=== PATIENT | female | born 1945 | race Caucasian/White ===

== ENCOUNTER 2020-02-14 08:03 | Outpatient (REF) | payer MEDICARE, SELFPAY ==
[2020-02-14 10:38] LABS: Anion Gap 14 (12-20); Blood Urea Nitrogen 20 mg/dL (9-16); Calcium 9.4 mg/dL (8.4-10.2); Carbon Dioxide 30 mmol/L (22-29); Chloride 101 mmol/L (96-108); Estimated Glomerular Filt Rate 36; Potassium 3.8 mmol/l (3.3-5.1); Sodium 141 mmol/L (135-145)
== END 2020-02-14 08:04 | disposition home or self-care (01) ==
LOC: HO.10HDL 08:03
PROVIDERS: Visit Provider Internal Medicine Hypertension Specialist
DX: I70.1 Atherosclerosis of renal artery (principal); I10 Essential (primary) hypertension
CPT/HCPCS: 80051; 82310; 82565; 84520

== ENCOUNTER 2020-06-03 10:34 | Outpatient (REF) | payer MEDICARE, SELFPAY ==
[2020-06-03 10:51] LABS: MANUAL DIFF FLAG NO
[2020-06-03 11:17] LABS: Basophils Absolute Auto 0.1 X10*3/uL (0.0-0.2); Basophils Percent Auto 0.8 % (0-2); Eosinophils Absolute Auto 0.5 X10*3/uL (0.0-0.4); Eosinophils Percent Auto 5.7 % (0-4); Hematocrit 42.2 % (37-47); Hemoglobin 13.5 g/dl (12.0-16.0); Imm Gran Abs Auto 0.02 X10*3/uL (0.00-0.03); Imm Gran Pct Auto 0.2 % (0.0-0.4); Lymphocytes Absolute Auto 2.7 X10*3/uL (1.2-4.9); Lymphocytes Percent Auto 33.1 % (20-40); Mean Corpuscular Hemoglobin 29.7 pg (27.0-33.0); Mean Platelet Volume 10.9 fL (9.4-12.3); Monocytes Absolute Auto 0.7 X10*3/uL (0.1-1.2); Neutrophils Absolute Auto 4.3 X10*3/uL (2.0-8.3); Neutrophils Percent Auto 52.2 % (45-73); Platelet Count 211 X10*3/uL (160-400); Red Blood Count 4.54 X10*6/uL (4.20-5.50); Red Cell Distribution Width 12.8 % (11.0-16.0); White Blood Count 8.3 X10*3/uL (4.8-10.8)
[2020-06-03 11:19] LABS: PLT ABN DIST A
[2020-06-03 12:39] LABS: Alanine Aminotransferase 12 U/L (0-31); Albumin Level 4.6 g/dL (3.5-5.0); Alkaline Phosphatase 86 U/L (39-117); Anion Gap 17 (12-20); Aspartate Amino Transferase 19 U/L (5-31); Bilirubin Total 0.7 mg/dL (0.0-1.0); Blood Urea Nitrogen 22 mg/dL (9-16); Calcium 9.5 mg/dL (8.4-10.2); Carbon Dioxide 26 mmol/L (22-29); Chloride 102 mmol/L (96-108); Cholesterol 196 mg/dL; Estimated Glomerular Filt Rate 35; Glucose Fasting 93 mg/dL (60-99); HDL Cholesterol 45 mg/dL; Iron 126 mcg/dL (30-160); LDL Cholesterol Calculated 112 mg/dl; Percent Iron Saturation 36 % (15-50); Sodium 141 mmol/L (135-145); Total Iron Binding Capacity 354 mcg/dL (228-428); Total Protein 7.6 g/dL (6.5-8.0); Triglycerides 198 mg/dL; Unsaturated Iron Binding 228 ug/dL
== END 2020-06-03 10:35 | disposition home or self-care (01) ==
LOC: HO.LNP 10:34
PROVIDERS: Visit Provider Internal Medicine
DX: Z00.00 Encounter for general adult medical examination without abnormal findings (principal); R79.89 Other specified abnormal findings of blood chemistry; I10 Essential (primary) hypertension; D50.9 Iron deficiency anemia, unspecified; E87.6 Hypokalemia
CPT/HCPCS: 80053; 80061; 83540; 85025

== ENCOUNTER 2020-06-10 15:00 | Outpatient (REF) | payer MEDICARE, SELFPAY ==
[2020-06-10 15:11] LABS: Glucose Urine UA NEG (NEG); Leukocyte Esterase Urine NEG (NEG); Nitrite Urine NEG (NEG); Specific Gravity - Urine 1.015 (1.005-1.025); Urine Blood NEG (NEG); Urine Ketones NEG (NEG); Urine Protein NEG (NEG-TRACE)
[2020-06-10 15:12] LABS: Appearance Urine CLEAR; Color Urine YELLOW
== END 2020-06-10 15:01 | disposition home or self-care (01) ==
LOC: HO.LNP 15:00
PROVIDERS: Visit Provider Internal Medicine
DX: Z00.00 Encounter for general adult medical examination without abnormal findings (principal); I10 Essential (primary) hypertension
CPT/HCPCS: 81003

== ENCOUNTER 2020-06-17 07:33 | Outpatient (REF) | payer MEDICARE, SELFPAY ==
[2020-06-17 10:41] LABS: Anion Gap 15 (12-20); Blood Urea Nitrogen 22 mg/dL (9-16); Calcium 9.7 mg/dL (8.4-10.2); Carbon Dioxide 31 mmol/L (22-29); Chloride 101 mmol/L (96-108); Estimated Glomerular Filt Rate 37; Potassium 3.9 mmol/L (3.3-5.1); Sodium 143 mmol/L (135-145)
== END 2020-06-17 07:34 | disposition home or self-care (01) ==
LOC: HO.10HDL 07:33
PROVIDERS: Absent Provider Internal Medicine; Visit Provider Internal Medicine Hypertension Specialist
DX: I10 Essential (primary) hypertension (principal); I70.1 Atherosclerosis of renal artery
CPT/HCPCS: 36415; 80051; 82310; 82565; 84520

== ENCOUNTER 2020-10-20 07:30 | Outpatient (REF) | payer MEDICARE, SELFPAY ==
[2020-10-20 10:49] LABS: Anion Gap 18 (12-20); Blood Urea Nitrogen 18 mg/dL (9-16); Carbon Dioxide 27 mmol/L (22-29); Chloride 102 mmol/L (96-108); Estimated Glomerular Filt Rate 36; Potassium 4.6 mmol/L (3.3-5.1); Sodium 142 mmol/L (135-145)
== END 2020-10-20 07:31 | disposition home or self-care (01) ==
LOC: HO.10HDL 07:30
PROVIDERS: PCP Internal Medicine; Visit Provider Internal Medicine Hypertension Specialist
DX: I15.0 Renovascular hypertension (principal); I70.1 Atherosclerosis of renal artery
CPT/HCPCS: 36415; 80051; 82310; 82565; 84520

== ENCOUNTER 2021-01-30 11:28 | Outpatient (REF) | payer MEDICARE, SELFPAY ==
[2021-01-30 12:15] LABS: Anion Gap 13 (12-20); Blood Urea Nitrogen 23 mg/dL (9-16); Calcium 9.6 mg/dL (8.4-10.2); Carbon Dioxide 30 mmol/L (22-29); Chloride 101 mmol/L (96-108); Estimated Glomerular Filt Rate 36; Potassium 4.2 mmol/L (3.3-5.1); Sodium 140 mmol/L (135-145)
== END 2021-01-30 11:29 | disposition home or self-care (01) ==
LOC: HO.LAB 11:28
PROVIDERS: PCP Internal Medicine; Referring Provider Internal Medicine; Visit Provider Internal Medicine Hypertension Specialist
DX: N18.32 Chronic kidney disease, stage 3b (principal); I70.1 Atherosclerosis of renal artery
CPT/HCPCS: 36415; 80051; 82310; 82565; 84520

== ENCOUNTER 2021-02-19 07:11 | Outpatient (REF) | payer MEDICARE, SELFPAY ==
--- NOTE | ~2021-02-19 | MM_ITS ---
EXAMINATION: BONE DENSITOMETRY CLINICAL INDICATION: Osteopenia. COMPARISON: Baseline BD dated 06/28/2018. TECHNIQUE: Using a 21GRAMS DXA System (software version: 13.1) manufactured by [employer] dual-energy x-ray absorptiometry was performed of the lumbar spine and left hip. The images are of good technical quality. Summary results are attached. FINDINGS: AP SPINE L1-L4: Current: BMD 1.155 g/cm2, Z-score 2.2, T-score -0.2, normal, 3.1% decrease from baseline (<5% change is not significant). Baseline: BMD 1.192 g/cm2. LEFT FEMUR, NECK: Current: BMD 0.694 g/cm2, Z-score -0.1, T-score -2.5, osteoporosis. Baseline: BMD 0.700 g/cm2. LEFT FEMUR, TOTAL: Current: BMD 0.842 g/cm2, Z-score 1.0, T-score -1.3, osteopenia, 4.9% decrease from baseline (<5% change is not significant). Baseline: BMD 0.885 g/cm2. IDENTIFIED RISK FACTORS: Renal, height loss, menopause, bilateral oophorectomy. HISTORY OF FRACTURE: None listed. MEDICATIONS: Vitamin D. MM/XR DEXA axial skeleton IMPRESSION: 1. DIAGNOSIS: Osteoporosis based on the lowest T-score value of -2.5 in the femoral neck applying World Health Organization criteria. 2. 10-YEAR FRACTURE RISK PREDICTION, FRAX: According to the guidelines, FRAX calculation should only be performed on patients in the osteopenia bone density category. 3. Treatment Recommendations: NOF guidelines recommend consideration for treatment in postmenopausal women and men age 50 and older presenting with the following: -A hip or vertebral (clinical or morphometric) fracture. -T-score less than or equal to -2.5 at the femoral neck or spine after appropriate evaluation to exclude secondary causes. -Low bone mass at the hip or spine and a 10-year fracture probability by FRAX of greater than or equal to 3% for hip fracture or greater than or equal to 20% for major osteoporotic fracture based on the [place] adapted WHO algorithm. 4. Other Recommendations: All treatment decisions require clinical judgment and consideration of individual patient factors, including patient preferences, comorbidities, previous drug use, risk factors not captured in the FRAX model (e.g. frailty, falls, vitamin D deficiency, increased bone turnover, interval significant decline in bone density) and possible under or overestimation of fracture risk by FRAX. Additional medical evaluation for secondary cause of low bone mineral density may be appropriate. FUTURE SCAN RECOMMENDATION: People with diagnosed cases of osteoporosis or at high risk for fracture should have regular bone mineral density tests. For patients eligible for Medicare, routine testing is allowed once every 2 years. The testing frequency can be increased to one year for patients who have rapidly progressing disease, those who are receiving or discontinuing medical therapy to restore bone mass, or have additional risk factors.
--- NOTE | ~2021-02-19 | MM_ITS ---
EXAMINATION: MM SCREENING DIGITAL BREAST TOMOSYNTHESIS, BILATERAL CLINICAL INFORMATION: Screening. Asymptomatic. The lifetime risk of breast cancer based on the Tyrer-Cuzick Model is 1.0%. COMPARISON: Mammography: Craniocaudal views only from study of 05/12/2010 TECHNIQUE: Digital breast tomosynthesis is performed in both the craniocaudal and mediolateral oblique views along with computer-aided detection (CAD). Synthesized 2D images are generated from the tomosynthesis. FINDINGS: There are scattered areas of fibroglandular density (ACR BI-RADS breast composition Category b). There is question of density about the inferior aspect of the right breast; however, on tomosynthesis views this is seen to represent normal parenchyma. On craniocaudal view only of the left breast deep medial aspect approximately 7 cm from the nipple, there is a region of asymmetric density with a few circumscribed densities associated with this for which spot compression view and possible ultrasound is recommended. No suspicious grouping of microcalcifications. MM/MM tomosynthesis screening BI IMPRESSION: Left breast asymmetric density deep medial aspect for further evaluation as described. ASSESSMENT: BI-RADS 0: Incomplete - Need Additional Imaging Evaluation RECOMMENDATION: 1. Additional views of the left breast with spot compression views in craniocaudal and craniocaudal rolled views. 2. Targeted ultrasound if warranted after review of the additional views. 3. Radiology department staff will contact the patient for additional imaging. This patient's information was entered into a reminder system with a target due date for their next mammogram.
== END 2021-02-19 07:12 | disposition home or self-care (01) ==
LOC: HO.MAMMO 07:11
PROVIDERS: Visit Provider Internal Medicine
DX: Z12.31 Encounter for screening mammogram for malignant neoplasm of breast (principal); Z13.820 Encounter for screening for osteoporosis; M81.0 Age-related osteoporosis without current pathological fracture; M85.80 Other specified disorders of bone density and structure, unspecified site; Z78.0 Asymptomatic menopausal state; Z90.722 Acquired absence of ovaries, bilateral; Z79.899 Other long term (current) drug therapy
CPT/HCPCS: 77063; 77067; 77080

== ENCOUNTER 2021-02-24 08:50 | Outpatient (REF) | payer MEDICARE, SELFPAY ==
--- NOTE | ~2021-02-24 | MM_ITS ---
EXAMINATION: MM DIAGNOSTIC DIGITAL BREAST TOMOSYNTHESIS, LEFT CLINICAL INFORMATION: Recall from screening for question of asymmetric density deep left breast limited to CC view. COMPARISON: Mammography: 02/19/2021, 05/12/2010 TECHNIQUE: Digital breast tomosynthesis is performed. 2D images are generated from the tomosynthesis. The following views are obtained: MLO, rolled CC x2, spot CC x2 FINDINGS: There are scattered areas of fibroglandular density (ACR BI-RADS breast composition Category b). Additional views show normal background stromal markings and fibroglandular densities. There is no mass or architectural abnormality or suspicious density from remote prior exam 2010. Results are discussed with the patient at time of visit. Recommend digital breast tomosynthesis in 12 months. MM/MM tomosynthesis added views L IMPRESSION: Additional views left breast show no suspicious finding. ASSESSMENT: BI-RADS 2: Benign RECOMMENDATION: Routine annual mammography screening. This patient's information was entered into a reminder system with a target due date for their next mammogram.
== END 2021-02-24 08:51 | disposition home or self-care (01) ==
LOC: HO.MAMMO 08:50
PROVIDERS: Visit Provider Internal Medicine
DX: N64.89 Other specified disorders of breast (principal)
CPT/HCPCS: 77061; 77065

== ENCOUNTER 2021-03-27 10:51 | Emergency (ER) | payer MEDICARE, SELFPAY ==
--- NOTE | ~2021-03-27 | CT_ITS ---
EXAMINATION: CT ABDOMEN AND PELVIS WITH CONTRAST CLINICAL INFORMATION: Lower abdominal pain COMPARISON: Previous CT of the abdomen and pelvis most recent August 2017 TECHNIQUE: Multidetector volumetric images were obtained from the superior aspect of the liver through the pubic symphysis following administration 85 mL of Omnipaque 350 intravenous contrast. Sagittal and coronal reformatted images were obtained on the technologist's workstation. Oral contrast: Yes This CT examination was performed using dose optimization techniques as appropriate, variously including the following: *Automated exposure control *Adjustment of mA and/or kV according to patient size (this includes techniques or standardized protocols for targeted exams where dose is matched to indication/reason for exam; i.e. extremities or head) *Use of iterative reconstruction technique DLP: 325 mGy-cm FINDINGS: LUNG BASES: The visualized lung bases are unremarkable. LIVER, GALLBLADDER, AND BILIARY TREE: The liver is normal in size, shape, and attenuation. No focal hepatic lesion or biliary ductal dilatation is present. The gallbladder has been removed. There is no intrahepatic biliary duct dilatation. Common bile duct is dilated measuring up to 1.5 cm. The 2015 exam and may be normal post stent. PANCREAS: Unremarkable. SPLEEN: Unremarkable. ADRENAL GLANDS: Unremarkable. KIDNEYS AND URETERS: The kidneys are normal in size, shape, and attenuation. No hydronephrosis, hydroureter, or calculi seen. No perinephric stranding. BLADDER: Not optimally distended. GASTROINTESTINAL TRACT: The colon is slightly dilated and filled with stool suggestive of constipation and fecal infection. There are surgical clips lower sigmoid colon or upper rectum and surgical clips in the cecum. The appendix is not seen and has presumably been removed. The small bowel is normal. The stomach is normal. ABDOMINAL WALL: No significant hernia is appreciated. LYMPH NODES: Normal. VASCULAR: There is evidence of atherosclerotic disease. No aneurysm is seen. PELVIC VISCERA: Unremarkable. OSSEOUS STRUCTURES: There are degenerative changes of the spine. CT/CT abdomen pelvis w con IMPRESSION: Dilated stool-filled colon suggestive of severe constipation and fecal impaction. Postcholecystectomy. Dilated common bile duct similar to 2015 exam. This may be normal cholecystectomy. Correlation with liver function tests recommended. Fleischner guidelines were followed.
[2021-03-27 10:58] VITALS: BP 189/68; PULSE 65; RESP 18; TEMP 36.9; O2SAT 100; BMI 20.8
[2021-03-27 11:29] LABS: MANUAL DIFF FLAG NO
[2021-03-27 11:32] LABS: Appearance Urine CLEAR; Color Urine STRAW; Glucose Urine UA NEG (NEG); Leukocyte Esterase Urine TRACE (NEG); Nitrite Urine NEG (NEG); PH 7.5 (5.0-8.0); UACC Culture Trigger YES; Urine Blood NEG (NEG); Urine Ketones NEG (NEG); Urine Protein NEG (NEG-TRACE)
[2021-03-27 11:43] LABS: Basophils Absolute Auto 0.1 X10*3/uL (0.0-0.2); Eosinophils Absolute Auto 0.4 X10*3/uL (0.0-0.4); Eosinophils Percent Auto 3.9 % (0-4); Hematocrit 39.5 % (37.0-47.0); Hemoglobin 13.1 g/dl (12.0-16.0); Imm Gran Abs Auto 0.02 X10*3/uL (0.00-0.03); Imm Gran Pct Auto 0.2 % (0.0-0.4); Lymphocytes Absolute Auto 2.6 X10*3/uL (1.2-4.9); Lymphocytes Percent Auto 28.4 % (20-40); Mean Corpuscular HGB Conc 33.2 g/dl (31.0-35.0); Mean Corpuscular Hemoglobin 30.3 pg (27.0-33.0); Mean Corpuscular Volume 91.2 fL (80.0-98.0); Monocytes Absolute Auto 0.6 X10*3/uL (0.1-1.2); Monocytes Percent Auto 6.9 % (2-11); Neutrophils Absolute Auto 5.4 x10*3/uL (2.0-8.3); Neutrophils Percent Auto 59.6 % (45-73); Platelet Count 202 X10*3/uL (160-400); Red Blood Count 4.33 X10*6/uL (4.20-5.50); Red Cell Distribution Width 12.4 % (11.0-16.0); White Blood Count 9.1 X10*3/uL (4.8-10.8)
[2021-03-27 11:45] LABS: RBC Urine 0-2 /HPF (0); WBC Urine 0-2 /HPF (0-4)
[2021-03-27 11:48] LABS: COVID-19 Test Negative (Negative)
[2021-03-27 11:49] LABS: Alanine Aminotransferase 9 U/L (0-31); Albumin Level 4.6 g/dL (3.5-5.0); Alkaline Phosphatase 81 U/L (39-117); Anion Gap 12 (12-20); Aspartate Amino Transferase 20 U/L (5-31); Bilirubin Direct 0.2 mg/dL (0.0-0.5); Bilirubin Total 0.4 mg/dL (0.0-1.0); Blood Urea Nitrogen 21 mg/dL (9-16); Calcium 9.9 mg/dL (8.4-10.2); Carbon Dioxide 32 mmol/L (22-29); Chloride 103 mmol/L (96-108); Creatinine Clr Calc Pharmacy 21.3; Estimated Glomerular Filt Rate 33; Glucose Random 109 mg/dL (60-115); Potassium 4.4 mmol/L (3.3-5.1); Sodium 143 mmol/L (135-145); Total Protein 7.8 g/dL (6.5-8.0)
[2021-03-27 13:47] LABS: Lipase 96 U/L (8-78)
[2021-03-27 15:02] VITALS: BP 177/66; PULSE 61; RESP 98; TEMP 36.7; O2SAT 98
[2021-03-27 16:00] VITALS: BP 169/62; PULSE 62; RESP 16; TEMP 36.9; O2SAT 95
[2021-03-27] MEDS: Barium Sulfate Oral (Mocha) 450 ML ORAL.SUSP 900 ML PO (16:22)
--- NOTE | 2021-03-27 18:05 | ED.ABDPAIN ---
HPI - Abdominal Pain General Chief Complaint: Abdominal Pain Stated Complaint: abd pain Time Seen by Provider: 03/27/21 12:12 Source: patient Mode of arrival: ambulatory Limitations: no limitations History of Present Illness HPI narrative: 75-year-old female who presents emergency department for evaluation of abdominal pain. Patient states she has been having abdominal pain since 02/16/2021. She states that the abdominal pain comes on daily at around 3:00 a.m. in the morning and last least until 630 in the morning. She points to her left lower quadrant and left upper quadrant area when asked to localize the pain. She describes the pain is a pressure-like pain with a cramping sensation. She states that the pain can be intense an 8/10 at its worst. She states the pain got worse over the last week. She states that this morning the pain started around noon and has been constant. She had no nausea, vomiting, fever, chills, frequency, urgency or dysuria. Patient states that she has a bowel movement every day and she uses prunes and cucumbers to help keep herself regular. Patient was concerned that her pain was constant therefore she came to the emergency department for evaluation. She did talk to her PCP prior to coming to the emergency department he recommended a CT scan with oral contrast only since he was concerned that IV contrast might hurt her kidneys. Related Data Allergies Allergy/AdvReac Type Severity Reaction Status Date / Time acetaminophen [Percocet] Allergy Unknown Unknown Verified 03/27/21 11:10 amoxicillin [AMOXICILLIN] Allergy Unknown NAUSEA Unverified 11/22/19 16:39 aspirin [ASA] Allergy Unknown FEELING OF Unverified 11/22/19 16:39 PEPPER ON TONGUE atorvastatin [ATORVASTATIN] Allergy Unknown FEELING OF Unverified 11/22/19 16:39 PEPPER ON TONGUE fluconazole [FLUCONAZOLE] Allergy Unknown FEELING OF Unverified 11/22/19 16:39 PEPPER ON TONGUE Iodinated Contrast Media Allergy Unknown Unknown Verified 03/27/21 11:10 [Contrast Dye] irbesartan [IRBESARTAN] Allergy Unknown SORE Unverified 11/22/19 16:39 TONGUE,GERD lisinopril [LISINOPRIL] Allergy Unknown COUGH Unverified 11/22/19 16:39 metronidazole [Flagyl] Allergy Unknown Unknown Verified 03/27/21 11:10 morphine [MORPHINE] Allergy Unknown HIVES Unverified 11/22/19 16:39 oxycodone [OXYCODONE] Allergy Unknown RASH Unverified 11/22/19 16:39 pepper (genus Capsicum) Allergy Unknown SENSITIVE Unverified 11/22/19 16:39 [PEPPER] TO [id number] Reductase Allergy Unknown TONGUE Unverified 11/22/19 16:39 Inhibitor SWELLING [[id number] REDUCTASE INHIBITOR] tetracycline Allergy Unknown Unknown Verified 03/27/21 11:10 lorazepam [From ATIVAN] AdvReac Unknown HALLUCINATI Unverified 11/22/19 16:39 ONS Tetracyclines [TETRACYCLINES] AdvReac Unknown SHAKES Unverified 11/22/19 16:39 ativan Allergy Unknown hallucinati Uncoded 05/09/17 00:00 ons flagyl Allergy Unknown rash Uncoded 05/09/17 00:00 From FLAGYL Allergy Unknown RASH Uncoded 11/22/19 16:39 oxycodone Allergy Unknown hives Uncoded 05/09/17 00:00 tetracycline Allergy Unknown shaky Uncoded 05/09/17 00:00 Review of Systems Review of Systems Yes all other systems are reviewed and are negative Physical Exam Vital Signs: Vital Signs: Last Vital Signs Temp 98.4 F 03/27/21 16:00 Pulse 62 03/27/21 16:00 Resp 16 03/27/21 16:00 BP 169/62 H 03/27/21 16:00 Pulse Ox 95 03/27/21 16:00 BMI result Body Mass Index 20.8 Const: General: cooperative and no acute distress Orientation/consciousness: oriented to person and oriented to place Limitations: no limitations HENMT: Head: Yes normal to inspection, Yes normocephalic and Yes atraumatic Ears: external ears normal General nose exam: Normal external nose present Face and sinus: Yes normal facial exam Mouth: Normal oral and palatal mucosa present Throat: Yes posterior oropharynx normal Eyes: General: appearance normal, both eyes and all related structures Pupils: Equal, round and reactive pupils present Neck: Neck: Yes normal visual inspection, Yes no lymphadenopathy, Yes trachea midline and Yes supple Chest: Chest palpation & inspection: normal inspection of the chest and normal palpation of entire chest wall Resp: Effort & Inspection: normal respiratory effort and able to speak in complete sentences Auscultation: clear to auscultation bilaterally Cardio: Rate: regular rate Rhythm: regular rhythm Heart sounds: S1 normal heart sound present, S2 normal heart sound present and no murmurs GI: Inspection: Yes normal to inspection Palpation (GI): Soft to palpation, Tenderness to palpation present (GI) in the LLQ (Mild) and in the RUQ (Mild) and no guarding Auscultation: normal bowel sounds : General: Yes no CVA tenderness Back/Spine/Pelvis: Back: no CVA tenderness Skin: General skin exam: no rashes or lesions noted Neuro: General: oriented to person and oriented to place Cranial nerves: Yes CN's II-XII intact bilaterally and Yes Equal, round and reactive pupils present Cognition (Neuro): normal cognition Motor exam (neuro): 5/5 motor strength present throughout Extrem: General: Yes normal to inspection Psych: Appearance: grossly normal Speech and movement: Normal speech and movement present Affect: normal affect Attitude: cooperative Thought process: Normal thought process present Thought content: Normal thought content present Course Course Course Narrative: 75-year-old female who presents emergency department for evaluation intermittent abdominal pain since 02/16/2021, the pain seems to start in the early childhood associate and last 3-4 hours and then resolves. The patient states the pain is been constant over the past week and has been more severe pain. She states that she is moving her bowels daily secondary to a regimen eating prunes and cucumbers. Initial vital signs revealed an elevated blood pressure of 180/68 otherwise were unremarkable. The patient's physical examination did reveal left upper and left lower quadrant tenderness. Laboratory evaluation was unremarkable. Urinalysis was negative. COVID-[address] scan of the abdomen pelvis with oral contrast only was interpreted by the radiologist as follows: Dilated stool-filled colon suggestive of severe constipation and fecalimpaction. Postcholecystectomy. Dilated common bile duct similar to 2015 exam. This may be normal cholecystectomy. Correlation with liver function tests recommended. Given this finding, I suspect patient's pain may be secondary to severe constipation I did discuss this with her. She was advised to take Metamucil twice a day and to increase her fluid intake. She is to follow-up with her PCP for further management. MDM - Abdominal Pain Lab Data Result diagrams: 03/27/21 11:21 03/27/21 11:21 Labs: Lab Results 01/21/22 01/21/22 01/21/22 Range/Units 11:20 11:20 11:21 WBC 9.1 (4.8-10.8) X10*3/uL RBC 4.33 (4.20-5.50) X10*6/uL Hgb 13.1 (12.0-16.0) g/dl Hct 39.5 (37.0-47.0) % MCV 91.2 (80.0-98.0) fL MCH 30.3 (27.0-33.0) pg MCHC 33.2 (31.0-35.0) g/dl RDW 12.4 (11.0-16.0) % Plt Count 202 (160-400) X10*3/uL MPV 10.0 (9.4-12.3) fL Immature Gran % (Auto) 0.2 (0.0-0.4) % Neut % (Auto) 59.6 (45-73) % Lymph % (Auto) 28.4 (20-40) % [place] % (Auto) 6.9 (2-11) % Eos % (Auto) 3.9 (0-4) % Baso % (Auto) 1.0 (0-2) % Lymph # (Auto) 2.6 (1.2-4.9) X10*3/uL [place] # (Auto) 0.6 (0.1-1.2) X10*3/uL Eos # (Auto) 0.4 (0.0-0.4) X10*3/uL Baso # (Auto) 0.1 (0.0-0.2) X10*3/uL Abs Immat Gran (auto) 0.02 (0.00-0.03) X10*3/uL Absolute Neuts (auto) 5.4 (2.0-8.3) x10*3/uL Absolute Nucleated RBC 0.000 (0.0-0.012) X10*3/uL Nucleated RBC % (auto) 0.0 (0.0-0.2) /100WBC Sodium (135-145) mmol/L Potassium (3.3-5.1) mmol/L Chloride (96-108) mmol/L Carbon Dioxide (22-29) mmol/L Anion Gap (12-20) BUN (9-16) mg/dL Creatinine (0.5-1.4) mg/dL Estim Creat Clear Calc Estimated GFR Random Glucose (60-115) mg/dL Calcium (8.4-10.2) mg/dL Total Bilirubin (0.0-1.0) mg/dL Direct Bilirubin (0.0-0.5) mg/dL AST (5-31) U/L ALT (0-31) U/L Alkaline Phosphatase (39-117) U/L Total Protein (6.5-8.0) g/dL Albumin (3.5-5.0) g/dL Lipase (8-78) U/L Urine Color STRAW Urine Appearance CLEAR Urine pH 7.5 (5.0-8.0) Ur Specific [place] 1.010 (1.005-1.025) Urine Protein NEG (NEG-TRACE) MG/DL Urine Glucose (UA) NEG (NEG) MG/DL Urine Ketones NEG (NEG) MG/DL Urine Blood NEG (NEG) Urine Nitrite NEG (NEG) Ur Leukocyte Esterase TRACE H (NEG) Urine RBC 0-2 (0) /HPF Urine WBC 0-2 (0-4) /HPF Ur Squamous Epith Cells NONE /LPF Urine Bacteria NONE /LPF COVID-19 ([facility]) Negative (Negative) COVID-19 Clin Com See Note 03/27/21 Range/Units 11:21 WBC (4.8-10.8) X10*3/uL RBC (4.20-5.50) X10*6/uL Hgb (12.0-16.0) g/dl Hct (37.0-47.0) % MCV (80.0-98.0) fL MCH (27.0-33.0) pg MCHC (31.0-35.0) g/dl RDW (11.0-16.0) % Plt Count (160-400) X10*3/uL MPV (9.4-12.3) fL Immature Gran % (Auto) (0.0-0.4) % Neut % (Auto) (45-73) % Lymph % (Auto) (20-40) % [place] % (Auto) (2-11) % Eos % (Auto) (0-4) % Baso % (Auto) (0-2) % Lymph # (Auto) (1.2-4.9) X10*3/uL [place] # (Auto) (0.1-1.2) X10*3/uL Eos # (Auto) (0.0-0.4) X10*3/uL Baso # (Auto) (0.0-0.2) X10*3/uL Abs Immat Gran (auto) (0.00-0.03) X10*3/uL Absolute Neuts (auto) (2.0-8.3) x10*3/uL Absolute Nucleated RBC (0.0-0.012) X10*3/uL Nucleated RBC % (auto) (0.0-0.2) /100WBC Sodium 143 (135-145) mmol/L Potassium 4.4 (3.3-5.1) mmol/L Chloride 103 (96-108) mmol/L Carbon Dioxide 32 H (22-29) mmol/L Anion Gap 12 (12-20) BUN 21 H (9-16) mg/dL Creatinine 1.51 H (0.5-1.4) mg/dL Estim Creat Clear Calc 21.3 Estimated GFR 33 Random Glucose 109 (60-115) mg/dL Calcium 9.9 (8.4-10.2) mg/dL Total Bilirubin 0.4 (0.0-1.0) mg/dL Direct Bilirubin 0.2 (0.0-0.5) mg/dL AST 20 (5-31) U/L ALT 9 (0-31) U/L Alkaline Phosphatase 81 (39-117) U/L Total Protein 7.8 (6.5-8.0) g/dL Albumin 4.6 (3.5-5.0) g/dL Lipase 96 H (8-78) U/L Urine Color Urine Appearance Urine pH (5.0-8.0) Ur Specific [place] (1.005-1.025) Urine Protein (NEG-TRACE) MG/DL Urine Glucose (UA) (NEG) MG/DL Urine Ketones (NEG) MG/DL Urine Blood (NEG) Urine Nitrite (NEG) Ur Leukocyte Esterase (NEG) Urine RBC (0) /HPF Urine WBC (0-4) /HPF Ur Squamous Epith Cells /LPF Urine Bacteria /LPF COVID-19 ([facility]) (Negative) COVID-19 Clin Com Discharge Plan Discharge Clinical Impression: Constipation Qualifiers: Constipation type: other constipation type Qualified Code(s): K59.09 - Other constipation Abdominal pain Qualifiers: Abdominal location: left lower quadrant Qualified Code(s): R10.32 - Left lower quadrant pain Patient Disposition: Home, Self-Care Instructions: Constipation (ED) Additional Instructions: Your blood work was unremarkable. Your COVID-[address] test was [address] The CT scan of your abdomen pelvis with oral contrast only did not reveal a clear cause for your abdominal pain except that you are very constipated. Take Metamucil 1 tsp in 8 oz of water twice a day. Increase your fiber intake. Follow-up with your doctor in 2 days. Please return to the emergency department if your symptoms get worse or if you develop any symptoms that are concerning to you. [facility] Past Medical History [facility] Narrative: Past will history: Colon cancer, cerebral aneurysm, renal stenosis, hypertension. Past surgical history: Cholecystectomy, renal stent, bilateral oophorectomy, colon cancer resection. Social history: The patient is a former smoker and she quit 30 years prior, she states she smoked for 30 years. She drinks alcohol occasionally. She denies drug use. Medical History Afib HTN (hypertension) Joint pain Social History Social History Patient Tobacco Use Status: Never used Tobacco Advance Directives: No Advance Directives Information Provided: No
== END 2021-03-27 19:17 | disposition home or self-care (01) ==
PROVIDERS: Emergency Provider Emergency Medicine Emergency Medical Services; PCP Internal Medicine
DX: K59.09 Other constipation (principal); R10.32 Left lower quadrant pain; Z20.822 Contact with and (suspected) exposure to COVID-19; I48.91 Unspecified atrial fibrillation; I10 Essential (primary) hypertension
CPT/HCPCS: 74177; 80053; 81001; 82248; 83690; 85025; 87086; 87635; 99284

== ENCOUNTER 2021-05-06 09:38 | Day surgery (SDC) | payer MEDICARE, SELFPAY ==
--- NOTE | 2021-05-05 13:00 | HO.ANESPROP2 ---
Documented by User: Dorothy Alonzo NP 05/05/21 13:05 HPI - Anesthesia Eval Consult details Narrative: 75yo F for Colonoscopy Plavix for afib? *Multiple Med Allergies* PMFSH Past Medical History Medical History Afib HTN (hypertension) Joint pain Social History Social History Patient Tobacco Use Status: Former Tobacco user Tobacco use type: Cigarette Smoked in Last 30 Days: No Use of substances other than those prescribed or required for medical reasons: No Are you DNR?: No Advance Directives: No Advance Directives Information Provided: Yes Recently lost weight without trying: No Nutrition Risks: No Nutritional Risk Meds Allergies Allergy/AdvReac Type Severity Reaction Status Date / Time acetaminophen [Percocet] Allergy Unknown Unknown Verified 03/27/21 11:10 amoxicillin [AMOXICILLIN] Allergy Unknown NAUSEA Verified 05/06/21 10:35 aspirin [ASA] Allergy Unknown FEELING OF Verified 05/06/21 10:35 PEPPER ON TONGUE atorvastatin [ATORVASTATIN] Allergy Unknown FEELING OF Verified 05/06/21 10:35 PEPPER ON TONGUE fluconazole [FLUCONAZOLE] Allergy Unknown FEELING OF Verified 05/06/21 10:35 PEPPER ON TONGUE Iodinated Contrast Media Allergy Unknown Unknown Verified 03/27/21 11:10 [Contrast Dye] irbesartan [IRBESARTAN] Allergy Unknown SORE Verified 05/06/21 10:35 TONGUE,GERD lisinopril [LISINOPRIL] Allergy Unknown COUGH Verified 05/06/21 10:35 metronidazole [Flagyl] Allergy Unknown Rash Verified 05/05/21 12:35 morphine [MORPHINE] Allergy Unknown HIVES Verified 05/06/21 10:35 oxycodone [OXYCODONE] Allergy Unknown RASH Verified 05/06/21 10:35 pepper (genus Capsicum) Allergy Unknown SENSITIVE Verified 05/06/21 10:35 [PEPPER] TO [id number] Reductase Allergy Unknown TONGUE Verified 05/06/21 10:35 Inhibitor SWELLING [[id number] REDUCTASE INHIBITOR] lorazepam [From ATIVAN] AdvReac Unknown HALLUCINATI Verified 05/06/21 10:35 ONS Tetracyclines [TETRACYCLINES] AdvReac Unknown SHAKES Verified 05/06/21 10:35 Home Medications Medication Instructions Recorded Confirmed Last Taken Type atenolol 25 mg tablet 1 tab PO DAILY 05/05/21 05/05/21 05/06/21 History clopidogrel 75 mg tablet 1 tab PO DAILY 05/05/21 05/05/21 Unknown History dicyclomine 10 mg capsule 1 - 2 cap PO Q6H PRN 05/05/21 05/05/21 Unknown History diltiazem HCl 240 mg 1 cap PO QAM 05/05/21 05/05/21 05/06/21 History capsule,extended release 24 hr, controlled (DILT-XR) metoprolol succinate 25 mg 1 tab PO DAILY 05/05/21 05/05/21 Unknown History tablet,extended release 24 hr Exam Exam Date and Time: May 05, 2021 1300 Pertinent Lab Results Pertinent Lab Results: Laboratory Tests 03/27/21 03/27/21 11:21 11:21 WBC 9.1 Hgb 13.1 Hct 39.5 Plt Count 202 Sodium 143 Potassium 4.4 Chloride 103 Carbon Dioxide 32 H BUN 21 H Creatinine 1.51 H Assessment and Plan Assessment Anesthesia Assessment: Chart Reviewed Documented by User: Rand Hamilton MD 05/06/21 10:40 PMFSH Past Medical History Medical History Afib HTN (hypertension) Joint pain Family History Family history of problems with anesthesia: No Surgical History History of Problems with Anesthesia: No Social History Social History Patient Tobacco Use Status: Former Tobacco user Tobacco use type: Cigarette Smoked in Last 30 Days: No Use of substances other than those prescribed or required for medical reasons: No Are you DNR?: No Advance Directives: No Advance Directives Information Provided: Yes Recently lost weight without trying: No Nutrition Risks: No Nutritional Risk Meds Allergies Allergy/AdvReac Type Severity Reaction Status Date / Time acetaminophen [Percocet] Allergy Unknown Unknown Verified 03/27/21 11:10 amoxicillin [AMOXICILLIN] Allergy Unknown NAUSEA Verified 05/06/21 10:35 aspirin [ASA] Allergy Unknown FEELING OF Verified 05/06/21 10:35 PEPPER ON TONGUE atorvastatin [ATORVASTATIN] Allergy Unknown FEELING OF Verified 05/06/21 10:35 PEPPER ON TONGUE fluconazole [FLUCONAZOLE] Allergy Unknown FEELING OF Verified 05/06/21 10:35 PEPPER ON TONGUE Iodinated Contrast Media Allergy Unknown Unknown Verified 03/27/21 11:10 [Contrast Dye] irbesartan [IRBESARTAN] Allergy Unknown SORE Verified 05/06/21 10:35 TONGUE,GERD lisinopril [LISINOPRIL] Allergy Unknown COUGH Verified 05/06/21 10:35 metronidazole [Flagyl] Allergy Unknown Rash Verified 05/05/21 12:35 morphine [MORPHINE] Allergy Unknown HIVES Verified 05/06/21 10:35 oxycodone [OXYCODONE] Allergy Unknown RASH Verified 05/06/21 10:35 pepper (genus Capsicum) Allergy Unknown SENSITIVE Verified 05/06/21 10:35 [PEPPER] TO [id number]-SUT-MjW Reductase Allergy Unknown TONGUE Verified 05/06/21 10:35 Inhibitor SWELLING [[id number] REDUCTASE INHIBITOR] lorazepam [From ATIVAN] AdvReac Unknown HALLUCINATI Verified 05/06/21 10:35 ONS Tetracyclines [TETRACYCLINES] AdvReac Unknown SHAKES Verified 05/06/21 10:35 Home Medications Medication Instructions Recorded Confirmed Last Taken Type atenolol 25 mg tablet 1 tab PO DAILY 05/05/21 05/05/21 05/06/21 History clopidogrel 75 mg tablet 1 tab PO DAILY 05/05/21 05/05/21 Unknown History dicyclomine 10 mg capsule 1 - 2 cap PO Q6H PRN 05/05/21 05/05/21 Unknown History diltiazem HCl 240 mg 1 cap PO QAM 05/05/21 05/05/21 05/06/21 History capsule,extended release 24 hr, controlled (DILT-XR) metoprolol succinate 25 mg 1 tab PO DAILY 05/05/21 05/05/21 Unknown History tablet,extended release 24 hr Exam Airway Mallampati Class: II TM Dist: >3cm Neck ROM: Full Denture: Upper and Lower Assessment and Plan Assessment Anesthesia Assessment: Anesthesia Plan Discussed Final Anesthetic Review Family History of Problems with Anesthesia: No History of Problems with Anesthesia: No NPO: Yes ASA Class: III Final Preanesthetic Review: No Changes in Pt Med Stat, Meds/Allgs Chart Reviewed, Consent Obtained/Reviewed and Anes Risks/Benef Reviewed Patient Risk: Intermediate Procedure Risk: Low Anesthetic Plan Anesthetic Plan: MAC: Disposition: Standard PACU
[2021-05-06 10:11] VITALS: BMI 20.2
[2021-05-06 12:03] VITALS: BP 104/44; PULSE 62; RESP 18; TEMP 37.1; O2SAT 99
--- NOTE | 2021-05-06 12:08 | P.BOP_ITS ---
Brief Operative Note Date of Service: 05/06/21 Pre-op diagnosis: Screening Post-op diagnosis: other (Same, Internal hemorrhoids, Normal Ileocolic anastomosis) Procedure: Colonoscopy to the anastomosis and small bowel Surgeon: Saul Fuller Anesthesia: MAC Was an Information Management Specialist used for this Procedure?: No Estimated blood loss (mL): 0 Pathology: none sent Condition: stable Disposition: PACU
[2021-05-06 12:18] VITALS: BP 139/59; PULSE 67; RESP 18; O2SAT 99
[2021-05-06 12:33] VITALS: BP 150/78; PULSE 64; RESP 18; TEMP 37.1; O2SAT 98
--- NOTE | 2021-05-06 12:55 | P.CONAN_ITS ---
[facility] Past Medical History Medical History Afib HTN (hypertension) Joint pain Family History Family history of problems with anesthesia: No Surgical History History of Problems with Anesthesia: No Social History Social History Patient Tobacco Use Status: Former Tobacco user Tobacco use type: Cigarette Smoked in Last 30 Days: No Use of substances other than those prescribed or required for medical reasons: No Are you DNR?: No Advance Directives: No Advance Directives Information Provided: Yes Recently lost weight without trying: No Nutrition Risks: No Nutritional Risk Meds Allergies Allergy/AdvReac Type Severity Reaction Status Date / Time acetaminophen [Percocet] Allergy Unknown Unknown Verified 03/27/21 11:10 amoxicillin [AMOXICILLIN] Allergy Unknown NAUSEA Verified 05/06/21 10:35 aspirin [ASA] Allergy Unknown FEELING OF Verified 05/06/21 10:35 PEPPER ON TONGUE atorvastatin [ATORVASTATIN] Allergy Unknown FEELING OF Verified 05/06/21 10:35 PEPPER ON TONGUE fluconazole [FLUCONAZOLE] Allergy Unknown FEELING OF Verified 05/06/21 10:35 PEPPER ON TONGUE Iodinated Contrast Media Allergy Unknown Unknown Verified 03/27/21 11:10 [Contrast Dye] irbesartan [IRBESARTAN] Allergy Unknown SORE Verified 05/06/21 10:35 TONGUE,GERD lisinopril [LISINOPRIL] Allergy Unknown COUGH Verified 05/06/21 10:35 metronidazole [Flagyl] Allergy Unknown Rash Verified 05/05/21 12:35 morphine [MORPHINE] Allergy Unknown HIVES Verified 05/06/21 10:35 oxycodone [OXYCODONE] Allergy Unknown RASH Verified 05/06/21 10:35 pepper (genus Capsicum) Allergy Unknown SENSITIVE Verified 05/06/21 10:35 [PEPPER] TO Nclawwo-EDV-XuX Reductase Allergy Unknown TONGUE Verified 05/06/21 10:35 Inhibitor SWELLING [[id number] REDUCTASE INHIBITOR] lorazepam [From ATIVAN] AdvReac Unknown HALLUCINATI Verified 05/06/21 10:35 ONS Tetracyclines [TETRACYCLINES] AdvReac Unknown SHAKES Verified 05/06/21 10:35 Active Medications: Current Medications Lactated Ringer's (Lr) 1,000 mls @ 100 mls/hr IVCONT .Q10H RIKA Sodium Biphosphate/Sodium Phosphate (Sodium Phosphate,[place]-Dibasic 133 Ml Enema) 133 ml PA ONCE PRN PRN Reason: Poor Colonoscopy Prep Results Home Medications Medication Instructions Recorded Confirmed Last Taken Type atenolol 25 mg tablet 1 tab PO DAILY 05/05/21 05/05/21 05/06/21 History clopidogrel 75 mg tablet 1 tab PO DAILY 05/05/21 05/05/21 Unknown History dicyclomine 10 mg capsule 1 - 2 cap PO Q6H PRN 05/05/21 05/05/21 Unknown History diltiazem HCl 240 mg 1 cap PO QAM 05/05/21 05/05/21 05/06/21 History capsule,extended release 24 hr, controlled (DILT-XR) metoprolol succinate 25 mg 1 tab PO DAILY 05/05/21 05/05/21 Unknown History tablet,extended release 24 hr Exam Exam Date and Time: May 06, 2021 1255 Height,Weight and Vital Signs: Height 4 ft 11 in Weight 45.359 kg Last Vital Signs Temp 98.8 F 05/06/21 12:33 Pulse 64 05/06/21 12:33 Resp 18 05/06/21 12:33 BP 150/78 H 05/06/21 12:33 Pulse Ox 98 05/06/21 12:33 Airway Mallampati Class: II TM Dist: >3cm Neck ROM: Full Assessment and Plan Assessment Anesthesia Assessment: Anesthesia Plan Discussed Final Anesthetic Review Family History of Problems with Anesthesia: No History of Problems with Anesthesia: No NPO: Yes ASA Class: II Final Preanesthetic Review: No Changes in Pt Med Stat, Meds/Allgs Chart Reviewed, Consent Obtained/Reviewed and Anes Risks/Benef Reviewed Patient Risk: Intermediate Procedure Risk: Low Anesthetic Plan Anesthetic Plan: MAC: Disposition: Standard PACU
--- NOTE | 2021-05-06 13:28 | OP_ITS ---
SURGEON: Saul Fuller MD INDICATIONS: The patient presents for followup of personal history of colon cancer and tubular adenoma of the colon and need for colorectal cancer screening. Full consent was obtained from her for this, including risks of bleeding and perforation. PREOPERATIVE DIAGNOSIS: POSTOPERATIVE DIAGNOSIS: PROCEDURE PERFORMED: Colonoscopy to the anastomosis and small bowel. ESTIMATED BLOOD LOSS: COMPLICATIONS: ANESTHESIA: Monitored anesthesia care. ASSISTANTS: SPECIMENS: PREOPERATIVE DIAGNOSES: Personal history of colon cancer, personal history of tubular adenoma of the colon, and colorectal cancer screening. POSTOPERATIVE DIAGNOSES: Personal history of colon cancer, personal history of tubular adenoma of the colon, and colorectal cancer screening, normal anastomosis, internal hemorrhoids. DESCRIPTION OF PROCEDURE: The patient was placed in the left lateral decubitus position. The digital rectal exam revealed no abnormalities. The Olympus video pediatric colonoscope was entered into the rectum and advanced easily to the level of the anastomosis and then the small bowel was cannulated. The small bowel mucosa appeared normal. The entire anastomosis was well visualized and appeared normal without any sign of inflammation, stenosis, nor mass. The small bowel and colon mucosa in this area all appeared normal. The scope was slowly withdrawn assessing all mucosal surfaces carefully. Preparation was excellent. I did not visualize any sign of polyps, colitis, nor angiodysplasia. In the rectum, the scope could not retroflex, which I suspect was in relation to her previous rectocele surgeries and some scarring. However, I was able to visualize the entire rectum very well and this appeared normal. The very distal most portion of the rectum did have some scarring. The scope was withdrawn from the patient. She tolerated the procedure well and was returned to recovery area in stable condition. IMPRESSION: 1. Normal anastomosis. 2. Some scarring in distal most portion of rectum in relation to previous surgeries. PLAN: I would recommend a repeat colonoscopy in 3 years for further screening. I have advised to continue to use MiraLAX at least once or twice a day to keep her bowel movements somewhat more regular and avoid constipation, which is a chronic problem for her. I do suspect the intermittent pain she gets is from the constipation and I think if we can keep her bowel movements more regular this would hopefully help decrease the episodes of discomfort. The CAT scan that she had in March did describe a dilated colon with some constipation, but without bowel obstruction. If things are stable, she will see me on a p.r.n. basis. Of note, she was given a prescription for dicyclomine, but reports that actually caused some heartburn and therefore she stopped using it. She was advised to resume her clopidogrel today. This has been discussed with her . MD RAGHU Lundberg/LAVONNE / [id number] MTDD
== END 2021-05-06 13:18 | disposition home or self-care (01) ==
PROVIDERS: PCP Internal Medicine; Visit Provider Internal Medicine
PROC: 0DJD8ZZ Inspection of Lower Intestinal Tract, Via Natural or Artificial Opening Endoscopic (ICD-10-PCS; CPT 45378; principal; 2021-05-06 10:50)
DX: Z12.11 Encounter for screening for malignant neoplasm of colon (principal); Z85.038 Personal history of other malignant neoplasm of large intestine; Z86.010 Personal history of colon polyps; Z98.0 Intestinal bypass and anastomosis status; R10.84 Generalized abdominal pain; K59.00 Constipation, unspecified; K64.8 Other hemorrhoids; Z98.890 Other specified postprocedural states; I48.91 Unspecified atrial fibrillation; I10 Essential (primary) hypertension; Z79.899 Other long term (current) drug therapy; Z90.49 Acquired absence of other specified parts of digestive tract
CPT/HCPCS: G0105

== ENCOUNTER 2021-06-01 07:44 | Outpatient (REF) | payer MEDICARE, SELFPAY ==
[2021-06-01 11:06] LABS: Anion Gap 11 (12-20); Blood Urea Nitrogen 22 mg/dL (9-16); Calcium 9.9 mg/dL (8.4-10.2); Carbon Dioxide 30 mmol/L (22-29); Chloride 104 mmol/L (96-108); Estimated Glomerular Filt Rate 38; Potassium 4.1 mmol/L (3.3-5.1); Sodium 141 mmol/L (135-145)
== END 2021-06-01 07:45 | disposition home or self-care (01) ==
LOC: HO.10HDL 07:44
PROVIDERS: PCP Internal Medicine; Visit Provider Internal Medicine Hypertension Specialist
DX: I70.1 Atherosclerosis of renal artery (principal)
CPT/HCPCS: 36415; 80051; 82310; 82565; 84520

== ENCOUNTER 2021-06-05 11:51 | Outpatient (REF) | payer MEDICARE, SELFPAY ==
--- NOTE | ~2021-06-05 | CT_ITS ---
CT LUMBAR SPINE WITHOUT CONTRAST CLINICAL INFORMATION: Left lower quadrant pain. Spinal stenosis. COMPARISON: None available. TECHNIQUE: Multidetector CT acquisition of the lumbar spine obtained without contrast. This CT examination was performed using dose optimization techniques as appropriate, variously including the following: *Automated exposure control *Adjustment of mA and/or kV according to patient size (this includes techniques or standardized protocols for targeted exams where dose is matched to indication/reason for exam; i.e. extremities or head) *Use of iterative reconstruction technique FINDINGS: There is transitional anatomy. For the purposes of this report there is a hypoplastic rib on the left side and no rib on the right side at the lowermost thoracic type level. 5 nonrib-bearing lumbar-type vertebral bodies. Using this counting system there is grade 1 degenerative anterolisthesis of L4 on L5. There is severe disc volume loss at L5-S1. Vacuum phenomenon at all lumbar levels the exception of L4-L5. There are no acute fractures and there are no acute subluxations. Multilevel endplate osteophytes. Vacuum phenomenon within the SI joints bilaterally. Imaged lung bases are clear. Gallbladder surgically absent. Extrarenal pelvises bilaterally. L1-L2: Diffuse annular disc bulge that is in part disc osteophyte. No appreciable central canal stenosis. There is mild foraminal encroachment bilaterally. L2-L3: There is a diffuse disc osteophyte complex and there is bilateral facet arthropathy and ligamentum flavum thickening. No significant central canal stenosis. Left lateral disc osteophyte protrusion results in moderate left foraminal stenosis and possible mass effect on the exiting left L2 nerve root. L3-L4: There is a diffuse annular disc bulges in part disc osteophyte and there is bilateral facet arthropathy and ligamentum flavum thickening. No appreciable central canal stenosis. Right lateral disc osteophyte results in moderate right-sided foraminal stenosis and possible mass effect on the exiting right L3 nerve root. L4-L5: There is grade 1 degenerative anterolisthesis. Severe bilateral facet arthropathy and ligamentum flavum thickening. Findings in concert result in suspected mild to moderate central canal stenosis, bilateral subarticular zone stenosis with possible mass effect on the traversing L5 nerve roots bilaterally, and mild bilateral foraminal encroachment. L5-S1: Diffuse disc osteophyte complex and bilateral hypertrophic facet arthropathy. No appreciable central canal stenosis. Disc osteophyte results in moderate left and mild right foraminal stenosis with mass effect on the foraminal segment of the exiting left L5 nerve root. Disc osteophyte also likely results in mass effect on the extraforaminal L5 nerve roots bilaterally. CT/CT lumbar spine wo con IMPRESSION: - At L4-L5, grade 1 degenerative anterolisthesis and advanced multifactorial degenerative changes result in suspected mild to moderate central canal stenosis, bilateral subarticular zone stenosis with possible mass effect on the traversing L5 nerve roots bilaterally, and mild bilateral foraminal encroachment. - At L5-S1, disc osteophyte results in moderate left and mild right foraminal stenosis with mass effect on the foraminal segment of the exiting left L5 nerve root. Disc osteophyte also likely results in mass effect on the extraforaminal L5 nerve roots bilaterally. - At L3-L4, right lateral disc osteophyte results in moderate right-sided foraminal stenosis and possible mass effect on the exiting right L3 nerve root. - At L2-L3, left lateral disc osteophyte protrusion results in moderate left foraminal stenosis and possible mass effect on the exiting left L2 nerve root.
--- NOTE | ~2021-06-05 | CT_ITS ---
EXAMINATION: CT ABDOMEN AND PELVIS WITHOUT CONTRAST CLINICAL INFORMATION: Left lower quadrant pain. Spinal stenosis. COMPARISON: 03/27/2021 TECHNIQUE: Multidetector volumetric imaging was performed from the superior aspect of the liver through the pubic symphysis. Sagittal and coronal reformatted images were obtained on the technologist's workstation. This CT examination was performed using dose optimization techniques as appropriate, variously including the following: *Automated exposure control *Adjustment of mA and/or kV according to patient size (this includes techniques or standardized protocols for targeted exams where dose is matched to indication/reason for exam; i.e. extremities or head) *Use of iterative reconstruction technique DLP: 519 mGy-cm, in conjunction with lumbar spine CT . FINDINGS: LUNG BASES: The visualized lung bases are unremarkable. LIVER, GALLBLADDER, AND BILIARY TREE: The liver is normal in size, shape, and attenuation. No focal hepatic lesion or intrahepatic biliary ductal dilatation is present. Cholecystectomy. Dilated common bile duct is unchanged. No ductal filling defect. PANCREAS: Unremarkable. SPLEEN: Unremarkable. ADRENAL GLANDS: Unremarkable. KIDNEYS AND URETERS: The kidneys are normal in size, shape, and attenuation. No hydronephrosis, hydroureter, or calculi seen. No perinephric stranding. BLADDER: Unremarkable. GASTROINTESTINAL TRACT: Oral contrast utilized. The stomach is unremarkable. Normal caliber small bowel. No obstruction. Contrast extends into the colon. No colonic wall thickening or acute inflammation. Distal colonic anastomosis noted. Moderate colonic stool burden. ABDOMINAL WALL: No significant hernia is appreciated. LYMPH NODES: Normal. VASCULAR: Mild atherosclerotic calcifications. Normal caliber of the abdominal aorta. PELVIC VISCERA: No pelvic mass. OSSEOUS STRUCTURES: No acute or suspicious osseous abnormality. Advanced degenerative changes throughout the spine. Moderate degenerative changes of the hips. CT/CT abdomen pelvis wo con IMPRESSION: Moderate colonic stool burden. No acute inflammatory changes. Advanced degenerative changes of the spine which will be addressed on the dedicated lumbar spine CT . Fleischner guidelines were followed.
[2021-06-05] MEDS: Barium Sulfate Oral (Mocha) 450 ML ORAL.SUSP 900 ML PO (14:25)
== END 2021-06-05 11:52 | disposition home or self-care (01) ==
LOC: HO.CT 11:51
PROVIDERS: PCP Internal Medicine; Visit Provider Internal Medicine
DX: R10.32 Left lower quadrant pain (principal)
CPT/HCPCS: 72131; 74176

== ENCOUNTER 2021-06-09 11:17 | Outpatient (REF) | payer MEDICARE, SELFPAY ==
[2021-06-09 11:21] LABS: MANUAL DIFF FLAG NO
[2021-06-09 12:31] LABS: Basophils Absolute Auto 0.1 X10*3/uL (0.0-0.2); Basophils Percent Auto 0.6 % (0-2); Eosinophils Absolute Auto 0.5 X10*3/uL (0.0-0.4); Eosinophils Percent Auto 4.8 % (0-4); Hematocrit 42.5 % (37.0-47.0); Hemoglobin 13.6 g/dl (12.0-16.0); Imm Gran Abs Auto 0.03 X10*3/uL (0.00-0.03); Imm Gran Pct Auto 0.3 % (0.0-0.4); Lymphocytes Percent Auto 19.3 % (20-40); Mean Corpuscular Hemoglobin 30.1 pg (27.0-33.0); Mean Platelet Volume 10.4 fL (9.4-12.3); Monocytes Absolute Auto 0.9 X10*3/uL (0.1-1.2); Neutrophils Absolute Auto 6.8 x10*3/uL (2.0-8.3); Platelet Count 205 X10*3/uL (160-400); Red Blood Count 4.52 X10*6/uL (4.20-5.50); Red Cell Distribution Width 13.1 % (11.0-16.0); White Blood Count 10.2 X10*3/uL (4.8-10.8)
[2021-06-09 12:34] LABS: Appearance Urine CLEAR; Color Urine YELLOW; Glucose Urine UA NEG (NEG); Leukocyte Esterase Urine 1+ (NEG); Nitrite Urine NEG (NEG); Urine Blood NEG (NEG); Urine Ketones NEG (NEG); Urine Protein NEG (NEG-TRACE)
[2021-06-09 12:52] LABS: Bacteria Urine TRACE /LPF; RBC Urine 0 /HPF (0); Squamous Epithelial Cell Urine 1+ /LPF
[2021-06-09 12:53] LABS: Renal Epithelial Cells Urine 1+ /LPF
[2021-06-09 13:12] LABS: Alanine Aminotransferase 10 U/L (0-31); Albumin Level 4.5 g/dL (3.5-5.0); Alkaline Phosphatase 68 U/L (39-117); Anion Gap 13 (12-20); Aspartate Amino Transferase 19 U/L (5-31); Bilirubin Total 0.7 mg/dL (0.0-1.0); Blood Urea Nitrogen 22 mg/dL (9-16); Carbon Dioxide 29 mmol/L (22-29); Chloride 104 mmol/L (96-108); Cholesterol 213 mg/dL; Estimated Glomerular Filt Rate 38; Glucose Fasting 90 mg/dL (60-99); HDL Cholesterol 44 mg/dL; Iron 120 mcg/dL (30-160); LDL Cholesterol Calculated 135 mg/dl; Percent Iron Saturation 35 % (15-50); Potassium 4.4 mmol/L (3.3-5.1); Sodium 142 mmol/L (135-145); Total Iron Binding Capacity 342 mcg/dL (228-428); Total Protein 7.6 g/dL (6.5-8.0); Triglycerides 170 mg/dL; Unsaturated Iron Binding 222 ug/dL
== END 2021-06-09 11:18 | disposition home or self-care (01) ==
LOC: HO.LNP 11:17
PROVIDERS: PCP Internal Medicine; Visit Provider Internal Medicine
DX: Z00.00 Encounter for general adult medical examination without abnormal findings (principal); I10 Essential (primary) hypertension; D50.9 Iron deficiency anemia, unspecified
CPT/HCPCS: 80053; 80061; 81001; 81003; 83540; 85025

== ENCOUNTER → 2021-06-17 10:53 | Outpatient (BNVA) | payer MEDICARE, SELFPAY | PROVIDERS: PCP Internal Medicine; Referring Provider Internal Medicine; Visit Provider Internal Medicine Cardiovascular Disease | DX: I20.8 Other forms of angina pectoris (principal) | CPT/HCPCS: 93005; 99202 ==

== ENCOUNTER → 2021-06-30 09:35 | Outpatient (REF) | payer MEDICARE, SELFPAY ==
--- NOTE | ~2021-06-30 | NM_ITS ---
Myocardial perfusion study Indication: Chest pain to evaluate for myocardial ischemia Technique: The patient was brought in for a Lexiscan perfusion study on 06/30/2021. Patient performed low-level exercise and was injected 0.4 mg of Lexiscan intravenously. Within a minute of injection, 25 mCi of sestamibi was given intravenously. Images were obtained using the SPECT gamma camera interlaced with the gating device. Images were obtained in supine position. Resting perfusion study was performed on 07/01/2021. Patient was administered 25 mCi of sestamibi intravenously at rest. Images were then obtained in supine position. Images obtained with and without CT attenuation. Total DLP 73 mGy-cm. Images were processed with the software and compared side to side in short axis, horizontal long axis and vertical long axis views. Findings: The stress perfusion study showed non attenuated images minimally thinning of the distal anterior wall of the LV myocardium. Remainder of the LV myocardium shows normal uptake. Attenuation corrected images show minimally reduced uptake in the apex of the LV myocardium.. The gated study shows normal LV systolic function with calculated LVEF of 62%. LV cavity is normal in size. The gated study shows normal systolic wall thickening and contraction of segments. Resting study shows no significant change in perfusion pattern. Gating at rest reveals normal systolic wall motion with visually estimated ejection fraction at greater than 60%. The findings are consistent with normal myocardial perfusion. NM/NM cardiolite stress test Impression: 1. Myocardial perfusion imaging study shows normal myocardial perfusion 2. Gated LVEF is 62% 3. Transient ischemic dilatation not present EKG nondiagnostic for ischemia
--- NOTE | 2021-06-30 09:39 | CA_ITS ---
Acquisition Time: 2021-06-30 09:37:57 Total Exercise Time: 00:01:22 Test Indications: CP, AFIB Medications: SEE CHART Protocol: ANASTASIYA Max HR: 085 BPM 59% of Pred: 143 BPM Max BP: 172/072 mmHG Max Work Load: 3.4 METS Exercise stress test with exercise 1 min 22 sec of Anastasiya protocol, with report of leg fatigue and request to stop. Assisted to sitting position and testing changed to a pharmacological stress test with Lexiscan injection while kicking her legs, without anginal symptoms, without arrythmia, with normotensive response to injection, with nondiagnostic EKG for ischemia. however the baseline ST abnormality is more prominent post Lexiscan injection. In recovery she reported feeling headache and heaviness in body that was treated with Aminophylline 75mg IVP to reverse Lexiscan with resolution of symptoms. Nuclear images pending. Test reviewed with Dr Vega. Referred By: Pablo Hickman Overread By: WILLIAM ARMENTA
== END ==
LOC: HO.CARD 09:35
PROVIDERS: PCP Internal Medicine; Visit Provider Internal Medicine Cardiovascular Disease
DX: I20.8 Other forms of angina pectoris (principal); R07.9 Chest pain, unspecified; I48.91 Unspecified atrial fibrillation
CPT/HCPCS: 78452; 93017; A9500; J0280; J2785

== ENCOUNTER → 2021-07-30 08:31 | Outpatient (REF) | payer MEDICARE, SELFPAY ==
--- NOTE | 2021-07-30 08:33 | CA_ITS ---
Transthoracic Echocardiogram Patient (Last, First, Middle): Gaviota Roth T Gender: Female Date of : 1945 Age: 75 Procedure Date: 07/30/2021 Procedure Type: Transthoracic Echocardiogram Location: OP Height: 149.86 cm Weight: 47.17 kg BSA: 1.40 m2 Heart Rate: bpm BP: 142 / 65 mmHg Maintainer Central Office: [facility] Referring MD: Pablo Hickman MD Telesales Consultant: Pablo Hickman MD Symptoms: I20.8 - Other forms of angina pectoris Study Quality: Adequate ECG Rhythm: Sinus Conclusions: - 1. Normal LV systolic function with pseudonormal filling pattern 2. Moderate mitral and calcification with normal cardiac valvular Doppler 3. Normal RV systolic pressure 4. No pericardial effusion Findings Left Ventricle Normal left ventricular size, thickness, and systolic function. The visually estimated ejection fraction is between 65-70%. Spectral Doppler is indicative of a pseudonormal filling pattern. Elevated left ventricular end diastolic pressure. E/E prime ratio is between 8 and 15 consistent with indeterminate filling pressures. Peak GLS -17.7%, within normal limits. Right Ventricle Normal right ventricular cavity size and systolic function. Atria The left atrium is likely dilated. There is no evidence of interatrial shunt. The right atrium is normal in size. Aortic Valve There is mild calcification of the aortic valve. There is no aortic valve stenosis. There is no aortic valve regurgitation. Mitral Valve There is mild anterior and moderate posterior mitral leaflet thickening. There is moderate mitral annular calcification. There is trace mitral valve regurgitation. There is no mitral valve stenosis. Pulmonic Valve The pulmonic valve was not well visualized. Tricuspid Valve Likely normal tricuspid valve structure and function. There is trace tricuspid valve regurgitation. The right ventricular systolic pressure is normal. The right ventricular systolic pressure is 20 mmHg. There is no evidence of pulmonary hypertension. Great Vessels All visible segments of the aorta are normal in size. The pulmonary artery was not well visualized. Moderate plaque is seen in the descending thoracic aorta. Venous The inferior vena cava is normal in size and collapses greater than 50% with inspiration. Pericardium/Pleural There is no evidence of pericardial effusion. Prior Study Comparison No prior study available for comparison. Measurements 2D Linear Measurements IVSd: 0.91 0.6-0.9/0.6-1.0 cm LVIDd: 4.24 3.9-5.3/4.2-5.9 cm LVIDd Index: 3.03 2.4-3.2/2.2-3.1 cm/m2 LVIDs: 2.33 2.0-3.6 cm LVPWd: 0.70 0.7-1.1 cm LA Diam: 2.90 2.7-3.8/3.0-4.0 cm LAIDs Index: 2.07 1.5-2.3 cm/m2 LV Mass: 128.19 67-162/88-224 g LV Mass Index: 91.56 43-95/49-115 g/m2 LVOT Diam: 1.80 3.0+(-)1.3 cm 2D Systolic Function EF 4C: 73.60 >55% EF 2C: 68.10 >55% EF BiP: 71.70 >55% Mitral Valve MV Pk E: 0.99 MV PK A: 0.77 MV Decel Time: 262.00 E/A: 1.30 E'Lateral: 6.20 E'Medial: 5.77 E/E' Med: 17.20 E/E' Lat: 16.00 PHT: 77.00 MVA PHT: 2.86 Decel Daviess: 3.78 Aortic Valve AoV Pk Kush: 1.27 AoV Mn Kush: 0.98 AoV VTI: 0.38 AoV Pk Grad: 6.00 Aov Mn Grad: 4.00 ERICK Cont.VTI: 1.81 LVOT LVOT Pk Kush: 1.00 LVOT Mn Kush: 0.71 LVOT VTI: 0.27 LVOT Pk Grad: 4.00 LVOT Mn Grad: 2.00 LVOT Diam: 1.80 LVOT Area: 2.54 Diastolic Function MV Pk E: 0.99 MV Pk A: 0.77 E/A: 1.30 E'Medial: 5.77 E/E' Med: 17.20 E' Laterial: 6.20 E/E' Lat: 16.00 Right Ventricle TAPSE (mm): 22.30 TVS' Kush: 11.40 Tricuspid Valve TR Pk Kush: 2.05 TR Pk Grad: 17.00 RA Press: 3.00 RVSP: 20.00 Great Vessels Aorta Sinus of Valsalva: 2.85 2.0-3.[address] [place]: 2.54 1.7-3.4 cm Ao Asc: 3.00 2.1-3.4 cm Updated in Other Vendor System with Status of Final Pablo Hickman MD electronically signed on 07/31/2021 12:52:42 PM with status of Final
== END ==
LOC: HO.CARD 08:31
PROVIDERS: PCP Internal Medicine; Visit Provider Internal Medicine Cardiovascular Disease
DX: I20.8 Other forms of angina pectoris (principal)
CPT/HCPCS: 93306; 93356

== ENCOUNTER 2021-08-10 10:42 | Outpatient (REF) | payer MEDICARE, SELFPAY ==
[2021-08-10 12:43] LABS: Blood Urea Nitrogen 21 mg/dL (9-16); Estimated Glomerular Filt Rate 39
== END 2021-08-10 10:43 | disposition home or self-care (01) ==
LOC: HO.LAB 10:42
PROVIDERS: Absent Provider Radiology Vascular & Interventional Radiology; PCP Internal Medicine; Referring Provider Internal Medicine; Visit Provider Internal Medicine Cardiovascular Disease
DX: R79.89 Other specified abnormal findings of blood chemistry (principal); R94.4 Abnormal results of kidney function studies; I48.91 Unspecified atrial fibrillation; I20.8 Other forms of angina pectoris; I10 Essential (primary) hypertension
CPT/HCPCS: 36415; 82565; 84520; 99212

== ENCOUNTER → 2021-08-28 14:37 | Outpatient (BNVA) | payer MEDICARE, SELFPAY | PROVIDERS: PCP Internal Medicine; Visit Provider Internal Medicine Endocrinology, Diabetes & Metabolism | DX: M81.0 Age-related osteoporosis without current pathological fracture (principal); N18.30 Chronic kidney disease, stage 3 unspecified; Z79.899 Other long term (current) drug therapy | CPT/HCPCS: 99202 ==

== ENCOUNTER 2021-09-01 10:32 | Outpatient (REF) | payer MEDICARE, SELFPAY ==
[2021-09-01 12:06] LABS: Anion Gap 13 (12-20); Blood Urea Nitrogen 30 mg/dL (9-16); Calcium 9.5 mg/dL (8.4-10.2); Carbon Dioxide 29 mmol/L (22-29); Chloride 103 mmol/L (96-108); Estimated Glomerular Filt Rate 22; Potassium 4.3 mmol/L (3.3-5.1); Sodium 141 mmol/L (135-145)
== END 2021-09-01 10:33 | disposition home or self-care (01) ==
LOC: HO.LAB 10:32
PROVIDERS: PCP Internal Medicine; Visit Provider Internal Medicine Hypertension Specialist
DX: N18.32 Chronic kidney disease, stage 3b (principal); I70.1 Atherosclerosis of renal artery
CPT/HCPCS: 36415; 80051; 82310; 82565; 84520

== ENCOUNTER 2021-09-08 08:36 | Outpatient (REF) | payer MEDICARE, SELFPAY ==
[2021-09-08 09:40] LABS: Anion Gap 13 (12-20); Blood Urea Nitrogen 34 mg/dL (9-16); Calcium 9.4 mg/dL (8.4-10.2); Carbon Dioxide 31 mmol/L (22-29); Chloride 101 mmol/L (96-108); Estimated Glomerular Filt Rate 22; Potassium 4.2 mmol/L (3.3-5.1); Sodium 141 mmol/L (135-145)
== END 2021-09-08 08:37 | disposition home or self-care (01) ==
LOC: HO.LAB 08:36
PROVIDERS: PCP Internal Medicine; Visit Provider Internal Medicine Hypertension Specialist
DX: N18.32 Chronic kidney disease, stage 3b (principal)
CPT/HCPCS: 36415; 80051; 82310; 82565; 84520

== ENCOUNTER 2021-10-13 07:44 | Outpatient (REF) | payer MEDICARE, SELFPAY ==
[2021-10-13 09:23] LABS: Anion Gap 19 (12-20); Blood Urea Nitrogen 30 mg/dL (9-16); Carbon Dioxide 26 mmol/L (22-29); Chloride 103 mmol/L (96-108); Estimated Glomerular Filt Rate 23; Potassium 3.9 mmol/L (3.3-5.1); Sodium 144 mmol/L (135-145)
[2021-10-13 09:26] LABS: Calcium 9.4 mg/dL (8.4-10.2)
== END 2021-10-13 07:45 | disposition home or self-care (01) ==
LOC: HO.LAB 07:44
PROVIDERS: PCP Internal Medicine; Visit Provider Internal Medicine Hypertension Specialist
DX: N18.32 Chronic kidney disease, stage 3b (principal)
CPT/HCPCS: 36415; 80051; 82310; 82565; 84520

== ENCOUNTER 2022-01-05 13:02 | Outpatient (REF) | payer MEDICARE, SELFPAY ==
[2022-01-05 14:56] LABS: Anion Gap 16 (12-20); Blood Urea Nitrogen 30 mg/dL (9-16); Calcium 9.7 mg/dL (8.4-10.2); Carbon Dioxide 29 mmol/L (22-29); Chloride 102 mmol/L (96-108); Estimated Glomerular Filt Rate 30; Glucose Random 89 mg/dL (60-115); Potassium 4.1 mmol/L (3.3-5.1); Sodium 143 mmol/L (135-145)
== END 2022-01-05 13:03 | disposition home or self-care (01) ==
LOC: HO.LAB 13:02
PROVIDERS: PCP Internal Medicine; Visit Provider Internal Medicine Hypertension Specialist
DX: I70.1 Atherosclerosis of renal artery (principal); N18.4 Chronic kidney disease, stage 4 (severe)
CPT/HCPCS: 36415; 80048

== ENCOUNTER 2022-02-16 15:47 | Emergency (ER) | payer MEDICARE, SELFPAY ==
--- NOTE | ~2022-02-16 | US_ITS ---
EXAMINATION: US EXTRACRANIAL CAROTID DUPLEX, BILATERAL CLINICAL INFORMATION: Pain with question of carotid dissection COMPARISON: None TECHNIQUE: Real-time ultrasound and Doppler techniques (integrating B-mode 2-D vascular images, Doppler spectral analysis and color-flow Doppler imaging) were utilized to interrogate the extracranial carotid arteries, the vertebral arteries and proximal subclavian arteries bilaterally. The degree of stenosis is determined by criteria similar to NASCET. FINDINGS: Right Side: 1. There is mild atherosclerotic plaque seen in the bifurcation/proximal ICA region. 2. The common carotid artery PSV proximally is 94 cm/s and distally 99 cm/s. 3. The proximal internal carotid artery velocities are 176 cm/s systolic and 45 cm/s diastolic. 4. The proximal external carotid artery PSV is 195 cm/s. 5. The vertebral artery shows antegrade flow. 6. The subclavian artery waveforms are normal. Left Side: 1. There is moderate atherosclerotic plaque seen in the bifurcation/proximal ICA region. 2. The common carotid artery PSV proximally is 102 cm/s and distally 72 cm/s. 3. The proximal internal carotid artery velocities are 220 cm/s systolic and 40 cm/s diastolic. 4. The proximal external carotid artery PSV is 281 cm/s. 5. The vertebral artery shows antegrade flow. 6. The subclavian artery waveforms are normal. US/US carotid duplex BI IMPRESSION: 1. RIGHT: Moderate, hemodynamically significant stenosis of the proximal right internal carotid artery corresponding to a 50-79% stenosis by velocity criteria. 2. LEFT: Moderate, hemodynamically significant stenosis of the proximal left internal carotid artery corresponding to a 50-79% stenosis by velocity criteria. 3. Stenosis involving the left ECA.
[2022-02-16 16:13] VITALS: BP 182/53; PULSE 61; RESP 18; TEMP 36.4; O2SAT 97; BMI 20.7
--- NOTE | 2022-02-16 16:13 | ED_ITS ---
HPI - Neck Pain/Injury General Chief Complaint: Neck Pain/Injury Stated Complaint: Sent by Dr to get neck U/S Source: patient Mode of arrival: ambulatory Limitations: no limitations History of Present Illness HPI Narrative: 76yoF c PMHx of atrial fibrillation, hypertension and multiple joint pain who is presenting to the ER with complaints of left-sided neck pain worse when she swallows for the past 4 days. Reports that she was seen by her primary care provider prior to arrival and was sent here for ?rule out carotid dissection?. She reports she was not tested for strep. She denies any other symptoms related to this. MD complaint: neck pain Onset (ago): day(s) (4) Radiation: left lateral Severity: mild Quality: aching Duration: constant Relieving factors: none Exacerbating factors: swallowing Associated symptoms: none Treatments prior to arrival: none Related Data Home Medications Medication Instructions Recorded Confirmed Lactobacills gasseri-Bifidobac cap PO 06/17/21 08/28/21 bifidum,longum 1.5 billion cell capsule ([place]) ascorbic acid (vitamin C) 500 mg mg PO 06/17/21 08/10/21 capsule atenolol 25 mg tablet 25 mg PO DAILY 06/17/21 08/28/21 cholecalciferol (vitamin D3) 25 25 mcg PO DAILY 06/17/21 08/28/21 mcg (1,000 unit) capsule garlic 300 mg PO DAILY 06/17/21 08/28/21 glucosamine sulfate 500 mg tablet 500 mg PO DAILY 06/17/21 08/28/21 (Glucosamine) vitamin B complex (B 1 tab PO DAILY 06/17/21 08/28/21 Complex-Vitamin B12 tablet) clopidogrel 75 mg tablet 75 mg PO DAILY 08/10/21 08/28/21 diltiazem HCl 240 mg 240 mg PO QAM 08/10/21 08/28/21 capsule,extended release 24 hr, controlled (DILT-XR) Allergies Allergy/AdvReac Type Severity Reaction Status Date / Time acetaminophen [Percocet] Allergy Unknown Unknown Verified 08/28/21 14:44 amoxicillin [AMOXICILLIN] Allergy Unknown NAUSEA Verified 08/28/21 14:44 aspirin [ASA] Allergy Unknown FEELING OF Verified 08/28/21 14:44 PEPPER ON TONGUE atorvastatin [ATORVASTATIN] Allergy Unknown FEELING OF Verified 08/28/21 14:44 PEPPER ON TONGUE fluconazole [FLUCONAZOLE] Allergy Unknown FEELING OF Verified 08/28/21 14:44 PEPPER ON TONGUE Iodinated Contrast Media Allergy Unknown Unknown Verified 08/28/21 14:44 [Contrast Dye] irbesartan [IRBESARTAN] Allergy Unknown SORE Verified 08/28/21 14:44 TONGUE,GERD lisinopril [LISINOPRIL] Allergy Unknown COUGH Verified 08/28/21 14:44 metronidazole [Flagyl] Allergy Unknown Rash Verified 08/28/21 14:44 morphine [MORPHINE] Allergy Unknown HIVES Verified 08/28/21 14:44 oxycodone [OXYCODONE] Allergy Unknown RASH Verified 08/28/21 14:44 pepper (genus Capsicum) Allergy Unknown SENSITIVE Verified 08/28/21 14:44 [PEPPER] TO Ojixdqj-UPH-BiO Reductase Allergy Unknown TONGUE Verified 08/28/21 14:44 Inhibitor SWELLING [[id number] REDUCTASE INHIBITOR] lorazepam [From ATIVAN] AdvReac Unknown HALLUCINATI Verified 08/28/21 14:44 ONS Tetracyclines [TETRACYCLINES] AdvReac Unknown SHAKES Verified 08/28/21 14:44 Review of Systems Review of Systems: Constitutional : No trauma, No Weight loss, No Fever, No C hills, ENT/Mouth : No Hearing loss, No Ear Pain, No Nasal Congestion, No Sinus Pain, No Hoarseness, No sore throat, No Rhinorrhea, No Swallowing Difficulty Cardiovascular : No Chest Pain, No SOB Respiratory : No Cough, No Dyspnea Gastrointestinal : No Nausea, No Vomiting, No Diarrhea, No abdominal Pain, No Hematochezia, No Melena Genitourinary : No Dysuria, No Urinary Frequency, No Hematuria, No Urinary or Bowel Incontinence/retention Musculoskeletal : + Neck pain, No Back pain, No joint stiffness, No joint swelling Skin : No Skin Lesions, No rash or signs of infection Neuro : nO Tingling to b/l arms/legs, No Weakness, No radiation, No Numbness, No headache, no loss of bowel or bladder incontinence, no saddle anesthesia Denies history of IV drug usage. Yes all other systems are reviewed and are negative [facility] Past Medical History Attestation statement: The following information was validated with the patient. Source: old records reviewed, obtained from family and nursing notes reviewed Medical History Afib History of colon cancer HTN (hypertension) Hx of colon cancer, stage III Joint pain Surgical History History of colonoscopy History of renal angiogram History of surgery History of surgery Hx of cataract Hx of cerebral aneurysm repair Hx of removal of cyst Family History Family History Father No problems noted. Mother No problems noted. Brother CAD (coronary artery disease) Social History Social History Patient Tobacco Use Status: Former Tobacco user Tobacco use type: Cigarette Advance Directives: No Advance Directives Information Provided: Yes Physical Exam Vital Signs: Vital Signs: Last Vital Signs Temp 97.6 F 02/16/22 16:13 Pulse 61 02/16/22 16:13 Resp 18 02/16/22 16:13 BP 182/53 H 02/16/22 16:13 Pulse Ox 97 02/16/22 16:13 O2 Del Method 02/16/22 16:13 BMI result Body Mass Index 20.7 vital signs have been reviewed as normal and appeared to be correct. Blood pressure normal. Heart rate normal. Respiration rate normal. Temperature normal. Oxygen saturation normal. Appearance: Alert. Oriented X3. No acute distress. Head: Normal external exam. Normocephalic. Atraumatic. Eyes: PERRLA. EOMI. Conjunctiva and sclera normal. Eyelids normal. ENT: Pharynx normal. Uvula midline. Moist mucous membranes. No trismus noted. No drooling noted. No muffled voice noted. Neck: Normal inspection. Neck supple. FROM. No adenopathy. Thyroid Normal. Trachea midline. No meningeal signs. No neck mass noted. Patient mild tenderness palpation to the left anterior aspect of the para cervical musculature. No mid cervical tenderness noted. No step-offs or deformities noted. Patient neuro intact bilaterally and distally on all 4 extremities. Reflexes intact bilaterally and distally in all 4 extremities. No rashes/lesion/induration/fluctuance or signs of infection noted. No edema noted. CVS: Normal heart rate and rhythm. Heart sound normal. No murmurs noted. Pulses normal throughout. Respiratory: No respiratory distress. Painless inspiration. Breath sounds normal. No wheezes/rales/rhonchi noted. Chest nontender. No accessory muscle usage noted or decreased air movement noted. Back: Full range of motion noted. No obvious deformities, or edema. Full ROM in back and lower extremities. Skin: Skin warm and dry. Normal skin color. Normal skin turgor. No rashes/lesions/lacerations noted. Extremities: Extremities exhibit normal range of motion. Extremities nontender. Neuro: Oriented X 3. No motor deficit. No sensory deficit. Reflexes normal. Normal steady gait. Course Course Course Narrative: 15:15pm - 76yoF c PMHx of atrial fibrillation, hypertension and multiple joint pain who is presenting to the ER with complaints of left-sided neck pain worse when she swallows for the past 4 days. Reports that she was seen by her primary care provider prior to arrival and was sent here for ?rule out carotid dissection?. She reports she was not tested for strep. She denies any other symptoms related to this. On exam patient is mildly hypertensive 182/53. Otherwise all other vitals are within normal limits. Posterior pharynx mildly erythematous no exudate is noted. Patient mild tenderness palpation to left para cervical musculature anterior/lateral aspect. No signs of infection. No mid cervical tenderness step-offs or deformities noted. Patient has full range of motion of the neck. No rashes are noted. Patient neuro intact bilaterally and distally in all 4 extremities. Plan: Labs, strep swab, carotid neck ultrasound re-evaluate. Patient is stable she will be sent back to the waiting room for further evaluation treatment to the main ER. Reevaluation(s) Reevaluation #1: Patient had labs and patient's BUN and creatinine and is at baseline. Random glucose 119. Otherwise all her other labs were normal. Carotid ultrasounds revealed IMPRESSION: 1. RIGHT: Moderate, hemodynamically significant stenosis of the proximal right internal carotid artery corresponding to a 50-79% stenosis by velocity criteria. ? 2. LEFT: Moderate, hemodynamically significant stenosis of the proximal left internal carotid artery corresponding to a 50-79% stenosis by velocity criteria. ? 3. Stenosis involving the left ECA. Although patient eloped. Medical Decision Making Lab Data MDM Lab Attestation statement: I reviewed the patient's lab results. Result Diagrams: 02/16/22 16:28 02/16/22 16:28 Labs: Lab Results 02/16/22 02/16/2202/16/22 Range/Units 16:20 16:28 16:28 WBC 9.9 (4.8-10.8) X10*3/uL RBC 4.04 L (4.20-5.50) X10*6/uL Hgb 12.0 (12.0-16.0) g/dl Hct 36.7 L (37.0-47.0) % MCV 90.8 (80.0-98.0) fL MCH 29.7 (27.0-33.0) pg MCHC 32.7 (31.0-35.0) g/dl RDW 13.1 (11.0-16.0) % Plt Count 189 (160-400) X10*3/uL MPV 9.4 (9.4-12.3) fL Immature Gran % (Auto) 0.4 (0.0-0.4) % Neut % (Auto) 65.1 (45-73) % Lymph % (Auto) 19.9 L (20-40) % [place] % (Auto) 8.8 (2-11) % Eos % (Auto) 5.1 H (0-4) % Baso % (Auto) 0.7 (0-2) % Lymph # (Auto) 2.0 (1.2-4.9) X10*3/uL [place] # (Auto) 0.9 (0.1-1.2) X10*3/uL Eos # (Auto) 0.5 H (0.0-0.4) X10*3/uL Baso # (Auto) 0.1 (0.0-0.2) X10*3/uL Abs Immat Gran (auto) 0.04 H (0.00-0.03) X10*3/uL Absolute Neuts (auto) 6.5 (2.0-8.3) x10*3/uL Absolute Nucleated RBC 0.000 (0.0-0.012) X10*3/uL Nucleated RBC % (auto) 0.0 (0.0-0.2) /100WBC PT 10.4 (10.0-13.1) SEC INR 0.9 (0.9-1.1) APTT 30.6 (26.0-36.4) SEC Sodium (135-145) mmol/L Potassium (3.3-5.1) mmol/L Chloride (96-108) mmol/L Carbon Dioxide (22-29) mmol/L Anion Gap (12-20) BUN (9-16) mg/dL Creatinine (0.5-1.4) mg/dL Estim Creat Clear Calc Estimated GFR Random Glucose (60-115) mg/dL Calcium (8.4-10.2) mg/dL Magnesium (1.6-2.6) mg/dL Total Bilirubin (0.0-1.0) mg/dL AST (5-31) U/L ALT (0-31) U/L Alkaline Phosphatase (39-117) U/L Total Protein (6.5-8.0) g/dL Albumin (3.5-5.0) g/dL S. pyogenes GrpA VENESSA Negative (Negative) 02/16/22 Range/Units 16:28 WBC (4.8-10.8) X10*3/uL RBC (4.20-5.50) X10*6/uL Hgb (12.0-16.0) g/dl Hct (37.0-47.0) % MCV (80.0-98.0) fL MCH (27.0-33.0) pg MCHC (31.0-35.0) g/dl RDW (11.0-16.0) % Plt Count (160-400) X10*3/uL MPV (9.4-12.3) fL Immature Gran % (Auto) (0.0-0.4) % Neut % (Auto) (45-73) % Lymph % (Auto) (20-40) % [place] % (Auto) (2-11) % Eos % (Auto) (0-4) % Baso % (Auto) (0-2) % Lymph # (Auto) (1.2-4.9) X10*3/uL [place] # (Auto) (0.1-1.2) X10*3/uL Eos # (Auto) (0.0-0.4) X10*3/uL Baso # (Auto) (0.0-0.2) X10*3/uL Abs Immat Gran (auto) (0.00-0.03) X10*3/uL Absolute Neuts (auto) (2.0-8.3) x10*3/uL Absolute Nucleated RBC (0.0-0.012) X10*3/uL Nucleated RBC % (auto) (0.0-0.2) /100WBC PT (10.0-13.1) SEC INR (0.9-1.1) APTT (26.0-36.4) SEC Sodium 143 (135-145) mmol/L Potassium 3.9 (3.3-5.1) mmol/L Chloride 104 (96-108) mmol/L Carbon Dioxide 28 (22-29) mmol/L Anion Gap 15 (12-20) BUN 27 H (9-16) mg/dL Creatinine 1.67 H (0.5-1.4) mg/dL Estim Creat Clear Calc 18.9 Estimated GFR 30 Random Glucose 119 H (60-115) mg/dL Calcium 9.7 (8.4-10.2) mg/dL Magnesium 2.4 (1.6-2.6) mg/dL Total Bilirubin 0.3 (0.0-1.0) mg/dL AST 19 (5-31) U/L ALT 9 (0-31) U/L Alkaline Phosphatase 70 (39-117) U/L Total Protein 7.4 (6.5-8.0) g/dL Albumin 4.5 (3.5-5.0) g/dL S. pyogenes GrpA VENESSA (Negative) Discharge Plan Discharge Clinical Impression: Neck pain Patient Disposition: Elopement Prescriptions: No Action atenolol 25 mg tablet 25 mg PO DAILY clopidogrel 75 mg tablet 75 mg PO DAILY diltiazem HCl [DILT-XR] 240 mg capsule,ext.rel 24h degradable 240 mg PO [facility] Calester 1.5 billion cell capsule PO glucosamine sulfate [Glucosamine] 500 mg tablet 500 mg PO DAILY Rx Instructions: administer with a meal cholecalciferol (vitamin D3) 25 mcg (1,000 unit) capsule 25 mcg PO DAILY ascorbic acid (vitamin C) 500 mg capsule PO vitamin B complex [B Complex-Vitamin B12] Tablet 1 tab PO DAILY garlic Tablet 300 mg PO DAILY Discharge Date/Time: 02/16/22 21:26
[2022-02-16 16:32] LABS: MANUAL DIFF FLAG NO
[2022-02-16 16:34] LABS: Basophils Absolute Auto 0.1 X10*3/uL (0.0-0.2); Basophils Percent Auto 0.7 % (0-2); Eosinophils Absolute Auto 0.5 X10*3/uL (0.0-0.4); Eosinophils Percent Auto 5.1 % (0-4); Hematocrit 36.7 % (37.0-47.0); Imm Gran Abs Auto 0.04 X10*3/uL (0.00-0.03); Imm Gran Pct Auto 0.4 % (0.0-0.4); Lymphocytes Percent Auto 19.9 % (20-40); Mean Corpuscular HGB Conc 32.7 g/dl (31.0-35.0); Mean Corpuscular Hemoglobin 29.7 pg (27.0-33.0); Mean Corpuscular Volume 90.8 fL (80.0-98.0); Mean Platelet Volume 9.4 fL (9.4-12.3); Monocytes Absolute Auto 0.9 X10*3/uL (0.1-1.2); Monocytes Percent Auto 8.8 % (2-11); Neutrophils Absolute Auto 6.5 x10*3/uL (2.0-8.3); Neutrophils Percent Auto 65.1 % (45-73); Platelet Count 189 X10*3/uL (160-400); Red Blood Count 4.04 X10*6/uL (4.20-5.50); Red Cell Distribution Width 13.1 % (11.0-16.0); White Blood Count 9.9 X10*3/uL (4.8-10.8)
[2022-02-16 16:41] LABS: INTERNATIONAL NORM RATIO 0.9 (0.9-1.1); Prothrombin Time 10.4 SEC (10.0-13.1)
[2022-02-16 16:44] LABS: Partial Thromboplastin Time 30.6 SEC (26.0-36.4)
[2022-02-16 16:53] LABS: Strep A Nucleic Acid Negative (Negative)
[2022-02-16 16:53] LABS: Alanine Aminotransferase 9 U/L (0-31); Albumin Level 4.5 g/dL (3.5-5.0); Alkaline Phosphatase 70 U/L (39-117); Anion Gap 15 (12-20); Aspartate Amino Transferase 19 U/L (5-31); Bilirubin Total 0.3 mg/dL (0.0-1.0); Blood Urea Nitrogen 27 mg/dL (9-16); Calcium 9.7 mg/dL (8.4-10.2); Carbon Dioxide 28 mmol/L (22-29); Chloride 104 mmol/L (96-108); Creatinine Clr Calc Pharmacy 18.9; Estimated Glomerular Filt Rate 30; Glucose Random 119 mg/dL (60-115); Magnesium 2.4 mg/dL (1.6-2.6); Potassium 3.9 mmol/L (3.3-5.1); Sodium 143 mmol/L (135-145); Total Protein 7.4 g/dL (6.5-8.0)
== END 2022-02-16 21:26 | disposition left against medical advice (07) ==
PROVIDERS: Physician Assistant Medical; Emergency Provider Emergency Medicine; PCP Internal Medicine
DX: M54.2 Cervicalgia (principal); R51.9 Headache, unspecified; R60.0 Localized edema; I65.23 Occlusion and stenosis of bilateral carotid arteries; Z20.822 Contact with and (suspected) exposure to COVID-19; Z87.891 Personal history of nicotine dependence; Z79.899 Other long term (current) drug therapy
CPT/HCPCS: 36415; 80053; 83735; 85025; 85610; 85730; 87651; 93880; 99281; 99284

== ENCOUNTER 2022-05-27 07:08 | Outpatient (REF) | payer MEDICARE, SELFPAY ==
[2022-05-27 07:49] LABS: Hematocrit 38.5 % (37.0-47.0); Hemoglobin 12.7 g/dl (12.0-16.0); Mean Corpuscular Hemoglobin 30.2 pg (27.0-33.0); Mean Corpuscular Volume 91.7 fL (80.0-98.0); Platelet Count 214 X10*3/uL (160-400); Red Cell Distribution Width 12.9 % (11.0-16.0); White Blood Count 10.3 X10*3/uL (4.8-10.8)
[2022-05-27 08:17] LABS: Anion Gap 14 (12-20); Blood Urea Nitrogen 28 mg/dL (9-16); Calcium 9.8 mg/dL (8.4-10.2); Carbon Dioxide 30 mmol/L (22-29); Chloride 103 mmol/L (96-108); Estimated Glomerular Filt Rate 30; Glucose Random 96 mg/dL (60-115); Potassium 4.1 mmol/L (3.3-5.1); Sodium 143 mmol/L (135-145)
== END 2022-05-27 07:09 | disposition home or self-care (01) ==
LOC: HO.LAB 07:08
PROVIDERS: PCP Internal Medicine; Visit Provider Internal Medicine Hypertension Specialist
DX: I12.9 Hypertensive chronic kidney disease with stage 1 through stage 4 chronic kidney disease, or unspecified chronic kidney disease (principal); N18.32 Chronic kidney disease, stage 3b
CPT/HCPCS: 36415; 80048; 85027

== ENCOUNTER 2022-06-17 12:22 | Outpatient (REF) | payer MEDICARE, SELFPAY ==
[2022-06-17 12:28] LABS: MANUAL DIFF FLAG NO
[2022-06-17 13:15] LABS: Basophils Absolute Auto 0.1 X10*3/uL (0.0-0.2); Basophils Percent Auto 0.9 % (0-2); Eosinophils Absolute Auto 0.5 X10*3/uL (0.0-0.4); Eosinophils Percent Auto 5.2 % (0-4); Hematocrit 37.5 % (37.0-47.0); Hemoglobin 12.3 g/dl (12.0-16.0); Imm Gran Abs Auto 0.03 X10*3/uL (0.00-0.03); Imm Gran Pct Auto 0.3 % (0.0-0.4); Lymphocytes Absolute Auto 2.3 X10*3/uL (1.2-4.9); Lymphocytes Percent Auto 23.4 % (20-40); Mean Corpuscular HGB Conc 32.8 g/dl (31.0-35.0); Mean Corpuscular Hemoglobin 30.9 pg (27.0-33.0); Mean Corpuscular Volume 94.2 fL (80.0-98.0); Mean Platelet Volume 10.3 fL (9.4-12.3); Monocytes Absolute Auto 0.9 X10*3/uL (0.1-1.2); Monocytes Percent Auto 9.2 % (2-11); Platelet Count 216 X10*3/uL (160-400); Red Blood Count 3.98 X10*6/uL (4.20-5.50); White Blood Count 9.8 X10*3/uL (4.8-10.8)
[2022-06-17 13:17] LABS: Appearance Urine Clear; Color Urine Yellow; Glucose Urine UA Negative (Negative); Leukocyte Esterase Urine Small (1+) (Negative); Nitrite Urine Negative (Negative); UMIC TRIGGER UACC YES; Urine Blood Negative (Negative); Urine Ketones Negative (Negative); Urine Protein Trace mg/dL (Neg-Trace)
[2022-06-17 13:37] LABS: Bacteria Urine None Seen (None Seen); Hyaline Casts Urine 0-2 /LPF (0-2); RBC Urine 0-2 /HPF (0-2); Squamous Epithelial Cell Urine 0-2 /HPF (0-2); UACC Culture Trigger YES; WBC Urine 0-5 /HPF (0-5)
[2022-06-17 13:45] LABS: Alanine Aminotransferase 11 U/L (0-31); Albumin Level 4.5 g/dL (3.5-5.0); Alkaline Phosphatase 61 U/L (39-117); Anion Gap 12 (12-20); Aspartate Amino Transferase 20 U/L (5-31); Bilirubin Total 0.6 mg/dL (0.0-1.0); Blood Urea Nitrogen 24 mg/dL (9-16); Calcium 9.5 mg/dL (8.4-10.2); Carbon Dioxide 30 mmol/L (22-29); Chloride 103 mmol/L (96-108); Cholesterol 190 mg/dL; Estimated Glomerular Filt Rate 29; Glucose Fasting 91 mg/dL (60-99); HDL Cholesterol 46 mg/dL; Iron 94 mcg/dL (30-160); LDL Cholesterol Calculated 113 mg/dl; Percent Iron Saturation 30 % (15-50); Potassium 4.1 mmol/L (3.3-5.1); Sodium 141 mmol/L (135-145); Total Iron Binding Capacity 309 mcg/dL (228-428); Triglycerides 159 mg/dL; Unsaturated Iron Binding 215 ug/dL
== END 2022-06-17 12:23 | disposition home or self-care (01) ==
LOC: HO.LNP 12:22
PROVIDERS: Visit Provider Internal Medicine
DX: Z00.00 Encounter for general adult medical examination without abnormal findings (principal); I10 Essential (primary) hypertension; D50.9 Iron deficiency anemia, unspecified; E87.6 Hypokalemia; R82.998 Other abnormal findings in urine
CPT/HCPCS: 80053; 80061; 81001; 83540; 85025; 87086

== ENCOUNTER 2022-07-20 07:09 | Outpatient (REF) | payer MEDICARE, SELFPAY ==
[2022-07-20 08:21] LABS: Blood Urea Nitrogen 24 mg/dL (9-16); Estimated Glomerular Filt Rate 28
== END 2022-07-20 07:10 | disposition home or self-care (01) ==
LOC: HO.LAB 07:09
PROVIDERS: PCP Internal Medicine; Visit Provider Radiology Vascular & Interventional Radiology
DX: R79.89 Other specified abnormal findings of blood chemistry (principal); R94.4 Abnormal results of kidney function studies
CPT/HCPCS: 36415; 82565; 84520

== ENCOUNTER → 2022-08-23 10:34 | Outpatient (BNVA) | payer MEDICARE, SELFPAY | PROVIDERS: PCP Internal Medicine; Referring Provider Internal Medicine; Visit Provider Internal Medicine Cardiovascular Disease | DX: I20.8 Other forms of angina pectoris (principal) | CPT/HCPCS: 93005; 99212 ==

== ENCOUNTER 2022-09-28 07:19 | Outpatient (REF) | payer MEDICARE, SELFPAY ==
[2022-09-28 08:38] LABS: Anion Gap 12 (12-20); Blood Urea Nitrogen 22 mg/dL (9-16); Calcium 9.9 mg/dL (8.4-10.2); Carbon Dioxide 30 mmol/L (22-29); Chloride 104 mmol/L (96-108); Estimated Glomerular Filt Rate 31; Glucose Random 99 mg/dL (60-115); Potassium 3.7 mmol/L (3.3-5.1); Sodium 142 mmol/L (135-145)
== END 2022-09-28 07:20 | disposition home or self-care (01) ==
LOC: HO.LAB 07:19
PROVIDERS: PCP Internal Medicine; Visit Provider Internal Medicine Hypertension Specialist
DX: I70.1 Atherosclerosis of renal artery (principal); I10 Essential (primary) hypertension
CPT/HCPCS: 36415; 80048

== ENCOUNTER 2022-10-22 13:40 | Outpatient (AMB) | payer MEDICARE, SELFPAY ==
--- NOTE | 2022-10-22 14:18 | A.SPINEOV_ITS ---
Intake Intake Visit Reasons: Spinal stenosis Intake Note: Ms. Roth is here today c/o low back pain. MRI done [facility]/brought disc. Engineering Designer Required: No Allergies acetaminophen [Percocet] Allergy (Unknown, Verified 08/23/22 10:49) Unknown amoxicillin [AMOXICILLIN] Allergy (Unknown, Verified 08/23/22 10:49) NAUSEA aspirin [ASA] Allergy (Unknown, Verified 08/23/22 10:49) FEELING OF PEPPER ON TONGUE atorvastatin [ATORVASTATIN] Allergy (Unknown, Verified 08/23/22 10:49) FEELING OF PEPPER ON TONGUE fluconazole [FLUCONAZOLE] Allergy (Unknown, Verified 08/23/22 10:49) FEELING OF PEPPER ON TONGUE Iodinated Contrast Media [Contrast Dye] Allergy (Unknown, Verified 08/23/22 10:49) Unknown irbesartan [IRBESARTAN] Allergy (Unknown, Verified 08/23/22 10:49) SORE TONGUE,GERD lisinopril [LISINOPRIL] Allergy (Unknown, Verified 08/23/22 10:49) COUGH metronidazole [Flagyl] Allergy (Unknown, Verified 08/23/22 10:49) Rash morphine [MORPHINE] Allergy (Unknown, Verified 08/23/22 10:49) HIVES oxycodone [OXYCODONE] Allergy (Unknown, Verified 08/23/22 10:49) RASH pepper (genus Capsicum) [PEPPER] Allergy (Unknown, Verified 08/23/22 10:49) SENSITIVE TO Oiczuln-PXR-AcD Reductase Inhibitor [PYIXVFM-GYM-GSX REDUCTASE INHIBITOR] Allergy (Unknown, Verified 08/23/22 10:49) TONGUE SWELLING lorazepam [From ATIVAN] Adverse Reaction (Unknown, Verified 08/23/22 10:49) HALLUCINATIONS Tetracyclines [TETRACYCLINES] Adverse Reaction (Unknown, Verified 08/23/22 10:49) SHAKES Assessment & Plan Assessment & Plan (1) Lumbar stenosis: Code(s): M48.061 - Spinal stenosis, lumbar region without neurogenic claudication Plan Dear Dr Emery, I saw your patient Mrs. Roth in the office today. She came down to our clinic for a visit at the prompting of someone she saw in the cardiology department when she was describing difficulty walking. I do not have any medical records on her, but from what she describes it sounds like she has had chronic vascular issues in her kidneys and possibly some kind of stent done to her renal arteries and also to her aorta. She is on Plavix. She noticed some time ago that she had trouble walking and trouble with her legs at night. Specifically, when she is standing and doing her daily exercise walking around her house or going to the grocery store, she will have to stop and lean on a wall or sit because she will experience a feeling of heaviness and fatigue in her legs. At nighttime she will get a severe cramping in her left calf which often wake her up and she has to stand up to make it go away. She does not report any specific back pain other than some minor discomfort for which she takes Tylenol. She tells me that her vascular team told her that her lower extremities do not have any blockages. She ultimately underwent an MRI before visit and this showed multilevel degenerative changes with foraminal stenosis which prompted her to co me see us in the office.. PMH: The patient gave me an extensive list of procedures that she has had done, again I do not have any medical records in front of me but it looks like she has had vascular issues in her renal arteries and has had a stent, the last 1 in July of 2022 and has been on Plavix for that. The procedure list she gave me also suggest that she probably had some kind of aortic vascular procedures well in August of 2021. She had an aneurysm coiling in 2018. A, cholecystectomy, hypertension Social hx: She does not smoke Medications: Diltiazem, atenolol, Plavix, vitamin-D, vitamin-C, garlic, Tylenol, hydralazine Allergies: Please see the [employer] list Physical exam: She is awake alert oriented x3 no acute distress, she has some mild decrease in strength in her hands with positive Tinel sign on the right and positive Phalen sign on the right. Lower extremity strength is normal, reflexes normal, no Ibanez's, no clonus. She has good perfusion of her lower extremities with 2+ pulses bilaterally Imaging review: Lumbar MRI done at [place] shows a grade 1 spondylolisthesis at L4-5 with moderate to severe L4 foraminal stenosis. There is also foraminal stenosis on the left at L2-3 and on the right at L3-4. Impression: [age]-year-old female comes to the office today for evaluation of a feeling of fatigue in her legs when she walks which gets better when she sits down. It seems to fit fairly classically with stenosis. She has L4-5 spondylolisthesis with nerve compression in the foramen at L4. I suspect this is where her symptoms are coming from. She does not have any back pain. There is foraminal stenosis on the left at L2-3 and the right at L3-4 but her symptoms typically go past her knees into her anterior tibial region which seems to put the dermatome distribution better with the L4 stenosis. At this time she is on Plavix indefinitely because of her stent procedures she tells me. Obviously the situation currently with her lumbar spine is a chronic 1 and she still functional and walking and she is not in any significant pain this time so we do not need to uriarte to surgical options. I do not think physical therapy is going to add much help to her situation. I also do not think cortisone shots will have any long-term use full benefit. She would also need to come off Plavix for those as well so I do not think those are really an option. Since she just had her stent a few months ago, I told her we should meet back up in 6 months and re-evaluate and at that time hopefully there may be an option for her to come off Plavix at some point down the road. I have encouraged her to continue to be as active as she can be and that she has no specific limitations from our standpoint at this time. Thank you for allowing us to care for your patient. The total time spent with this visit with this patient was 45 minutes reviewing history, physical exam, lumbar imaging review, and implementation of treatment plan or further diagnostic testing Rudy Prado MD,PhD [facility] Coding Level of Care Code New Pt Level 4 (14489) Diagnoses Lumbar stenosis M48.061
== END 2022-10-22 14:37 | disposition home or self-care (01) ==
PROVIDERS: PCP Internal Medicine; Visit Provider Physician Assistant
DX: M48.061 Spinal stenosis, lumbar region without neurogenic claudication (principal)
CPT/HCPCS: 99204

== ENCOUNTER → 2022-10-22 13:40 | Outpatient (BNVA) | payer MEDICARE, SELFPAY | PROVIDERS: PCP Internal Medicine; Visit Provider Physician Assistant | DX: M48.061 Spinal stenosis, lumbar region without neurogenic claudication (principal) | CPT/HCPCS: 99202 ==

== ENCOUNTER 2023-01-18 08:24 | Outpatient (REF) | payer MEDICARE, SELFPAY ==
[2023-01-18 09:08] LABS: Basophils Absolute Auto 0.1 X10*3/uL (0.0-0.2); Eosinophils Absolute Auto 0.3 X10*3/uL (0.0-0.4); Hematocrit 38.1 % (37.0-47.0); Hemoglobin 12.4 g/dl (12.0-16.0); Imm Gran Abs Auto 0.01 X10*3/uL (0.00-0.03); Imm Gran Pct Auto 0.1 % (0.0-0.4); Lymphocytes Absolute Auto 1.6 X10*3/uL (1.2-4.9); Lymphocytes Percent Auto 23.7 % (20-40); MANUAL DIFF FLAG NO; Mean Corpuscular HGB Conc 32.5 g/dl (31.0-35.0); Mean Corpuscular Hemoglobin 30.2 pg (27.0-33.0); Mean Corpuscular Volume 92.9 fL (80.0-98.0); Mean Platelet Volume 9.5 fL (9.4-12.3); Monocytes Absolute Auto 0.6 X10*3/uL (0.1-1.2); Monocytes Percent Auto 9.1 % (2-11); Neutrophils Absolute Auto 4.1 x10*3/uL (2.0-8.3); Neutrophils Percent Auto 62.1 % (45-73); Platelet Count 214 X10*3/uL (160-400); White Blood Count 6.7 X10*3/uL (4.8-10.8)
[2023-01-18 09:41] LABS: Anion Gap 14 (12-20); Blood Urea Nitrogen 25 mg/dL (9-16); Calcium 9.7 mg/dL (8.4-10.2); Carbon Dioxide 30 mmol/L (22-29); Chloride 104 mmol/L (96-108); Estimated Glomerular Filt Rate 30; Potassium 4.2 mmol/L (3.3-5.1); Sodium 144 mmol/L (135-145)
== END 2023-01-18 08:25 | disposition home or self-care (01) ==
LOC: HO.LAB 08:24
PROVIDERS: PCP Internal Medicine; Visit Provider Internal Medicine Hypertension Specialist
DX: N18.30 Chronic kidney disease, stage 3 unspecified (principal)
CPT/HCPCS: 36415; 80051; 82310; 82565; 84520; 85025

== ENCOUNTER 2023-01-25 10:43 | Outpatient (AMB) | payer MEDICARE, SELFPAY ==
[2023-01-25 10:45] VITALS: BP 130/80; PULSE 57; O2SAT 97
--- NOTE | 2023-01-25 10:45 | HO.NEPHOV ---
HPI HPI Comments History of Present Illness Details Gaviota is a elderly woman with a history of for chronic kidney disease in the setting of renal artery stenosis and severe hypertension. She has undergone renal angiogram with angioplasty and stent placement by Dr. Steele. Currently she is on Plavix. She has a history of back pain and lower leg pains. MRI reveals significant disc disease and arthritis. She is being followed by [facility] pediatric sports medicine specialist From a renal standpoint she is doing very well. No new complaints today. Blood pressure has been well controlled [facility] Medical History (Updated 01/25/23 @ 11:55 by Luis Conley MD) Hx of colon cancer, stage III History of colon cancer Joint pain Afib HTN (hypertension) Surgical History Hx of removal of cyst History of colonoscopy History of surgery History of surgery Hx of cerebral aneurysm repair History of renal angiogram Hx of cataract Family History Father No problems noted. Mother No problems noted. Brother CAD (coronary artery disease) Patient Tobacco Use Status: Former Tobacco user Quit Date: 33 years ago Tobacco use type: Cigarette Vital Signs 01/25/23 10:45 Height 4 ft 11 in BP 130/80 Blood Pressure Location Lt brachial Position Sitting Pulse 57 Pulse Source Pulse Oximeter Pulse Oximetry (%) 97 Oxygen Delivery Method Room Air Physical Exam Vital Signs: Last Vital Signs Pulse 57 01/25/23 10:45 BP 130/80 01/25/23 10:45 Pulse Ox 97 01/25/23 10:45 Oxygen Delivery Method Room Air 01/25/23 10:45 Const General: comfortable Nutritional Appearance: well nourished Orientation/consciousness: patient oriented x3 HEENT Head: No normal to inspection Mouth: moist mucous membranes Neck Neck: Yes supple and Yes no JVD Resp Auscultation: clear to auscultation bilaterally, no rales and rub present Cardio Jugular venous distension: no JVD Palpation: no palpable S3 and no palpable S4 Heart sounds: no rubs GI Palpation (GI): Soft to palpation and nontender Percussion: No Fluid wave present General: Yes no CVA tenderness Back/Spine/Pelvis Back: no CVA tenderness Skin General skin exam: no rashes or lesions noted Neuro General: patient oriented x3 Extrem General: Yes no pedal edema and No clubbing Results Reviewed Results Reviewed: Serum creatinine stable around 1.6 mg/dL Assessment & Plan Assessment & Plan (1) Renal artery stenosis: Code(s): I70.1 - Atherosclerosis of renal artery (2) CKD (chronic kidney disease) stage 3, GFR 30-59 ml/min: Code(s): N18.30 - Chronic kidney disease, stage 3 unspecified (3) HTN (hypertension): Code(s): I10 - Essential (primary) hypertension Plan Elderly woman with hypertension history of large stenosis with CKD. Renal function stable with creatinine 1.6. Goal is to slow the progression of disease. Continue to avoid nephrotoxic agents. Hypertension Most likely due to underlying renal artery stenosis. Status post stent placement. Blood pressure is well controlled. She should continue low-sodium diet. No changes made to the antihypertensive regimen. History of renal artery stenosis. Status post stent placement. She is being followed by Dr. Steele. Spinal stenosis defer management to [facility] pediatric sports medicine specialist Coding Level of Care Code Est Pt Level 4 (93008) Diagnoses Renal artery stenosis I70.1 CKD (chronic kidney disease) stage 3, GFR 30-59 ml/min N18.30 HTN (hypertension) I10
== END 2023-01-25 11:15 | disposition home or self-care (01) ==
PROVIDERS: PCP Internal Medicine; Visit Provider Internal Medicine Hypertension Specialist
DX: I70.1 Atherosclerosis of renal artery (principal); N18.30 Chronic kidney disease, stage 3 unspecified; I12.9 Hypertensive chronic kidney disease with stage 1 through stage 4 chronic kidney disease, or unspecified chronic kidney disease
CPT/HCPCS: 99214

== ENCOUNTER → 2023-01-25 10:43 | Outpatient (BNVA) | payer MEDICARE, SELFPAY | PROVIDERS: PCP Internal Medicine; Visit Provider Internal Medicine Hypertension Specialist | DX: I12.9 Hypertensive chronic kidney disease with stage 1 through stage 4 chronic kidney disease, or unspecified chronic kidney disease (principal); N18.30 Chronic kidney disease, stage 3 unspecified; I70.1 Atherosclerosis of renal artery | CPT/HCPCS: 99212 ==

== ENCOUNTER 2023-04-29 13:17 | Outpatient (REF) | payer MEDICARE, SELFPAY ==
--- NOTE | ~2023-04-29 | XR_ITS ---
EXAMINATION: XR LUMBOSACRAL SPINE WITH OBLIQUES CLINICAL INFORMATION: Spinal stenosis COMPARISON: CT lumbar spine 06/05/2021 TECHNIQUE: AP, lateral and flexion and extension views. FINDINGS: Trace scoliosis. Transitional anatomy is again noted. Vertebral bodies are maintained in height. Multilevel spurring and disc space narrowings, most severe L5-S1. On neutral view, grade 1 anterolisthesis L4 on L5 and trace retrolisthesis L1 on L2. No significant change on flexion and extension views. Cholecystectomy clips and multiple vascular stents. A On lateral view, calcified infrarenal aorta is identified measuring at least 2.8 cm. This measured approximately 2.4 cm on 06/05/2021. Fecal retention. Dilated rectosigmoid to 6.8 cm with associated anastomotic suture line. XR/XR lumbar spine 4V min IMPRESSION: Multilevel degenerative changes, multilevel disc disease, most pronounced L5-S1, grade 1 anterolisthesis L4 on L5, trace retrolisthesis L1 on L2 with flexion-extension views as described. Enlarging ectatic calcified infrarenal abdominal aorta. Consider follow-up ultrasound or CT. Fecal retention/fecal impaction.
--- NOTE | ~2023-04-29 | XR_ITS ---
EXAMINATION: XR CERVICAL SPINE CLINICAL INFORMATION: Cervicalgia COMPARISON: None available. TECHNIQUE: 4 views of the cervical spine were obtained. FINDINGS: No acute visible fracture or dislocation. Grade 1 retrolisthesis of C3 on C4 and C4 on C5 and C5 on C6 on extension views. Multilevel degenerative changes with disc space narrowing, endplate sclerosis, osteophyte formation, and facet arthropathy. Vertebral body heights and disc spaces are maintained. Prevertebral soft tissues are unremarkable. Posterior elements intact. Paraspinal soft tissues are unremarkable. Visualized portions of the upper chest are unremarkable. XR/XR cervical spine 4V IMPRESSION: 1. No acute visible fracture or dislocation. 2. Grade 1 retrolisthesis of C3 on C4 and C4 on C5 and C5 on C6 on extension views. 3. Multilevel degenerative changes.
== END 2023-04-29 13:18 | disposition home or self-care (01) ==
LOC: HO.HOSX 13:17
PROVIDERS: PCP Internal Medicine; Visit Provider Physician Assistant
DX: M54.2 Cervicalgia (principal); M48.061 Spinal stenosis, lumbar region without neurogenic claudication
CPT/HCPCS: 72050; 72110; 99212

== ENCOUNTER 2023-04-29 13:17 | Outpatient (AMB) | payer MEDICARE, SELFPAY ==
--- NOTE | 2023-04-29 13:27 | HO.SPINEOV ---
Intake Intake Visit Reasons: 6 month follow up Intake Note: Ms. Roth is here today for 6 month Follow up. 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: No Allergies acetaminophen [Percocet] Allergy (Unknown, Verified 01/25/23 10:45) Unknown amoxicillin [AMOXICILLIN] Allergy (Unknown, Verified 01/25/23 10:45) NAUSEA aspirin [ASA] Allergy (Unknown, Verified 01/25/23 10:45) FEELING OF PEPPER ON TONGUE atorvastatin [ATORVASTATIN] Allergy (Unknown, Verified 01/25/23 10:45) FEELING OF PEPPER ON TONGUE fluconazole [FLUCONAZOLE] Allergy (Unknown, Verified 01/25/23 10:45) FEELING OF PEPPER ON TONGUE Iodinated Contrast Media [Contrast Dye] Allergy (Unknown, Verified 01/25/23 10:45) Unknown irbesartan [IRBESARTAN] Allergy (Unknown, Verified 01/25/23 10:45) SORE TONGUE,GERD lisinopril [LISINOPRIL] Allergy (Unknown, Verified 01/25/23 10:45) COUGH metronidazole [Flagyl] Allergy (Unknown, Verified 01/25/23 10:45) Rash morphine [MORPHINE] Allergy (Unknown, Verified 01/25/23 10:45) HIVES oxycodone [OXYCODONE] Allergy (Unknown, Verified 01/25/23 10:45) RASH pepper (genus Capsicum) [PEPPER] Allergy (Unknown, Verified 01/25/23 10:45) SENSITIVE TO Bkznvvy-YJC-IoB Reductase Inhibitor [WGWFTPV-LSJ-API REDUCTASE INHIBITOR] Allergy (Unknown, Verified 01/25/23 10:45) TONGUE SWELLING lorazepam [From ATIVAN] Adverse Reaction (Unknown, Verified 01/25/23 10:45) HALLUCINATIONS Tetracyclines [TETRACYCLINES] Adverse Reaction (Unknown, Verified 01/25/23 10:45) SHAKES Assessment & Plan Assessment & Plan (1) Lumbar stenosis: Code(s): M48.061 - Spinal stenosis, lumbar region without neurogenic claudication (2) Neck pain: Code(s): M54.2 - Cervicalgia Plan MMrs Ira is here in follow-up today. I saw her last year for evaluation of bilateral leg fatigue and feeling of tiredness when she is walking. She was found have a grade 1 spondylolisthesis with lateral recess stenosis and some [id number] foraminal stenosis. We treated that with just observation at the time because she was dealing with a kidney issue for which she underwent a renal artery stent and had to be on Plavix, so our options were limited. She was coming back in today to discuss this, but moreover she has been plagued by neck pain chronically and that has flared up over the last few months. She has been doing therapy religiously daily with home exercises and hand weights without any improvement. Typically this would make the symptoms go away. She is tried Tylenol as well. She can not take anti-inflammatories for obvious reasons. She has also been reporting numbness of her hands. On my exam today, she does have some mild weakness of her hands, positive Tinel's on the right. No hyperreflexia or Juan's. I would like to get a cervical MRI and a cervical x-ray to evaluate this a little more thoroughly. For now we will hold off on discussions about her lumbar spine until we can be clear what is going on with her neck as that seems to be her primary pain generator at this time. Total amount of time spent in this visit was 20 minutes in discussion of symptoms, lumbar MRI imaging results and subsequent plan of care Rudy Prado MD,PhD [facility] Orders: Orders XR cervical spine 4V Today M54.2 - Cervicalgia XR lumbar spine 4V min Today M48.061 - Spinal stenosis, lumbar region without neurogenic claudication MR cervical spine wo con Today M54.2 - Cervicalgia Coding Level of Care Code Est Pt Level 3 (37514) Diagnoses Lumbar stenosis M48.061 Neck pain M54.2
== END 2023-04-29 14:19 | disposition home or self-care (01) ==
PROVIDERS: PCP Internal Medicine; Visit Provider Physician Assistant
DX: M48.061 Spinal stenosis, lumbar region without neurogenic claudication (principal); M54.2 Cervicalgia
CPT/HCPCS: 99213

== ENCOUNTER 2023-05-12 14:20 | Outpatient (AMB) | payer MEDICARE, SELFPAY ==
--- NOTE | 2023-05-12 14:26 | A.SPINEOV_ITS ---
Intake Intake Visit Reasons: discuss sx Intake Note: Ms. Roth is here today to discuss sx Dental Tech Required: No Allergies acetaminophen [Percocet] Allergy (Unknown, Verified 01/25/23 10:45) Unknown amoxicillin [AMOXICILLIN] Allergy (Unknown, Verified 01/25/23 10:45) NAUSEA aspirin [ASA] Allergy (Unknown, Verified 01/25/23 10:45) FEELING OF PEPPER ON TONGUE atorvastatin [ATORVASTATIN] Allergy (Unknown, Verified 01/25/23 10:45) FEELING OF PEPPER ON TONGUE fluconazole [FLUCONAZOLE] Allergy (Unknown, Verified 01/25/23 10:45) FEELING OF PEPPER ON TONGUE Iodinated Contrast Media [Contrast Dye] Allergy (Unknown, Verified 01/25/23 10:45) Unknown irbesartan [IRBESARTAN] Allergy (Unknown, Verified 01/25/23 10:45) SORE TONGUE,GERD lisinopril [LISINOPRIL] Allergy (Unknown, Verified 01/25/23 10:45) COUGH metronidazole [Flagyl] Allergy (Unknown, Verified 01/25/23 10:45) Rash morphine [MORPHINE] Allergy (Unknown, Verified 01/25/23 10:45) HIVES oxycodone [OXYCODONE] Allergy (Unknown, Verified 01/25/23 10:45) RASH pepper (genus Capsicum) [PEPPER] Allergy (Unknown, Verified 01/25/23 10:45) SENSITIVE TO Tyxiqbm-IBI-OrW Reductase Inhibitor [[id number]-CPO-DFO REDUCTASE INHIBITOR] Allergy (Unknown, Verified 01/25/23 10:45) TONGUE SWELLING lorazepam [From ATIVAN] Adverse Reaction (Unknown, Verified 01/25/23 10:45) HALLUCINATIONS Tetracyclines [TETRACYCLINES] Adverse Reaction (Unknown, Verified 01/25/23 10:45) [facility] Assessment & Plan Assessment & Plan (1) Carpal tunnel syndrome: Code(s): G56.00 - Carpal tunnel syndrome, unspecified upper limb Plan Mrs Roth is back here in the office to review her cervical MRI. She is reporting that she has basically only numbness of her hands when she is doing activities like blow drying her hair, or at night. She has not reporting any specific pain radiating down her arms or fine motor loss. Her cervical MRI done at [facility] does demonstrate moderate to severe stenosis at C4-5 but I do not think she is symptomatic at this time. I would like to rule out carpal tunnel she does have a positive Tinel sign. Maybe that is what is causing the numbness of her hands and having her drop things. I will call her with the results. Total amount of time spent in this visit was 20 minutes in discussion of symptoms, cervical MRI imaging results and subsequent plan of care Rudy Prado MD,PhD [facility] Orders: Orders NE electromyogram (EMG) Today G56.00 - Carpal tunnel syndrome, unspecified upper limb Coding Level of Care Code Est Pt Level 3 (69585) Diagnoses Carpal tunnel syndrome G56.00
== END 2023-05-12 15:01 | disposition home or self-care (01) ==
PROVIDERS: PCP Internal Medicine; Visit Provider Physician Assistant
DX: G56.00 Carpal tunnel syndrome, unspecified upper limb (principal)
CPT/HCPCS: 99213

== ENCOUNTER → 2023-05-12 14:20 | Outpatient (BNVA) | payer MEDICARE, SELFPAY | PROVIDERS: PCP Internal Medicine; Visit Provider Physician Assistant | DX: G56.00 Carpal tunnel syndrome, unspecified upper limb (principal) | CPT/HCPCS: 99212 ==

== ENCOUNTER 2023-05-24 10:39 | Outpatient (REF) | payer MEDICARE, SELFPAY ==
[2023-05-24 13:36] LABS: Anion Gap 14 (12-20); Blood Urea Nitrogen 23 mg/dL (9-16); Carbon Dioxide 29 mmol/L (22-29); Chloride 103 mmol/L (96-108); Estimated Glomerular Filt Rate 38; Potassium 3.8 mmol/L (3.3-5.1); Sodium 142 mmol/L (135-145)
== END 2023-05-24 10:40 | disposition home or self-care (01) ==
LOC: HO.LAB 10:39
PROVIDERS: PCP Internal Medicine; Visit Provider Internal Medicine Nephrology
DX: I70.1 Atherosclerosis of renal artery (principal); I12.9 Hypertensive chronic kidney disease with stage 1 through stage 4 chronic kidney disease, or unspecified chronic kidney disease; N18.30 Chronic kidney disease, stage 3 unspecified
CPT/HCPCS: 36415; 80051; 82565; 84520

== ENCOUNTER 2023-05-26 09:59 | Outpatient (REF) | payer MEDICARE, SELFPAY ==
--- NOTE | 2023-05-26 10:12 | EMG_ITS ---
Bilateral median and ulnar motor and sensory studies were performed. Bilateral median and lateral antecubital brachial and radial sensory studies were performed and paraspinal muscles were tested with a needle. IMPRESSION: 1. Lxmj-vi-bswswqlh bilateral median neuropathy across carpal tunnel. 2. Mild right ulnar neuropathy across cubital tunnel. MD ZEYNEP Espinosa/LAVONNE / [phone]
== END 2023-05-26 10:00 | disposition home or self-care (01) ==
LOC: HO.NEURO 09:59
PROVIDERS: PCP Internal Medicine; Visit Provider Physician Assistant
DX: G56.13 Other lesions of median nerve, bilateral upper limbs (principal)
CPT/HCPCS: 95886; 95913

== ENCOUNTER 2023-05-31 10:36 | Outpatient (AMB) | payer MEDICARE, SELFPAY ==
[2023-05-31 10:39] VITALS: BP 118/54; PULSE 60; O2SAT 96; BMI 21.4
--- NOTE | 2023-05-31 10:39 | HO.NEPHOV_ITS ---
HPI HPI Comments History of Present Illness Details Gaviota is a elderly woman with a history of for chronic kidney disease in the setting of renal artery stenosis and severe hypertension. She has undergone renal angiogram with angioplasty and stent placement by Dr. Steele. Currently she is on Plavix. She has a history of back pain and lower leg pains. MRI reveals significant disc disease and arthritis. She is being followed by [facility] permit specialist From a renal standpoint she is doing very well. No new complaints today. Blood pressure has been well controlled [facility] Medical History (Updated 05/12/23 @ 14:35 by ANA MARIA Tan) Hx of colon cancer, stage III History of colon cancer Joint pain Afib HTN (hypertension) Surgical History Hx of removal of cyst History of colonoscopy History of surgery History of surgery Hx of cerebral aneurysm repair History of renal angiogram Hx of cataract Family History Father No problems noted. Mother No problems noted. Brother CAD (coronary artery disease) Social History Patient Tobacco Use Status: Former Tobacco user Quit Date: 33 years ago Tobacco use type: Cigarette Vital Signs 05/31/23 10:39 Height 4 ft 11 in Weight 106 lb BMI 21.4 BP 118/54 L Blood Pressure Location Lt brachial Position Sitting Pulse 60 Pulse Source Pulse Oximeter Pulse Oximetry (%) 96 Oxygen Delivery Method Room Air Physical Exam Vital Signs: Last Vital Signs Pulse 60 05/31/23 10:39 BP 118/54 L 05/31/23 10:39 Pulse Ox 96 05/31/23 10:39 Oxygen Delivery Method Room Air 05/31/23 10:39 BMI result Body Mass Index 21.4 Const General: comfortable Nutritional Appearance: well nourished Orientation/consciousness: patient oriented x3 HEENT Head: No normal to inspection Mouth: moist mucous membranes Neck Neck: Yes supple and Yes no JVD Resp Auscultation: clear to auscultation bilaterally, no rales and rub present Cardio Jugular venous distension: no JVD Palpation: no palpable S3 and no palpable S4 Heart sounds: no rubs GI Palpation (GI): Soft to palpation and nontender Percussion: No Fluid wave present General: Yes no CVA tenderness Back/Spine/Pelvis Back: no CVA tenderness Skin General skin exam: no rashes or lesions noted Neuro General: patient oriented x3 Extrem General: Yes no pedal edema and No clubbing Assessment & Plan Assessment & Plan (1) Renal artery stenosis: Code(s): I70.1 - Atherosclerosis of renal artery (2) CKD (chronic kidney disease) stage 3, GFR 30-59 ml/min: Code(s): N18.30 - Chronic kidney disease, stage 3 unspecified (3) HTN (hypertension): Code(s): I10 - Essential (primary) hypertension Plan Elderly woman with hypertension history of large stenosis with CKD. Renal function stable with creatinine 1.4 to 1.6. Goal is to slow the progression of disease. Continue to avoid nephrotoxic agents. Hypertension Most likely due to underlying renal artery stenosis. Status post stent placement. Blood pressure is well controlled. She should continue low-sodium diet. No changes made to the antihypertensive regimen. History of renal artery stenosis. Status post stent placement. She is being followed by Dr. Steele. Spinal stenosis / Carpel tunnel syndrome -defer management to [facility] permit specialist Would avoid NSAIDS Coding Level of Care Code Est Pt Level 4 (94009) Diagnoses Renal artery stenosis I70.1 CKD (chronic kidney disease) stage 3, GFR 30-59 ml/min N18.30 HTN (hypertension) I10 Results Reviewed Nephrology Results: Hgb 12.4 g/dl (12.0-16.0) 01/18/23 WBC 6.7 X10*3/uL (4.8-10.8) 01/18/23 Plt Count 214 X10*3/uL (160-400) 01/18/23 Sodium 142 mmol/L (135-145) 05/24/23 Potassium 3.8 mmol/L (3.3-5.1) 05/24/23 Chloride 103 mmol/L (96-108) 05/24/23 Carbon Dioxide 29 mmol/L (22-29) 05/24/23 BUN 23 mg/dL (9-16) H 05/24/23 Creatinine 1.36 mg/dL (0.5-1.4) 05/24/23 Calcium 9.7 mg/dL (8.4-10.2) 01/18/23
== END 2023-05-31 10:58 | disposition home or self-care (01) ==
PROVIDERS: PCP Internal Medicine; Visit Provider Internal Medicine Hypertension Specialist
DX: I70.1 Atherosclerosis of renal artery (principal); N18.30 Chronic kidney disease, stage 3 unspecified; I10 Essential (primary) hypertension
CPT/HCPCS: 99214

== ENCOUNTER → 2023-05-31 10:36 | Outpatient (BNVA) | payer MEDICARE, SELFPAY | PROVIDERS: PCP Internal Medicine; Visit Provider Internal Medicine Hypertension Specialist | DX: I12.9 Hypertensive chronic kidney disease with stage 1 through stage 4 chronic kidney disease, or unspecified chronic kidney disease (principal); N18.30 Chronic kidney disease, stage 3 unspecified; I70.1 Atherosclerosis of renal artery | CPT/HCPCS: 99212 ==

== ENCOUNTER 2023-06-23 11:35 | Outpatient (REF) | payer MEDICARE, SELFPAY ==
[2023-06-23 11:39] LABS: MANUAL DIFF FLAG NO
[2023-06-23 12:42] LABS: Basophils Absolute Auto 0.1 X10*3/uL (0.0-0.2); Basophils Percent Auto 0.8 % (0-2); Eosinophils Absolute Auto 0.3 X10*3/uL (0.0-0.4); Eosinophils Percent Auto 3.1 % (0-4); Hemoglobin 12.9 g/dl (12.0-16.0); Imm Gran Abs Auto 0.02 X10*3/uL (0.00-0.03); Imm Gran Pct Auto 0.2 % (0.0-0.4); Lymphocytes Absolute Auto 2.1 X10*3/uL (1.2-4.9); Lymphocytes Percent Auto 22.5 % (20-40); Mean Corpuscular HGB Conc 33.1 g/dl (31.0-35.0); Mean Corpuscular Hemoglobin 31.5 pg (27.0-33.0); Mean Corpuscular Volume 95.4 fL (80.0-98.0); Mean Platelet Volume 10.1 fL (9.4-12.3); Monocytes Absolute Auto 0.9 X10*3/uL (0.1-1.2); Monocytes Percent Auto 10.1 % (2-11); Neutrophils Absolute Auto 5.8 x10*3/uL (2.0-8.3); Neutrophils Percent Auto 63.3 % (45-73); Platelet Count 209 X10*3/uL (160-400); Red Blood Count 4.09 X10*6/uL (4.20-5.50); White Blood Count 9.1 X10*3/uL (4.8-10.8)
[2023-06-23 13:08] LABS: Alanine Aminotransferase 12 U/L (0-31); Albumin Level 4.7 g/dL (3.5-5.0); Alkaline Phosphatase 58 U/L (39-117); Anion Gap 11 (12-20); Aspartate Amino Transferase 25 U/L (5-31); Bilirubin Total 0.6 mg/dL (0.0-1.0); Blood Urea Nitrogen 31 mg/dL (9-16); Calcium 9.9 mg/dL (8.4-10.2); Carbon Dioxide 29 mmol/L (22-29); Chloride 105 mmol/L (96-108); Cholesterol 190 mg/dL (<200); Estimated Glomerular Filt Rate 30; Glucose Fasting 96 mg/dL (60-99); HDL Cholesterol 46 mg/dL (>40); Iron 134 mcg/dL (30-160); LDL Cholesterol Calculated 112 mg/dL (<100); Percent Iron Saturation 43 % (15-50); Potassium 4.1 mmol/L (3.3-5.1); Sodium 141 mmol/L (135-145); Total Iron Binding Capacity 314 mcg/dL (228-428); Total Protein 7.7 g/dL (6.5-8.0); Triglycerides 164 mg/dL (<150); Unsaturated Iron Binding 180 ug/dL
== END 2023-06-23 11:36 | disposition home or self-care (01) ==
LOC: HO.LNP 11:35
PROVIDERS: Visit Provider Internal Medicine
DX: Z00.00 Encounter for general adult medical examination without abnormal findings (principal); I10 Essential (primary) hypertension; D50.9 Iron deficiency anemia, unspecified; E87.6 Hypokalemia
CPT/HCPCS: 80053; 80061; 83540; 85025

== ENCOUNTER 2023-06-30 13:22 | Outpatient (REF) | payer MEDICARE, SELFPAY ==
[2023-06-30 13:35] LABS: Appearance Urine Clear; Color Urine Yellow; Glucose Urine UA Negative (Negative); Leukocyte Esterase Urine Large (3+) (Negative); Nitrite Urine Negative (Negative); Specific Gravity - Urine 1.015 (1.005-1.025); UMIC TRIGGER UACC YES; Urine Blood Negative (Negative); Urine Ketones Negative (Negative); Urine Protein Trace mg/dL (Neg-Trace)
[2023-06-30 13:37] LABS: Bacteria Urine None Seen (None Seen); Hyaline Casts Urine 0-2 /LPF (0-2); RBC Urine 0-2 /HPF (0-2); Squamous Epithelial Cell Urine 0-2 /HPF (0-2); UACC Culture Trigger YES
== END 2023-06-30 13:23 | disposition home or self-care (01) ==
LOC: HO.LNP 13:22
PROVIDERS: Visit Provider Internal Medicine
DX: I70.1 Atherosclerosis of renal artery (principal); I10 Essential (primary) hypertension; R82.90 Unspecified abnormal findings in urine
CPT/HCPCS: 81001; 87086

== ENCOUNTER 2023-07-25 11:05 | Outpatient (REF) | payer MEDICARE, SELFPAY ==
[2023-07-25 12:08] LABS: Blood Urea Nitrogen 32 mg/dL (9-16); Estimated Glomerular Filt Rate 28
== END 2023-07-25 11:06 | disposition home or self-care (01) ==
LOC: HO.LNP 11:05
PROVIDERS: Visit Provider Internal Medicine
DX: I10 Essential (primary) hypertension (principal)
CPT/HCPCS: 82565; 84520

== ENCOUNTER 2023-08-11 08:47 | Day surgery (SDC) | payer MEDICARE, SELFPAY ==
[2023-08-09 12:59] VITALS: BMI 21.4
[2023-08-11 09:18] VITALS: BMI 20.6
[2023-08-11 09:37] VITALS: BP 107/41; PULSE 56; RESP 16; TEMP 36.6; O2SAT 97
[2023-08-11] MEDS: methocarbamoL 750 MG TABLET PO (09:43)
[2023-08-11] MEDS: Gabapentin 300 MG CAPSULE PO (09:43)
[2023-08-11] MEDS: Lactated Ringers 1,000 ML 100 ML IVCONT (10:03)
[2023-08-11] MEDS: vancomycin HCL 1,000 MG in 0.9 % Sodium Chloride 250 ML 270 MG IV (10:04)
--- NOTE | 2023-08-11 10:26 | MHC.SHP ---
Pre-Procedural Eval Section A - 24 Hr Update-Section A only Date of Service: 08/11/23 Section B - Complete if H&P > 30 days Chief Complaint: Carpal tunnel syndrome, unspecified upper limb Details of Present Illness: Left carpal tunnel syndrome Allergies: Allergies Allergy/AdvReac Type Severity Reaction Status Date / Time Nfamjzu-EFQ-WxE Reductase Allergy Severe TONGUE Verified 08/11/23 09:21 Inhibitor SWELLING [[id number]-ZKS-SHT REDUCTASE INHIBITOR] amoxicillin [AMOXICILLIN] Allergy Intermediate NAUSEA Verified 08/11/23 09:21 aspirin [ASA] Allergy Intermediate FEELING OF Verified 08/11/23 09:21 PEPPER ON TONGUE atorvastatin [ATORVASTATIN] Allergy Intermediate FEELING OF Verified 08/11/23 09:21 PEPPER ON TONGUE fluconazole [FLUCONAZOLE] Allergy Intermediate FEELING OF Verified 08/11/23 09:21 PEPPER ON TONGUE irbesartan [IRBESARTAN] Allergy Intermediate SORE Verified 08/11/23 09:21 TONGUE,GERD metronidazole [Flagyl] Allergy Intermediate Rash Verified 08/11/23 09:21 morphine [MORPHINE] Allergy Intermediate HIVES Verified 08/11/23 09:21 oxycodone [OXYCODONE] Allergy Intermediate RASH Verified 08/11/23 09:21 pepper (genus Capsicum) Allergy Intermediate SENSITIVE Verified 08/11/23 09:21 [PEPPER] TO lisinopril [LISINOPRIL] Allergy Mild COUGH Verified 08/11/23 09:21 Iodinated Contrast Media Allergy Unknown Unknown Verified 08/11/23 09:21 [Contrast Dye] Tetracyclines [TETRACYCLINES] AdvReac Intermediate SHAKES Verified 08/11/23 09:21 lorazepam [From ATIVAN] AdvReac Mild HALLUCINATI Verified 08/11/23 09:21 ONS Review of Systems Sugical H&P ROS: Negative: Constitution, Cardiovascular, Respiratory, Neurological, Psychiatric, Hem-Onc, Allergic/Immunologic, Gastrointestinal, Genitourinary, Musculoskeletal, Integumentary, Endocrine and Eyes/Ears/Nose/Throat Exam Surgical H&P Exam: Normal: Skin and Normal: Neurological and Not Evaluated: HEENT, Not Evaluated: Heart, Not Evaluated: Lungs, Not Evaluated: Extremities and Not Evaluated: Abdomen Plan Diagnosis/Plan: Unchanged I have reviewed the history and physical and performed a pertinent physical examination on my patient. No changes have occurred unless specified. Left carpal tunnel syndrome release Time Spent With Patient Time: Total time managing care of this patient today _6___ minutes.
--- NOTE | 2023-08-11 10:33 | PM.DS ---
DS: Providers Provider Date of Service: 08/11/23 Date of discharge: 08/11/23 Primary care physician: Wood Conti MD Admitting clinician: Satya Prado DS: Diagnosis Discharge Diagnosis (1) Carpal tunnel syndrome: Status: Acute DS: Summary Time Attestation Discharge Coordination Time (in mins): 5 Quality: Safe Use of Opioids Does Pt have an Active Cancer Diagnosis on the Problem List?: No Quality: Stroke Does the patient have a stroke diagnosis?: No Physical Exam Vital Signs: Vital Signs: Last Vital Signs Temp 97.8 F 08/11/23 09:37 Pulse 56 08/11/23 09:37 Resp 16 08/11/23 09:37 BP 107/41 L 08/11/23 09:37 Pulse Ox 97 08/11/23 09:37 O2 Del Method Room Air 08/11/23 09:37 BMI result Body Mass Index 20.6 Discharge Plan Discharge Patient Disposition: Home, Self-Care Referrals: Wood Conti MD [Primary Care Provider] - 1 Week Discharge Medications: New tramadol 50 mg tablet 50 mg PO Q8H PRN (Reason: pain) Qty: 20 0RF Continued hydralazine 25 mg tablet 25 mg PO TID Qty: 270 2RF hydralazine 50 mg tablet 50 mg PO TID Qty: 180 4RF atenolol 25 mg tablet 25 mg PO DAILY diltiazem HCl [DILT-XR] 240 mg capsule,ext.rel 24h degradable 240 mg PO QAM vitamin B complex Tablet 1 tab PO DAILY cholecalciferol (vitamin D3) 25 mcg (1,000 unit) capsule 25 mcg PO DAILY garlic Tablet 300 mg PO DAILY ascorbic acid (vitamin C) 500 mg capsule 500 mg PO DAILY glucosamine sulfate [Glucosamine] 500 mg tablet 500 mg PO BID Rx Instructions: administer with a meal Held clopidogrel 75 mg tablet 75 mg PO DAILY Hold Instructions: Resume on 08/18/23. You may restart this medication 1 week after surgery Discharge Orders: Discharge Order (Routine); Ordered 08/11/23 Ordered By: Rudy Garcia Diet: Advance to usual diet Activity on Discharge: As tolerated Activity Restrictions/Additional Instructions: You may remove your lindsey wrap on post op day 3, as well as the dressing underneath it There are sutures in your wound, and you will need these removed 10-14 days after surgery. Please call the office to arrange this visit, You can use your hand as much as you like, however, please avoid straining or heavy lifting It will help swelling in your hand to keep it elevated when you are not using it. You can shower on post op day 1, but please keep wound dry You can drive when you feel comfortable and are off narcotics If you experience any signs of infection such as fever, chills or redness/discharge from your wound,please call office right away Print Language: Indonesian
--- NOTE | 2023-08-11 10:40 | HO.ANESPROP2 ---
Documented by User: Dorothy Alonzo NP 08/09/23 15:07 HPI - Anesthesia Eval Consult details Narrative: 77yo F for Left Carpal Tunnel Release *Multiple Med Allergies* Plavix for afib Follows [facility] cardiology. Stable at 1 year routine office visit 2022 [place]ERON s/p stenting with improved HTN PMFSH Active Problems Active Problems: All Active Problems Carpal tunnel syndrome (Acute) Neck pain (Acute) Renal artery stenosis (Acute) CKD (chronic kidney disease) stage 3, GFR 30-59 ml/min (Acute) Lumbar stenosis (Acute) Atypical angina (Acute) HTN (hypertension) (Acute) Past Medical History Medical History (Updated 08/09/23 @ 12:57 by Jeni Dickey RN) CKD (chronic kidney disease) Renal artery stenosis Hx of colon cancer, stage III History of colon cancer Joint pain Afib HTN (hypertension) Family History Family History Father No problems noted. Mother No problems noted. Brother CAD (coronary artery disease) Family history of problems with anesthesia: No Surgical History Surgical History (Updated 08/09/23 @ 12:51 by Jeni Dickey RN) Hx of removal of cyst History of colonoscopy History of surgery History of surgery Hx of cerebral aneurysm repair History of renal angiogram Hx of cataract History of Problems with Anesthesia: No Social History Social History Are you a primary primary care provider to a significant other at home: No Do you presently have visiting nurse or other home services: No Patient Tobacco Use Status: Former Tobacco user Tobacco use type: Cigarette Advance Directives: No Advance Directives Information Provided: Yes Advance Directives on File: No Meds Allergies Allergy/AdvReac Type Severity Reaction Status Date / Time Bhyzvhg-END-VwA Reductase Allergy Severe TONGUE Verified 08/11/23 09:21 Inhibitor SWELLING [KCDOPYE-DGZ-RNP REDUCTASE INHIBITOR] amoxicillin [AMOXICILLIN] Allergy Intermediate NAUSEA Verified 08/11/23 09:21 aspirin [ASA] Allergy Intermediate FEELING OF Verified 08/11/23 09:21 PEPPER ON TONGUE atorvastatin [ATORVASTATIN] Allergy Intermediate FEELING OF Verified 08/11/23 09:21 PEPPER ON TONGUE fluconazole [FLUCONAZOLE] Allergy Intermediate FEELING OF Verified 08/11/23 09:21 PEPPER ON TONGUE irbesartan [IRBESARTAN] Allergy Intermediate SORE Verified 08/11/23 09:21 TONGUE,GERD metronidazole [Flagyl] Allergy Intermediate Rash Verified 08/11/23 09:21 morphine [MORPHINE] Allergy Intermediate HIVES Verified 08/11/23 09:21 oxycodone [OXYCODONE] Allergy Intermediate RASH Verified 08/11/23 09:21 pepper (genus Capsicum) Allergy Intermediate SENSITIVE Verified 08/11/23 09:21 [PEPPER] TO lisinopril [LISINOPRIL] Allergy Mild COUGH Verified 08/11/23 09:21 Iodinated Contrast Media Allergy Unknown Unknown Verified 08/11/23 09:21 [Contrast Dye] Tetracyclines [TETRACYCLINES] AdvReac Intermediate SHAKES Verified 08/11/23 09:21 lorazepam [From ATIVAN] AdvReac Mild HALLUCINATI Verified 08/11/23 09:21 ONS Home Medications ?Medication ?Instructions ?Recorded ?Confirmed ?Last Taken ?Type atenolol 25 mg tablet 25 mg PO DAILY 06/17/21 08/11/23 08/11/23 History cholecalciferol (vitamin D3) 25 25 mcg PO DAILY 06/17/21 08/11/23 Unknown History mcg (1,000 unit) capsule garlic 300 mg PO DAILY 06/17/21 08/11/23 Unknown History clopidogrel 75 mg tablet 75 mg PO DAILY 08/10/21 08/11/23 08/01/23 History diltiazem HCl 240 mg 240 mg PO QAM 08/10/21 08/11/23 08/11/23 History capsule,extended release 24 hr, controlled (DILT-XR) ascorbic acid (vitamin C) 500 mg 500 mg PO DAILY 05/31/23 08/11/23 Unknown History capsule glucosamine sulfate 500 mg tablet 500 mg PO BID 05/31/23 08/11/23 Unknown History (Glucosamine) vitamin B complex 1 tab PO DAILY 08/09/23 08/11/23 Unknown History Exam Height,Weight and Vital Signs: Height 4 ft 11 in Weight 48.081 kg Pertinent Lab Results Pertinent Lab Results: Laboratory Tests 06/23/23 07/25/23 Unknown Unknown WBC 9.1 Hgb 12.9 Hct 39.0 Plt Count 209 Sodium 141 Potassium 4.1 Chloride 105 Carbon Dioxide 29 BUN 32 H Creatinine 1.75 H Narrative Narrative: ECHO 2021 Conclusions: - 1. Normal LV systolic function with pseudonormal filling pattern 2. Moderate mitral and calcification with normal cardiac valvular Doppler 3. Normal RV systolic pressure 4. No pericardial effusion NM cardiolite stress test 2021 Impression: 1. Myocardial perfusion imaging study shows normal myocardial perfusion 2. Gated LVEF is 62% 3. Transient ischemic dilatation not present EKG nondiagnostic for ischemia US carotid duplex BI 2021 IMPRESSION: 1. RIGHT: Moderate, hemodynamically significant stenosis of the proximal right internal carotid artery corresponding to a 50-79% stenosis by velocity criteria. 2. LEFT: Moderate, hemodynamically significant stenosis of the proximal left internal carotid artery corresponding to a 50-79% stenosis by velocity criteria. 3. Stenosis involving the left ECA. Assessment and Plan Assessment Anesthesia Assessment: Chart Reviewed Final Anesthetic Review Family History of Problems with Anesthesia: No History of Problems with Anesthesia: No Documented by User: Ade Evans DO 08/11/23 10:45 HPI - Anesthesia Eval Consult details Narrative: 77yo F for Left Carpal Tunnel Release Patient received 400 mg of vancomycin in pre-op then started to complain that her head was itching. Infusion stopped. Dr. Prado notified and stated that no further antibiotics are necessary. *Multiple Med Allergies* Plavix for afib Follows [facility] [place] cardiology. Stable at 1 year routine office visit 2022 [place] s/p stenting with improved HTN PMFSH Past Medical History Medical History (Updated 08/09/23 @ 12:57 by Jeni Dickey RN) CKD (chronic kidney disease) Renal artery stenosis Hx of colon cancer, stage III History of colon cancer Joint pain Afib HTN (hypertension) Family History Family History Father No problems noted. Mother No problems noted. Brother CAD (coronary artery disease) Family history of problems with anesthesia: No Surgical History Surgical History (Updated 08/09/23 @ 12:51 by Jeni Dickey RN) Hx of removal of cyst History of colonoscopy History of surgery History of surgery Hx of cerebral aneurysm repair History of renal angiogram Hx of cataract History of Problems with Anesthesia: No Social History Social History Are you a primary primary care provider to a significant other at home: No Do you presently have visiting nurse or other home services: No Patient Tobacco Use Status: Former Tobacco user Tobacco use type: Cigarette Advance Directives: No Advance Directives Information Provided: Yes Advance Directives on File: No Meds Allergies Allergy/AdvReac Type Severity Reaction Status Date / Time Nlbczim-DIW-WnC Reductase Allergy Severe TONGUE Verified 08/11/23 09:21 Inhibitor SWELLING [OTPYATE-DHY-ABW REDUCTASE INHIBITOR] amoxicillin [AMOXICILLIN] Allergy Intermediate NAUSEA Verified 08/11/23 09:21 aspirin [ASA] Allergy Intermediate FEELING OF Verified 08/11/23 09:21 PEPPER ON TONGUE atorvastatin [ATORVASTATIN] Allergy Intermediate FEELING OF Verified 08/11/23 09:21 PEPPER ON TONGUE fluconazole [FLUCONAZOLE] Allergy Intermediate FEELING OF Verified 08/11/23 09:21 PEPPER ON TONGUE irbesartan [IRBESARTAN] Allergy Intermediate SORE Verified 08/11/23 09:21 TONGUE,GERD metronidazole [Flagyl] Allergy Intermediate Rash Verified 08/11/23 09:21 morphine [MORPHINE] Allergy Intermediate HIVES Verified 08/11/23 09:21 oxycodone [OXYCODONE] Allergy Intermediate RASH Verified 08/11/23 09:21 pepper (genus Capsicum) Allergy Intermediate SENSITIVE Verified 08/11/23 09:21 [PEPPER] TO lisinopril [LISINOPRIL] Allergy Mild COUGH Verified 08/11/23 09:21 Iodinated Contrast Media Allergy Unknown Unknown Verified 08/11/23 09:21 [Contrast Dye] Tetracyclines [TETRACYCLINES] AdvReac Intermediate SHAKES Verified 08/11/23 09:21 lorazepam [From ATIVAN] AdvReac Mild HALLUCINATI Verified 08/11/23 09:21 ONS Home Medications ?Medication ?Instructions ?Recorded ?Confirmed ?Last Taken ?Type atenolol 25 mg tablet 25 mg PO DAILY 06/17/21 08/11/23 08/11/23 History cholecalciferol (vitamin D3) 25 25 mcg PO DAILY 06/17/21 08/11/23 Unknown History mcg (1,000 unit) capsule garlic 300 mg PO DAILY 06/17/21 08/11/23 Unknown History clopidogrel 75 mg tablet 75 mg PO DAILY 08/10/21 08/11/23 08/01/23 History diltiazem HCl 240 mg 240 mg PO QAM 08/10/21 08/11/23 08/11/23 History capsule,extended release 24 hr, controlled (DILT-XR) ascorbic acid (vitamin C) 500 mg 500 mg PO DAILY 05/31/23 08/11/23 Unknown History capsule glucosamine sulfate 500 mg tablet 500 mg PO BID 05/31/23 08/11/23 Unknown History (Glucosamine) vitamin B complex 1 tab PO DAILY 08/09/23 08/11/23 Unknown History Exam Exam Date and Time: August 11, 2023 1039 Height,Weight and Vital Signs: Height 4 ft 11 in Weight 48.081 kg Vital Signs Temperature 97.8 F 08/11/23 09:37 Pulse Rate 56 08/11/23 09:37 Respiratory Rate 16 08/11/23 09:37 Blood Pressure 107/41 L 08/11/23 09:37 Pulse Oximetry 97 08/11/23 09:37 Oxygen Delivery Method Room Air 08/11/23 09:37 Temperature 97.8 F 08/11/23 09:37 Pulse Rate 56 08/11/23 09:37 Respiratory Rate 16 08/11/23 09:37 Blood Pressure 107/41 L 08/11/23 09:37 Pulse Oximetry 97 08/11/23 09:37 Oxygen Delivery Method Room Air 08/11/23 09:37 Airway Mallampati Class: I TM Dist: >3cm Neck ROM: Full Denture: Upper and Lower Heart: S1S2 Lungs: CTAB Assessment and Plan Assessment Anesthesia Assessment: Anesthesia Plan Discussed and Chart Reviewed Final Anesthetic Review Family History of Problems with Anesthesia: No History of Problems with Anesthesia: No NPO: Yes ASA Class: III Final Preanesthetic Review: No Changes in Pt Med Stat, Meds/Allgs Chart Reviewed, Consent Obtained/Reviewed and Anes Risks/Benef Reviewed Patient Risk: Intermediate Procedure Risk: Low Anesthetic Plan Anesthetic Plan: MAC: Disposition: Standard PACU
--- NOTE | 2023-08-11 11:54 | W.PM.OPN ---
Operative Note Operative Note Date of Service: 08/11/23 Narrative: Diagnosis: Left carpal tunnel syndrome Procedure: Left median nerve release Surgeon: Satya Prado MD PhD Description procedure: This patient is suffering from a left carpal tunnel syndrome. The patient was offered a decompression of the median nerve. The procedure complications were explained. The patient was consented. He was brought to the operating room, where moderate sedation was applied. Prepping and draping was done followed by time-out. Marcaine was injected into the mid volar region. A midvolar incision was made. The ligamentum carpi transversum was opened sharply until the median nerve became visible. A Metzenbaum scissor was used to decompress the median nerve proximally and distally over its trajectory. Significant compression was present. Hemostasis was done. The incision was closed with 3 interrupted sutures. A compressive RADHA wrap was used for hemostasis. All sponge and needle counts were correct. Patient was transported to the recovery room. Anesthesia: Moderate sedation and local anesthetic Blood loss: Minimal Complications: None Disposition: Discharge home
[2023-08-11 12:00] VITALS: BP 108/39; PULSE 59; RESP 12; TEMP 36.1; O2SAT 97
[2023-08-11 12:15] VITALS: BP 133/64; PULSE 68; RESP 16; TEMP 36.1; O2SAT 96
== END 2023-08-11 13:09 | disposition home or self-care (01) ==
PROVIDERS: PCP Internal Medicine; Visit Provider Neurological Surgery
PROC: (CPT 64721; principal; 2023-08-11 11:30)
DX: G56.02 Carpal tunnel syndrome, left upper limb (principal); Z88.0 Allergy status to penicillin; Z88.5 Allergy status to narcotic agent; Z88.6 Allergy status to analgesic agent; Z88.8 Allergy status to other drugs, medicaments and biological substances
CPT/HCPCS: 64721; J2704; J3010; J3370

== ENCOUNTER → 2023-08-11 08:47 | Outpatient (BNV) | payer MEDICARE, SELFPAY | PROVIDERS: PCP Internal Medicine; Visit Provider Physician Assistant | DX: G56.00 Carpal tunnel syndrome, unspecified upper limb (principal) | CPT/HCPCS: 64721; 99499 ==

== ENCOUNTER 2023-08-15 11:57 | Outpatient (REF) | payer MEDICARE, SELFPAY ==
[2023-08-15 12:29] LABS: Blood Urea Nitrogen 25 mg/dL (9-16); Estimated Glomerular Filt Rate 32
== END 2023-08-15 11:58 | disposition home or self-care (01) ==
LOC: HO.LNP 11:57
PROVIDERS: Visit Provider Internal Medicine
DX: R79.9 Abnormal finding of blood chemistry, unspecified (principal)
CPT/HCPCS: 82565; 84520

== ENCOUNTER 2023-08-24 13:11 | Outpatient (AMB) | payer MEDICARE, SELFPAY ==
--- NOTE | 2023-08-24 13:13 | MHC.OFFVIS ---
Vital Signs 08/24/23 13:13 08/24/23 13:23 Height 4 ft 11 in 4 ft 11 in Weight 102 lb BMI 20.6 BP 120/68 Blood Pressure Location Lt brachial Lt brachial Position Sitting Sitting Pulse 63 Pulse Source Monitor Intake Visit Reasons: 1 year fu Pt bday today Intake Note: pt is here for ov with ekg pt feels good Allergies Fvbdxgy-UYW-HtC Reductase Inhibitor [DQMCWSY-LPG-HRW REDUCTASE INHIBITOR] Allergy (Severe, Verified 08/11/23 09:21) TONGUE SWELLING amoxicillin [AMOXICILLIN] Allergy (Intermediate, Verified 08/11/23 09:21) NAUSEA aspirin [ASA] Allergy (Intermediate, Verified 08/11/23 09:21) FEELING OF PEPPER ON TONGUE atorvastatin [ATORVASTATIN] Allergy (Intermediate, Verified 08/11/23 09:21) FEELING OF PEPPER ON TONGUE fluconazole [FLUCONAZOLE] Allergy (Intermediate, Verified 08/11/23 09:21) FEELING OF PEPPER ON TONGUE irbesartan [IRBESARTAN] Allergy (Intermediate, Verified 08/11/23 09:21) SORE TONGUE,GERD metronidazole [Flagyl] Allergy (Intermediate, Verified 08/11/23 09:21) Rash morphine [MORPHINE] Allergy (Intermediate, Verified 08/11/23 09:21) HIVES oxycodone [OXYCODONE] Allergy (Intermediate, Verified 08/11/23 09:21) RASH pepper (genus Capsicum) [PEPPER] Allergy (Intermediate, Verified 08/11/23 09:21) SENSITIVE TO lisinopril [LISINOPRIL] Allergy (Mild, Verified 08/11/23 09:21) COUGH Iodinated Contrast Media [Contrast Dye] Allergy (Unknown, Verified 08/11/23 09:21) Unknown Tetracyclines [TETRACYCLINES] Adverse Reaction (Intermediate, Verified 08/11/23 09:21) SHAKES lorazepam [From ATIVAN] Adverse Reaction (Mild, Verified 08/11/23 09:21) HALLUCINATIONS Medication List - Last Reconciled 08/24/23 by Pablo Hickman MD ascorbic acid (vitamin C) 500 mg PO DAILY atenolol 25 mg PO DAILY cholecalciferol (vitamin D3) 25 mcg PO DAILY clopidogrel 75 mg PO DAILY diltiazem HCl ER (DILT-XR) 240 mg PO QAM garlic 300 mg PO DAILY glucosamine sulfate (Glucosamine) 500 mg PO BID hydralazine 50 mg PO TID hydralazine 25 mg PO TID HPI Comments Details: Gaviota comes for follow-up. She is currently doing well. She complains of with walking symptoms of fatigue and tiredness says that she lacks oxygen when she walks for long distances in her leg muscles. Symptoms usually resolve after resting. She does not have actual cramping in her muscles. Denies any exertional chest pain. A blood pressure is currently well optimized. LDL is at 112 mg/dL. She denies any heart failure symptoms. Denies any lightheadedness, syncope. No prolonged palpitations irregular heartbeat. Takes all her medications. Her renal function has remained stable. Scheduled to see Nephrology in 2 months [facility] Medical History CKD (chronic kidney disease) Renal artery stenosis Hx of colon cancer, stage III History of colon cancer Joint pain Afib HTN (hypertension) Surgical History Hx of removal of cyst History of colonoscopy History of surgery History of surgery Hx of cerebral aneurysm repair History of renal angiogram Hx of cataract Family History Father No problems noted. Mother No problems noted. Brother CAD (coronary artery disease) Social History Are you a primary hospice care transitions coordinator to a significant other at home: No Do you presently have visiting nurse or other home services: No Patient Tobacco Use Status: Former Tobacco user Tobacco use type: Cigarette Review of Systems Const Denies chills, Denies fatigue, Denies fever(s), Denies frequent falls, Denies weakness, Denies weight gain and Denies weight loss ENT Denies dizziness Card Denies chest pain, Denies leg edema, Denies lightheadedness, Denies palpitations, Denies dyspnea, Denies dyspnea on exertion, Denies orthopnea and Denies other (loss of consciousness) Resp Denies cough, Denies dyspnea and Denies dyspnea on exertion GI Denies hematochezia and Denies change in stool character Musc Denies abnormal gait, Denies muscle weakness, Denies numbness, Denies radiating pain into limb and Denies tingling Neuro Denies abnormal gait, Denies dizziness, Denies frequent falls, Denies numbness, Denies tingling and Denies weakness Endo Denies fatigue and Denies palpitations Physical Exam Vital Signs: Last Vital Signs Pulse 63 08/24/23 13:23 BP 120/68 08/24/23 13:23 BMI result Body Mass Index 20.6 Const General: cooperative, comfortable, no acute distress, alert and awake Nutritional Appearance: thin Orientation/consciousness: patient oriented x3 Limitations: no limitations HEENT Head: Yes atraumatic Neck Neck: Yes trachea midline, Yes supple and Yes no JVD Chest Chest palpation & inspection: normal inspection of the chest Resp Effort & Inspection: normal respiratory effort Auscultation: no crackles, no rales, no rhonchi, no wheezes and diminished lung sounds Cardio Jugular venous distension: no JVD Palpation: normal PMI Rate: regular rate Rhythm: regular rhythm Heart sounds: S1 normal heart sound present, S2 normal heart sound present, no click, no gallops, no murmurs and no rubs Skin General skin exam: no rashes or lesions noted Neuro General: patient oriented x3 Extrem General: Yes no clubbing, cyanosis or edema Office Procedures EKG Details: EKG shows normal sinus rhythm with normal EKG 52253-[id number], Complete Assessment & Plan Assessment & Plan (1) Atypical angina: Code(s): I20.8 - Other forms of angina pectoris Category: Medical Plan: Atypical angina suggestive of underlying coronary artery disease and suggestive of balanced ischemia with normal myocardial perfusion imaging in the past. She has currently no symptoms or limitations with dual antianginal therapy with diltiazem and atenolol. Continue the same. Her blood pressure is well optimized on current therapy. Continue to monitor the blood pressure at home. She does have high likelihood of underlying vascular disease and her symptoms are suggestive of claudication lower extremity. Consider further investigation if she remains markedly limited. Continue antiplatelet therapy with Plavix, has allergy to aspirin in the past. Also has allergic to statins. Recommend alternative lipid lowering therapy but she currently declines. Follow up in the clinic in 1 year's time, sooner p.r.n.. Thank you for allowing me to partake in [facility] Coding Level of Care Code Est Pt Level 4 (14999) Diagnoses Atypical angina I20.8 CPT Codes EKG - CPT: 08990-[id number], Complete ([id number])
[2023-08-24 13:23] VITALS: BP 120/68; PULSE 63; BMI 20.6
== END 2023-08-24 13:40 | disposition home or self-care (01) ==
PROVIDERS: PCP Internal Medicine; Visit Provider Internal Medicine Cardiovascular Disease
DX: I20.89 Other forms of angina pectoris (principal)
CPT/HCPCS: 93010; 99214

== ENCOUNTER → 2023-08-24 13:11 | Outpatient (BNVA) | payer MEDICARE, SELFPAY | PROVIDERS: PCP Internal Medicine; Visit Provider Internal Medicine Cardiovascular Disease | DX: I20.89 Other forms of angina pectoris (principal) | CPT/HCPCS: 93005; 99212 ==

== ENCOUNTER 2023-08-25 10:11 | Outpatient (AMB) | payer MEDICARE, SELFPAY ==
--- NOTE | 2023-08-25 09:36 | A.SPINEOV_ITS ---
Intake Visit Reasons: Suture Removal Intake Note: Ms. Roth is here today to have her sutures removed. Student Assistant Required: No Allergies Kfajotb-BBP-GzR Reductase Inhibitor [ZUCSDFT-FTR-OZY REDUCTASE INHIBITOR] Allergy (Severe, Verified 08/11/23 09:21) TONGUE SWELLING amoxicillin [AMOXICILLIN] Allergy (Intermediate, Verified 08/11/23 09:21) NAUSEA aspirin [ASA] Allergy (Intermediate, Verified 08/11/23 09:21) FEELING OF PEPPER ON TONGUE atorvastatin [ATORVASTATIN] Allergy (Intermediate, Verified 08/11/23 09:21) FEELING OF PEPPER ON TONGUE fluconazole [FLUCONAZOLE] Allergy (Intermediate, Verified 08/11/23 09:21) FEELING OF PEPPER ON TONGUE irbesartan [IRBESARTAN] Allergy (Intermediate, Verified 08/11/23 09:21) SORE TONGUE,GERD metronidazole [Flagyl] Allergy (Intermediate, Verified 08/11/23 09:21) Rash morphine [MORPHINE] Allergy (Intermediate, Verified 08/11/23 09:21) HIVES oxycodone [OXYCODONE] Allergy (Intermediate, Verified 08/11/23 09:21) RASH pepper (genus Capsicum) [PEPPER] Allergy (Intermediate, Verified 08/11/23 09:21) SENSITIVE TO lisinopril [LISINOPRIL] Allergy (Mild, Verified 08/11/23 09:21) COUGH Iodinated Contrast Media [Contrast Dye] Allergy (Unknown, Verified 08/11/23 09:21) Unknown Tetracyclines [TETRACYCLINES] Adverse Reaction (Intermediate, Verified 08/11/23 09:21) SHAKES lorazepam [From ATIVAN] Adverse Reaction (Mild, Verified 08/11/23 09:21) HALLUCINATIONS Assessment & Plan Assessment & Plan (1) S/P carpal tunnel release: Code(s): Z98.890 - Other specified postprocedural states Category: Medical Plan Procedure: Left sided median nerve release Gaviota comes in today for a follow-up after her left-sided carpal tunnel release surgery to have her sutures removed. She has been doing well since her surgery and reports good articulation with her left hand. She states she still has some inflammation underneath the incision site, but is overall doing very well. She reports a significant reduction in numbness/tingling in the affected hand. Three simple interrupted sutures were removed without issue, no bleeding. I will follow up with Gaviota again 6 weeks to evaluate for healing progress. Roel Prado MD,PhD [facility] Coding Level of Care Code Global (66172) Diagnoses S/P carpal tunnel release Z98.890
== END 2023-08-25 10:49 | disposition home or self-care (01) ==
PROVIDERS: PCP Internal Medicine; Visit Provider Physician Assistant
DX: Z98.890 Other specified postprocedural states (principal)
CPT/HCPCS: 99024

== ENCOUNTER → 2023-08-25 10:11 | Outpatient (BNVA) | payer MEDICARE, SELFPAY | PROVIDERS: PCP Internal Medicine; Visit Provider Physician Assistant | DX: Z48.1 Encounter for planned postprocedural wound closure (principal); Z98.890 Other specified postprocedural states | CPT/HCPCS: 99212 ==

== ENCOUNTER 2023-10-07 13:18 | Outpatient (AMB) | payer MEDICARE, SELFPAY ==
--- NOTE | 2023-10-07 13:21 | A.SPINEOV_ITS ---
Intake Visit Reasons: 2nd post op Intake Note: Ms. Roth is here for her 2nd post op visit Histotechnician Required: No Allergies Qpzaasw-HIU-UwQ Reductase Inhibitor [YRDMSWT-LHS-IVG REDUCTASE INHIBITOR] Allergy (Severe, Verified 10/07/23 13:37) TONGUE SWELLING amoxicillin [AMOXICILLIN] Allergy (Intermediate, Verified 10/07/23 13:37) NAUSEA aspirin [ASA] Allergy (Intermediate, Verified 10/07/23 13:37) FEELING OF PEPPER ON TONGUE atorvastatin [ATORVASTATIN] Allergy (Intermediate, Verified 10/07/23 13:37) FEELING OF PEPPER ON TONGUE fluconazole [FLUCONAZOLE] Allergy (Intermediate, Verified 10/07/23 13:37) FEELING OF PEPPER ON TONGUE irbesartan [IRBESARTAN] Allergy (Intermediate, Verified 10/07/23 13:37) SORE TONGUE,GERD metronidazole [Flagyl] Allergy (Intermediate, Verified 10/07/23 13:37) Rash morphine [MORPHINE] Allergy (Intermediate, Verified 10/07/23 13:37) HIVES oxycodone [OXYCODONE] Allergy (Intermediate, Verified 10/07/23 13:37) RASH pepper (genus Capsicum) [PEPPER] Allergy (Intermediate, Verified 10/07/23 13:37) SENSITIVE TO lisinopril [LISINOPRIL] Allergy (Mild, Verified 10/07/23 13:37) COUGH Iodinated Contrast Media [Contrast Dye] Allergy (Unknown, Verified 10/07/23 13:37) Unknown Tetracyclines [TETRACYCLINES] Adverse Reaction (Intermediate, Verified 10/07/23 13:37) SHAKES lorazepam [From ATIVAN] Adverse Reaction (Mild, Verified 10/07/23 13:37) HALLUCINATIONS Assessment & Plan Assessment & Plan (1) Carpal tunnel syndrome: Code(s): G56.00 - Carpal tunnel syndrome, unspecified upper limb Category: Medical Plan Mrs. Roth is here in follow-up. She underwent a left carpal tunnel release a few months back. She is very pleased with that recovery. She also has carpal tunnel in the right hand with positive Tinel sign and positive Phalen's sign. She has symptomatic issues with numbness and tingling from her risk going into her index finger and thumb when she is doing things like blow drying her hair or when she has to put her hand in a flexed position for any length of time. Her EMG confirmed mild to moderate carpal tunnel on the right hand as well. I will book her for a right carpal tunnel release. She will stop her Plavix 10 days prior to surgery and her fish oil 7 days prior to surgery. All pertinent risks and benefits were discussed again We set a tentative date for November 16. Total amount of time spent in this visit was 20 minutes in discussion of symptoms, EMG discussionresults and subsequent plan of care Rudy Prado MD,PhD [facility] Coding Level of Care Code Est Pt Level 3 (75184) Diagnoses Carpal tunnel syndrome G56.00
== END 2023-10-07 14:08 | disposition home or self-care (01) ==
PROVIDERS: PCP Internal Medicine; Visit Provider Physician Assistant
DX: G56.00 Carpal tunnel syndrome, unspecified upper limb (principal)
CPT/HCPCS: 99024

== ENCOUNTER → 2023-10-07 13:18 | Outpatient (BNVA) | payer MEDICARE, SELFPAY | PROVIDERS: PCP Internal Medicine; Visit Provider Physician Assistant | DX: G56.00 Carpal tunnel syndrome, unspecified upper limb (principal) | CPT/HCPCS: 99212 ==

== ENCOUNTER 2023-10-14 10:36 | Outpatient (REF) | payer MEDICARE, SELFPAY ==
[2023-10-14 11:15] LABS: Blood Urea Nitrogen 30 mg/dL (9-16); Estimated Glomerular Filt Rate 30
== END 2023-10-14 10:37 | disposition home or self-care (01) ==
LOC: HO.LNP 10:36
PROVIDERS: Visit Provider Internal Medicine
DX: I10 Essential (primary) hypertension (principal)
CPT/HCPCS: 82565; 84520

== ENCOUNTER 2023-10-18 06:53 | Outpatient (REF) | payer MEDICARE, SELFPAY ==
[2023-10-18 07:06] LABS: MANUAL DIFF FLAG NO
[2023-10-18 07:26] LABS: Basophils Absolute Auto 0.1 X10*3/uL (0.0-0.2); Basophils Percent Auto 0.9 % (0-2); Eosinophils Absolute Auto 0.3 X10*3/uL (0.0-0.4); Eosinophils Percent Auto 4.1 % (0-4); Hematocrit 37.6 % (37.0-47.0); Hemoglobin 12.6 g/dl (12.0-16.0); Imm Gran Abs Auto 0.03 X10*3/uL (0.00-0.03); Imm Gran Pct Auto 0.4 % (0.0-0.4); Lymphocytes Absolute Auto 1.7 X10*3/uL (1.2-4.9); Lymphocytes Percent Auto 23.2 % (20-40); Mean Corpuscular HGB Conc 33.5 g/dl (31.0-35.0); Mean Corpuscular Hemoglobin 31.5 pg (27.0-33.0); Mean Platelet Volume 9.4 fL (9.4-12.3); Monocytes Absolute Auto 0.4 X10*3/uL (0.1-1.2); Monocytes Percent Auto 5.6 % (2-11); Neutrophils Absolute Auto 4.9 x10*3/uL (2.0-8.3); Neutrophils Percent Auto 65.8 % (45-73); Platelet Count 207 X10*3/uL (160-400); Red Cell Distribution Width 12.9 % (11.0-16.0); White Blood Count 7.5 X10*3/uL (4.8-10.8)
[2023-10-18 07:47] LABS: Anion Gap 12 (12-20); Blood Urea Nitrogen 29 mg/dL (9-16); Calcium 9.9 mg/dL (8.4-10.2); Carbon Dioxide 30 mmol/L (22-29); Chloride 103 mmol/L (96-108); Estimated Glomerular Filt Rate 30; Phosphorus 3.9 mg/dL (2.7-4.5); Potassium 3.7 mmol/L (3.3-5.1); Sodium 141 mmol/L (135-145)
[2023-10-18 07:57] LABS: Parathyroid Hormone Intact 47.5 pg/mL (8.7-77.1)
== END 2023-10-18 06:54 | disposition home or self-care (01) ==
LOC: HO.LAB 06:53
PROVIDERS: PCP Internal Medicine; Visit Provider Internal Medicine Nephrology
DX: N18.30 Chronic kidney disease, stage 3 unspecified (principal)
CPT/HCPCS: 36415; 80051; 82310; 82565; 83970; 84100; 84520; 85025

== ENCOUNTER 2023-10-25 09:42 | Outpatient (AMB) | payer MEDICARE, SELFPAY ==
--- NOTE | 2023-10-25 09:42 | HO.NEPHOV_ITS ---
Vital Signs 10/25/23 09:43 Height 4 ft 11 in Weight 104 lb BMI 21.0 BP 106/64 Blood Pressure Location Lt brachial Position Sitting Pulse 55 Pulse Source Pulse Oximeter Pulse Oximetry (%) 97 Oxygen Delivery Method Room Air Intake Visit Reasons: CKD/ 5 MO FU/ Conf Retail Leasing Agent Required: No Accompanied by: Self / Same As Patient Allergies Otmcdmv-JXY-KgQ Reductase Inhibitor [VVMKTKF-UKU-FIS REDUCTASE INHIBITOR] Allergy (Severe, Verified 10/25/23 09:45) TONGUE SWELLING amoxicillin [AMOXICILLIN] Allergy (Intermediate, Verified 10/25/23 09:45) NAUSEA aspirin [ASA] Allergy (Intermediate, Verified 10/25/23 09:45) FEELING OF PEPPER ON TONGUE atorvastatin [ATORVASTATIN] Allergy (Intermediate, Verified 10/25/23 09:45) FEELING OF PEPPER ON TONGUE fluconazole [FLUCONAZOLE] Allergy (Intermediate, Verified 10/25/23 09:45) FEELING OF PEPPER ON TONGUE irbesartan [IRBESARTAN] Allergy (Intermediate, Verified 10/25/23 09:45) SORE TONGUE,GERD metronidazole [Flagyl] Allergy (Intermediate, Verified 10/25/23 09:45) Rash morphine [MORPHINE] Allergy (Intermediate, Verified 10/25/23 09:45) HIVES oxycodone [OXYCODONE] Allergy (Intermediate, Verified 10/25/23 09:45) RASH pepper (genus Capsicum) [PEPPER] Allergy (Intermediate, Verified 10/25/23 09:45) SENSITIVE TO lisinopril [LISINOPRIL] Allergy (Mild, Verified 10/25/23 09:45) COUGH Iodinated Contrast Media [Contrast Dye] Allergy (Unknown, Verified 10/25/23 09:45) Unknown Tetracyclines [TETRACYCLINES] Adverse Reaction (Intermediate, Verified 10/25/23 09:45) SHAKES lorazepam [From ATIVAN] Adverse Reaction (Mild, Verified 10/25/23 09:45) HALLUCINATIONS HPI Comments Details: Gaviota is a elderly woman with a history of for chronic kidney disease in the setting of renal artery stenosis and severe hypertension. She has undergone renal angiogram with angioplasty and stent placement by Dr. Steele. Currently she is on Plavix. She has a history of back pain and lower leg pains. MRI reveals significant disc disease and arthritis. [place] [facility] [place] From a renal standpoint she is doing very well. No new complaints today. Blood pressure has been well controlled 10/25/23 Underwent carpel tunnel surgery. Doing OK [facility] Medical History CKD (chronic kidney disease) Renal artery stenosis Hx of colon cancer, stage III History of colon cancer Joint pain Afib HTN (hypertension) Surgical History (Updated 10/25/23 @ 09:45 by COLE Bass) History of carpal tunnel surgery of left wrist (~08/2023) Hx of removal of cyst History of colonoscopy History of surgery History of surgery Hx of cerebral aneurysm repair History of renal angiogram Hx of cataract Family History Father No problems noted. Mother No problems noted. Brother CAD (coronary artery disease) Social History Are you a primary healthcare technician to a significant other at home: No Do you presently have visiting nurse or other home services: No Patient Tobacco Use Status: Former Tobacco user Tobacco use type: Cigarette Physical Exam Vital Signs: Last Vital Signs Pulse 55 10/25/23 09:43 BP 106/64 10/25/23 09:43 Pulse Ox 97 10/25/23 09:43 Oxygen Delivery Method Room Air 10/25/23 09:43 BMI result Body Mass Index 21.0 Const General: comfortable; No acute distress Orientation/consciousness: patient oriented x3 Eyes General: appearance normal, both eyes and all related structures Visual Payne: normal visual payne by confrontation Neck Neck: Yes supple and Yes no JVD Resp Effort & Inspection: normal respiratory effort and respiratory effort not decreased Auscultation: rhonchi Cardio Palpation: no palpable S3 and no palpable S4 Heart sounds: no rubs GI Inspection: Yes normal to inspection Palpation (GI): Soft to palpation Percussion: Yes normal to percussion Auscultation: normal bowel sounds General: Yes no CVA tenderness Back/Spine/Pelvis Back: no CVA tenderness Skin General skin exam: no petechiae and no purpura Neuro General: patient oriented x3 and no focal motor deficits Extrem General: No clubbing and No edema Results Reviewed Nephrology Results: Hgb 12.6 g/dl (12.0-16.0) 10/18/23 WBC 7.5 X10*3/uL (4.8-10.8) 10/18/23 Plt Count 207 X10*3/uL (160-400) 10/18/23 Sodium 141 mmol/L (135-145) 10/18/23 Potassium 3.7 mmol/L (3.3-5.1) 10/18/23 Chloride 103 mmol/L (96-108) 10/18/23 Carbon Dioxide 30 mmol/L (22-29) H 10/18/23 BUN 29 mg/dL (9-16) H 10/18/23 Creatinine 1.67 mg/dL (0.5-1.4) H 10/18/23 Calcium 9.9 mg/dL (8.4-10.2) 10/18/23 Phosphorus 3.9 mg/dL (2.7-4.5) 10/18/23 PTH Intact 47.5 pg/mL (8.7-77.1) 10/18/23 Assessment & Plan Assessment & Plan (1) Renal artery stenosis: Code(s): I70.1 - Atherosclerosis of renal artery Category: Medical (2) CKD (chronic kidney disease) stage 3, GFR 30-59 ml/min: Code(s): N18.30 - Chronic kidney disease, stage 3 unspecified Category: Medical (3) HTN (hypertension): Code(s): I10 - Essential (primary) hypertension Category: Medical Plan Elderly woman with hypertension history of large stenosis with CKD. Renal function stable with creatinine 1.4 to 1.6. Goal is to slow the progression of disease. Continue to avoid nephrotoxic agents. Hypertension Most likely due to underlying renal artery stenosis. Status post stent placement. Blood pressure is well controlled. She should continue low-sodium diet. No changes made to the antihypertensive regimen. History of renal artery stenosis. Status post stent placement. She is being followed by Dr. Steele. Spinal stenosis s/p Carpel tunnel syndrome -defer [place] [facility] [place] Would avoid NSAIDS Orders: Orders Comprehensive Met. Panel 4 Months I10 - Essential (primary) hypertension, I70.1 - Atherosclerosis of renal artery, N18.30 - Chronic kidney disease, stage 3 unspecified Complete Blood Count Auto Diff 4 Months I10 - Essential (primary) hypertension, I70.1 - Atherosclerosis of renal artery, N18.30 - Chronic kidney disease, stage 3 unspecified Coding Level of Care Code Est Pt Level 4 (40163) Diagnoses Renal artery stenosis I70.1 CKD (chronic kidney disease) stage 3, GFR 30-59 ml/min N18.30 HTN (hypertension) I10
[2023-10-25 09:43] VITALS: BP 106/64; PULSE 55; O2SAT 97; BMI 21.0
== END 2023-10-25 09:59 | disposition home or self-care (01) ==
PROVIDERS: PCP Internal Medicine; Visit Provider Internal Medicine Hypertension Specialist
DX: I70.1 Atherosclerosis of renal artery (principal); N18.30 Chronic kidney disease, stage 3 unspecified; I10 Essential (primary) hypertension
CPT/HCPCS: 99214

== ENCOUNTER → 2023-10-25 09:42 | Outpatient (BNVA) | payer MEDICARE, SELFPAY | PROVIDERS: PCP Internal Medicine; Visit Provider Internal Medicine Hypertension Specialist | DX: I12.9 Hypertensive chronic kidney disease with stage 1 through stage 4 chronic kidney disease, or unspecified chronic kidney disease (principal); N18.30 Chronic kidney disease, stage 3 unspecified; I70.1 Atherosclerosis of renal artery | CPT/HCPCS: 99212 ==

== ENCOUNTER 2023-11-17 08:58 | Day surgery (SDC) | payer MEDICARE, SELFPAY ==
[2023-11-15 11:07] VITALS: BMI 21.4
[2023-11-17] VITALS (7 sets, daily range): BP systolic 82–179; BP diastolic 39–64; PULSE 60–69; RESP 12–18; TEMP 36.1–36.4; O2SAT 95–100
--- NOTE | 2023-11-17 09:06 | P.HPSUR_ITS ---
Pre-Procedural Eval Section A - 24 Hr Update-Section A only Date of Service: 11/17/23 The patient is an INPATIENT: No Section B - Complete if H&P > 30 days Chief Complaint: Carpal tunnel syndrome, Allergies: Allergies Allergy/AdvReac Type Severity Reaction Status Date / Time Gilsljm-VDD-SrX Reductase Allergy Severe TONGUE Verified 10/25/23 09:45 Inhibitor SWELLING [XUUWYHA-DVA-UJM REDUCTASE INHIBITOR] amoxicillin [AMOXICILLIN] Allergy Intermediate NAUSEA Verified 10/25/23 09:45 aspirin [ASA] Allergy Intermediate FEELING OF Verified 10/25/23 09:45 PEPPER ON TONGUE atorvastatin [ATORVASTATIN] Allergy Intermediate FEELING OF Verified 10/25/23 09:45 PEPPER ON TONGUE fluconazole [FLUCONAZOLE] Allergy Intermediate FEELING OF Verified 10/25/23 09:45 PEPPER ON TONGUE irbesartan [IRBESARTAN] Allergy Intermediate SORE Verified 10/25/23 09:45 TONGUE,GERD metronidazole [Flagyl] Allergy Intermediate Rash Verified 10/25/23 09:45 morphine [MORPHINE] Allergy Intermediate HIVES Verified 10/25/23 09:45 oxycodone [OXYCODONE] Allergy Intermediate RASH Verified 10/25/23 09:45 pepper (genus Capsicum) Allergy Intermediate SENSITIVE Verified 10/25/23 09:45 [PEPPER] TO lisinopril [LISINOPRIL] Allergy Mild COUGH Verified 10/25/23 09:45 Iodinated Contrast Media Allergy Unknown Unknown Verified 10/25/23 09:45 [Contrast Dye] Tetracyclines [TETRACYCLINES] AdvReac Intermediate SHAKES Verified 10/25/23 09:45 lorazepam [From ATIVAN] AdvReac Mild HALLUCINATI Verified 10/25/23 09:45 ONS Review of Systems Sugical H&P ROS: Negative: Constitution, Cardiovascular, Respiratory, Neurological, Psychiatric, Hem-Onc, Allergic/Immunologic, Gastrointestinal, Genitourinary, Musculoskeletal, Integumentary, Endocrine and Eyes/Ears/Nose/Throat Exam Surgical H&P Exam: Normal: HEENT, Normal: Heart, Normal: Lungs, Normal: Extre mities, Normal: Abdomen, Normal: Skin and Normal: Neurological (awake, alert) Plan Diagnosis/Plan: Unchanged I have reviewed the history and physical and performed a pertinent physical examination on my patient. No changes have occurred unless specified. right carpal tunnel release Time Spent With Patient Time: Total time managing care of this patient today __5__ minutes.
--- NOTE | 2023-11-17 09:20 | HO.ANESPROP2 ---
Documented by User: Dorothy Alonzo NP 11/15/23 14:20 HPI - Anesthesia Eval Consult details Narrative: 78yo F for Right Carpal Tunnel Release s/p left side 08/2023 with MAC Patient received 400 mg of vancomycin in pre-op then started to complain that her head was itching. Infusion stopped. Dr. Prado notified and stated that no further antibiotics are necessary. *Multiple Med Allergies* Plavix for afib [place] [facility] [place]. Stable at 1 year routine office visit 2022 [facility] s/p stenting with improved HTN PMFSH Active Problems Active Problems: All Active Problems S/P carpal tunnel release (Acute) Carpal tunnel syndrome (Acute) Neck pain (Acute) Renal artery stenosis (Acute) CKD (chronic kidney disease) stage 3, GFR 30-59 ml/min (Acute) Lumbar stenosis (Acute) Atypical angina (Acute) HTN (hypertension) (Acute) Past Medical History Medical History CKD (chronic kidney disease) Renal artery stenosis Hx of colon cancer, stage III History of colon cancer Joint pain Afib HTN (hypertension) Family History Family History Father No problems noted. Mother No problems noted. Brother CAD (coronary artery disease) Family history of problems with anesthesia: No Surgical History Surgical History (Updated 11/15/23 @ 10:53 by Jeni Dickey RN) History of carpal tunnel surgery of left wrist (~08/2023) Hx of removal of cyst History of colonoscopy History of surgery History of surgery Hx of cerebral aneurysm repair History of renal angiogram Hx of cataract History of Problems with Anesthesia: No Social History Social History Are you a primary home health care social worker to a significant other at home: No Do you presently have visiting nurse or other home services: No Patient Tobacco Use Status: Former Tobacco user Tobacco use type: Cigarette Advance Directives Information Provided: Yes Advance Directives on File: No Meds Allergies Allergy/AdvReac Type Severity Reaction Status Date / Time Hudmzvb-SPE-YsM Reductase Allergy Severe TONGUE Verified 10/25/23 09:45 Inhibitor SWELLING [SRSXRES-LLU-WMK REDUCTASE INHIBITOR] vancomycin Allergy Severe Rash Verified 11/17/23 09:13 amoxicillin [AMOXICILLIN] Allergy Intermediate NAUSEA Verified 10/25/23 09:45 aspirin [ASA] Allergy Intermediate FEELING OF Verified 10/25/23 09:45 PEPPER ON TONGUE atorvastatin [ATORVASTATIN] Allergy Intermediate FEELING OF Verified 10/25/23 09:45 PEPPER ON TONGUE fluconazole [FLUCONAZOLE] Allergy Intermediate FEELING OF Verified 10/25/23 09:45 PEPPER ON TONGUE irbesartan [IRBESARTAN] Allergy Intermediate SORE Verified 10/25/23 09:45 TONGUE,GERD metronidazole [Flagyl] Allergy Intermediate Rash Verified 10/25/23 09:45 morphine [MORPHINE] Allergy Intermediate HIVES Verified 10/25/23 09:45 oxycodone [OXYCODONE] Allergy Intermediate RASH Verified 10/25/23 09:45 pepper (genus Capsicum) Allergy Intermediate SENSITIVE Verified 10/25/23 09:45 [PEPPER] TO lisinopril [LISINOPRIL] Allergy Mild COUGH Verified 10/25/23 09:45 Iodinated Contrast Media Allergy Unknown Unknown Verified 10/25/23 09:45 [Contrast Dye] Tetracyclines [TETRACYCLINES] AdvReac Intermediate SHAKES Verified 10/25/23 09:45 lorazepam [From ATIVAN] AdvReac Mild HALLUCINATI Verified 10/25/23 09:45 ONS Home Medications ?Medication ?Instructions ?Recorded ?Confirmed ?Last Taken ?Type atenolol 25 mg tablet 25 mg PO DAILY 06/17/21 11/15/23 08/11/23 History cholecalciferol (vitamin D3) 25 25 mcg PO DAILY 06/17/21 11/15/23 Unknown History mcg (1,000 unit) capsule garlic 300 mg PO DAILY 06/17/21 11/15/23 Unknown History clopidogrel 75 mg tablet 75 mg PO DAILY 08/10/21 11/15/23 08/01/23 History diltiazem HCl 240 mg 240 mg PO QAM 08/10/21 11/15/23 08/11/23 History capsule,extended release 24 hr, controlled (DILT-XR) ascorbic acid (vitamin C) 500 mg 500 mg PO DAILY 05/31/23 11/15/23 Unknown History capsule glucosamine sulfate 500 mg tablet 500 mg PO BID 05/31/23 11/15/23 Unknown History (Glucosamine) folic acid 400 mcg tablet 0.4 mg PO DAILY 10/25/23 11/15/23 Unknown History Exam Height,Weight and Vital Signs: Height 4 ft 11 in Weight 48.081 kg Pertinent Lab Results Pertinent Lab Results: Laboratory Tests 10/18/23 07:05 WBC 7.5 Hgb 12.6 Hct 37.6 Plt Count 207 Sodium 141 Potassium 3.7 Chloride 103 Carbon Dioxide 30 H BUN 29 H Creatinine 1.67 H Narrative Narrative: EKG 08/2023 normal sinus rhythm with normal EKG ECHO 2021 Conclusions: - 1. Normal LV systolic function with pseudonormal filling pattern 2. Moderate mitral and calcification with normal cardiac valvular Doppler 3. Normal RV systolic pressure 4. No pericardial effusion NM cardiolite stress test 2021 Impression: 1. Myocardial perfusion imaging study shows normal myocardial perfusion 2. Gated LVEF is 62% 3. Transient ischemic dilatation not present EKG nondiagnostic for ischemia US carotid duplex BI 2021 IMPRESSION: 1. RIGHT: Moderate, hemodynamically significant stenosis of the proximal right internal carotid artery corresponding to a 50-79% stenosis by velocity criteria. 2. LEFT: Moderate, hemodynamically significant stenosis of the proximal left internal carotid artery corresponding to a 50-79% stenosis by velocity criteria. 3. Stenosis involving the left ECA. Assessment and Plan Assessment Anesthesia Assessment: Chart Reviewed Final Anesthetic Review Family History of Problems with Anesthesia: No History of Problems with Anesthesia: No Documented by User: Ade Evans DO 11/17/23 09:27 HPI - Anesthesia Eval Consult details Narrative: 78yo F for Right Carpal Tunnel Release s/p left side 08/2023 with MAC *Multiple Med Allergies* Plavix for afib [place] [facility] [place]. Stable at 1 year routine office visit 2022 [facility] s/p stenting with improved HTN PMFSH Past Medical History Medical History CKD (chronic kidney disease) Renal artery stenosis Hx of colon cancer, stage III History of colon cancer Joint pain Afib HTN (hypertension) Family History Family History Father No problems noted. Mother No problems noted. Brother CAD (coronary artery disease) Family history of problems with anesthesia: No Surgical History Surgical History (Updated 11/15/23 @ 10:53 by Jeni Dickey RN) History of carpal tunnel surgery of left wrist (~08/2023) Hx of removal of cyst History of colonoscopy History of surgery History of surgery Hx of cerebral aneurysm repair History of renal angiogram Hx of cataract History of Problems with Anesthesia: No Social History Social History Are you a primary home health care social worker to a significant other at home: No Do you presently have visiting nurse or other home services: No Patient Tobacco Use Status: Former Tobacco user Tobacco use type: Cigarette Advance Directives Information Provided: Yes Advance Directives on File: No Meds Allergies Allergy/AdvReac Type Severity Reaction Status Date / Time Tlzhkbl-CJH-FiF Reductase Allergy Severe TONGUE Verified 10/25/23 09:45 Inhibitor SWELLING [TNMPEDJ-ILL-GJR REDUCTASE INHIBITOR] vancomycin Allergy Severe Rash Verified 11/17/23 09:13 amoxicillin [AMOXICILLIN] Allergy Intermediate NAUSEA Verified 10/25/23 09:45 aspirin [ASA] Allergy Intermediate FEELING OF Verified 10/25/23 09:45 PEPPER ON TONGUE atorvastatin [ATORVASTATIN] Allergy Intermediate FEELING OF Verified 10/25/23 09:45 PEPPER ON TONGUE fluconazole [FLUCONAZOLE] Allergy Intermediate FEELING OF Verified 10/25/23 09:45 PEPPER ON TONGUE irbesartan [IRBESARTAN] Allergy Intermediate SORE Verified 10/25/23 09:45 TONGUE,GERD metronidazole [Flagyl] Allergy Intermediate Rash Verified 10/25/23 09:45 morphine [MORPHINE] Allergy Intermediate HIVES Verified 10/25/23 09:45 oxycodone [OXYCODONE] Allergy Intermediate RASH Verified 10/25/23 09:45 pepper (genus Capsicum) Allergy Intermediate SENSITIVE Verified 10/25/23 09:45 [PEPPER] TO lisinopril [LISINOPRIL] Allergy Mild COUGH Verified 10/25/23 09:45 Iodinated Contrast Media Allergy Unknown Unknown Verified 10/25/23 09:45 [Contrast Dye] Tetracyclines [TETRACYCLINES] AdvReac Intermediate SHAKES Verified 10/25/23 09:45 lorazepam [From ATIVAN] AdvReac Mild HALLUCINATI Verified 10/25/23 09:45 ONS Home Medications ?Medication ?Instructions ?Recorded ?Confirmed ?Last Taken ?Type atenolol 25 mg tablet 25 mg PO DAILY 06/17/21 11/15/23 08/11/23 History cholecalciferol (vitamin D3) 25 25 mcg PO DAILY 06/17/21 11/15/23 Unknown History mcg (1,000 unit) capsule garlic 300 mg PO DAILY 06/17/21 11/15/23 Unknown History clopidogrel 75 mg tablet 75 mg PO DAILY 08/10/21 11/15/23 08/01/23 History diltiazem HCl 240 mg 240 mg PO QAM 08/10/21 11/15/23 08/11/23 History capsule,extended release 24 hr, controlled (DILT-XR) ascorbic acid (vitamin C) 500 mg 500 mg PO DAILY 05/31/23 11/15/23 Unknown History capsule glucosamine sulfate 500 mg tablet 500 mg PO BID 05/31/23 11/15/23 Unknown History (Glucosamine) folic acid 400 mcg tablet 0.4 mg PO DAILY 10/25/23 11/15/23 Unknown History Exam Exam Date and Time: 11/17/23 0920 Airway Mallampati Class: I TM Dist: >3cm Neck ROM: Full Denture: Upper and Lower Heart: S1S2 Lungs: CTAB Assessment and Plan Assessment Anesthesia Assessment: Anesthesia Plan Discussed and Chart Reviewed Final Anesthetic Review Family History of Problems with Anesthesia: No History of Problems with Anesthesia: No NPO: Yes ASA Class: III Final Preanesthetic Review: No Changes in Pt Med Stat, Meds/Allgs Chart Reviewed, Consent Obtained/Reviewed and Anes Risks/Benef Reviewed Patient Risk: Intermediate Procedure Risk: Low Anesthetic Plan Anesthetic Plan: MAC: and Agree w/ Assess. and Plan Disposition: Standard PACU
[2023-11-17] MEDS: methocarbamoL 750 MG TABLET PO (09:30)
[2023-11-17] MEDS: Lactated Ringers 1,000 ML 100 ML IVCONT (09:30)
[2023-11-17] MEDS: Gabapentin 300 MG CAPSULE PO (09:30)
--- NOTE | 2023-11-17 09:54 | P.DS_ITS ---
DS: Providers Provider Date of Service: 11/17/23 Date of discharge: 11/17/23 Primary care physician: Wood Conti MD Admitting clinician: Satya Prado DS: Diagnosis Discharge Diagnosis (1) Carpal tunnel syndrome: Status: Acute DS: Summary Time Attestation Discharge Coordination Time (in mins): 5 Quality: Safe Use of Opioids Does Pt have an Active Cancer Diagnosis on the Problem List?: No Quality: Stroke Does the patient have a stroke diagnosis?: No Physical Exam Vital Signs: Vital Signs: Last Vital Signs Temp 97.5 F 11/17/23 09:29 Pulse 69 11/17/23 09:29 Resp 16 11/17/23 09:29 BP 179/64 H 11/17/23 09:29 Pulse Ox 100 11/17/23 09:29 O2 Del Method Room Air 11/17/23 09:29 BMI result Body Mass Index 21.4 Discharge Plan Discharge Patient Disposition: Home, Self-Care Referrals: Wood Conti MD [Primary Care Provider] - 1 Week Discharge Medications: New tramadol 50 mg tablet 50 mg PO Q8H PRN (Reason: pain) Qty: 10 0RF Continued hydralazine 25 mg tablet 25 mg PO TID Qty: 270 2RF hydralazine 50 mg tablet 50 mg PO TID Qty: 180 4RF atenolol 25 mg tablet 25 mg PO DAILY diltiazem HCl [DILT-XR] 240 mg capsule,ext.rel 24h degradable 240 mg PO QAM acetaminophen 1,000 mg PO DAILY PRN (Reason: Pain) cholecalciferol (vitamin D3) 25 mcg (1,000 unit) capsule 25 mcg PO DAILY garlic Tablet 300 mg PO DAILY ascorbic acid (vitamin C) 500 mg capsule 500 mg PO DAILY glucosamine sulfate [Glucosamine] 500 mg tablet 500 mg PO BID Rx Instructions: administer with a meal folic acid 400 mcg tablet 0.4 mg PO DAILY Held clopidogrel 75 mg tablet 75 mg PO DAILY Hold Instructions: Resume on 11/24/23. You may resume Plavix 1 week after surgery Discharge Orders: Discharge Order (Routine); Ordered 11/17/23 Ordered By: Rudy Garcia Diet: Advance to usual diet Activity on Discharge: As tolerated Activity Restrictions/Additional Instructions: You may remove your lindsey wrap on post op day 3, as well as the dressing underneath it There are sutures in your wound, and you will need these removed 10-14 days after surgery. You may resume Plavix 1 week after surgery Please call the office to arrange this visit, You can use your hand as much as you like, however, please avoid straining or heavy lifting It will help swelling in your hand to keep it elevated when you are not using it. You can shower on post op day 1, but please keep wound dry You can drive when you feel comfortable and are off narcotics If you experience any signs of infection such as fever, chills or redness/discharge from your wound,please call office right away Print Language: Romansh
--- NOTE | 2023-11-17 10:14 | W.PM.OPN ---
Operative Note Operative Note Date of Service: 11/17/23 Narrative: Diagnosis: Right carpal tunnel syndrome Procedure: Right median nerve release Surgeon: Satya Prado MD PhD Description procedure: This right Is suffering from a right carpal tunnel syndrome. The patient was offered a decompression of the median nerve. The procedure complications were explained. The patient was consented. He was brought to the operating room, where moderate sedation was applied. Prepping and draping was done followed by time-out. Marcaine was injected into the mid volar region. A midvolar incision was made. The ligamentum carpi transversum was opened sharply until the median nerve became visible. A Metzenbaum scissor was used to decompress the median nerve proximally and distally over its trajectory. Significant compression was present. Hemostasis was done. The incision was closed with 3 interrupted sutures. A compressive RADHA wrap was used for hemostasis. All sponge and needle counts were correct. Patient was transported to the recovery room. Anesthesia: Moderate sedation and local anesthetic Blood loss: Minimal Complications: None Disposition: Discharge home
== END 2023-11-17 11:35 | disposition home or self-care (01) ==
PROVIDERS: PCP Internal Medicine; Visit Provider Neurological Surgery
PROC: (CPT 64721; principal; 2023-11-17 15:00)
DX: G56.01 Carpal tunnel syndrome, right upper limb (principal); R20.0 Anesthesia of skin; R20.2 Paresthesia of skin; I48.91 Unspecified atrial fibrillation; I12.9 Hypertensive chronic kidney disease with stage 1 through stage 4 chronic kidney disease, or unspecified chronic kidney disease; N18.30 Chronic kidney disease, stage 3 unspecified; Z85.038 Personal history of other malignant neoplasm of large intestine; Z79.01 Long term (current) use of anticoagulants; Z79.899 Other long term (current) drug therapy; Z88.5 Allergy status to narcotic agent; Z88.1 Allergy status to other antibiotic agents; Z88.6 Allergy status to analgesic agent; Z91.041 Radiographic dye allergy status; Z87.891 Personal history of nicotine dependence
CPT/HCPCS: 64721; J0131; J0736; J3010; J3370

== ENCOUNTER → 2023-11-17 08:58 | Outpatient (BNV) | payer MEDICARE, SELFPAY | PROVIDERS: PCP Internal Medicine; Visit Provider Physician Assistant | DX: G56.01 Carpal tunnel syndrome, right upper limb (principal) | CPT/HCPCS: 64721; 99499 ==

== ENCOUNTER 2023-12-08 09:53 | Outpatient (AMB) | payer MEDICARE, SELFPAY ==
--- NOTE | 2023-12-08 09:55 | A.SPINEOV_ITS ---
Intake Visit Reasons: 1st post op Intake Note: Mrs. Roth is here today for her 1st post-op appointment. 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: No Allergies Illylou-NWX-TuU Reductase Inhibitor [OVMPIGW-TJO-GXQ REDUCTASE INHIBITOR] Allergy (Severe, Verified 12/08/23 09:57) TONGUE SWELLING vancomycin Allergy (Severe, Verified 12/08/23 09:57) Rash amoxicillin [AMOXICILLIN] Allergy (Intermediate, Verified 12/08/23 09:57) NAUSEA aspirin [ASA] Allergy (Intermediate, Verified 12/08/23 09:57) FEELING OF PEPPER ON TONGUE atorvastatin [ATORVASTATIN] Allergy (Intermediate, Verified 12/08/23 09:57) FEELING OF PEPPER ON TONGUE fluconazole [FLUCONAZOLE] Allergy (Intermediate, Verified 12/08/23 09:57) FEELING OF PEPPER ON TONGUE irbesartan [IRBESARTAN] Allergy (Intermediate, Verified 12/08/23 09:57) SORE TONGUE,GERD metronidazole [Flagyl] Allergy (Intermediate, Verified 12/08/23 09:57) Rash morphine [MORPHINE] Allergy (Intermediate, Verified 12/08/23 09:57) HIVES oxycodone [OXYCODONE] Allergy (Intermediate, Verified 12/08/23 09:57) RASH pepper (genus Capsicum) [PEPPER] Allergy (Intermediate, Verified 12/08/23 09:57) SENSITIVE TO lisinopril [LISINOPRIL] Allergy (Mild, Verified 12/08/23 09:57) COUGH Iodinated Contrast Media [Contrast Dye] Allergy (Unknown, Verified 12/08/23 09:57) Unknown Tetracyclines [TETRACYCLINES] Adverse Reaction (Intermediate, Verified 12/08/23 09:57) SHAKES lorazepam [From ATIVAN] Adverse Reaction (Mild, Verified 12/08/23 09:57) HALLUCINATIONS Assessment & Plan Assessment & Plan (1) S/P carpal tunnel release: Code(s): Z98.890 - Other specified postprocedural states Category: Medical Plan Procedure: R. carpal tunnel release Gaviota comes in today for her 1st postoperative visit to have her sutures removed. She has been successfully using her right hand with minimal pain. She reports that she has been covering it with a glove to do dishes, wash herself, etc. No new neurological deficits. Patient is able to curl her fingertips to the distal palmar crease without issue. Three simple interrupteed sutures were removed. We will follow-up with the patient in 6 weeks for their 2nd postoperative visit. Roel Prado MD,PhD [facility] Coding Level of Care Code Global (09614) Diagnoses S/P carpal tunnel release Z98.890
== END 2023-12-08 10:16 | disposition home or self-care (01) ==
PROVIDERS: PCP Internal Medicine; Visit Provider Physician Assistant
DX: Z98.890 Other specified postprocedural states (principal)
CPT/HCPCS: 99024

== ENCOUNTER → 2023-12-08 09:53 | Outpatient (BNVA) | payer MEDICARE, SELFPAY | PROVIDERS: PCP Internal Medicine; Visit Provider Physician Assistant | DX: Z48.811 Encounter for surgical aftercare following surgery on the nervous system (principal); Z98.890 Other specified postprocedural states | CPT/HCPCS: 99212 ==

== ENCOUNTER 2024-01-19 11:01 | Outpatient (AMB) | payer MEDICARE, SELFPAY ==
--- NOTE | 2024-01-19 11:19 | A.SPINEOV_ITS ---
Intake Visit Reasons: 2nd post op Intake Note: Mrs. Roth is here today for her 2nd post-operative visit. Industrial Cafeteria Manager Required: No Allergies Toqthyd-CRO-NgA Reductase Inhibitor [RZQBCFA-WVF-NQI REDUCTASE INHIBITOR] Allergy (Severe, Verified 12/08/23 09:57) TONGUE SWELLING vancomycin Allergy (Severe, Verified 12/08/23 09:57) Rash amoxicillin [AMOXICILLIN] Allergy (Intermediate, Verified 12/08/23 09:57) NAUSEA aspirin [ASA] Allergy (Intermediate, Verified 12/08/23 09:57) FEELING OF PEPPER ON TONGUE atorvastatin [ATORVASTATIN] Allergy (Intermediate, Verified 12/08/23 09:57) FEELING OF PEPPER ON TONGUE fluconazole [FLUCONAZOLE] Allergy (Intermediate, Verified 12/08/23 09:57) FEELING OF PEPPER ON TONGUE irbesartan [IRBESARTAN] Allergy (Intermediate, Verified 12/08/23 09:57) SORE TONGUE,GERD metronidazole [Flagyl] Allergy (Intermediate, Verified 12/08/23 09:57) Rash morphine [MORPHINE] Allergy (Intermediate, Verified 12/08/23 09:57) HIVES oxycodone [OXYCODONE] Allergy (Intermediate, Verified 12/08/23 09:57) RASH pepper (genus Capsicum) [PEPPER] Allergy (Intermediate, Verified 12/08/23 09:57) SENSITIVE TO lisinopril [LISINOPRIL] Allergy (Mild, Verified 12/08/23 09:57) COUGH Iodinated Contrast Media [Contrast Dye] Allergy (Unknown, Verified 12/08/23 09:57) Unknown Tetracyclines [TETRACYCLINES] Adverse Reaction (Intermediate, Verified 12/08/23 09:57) SHAKES lorazepam [From ATIVAN] Adverse Reaction (Mild, Verified 12/08/23 09:57) HALLUCINATIONS Assessment & Plan Assessment & Plan (1) S/P carpal tunnel release: Code(s): Z98.890 - Other specified postprocedural states Category: Surgical Plan Procedure: R carapl tunnel release Gaviota is a pleasant 78-year-old female who comes in today for her 2nd postoperative visit regarding her right-sided carpal tunnel release surgery. She feels she is doing much better since her surgery. Her hand is functioning much better. She is able to pick things up and grasp them without much issue. She reports she has been exercising with her 2 lb weights at home. She asked some questions regarding the postoperative healing course in the expected recovery time for complete healing. I answered all of her questions to the best of my ability. No new neurological deficits. The patient's incision site over the right ventral wrist is closed and well healed. There is no need for continued routine follow-up regarding Gaviota's carpal tunnel release. She would however like to follow up with ANA MARIA Garcia regarding her low back pain and lower extremity symptoms which she states they previously have discussed. I encouraged her to make an appointment with him on her way out today. Roel Prado MD,PhD [facility] Coding Level of Care Code Global (52466) Diagnoses S/P carpal tunnel release Z98.890
== END 2024-01-19 11:35 | disposition home or self-care (01) ==
PROVIDERS: PCP Internal Medicine; Visit Provider Physician Assistant
DX: Z98.890 Other specified postprocedural states (principal)
CPT/HCPCS: 99024

== ENCOUNTER → 2024-01-19 11:01 | Outpatient (BNVA) | payer MEDICARE, SELFPAY | PROVIDERS: PCP Internal Medicine; Visit Provider Physician Assistant | DX: Z48.811 Encounter for surgical aftercare following surgery on the nervous system (principal); Z98.890 Other specified postprocedural states | CPT/HCPCS: 99212 ==

== ENCOUNTER 2024-01-23 11:07 | Outpatient (AMB) | payer MEDICARE, SELFPAY ==
--- NOTE | 2024-01-23 11:24 | A.SPINEOV_ITS ---
Intake Visit Reasons: lower back pain affecting legs Intake Note: Mrs. Roth is here today c/o low back pain with difficulty walking. Campground Caretaker Required: No Allergies Wlxqczs-CGN-OoX Reductase Inhibitor [GWVNQYP-GPD-MXI REDUCTASE INHIBITOR] Allergy (Severe, Verified 12/08/23 09:57) TONGUE SWELLING vancomycin Allergy (Severe, Verified 12/08/23 09:57) Rash amoxicillin [AMOXICILLIN] Allergy (Intermediate, Verified 12/08/23 09:57) NAUSEA aspirin [ASA] Allergy (Intermediate, Verified 12/08/23 09:57) FEELING OF PEPPER ON TONGUE atorvastatin [ATORVASTATIN] Allergy (Intermediate, Verified 12/08/23 09:57) FEELING OF PEPPER ON TONGUE fluconazole [FLUCONAZOLE] Allergy (Intermediate, Verified 12/08/23 09:57) FEELING OF PEPPER ON TONGUE irbesartan [IRBESARTAN] Allergy (Intermediate, Verified 12/08/23 09:57) SORE TONGUE,GERD metronidazole [Flagyl] Allergy (Intermediate, Verified 12/08/23 09:57) Rash morphine [MORPHINE] Allergy (Intermediate, Verified 12/08/23 09:57) HIVES oxycodone [OXYCODONE] Allergy (Intermediate, Verified 12/08/23 09:57) RASH pepper (genus Capsicum) [PEPPER] Allergy (Intermediate, Verified 12/08/23 09:57) SENSITIVE TO lisinopril [LISINOPRIL] Allergy (Mild, Verified 12/08/23 09:57) COUGH Iodinated Contrast Media [Contrast Dye] Allergy (Unknown, Verified 12/08/23 09:57) Unknown Tetracyclines [TETRACYCLINES] Adverse Reaction (Intermediate, Verified 12/08/23 09:57) SHAKES lorazepam [From ATIVAN] Adverse Reaction (Mild, Verified 12/08/23 09:57) HALLUCINATIONS Assessment & Plan Assessment & Plan (1) Lumbar stenosis: Code(s): M48.061 - Spinal stenosis, lumbar region without neurogenic claudication Category: Medical Plan Mrs Roth came back in the office today for follow-up. She is a patient known to us from a carpal tunnel release and we have followed her for disc degeneration in her back at L4-5. She also has moderate cervical stenosis as well but has been asymptomatic. She comes in today because she has had a feeling of fatigue in her legs that has been coming and going but steadily getting worse now for years. She has no pain in her legs. She does have occasional back pain that may be flaring up little more frequently but nothing that is debilitating her. She will take a few Tylenol if she needs to at night. The symptoms are aggravated with walking on an incline. She will notice that she is falling behind her 's pace and having a hard time keeping up. Again there is no pain when this is happening. There is no numbness of the lower extremities when this is happening. She does not feel the need to sit because it is not uncomfortable. Rather, she just takes her time and just gets to where she is going a little more slowly. On my exam, she has full strength of bilateral upper lower extremities. Her right carpal tunnel wound is well healed. Normal reflexes, no Ibanez's sign, no clonus. Distal lower extremity color and capillary refill is good. Pulses are 2+ at the dorsalis pedis. The posterior tibial was a little hard to feel maybe 1+. Impression: 78-year-old with progressive feeling of fatigue in her legs when she is standing walking. She has no pain in down the legs. She has some modest back pain from time to time but nothing to really to report. We had been following her for an L4-5 spondylolisthesis. She had some lateral recess narrowing but no significant central canal stenosis at that time. That MRI was a year and a half old so I would like to repeat it. She is currently transitioning her insurance possibly, she so she would like that settled before the MRIs ordered. I told her to call us when she is finalize with the insurance and we would happily order it. Her symptoms are somewhat unusual for lumbar stenosis in that she has no pain in her legs. She does have a history of vascular issues requiring stents to the renal artery and part of the aorta, but was recently told that all of her vascular studies were good in the lower extremities. If the lumbar MRI is negative, I will send her back to her PCP to see if there is some other metabolic reason she could be having lower extremity fatigue. Total amount of time spent in this visit was 20 minutes in discussion of symptoms, lumbar imaging results and subsequent plan of care Rudy Prado MD,PhD [facility] Coding Level of Care Code Est Pt Level 3 (54774) Diagnoses Lumbar stenosis M48.061
== END 2024-01-23 11:50 | disposition home or self-care (01) ==
PROVIDERS: PCP Internal Medicine; Visit Provider Physician Assistant
DX: M48.061 Spinal stenosis, lumbar region without neurogenic claudication (principal)
CPT/HCPCS: 99213

== ENCOUNTER → 2024-01-23 11:07 | Outpatient (BNVA) | payer MEDICARE, SELFPAY | PROVIDERS: PCP Internal Medicine; Visit Provider Physician Assistant | DX: M48.061 Spinal stenosis, lumbar region without neurogenic claudication (principal) | CPT/HCPCS: 99212 ==

== ENCOUNTER 2024-02-14 07:15 | Outpatient (REF) | payer MEDICARE, SELFPAY ==
[2024-02-14 07:27] LABS: MANUAL DIFF FLAG NO
[2024-02-14 07:50] LABS: Basophils Absolute Auto 0.1 X10*3/uL (0.0-0.2); Basophils Percent Auto 0.7 % (0-2); Eosinophils Absolute Auto 0.4 X10*3/uL (0.0-0.4); Hematocrit 40.7 % (37.0-47.0); Hemoglobin 13.5 g/dl (12.0-16.0); Imm Gran Abs Auto 0.03 X10*3/uL (0.00-0.03); Imm Gran Pct Auto 0.3 % (0.0-0.4); Mean Corpuscular HGB Conc 33.2 g/dl (31.0-35.0); Mean Corpuscular Hemoglobin 31.3 pg (27.0-33.0); Mean Corpuscular Volume 94.4 fL (80.0-98.0); Mean Platelet Volume 9.8 fL (9.4-12.3); Monocytes Absolute Auto 0.6 X10*3/uL (0.1-1.2); Monocytes Percent Auto 6.3 % (2-11); Neutrophils Absolute Auto 5.8 x10*3/uL (2.0-8.3); Neutrophils Percent Auto 65.7 % (45-73); Platelet Count 179 X10*3/uL (160-400); Red Blood Count 4.31 X10*6/uL (4.20-5.50); White Blood Count 8.9 X10*3/uL (4.8-10.8)
[2024-02-14 08:26] LABS: Alanine Aminotransferase 16 U/L (0-31); Albumin Level 4.5 g/dL (3.5-5.0); Alkaline Phosphatase 50 U/L (39-117); Anion Gap 12 (12-20); Aspartate Amino Transferase 29 U/L (5-31); Bilirubin Total 0.7 mg/dL (0.0-1.0); Blood Urea Nitrogen 24 mg/dL (9-16); Calcium 9.9 mg/dL (8.4-10.2); Carbon Dioxide 29 mmol/L (22-29); Chloride 105 mmol/L (96-108); Estimated Glomerular Filt Rate 32; Glucose Random 93 mg/dL (60-115); Potassium 4.1 mmol/L (3.3-5.1); Sodium 142 mmol/L (135-145); Total Protein 7.5 g/dL (6.5-8.0)
--- OUTSIDE RECORDS SUMMARY | 2024-02-15 18:33 | XMS_ITS ---
Author Organization Wood Conti MD Address [address] [facility] [address] [place] [phone] Care Team Providers Care Skidder Driver Name Role Phone Wood Conti Primary Care Provider [phone] REASON FOR VISIT discharge Encounters Encounter Location Date Provider Diagnosis Wood Conti MD [address] [place] [address] [address] [place] [phone] 11/17/2023 Wood Conti PLAN OF TREATMENT Next Appt Details Provider Name:Wood solis, 06/28/2024 07:30:00 AM, [address] [place] [address], [address], [phone], Provider Name:Wood solis, 07/05/2024 11:00:00 AM, [address] [place] [address], [place], [place], [phone],
--- OUTSIDE RECORDS SUMMARY | 2024-02-15 18:33 | XMS_ITS ---
Author Organization Wood Conti MD Address [address] [place], [place] [id number] Care Team Providers Care Quality Analyst/Technical Writer Name Role Phone Wood Conti Primary Care Provider ALLERGIES Allergen (clinical drug ingredient) Drug/Non Drug Allergy [...] Active REASON FOR VISIT 6 mo f/u MEDICATIONS Medication SIG (Take, Route, Frequency, Duration) Notes [...] 240 MG TAKE 1 CAPSULE BY [facility] EVERY DAY ON EMPTY STOMACH IN THE MORNING Active Diflucan 150 MG 1 tablet Orally deysi y for 5 days 09/30/2022 Not-Taking Tylenol Extra Strength 500 MG 2 tablets as needed Orally every 6 hrs Not-Taking IMMUNIZATIONS Vaccine Route Administration Date Status Comme nts Influenza High Dose IM Intramuscular 01/02/2024 Administer ed VITAL SIGNS BMI 20.70 kg/m2 01/02/2024 Blood pressure systolic 102 mm Hg 01/02/20 Blood pressure diastolic 68 mm Hg 024 Height 60 in 01/02/2024 Weight 106 lbs 01/02/2024 Encounters Encounter Location Date Provider Diagnosis Wood Conti MD [address] [place], [place] [phone] 01/02/2024 Wood Conti Encounter for immunization Z23 and Essential hypertension I10 ASSESSMENTS Encounter Date Diagnosis Assessment Notes Treatment Notes Treatment Clinical Notes 01/02/2024 Encounter for immunization (ICD-10 - Z23) administered flu vaccine today have discussed the covid shot with her. 01/02/2024 Essential hypertension (ICD-10 - I10) running on the low side. she is making adjustments on her meds to keep bp controlled. is going to see collection agent next month PLAN OF TREATMENT Treatment Notes Assessment Notes Encounter for immunization administered flu vaccine today Essential hypertension running on the lo w side. she is making adjustments on her meds to keep bp controlled. is going to see collection agent next month Next Appt Details Provider Name:Wood solis, 06/28/2024 07:30:00 AM, [address] [place] [address], [address], [place], [place], [phone], Provider Name:Wood solis, 07/05/2024 11:00:00 AM, [address] [place] [address], [address], [place], [place], [phone], Progress Notes * Examination Category Sub-Category Detail Notes General Examination GENERAL APPEARANCE: well dev eloped, well nourished , female HEAD: normocephalic HEART: regular rate and rhy thm , no murmurs, rubs, gallops LUNGS: no wheezes, rales, r honchi , good air movement , clear to auscultation bilaterally SKIN: good turgor
--- OUTSIDE RECORDS SUMMARY | 2024-02-15 18:33 | XMS_ITS ---
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 Prado MEDICATIONS Medication SIG (Take, Route, Frequency, Duration) Notes Start Date End Date Status Probiotic 250 MG 1 capsule Orally onc e a day Active Glucosamine Chondr Complex 500-400 MG 1 capsule with a meal Orally Once a day Active Folic Acid 400 MCG 1 tablet Orally Once a day for 30 day(s) Active Dilt-XR 240 MG TAKE 1 CAPSULE BY [facility] EVERY DAY ON EMPTY STOMACH IN THE MORNING Active hydrALAZINE HCl 50 MG 1 tablet with food Orally Three times a day Active Tylenol Extra Strength 500 MG 2 tablets as needed Orally every 6 hrs Not-Taking Ventolin HFA * 108 (90 Base) MCG/ACT 2 puffs as needed Inhalation every 4 hrs for 30 day(s) 09/03/2011 Not-Taking Atenolol 25 MG TAKE 1 TABLET BY [facility] EVERY DAY for 90 Active Diflucan 150 MG 1 tablet Orally deysi y for 5 days 09/30/2022 Not-Taking Metoprolol Succinate ER 25 MG 1 tablet Orally Once a day Active Vitamin C 500 MG 1 tablet Orally ever y other day Active hydrALAZINE HCl 25 MG 1 tablet with food Orally Three times a day Active Clopidogrel Bisulfate 75 MG TAKE 1 TABLET BY MOUTH 1 TIME EACH DAY for 90 Active Vitamin D3 25 MCG (1000 UT) 1 capsule Orally Once a day for 30 day(s) Active VITAL SIGNS BMI 20.50 kg/m2 11/24/2023 Blood pressure systolic 122 mm Hg 11/24/19 24 Blood pressure diastolic 80 mm Hg 024 Height 60 in 11/24/2023 Weight 105 lbs 11/24/2023 Encounters Encounter Location Date Provider Diagnosis Wood Conti MD [address] [place] [address] [place] [phone] 11/24/2023 Wood Conti Essential hypertension I10 and Bilateral carpal tunnel syndrome G56.03 ASSESSMENTS Encounter Date Diagnosis Assessment Notes Treatment Notes Treatment Clinical Notes 11/24/2023 Essential hypertension (ICD-10 - I10) is alternating between hydralzine and diltizaim and bps are doing well, will continue current regiment, is presently at goal 11/24/2023 Bilateral carpal tunnel syndrome (ICD-10 - G56.03) recovering nicely PLAN OF TREATMENT Medication Medication Name Sig Start Date Stop Date Notes Dilt-XR 240 MG TAKE 1 CAPSULE BY [facility] EVERY DAY ON EMPTY STOMACH IN THE MORNING hydrALAZINE HCl 50 MG 1 tablet with food Orally Three times a day Treatment Notes Assessment Notes Essential hypertension is alternating be tween hydralzine and diltizaim and bps are doing well, will continue current regiment, is presently at goal Bilateral carpal tunnel syndrome recover ing nicely Next Appt Details Provider Name:Wood solis, 06/28/2024 07:30:00 AM, [address] [place] [address], [address], [place], [place], [phone], Provider Name:Wood solis, 07/05/2024 11:00:00 AM, [address] [place] [address], [address], [place], [place], [phone], Progress Notes * Examination Category Sub-Category Detail Notes General Examination GENERAL APPEARANCE: alert, w ell hydrated, in no distress HEART: no murmurs, rubs, ga llops, regular rate and rhythm LUNGS: no wheezes, rales, r honchi, good air movement, clear to auscultation bilaterally SKIN: abnormal doing well with the wound healing well
--- OUTSIDE RECORDS SUMMARY | 2024-02-15 18:34 | XMS_ITS | Patient Health Record ---
Author Organization [facility] Address [address] [place] [address] Care Team Providers Care Marine Architect Name Role Phone Gallito SHINE, Wood Primary Care Provider Saul Tepmleton [phone] ALLERGIES Allergen (clinical drug ingredient) Drug/Non Drug Allergy documented on EMR Reaction Allergy Type Onset Date Status calcium carbonate Calcium Unknown Drug Allergy Active atorvastatin Atorvastatin Calcium Unknown Drug Allergy Active lorazepam Ativan Unknown Drug Allergy Active aspirin Aspirin Unknown Drug Allergy Active amoxicillin Amoxicillin Unknown Drug Allergy Act ning valsartan Valsartan Unknown Drug Allergy Active tetracycline Tetracycline HCl Unknown Drug Allergy Active Polyethylene Glycol Unknown Drug Allergy Active oxycodone Oxycodone HCl Unknown Drug Allergy Act ning nystatin Nystatin Unknown Drug Allergy Active polyethylene glycol 3350 MiraLax Unknown Drug Allergy Active lisinopril Lisinopril Unknown Drug Allergy Activ e irbesartan Irbesartan Unknown Drug Allergy Activ e Hydralazine-HCTZ Unknown Drug Allergy Active fluconazole Fluconazole Unknown Drug Allergy Act ning metronidazole Flagyl Unknown Drug Allergy Act ning REASON FOR REFERRAL No Information MEDICATIONS Medication SIG (Take, Route, Frequency, Duration) Notes Start Date End Date Status Dicyclomine HCl 10 MG 1-2 Orally Q 6 hours prn abdominal pain/discomfort/b loating/cramps for 30 day(s) 04/17/2021 Active Multi Vitamin/Minerals 1 1 Orally QOD Active Glucosamine Maximum Strength 1500 MG 1 tablet Orally Once a day Active Clopidogrel Bisulfate 75 MG 1 tablet Orally Once a day She reports that this is for the previous placement of the renal artery stent Active Spironolactone-HCTZ 25-25 MG 1 tablet Orally Once a day for 30 day(s) Not-Taking Atenolol 25 MG 1 tablet Orally Once a day Active dilTIAZem HCl ER 240 MG 1 capsule Orally Once a day Active Vitamin S55-Gkbqk Acid 500-400 MCG 1 Orally QOD Active Vitamin D3 400 UNIT 1 tablet Orally Once a day Active Probiotic Colon Support 1 1 Orally once a day Active Acetaminophen 500 MG 1 capsule as needed Orally prn Active Garlic 1500 Active Metoprolol Succinate ER 50 MG 1 tablet Orally Once a day Not-Taking Vitamin C 500 MG 1 tablet Orally QOD Active IMMUNIZATIONS Vaccine Route Administration Date Status Comme nts Influenza Unknown 04/10/2021 Administered Influenza Unknown 11/21/2018 Refused SOCIAL HISTORY Sex Assigned At : Social History Observation Description Sex Assigned At Unknown PROBLEMS Problem Type ICD Code Onset Dates Problem Status W/U Status Risk SNOMED Code Notes Problem Encounter for screening for malignant neoplasm of colon (Z12.11) Active confirmed 638388748 Problem History of adenomatous polyp of colon (Z86.010) Active confirmed 714199255 Problem Encounter for screening for malignant neoplasm of rectum (Z12.12) Active confirmed Screening fo r malignant neoplasm of rectum (012742188) Problem Preprocedural examination (Z01.818) Active confirmed 23360305 Problem History of colon polyps (Z86.010) Active confirmed History of polyp of colon (390016995) Problem History of colon cancer (Z85.038) Active confirmed 343225404 Problem Constipation, unspecified constipation type (K59.00) Active confirmed 29290868 Problem Hypertension, unspecified type (I10) Active confirmed 43988059 Problem Abdominal pain, diffuse (R10.84) Active confirmed 473650639 Problem Hx of Billroth II operation (Z98.0) Active confirmed History of gastrointestinal tract bypass (327088024) PLAN OF TREATMENT Pending Test Test Name Order Date BUN 10/02/2013 CREATININE 10/02/2013 Future Test Test Name Order Date COLONOSCOPY 09/16/2015 COLONOSCOPY 11/21/2018 COLONOSCOPY 04/10/2021 Insurance Providers Payer Name Payer Address Payer Phone Subscriber Number Group Number Insured Name Patient Relationship to Insured Coverage Start Date Coverage End Date [facility] [address] [facility] [phone] [id number] MORAIMA MACIAS Self - patient is the insured MEDICAL (GENERAL) HISTORY Medical History History ICD Code EGD [id number] History of tubular adenomas removed from the area of the hepatic flexure in 2005 and in 2006, but then she never came back for followup colonoscopies as she did not want to do the prep HTN She was seen in November 24 as an inpatient for anemia and underwent a colonoscopy with the finding of adenocarcinoma-she underwent a laparoscopic right colectomy with Dr. White--she did have positive lymph nodes and had been advised to have adjuvant chemotherapy with Dr. Carrizales, but she refused that EGD in November of 2012 was negative fo r any significant findings Denies FL,DM,CVA,Lung disease,renal dise ase Negative colonoscopy in 12/2013 and 12/06 016 Chronic constipation--she ochoa d some type of surgery with Dr. Daniel in 2010, including a rectocele repair Cerebral aneurysm as below Renal artery stenosis--s/p stent placeme nt Colonoscopy 01/2019 with a hyperplastic polyp removed Surgical History Surgery Date(Month/Year) Rectocele repair-Dr. Daniel- -2010--at [facility]--had complications of Afib and Blood clots Cholecystectomy-2011 Right colectomy for colon cancer-11/2012- Dr. Kiera White-as above Cataract-lens implants 03/2018 Cyst removal on right foot 04/27/2017 Cerebral aneurysm repair with coil [address] Beltre 01/31/20 Bilateral oopherectomy
--- OUTSIDE RECORDS SUMMARY | 2024-02-15 18:34 | XMS_ITS | Patient Health Record ---
Author Organization Wood Conti MD Address [address] [place], [place] [id number] Care Team Providers Care Cleaning Associate Name Role Phone Wood Conti [facility] [...] fluconazole Diflucan burning tongue Drug Allergy Active RESULTS Component Value Reference Range Notes XR cervical spine 4V Reviewed date:05/02/2023 04:47:25 PM Interpretation: Performing Lab: Notes/Report: [facility] [address] [place] [address] XRay Report Signed Patient: Gaviota Roth MR#: [id number] : 1945 Acct:[id number] Age/Sex: 77 / F ADM Date: 04/29/23 Loc: HO.HOSX Attending Dr: Rudy RODGERS Ordering Physician: Rudy Garcia Date of Service: 04/29/23 Procedure(s): XR cervical spine 4V Accession Number(s): [id number] cc: Rudy Garcia; Wood Conti MD EXAMINATION: XR CERVICAL SPINE CLINICAL INFORMATION: Cervicalgia COMPARISON: None available. TECHNIQUE: 4 views of the cervical spine were obtained. FINDINGS: No acute visible fracture or dislocation. Grade 1 retrolisthesis of C3 on C4 and C4 on C5 and C5 on C6 on extension views. Multilevel degenerative changes with disc space narrowing, endplate sclerosis, osteophyte formation, and facet arthropathy. Vertebral body heights and disc spaces are maintained. Prevertebral soft tissues are unremarkable. Posterior elements intact. Paraspinal soft tissues are unremarkable. Visualized portions of the upper chest are unremarkable. XR/XR cervical spine 4V IMPRESSION: 1. No acute visible fracture or dislocation. 2. Grade 1 retrolisthesis of C3 on C4 and C4 on C5 and C5 on C6 on extension views. 3. Multilevel degenerative changes. Dictated By: Luis Grissom MD Signed By: <Electronically signed by Luis Grissom MD in OV> 05/02/23 1517 DD/ 1406 TD/TT: Dynamic Balancer Set Up Worker: XR lumbar spine 4V min Reviewed date:05/13/2023 10:32:43 AM Interpretation:see back 05-13-23 Performing Lab: Notes/Report: [facility] [address] [place] [address] Drive [address] [place] [address] XRay Report Signed Patient: Gaviota Roth MR#: [id number] : 1945 Acct:[id number] Age/Sex: 77 / F ADM Date: 04/29/23 Loc: HO.HOSX Attending Dr: Rudy RODGERS Ordering Physician: Rudy Garcia Date of Service: 04/29/23 Procedure(s): XR lumbar spine 4V min Accession Number(s): [id number] cc: Rudy Garcia; Wood Conti MD EXAMINATION: XR LUMBOSACRAL SPINE WITH OBLIQUES CLINICAL INFORMATION: Spinal stenosis COMPARISON: CT lumbar spine 06/05/2021 TECHNIQUE: AP, lateral and flexion and extension views. FINDINGS: Trace scoliosis. Transitional anatomy is again noted. Vertebral bodies are maintained in height. Multilevel spurring and disc space narrowings, most severe L5-S1. On neutral view, grade 1 anterolisthesis L4 on L5 and trace retrolisthesis L1 on L2. No significant change on flexion and extension views. Cholecystectomy clips and multiple vascular stents. A On lateral view, calcified infrarenal aorta is identified measuring at least 2.8 cm. This measured approximately 2.4 cm on 06/05/2021. Fecal retention. Dilated rectosigmoid to 6.8 cm with associated anastomotic suture line. XR/XR lumbar spine 4V min IMPRESSION: Multilevel degenerative changes, multilevel disc disease, most pronounced L5-S1, grade 1 anterolisthesis L4 on L5, trace retrolisthesis L1 on L2 with flexion-extension views as described. Enlarging ectatic calcified infrarenal abdominal aorta. Consider follow-up ultrasound or CT. Fecal retention/fecal impaction. Dictated By: Alley Arita MD Signed By: <Electronically signed by Alley Arita MD in OV> 05/04/23 1557 DD/ 1406 TD/TT: Dynamic Balancer Set Up Worker: Electrolytes Reviewed date:05/24/2023 03:57:08 PM Interpretation: Performing Lab:[facility], [address] [place] [phone] Notes/Report: Sodium 142 135-145 mmol/L Potassium 3.8 3.3-5.1 mmol/L Chloride 103 96-108 mmol/L Carbon Dioxide 29 22-29 mmol/L Anion Gap 14 12-20 Blood Urea Nitrogen Reviewed date:05/24/2023 03:56:23 PM Interpretation: Performing Lab:[facility], [address] [place] [phone] Notes/Report: Blood Urea Nitrogen 23 9-16 mg/dL Creatinine Reviewed date:05/24/2023 03:56:33 PM Interpretation: Performing Lab:[facility], [address] [place] [phone] Notes/Report: Creatinine 1.36 0.5-1.4 mg/dL Estimated Glomerular Filt Rate 38 NOTE: For -Mauritanian individuals, multiply the result by 1.210. Chronic Kidney Disease: Estimated GFR < 60 mL/min/1.73m2 Severe Kidney Disease: Estimated GFR < 15 mL/min/1.73m2 Hold Gold Reviewed date:06/23/2023 12:46:26 PM Interpretation: Performing Lab:[facility], [address] [place] [address] Notes/Report: Hold Gold See Note Specimen held untested for 24 hours; Call to request Chemistry testing. Complete Blood Count Auto Di ff Reviewed date:06/23/2023 05:28:35 PM Interpretation: Performing Lab:[facility], [address] [place] [address] Notes/Report: White Blood Count 9.1 4.8-10.8 X10*3/uL Red Blood Count 4.09 4.20-5.50 X10*6/uL Hemoglobin 12.9 12.0-16.0 g/dl Hematocrit 39.0 37.0-47.0 % Mean Corpuscular Volume 95.4 80.0-98.0 fL Mean Corpuscular Hemoglobin 31.5 27.0-33.0 pg Mean Corpuscular HGB Conc 33.1 31.0-35.0 g/dl Red Cell Distribution Width 13.0 11.0-16.0 % Platelet Count 209 160-400 X10*3/uL Mean Platelet Volume 10.1 9.4-12.3 fL Neutrophils Percent Auto 63.3 45-73 % Imm Gran Pct Auto 0.2 0.0-0.4 % Lymphocytes Percent Auto 22.5 20-40 % Monocytes Percent Auto 10.1 2-11 % Eosinophils Percent Auto 3.1 0-4 % Basophils Percent Auto 0.8 0-2 % NRBC Pct Auto 0.0 0.0-0.2 /100WBC Neutrophils Absolute Auto 5.8 2.0-8.3 x10*3/u L Imm Gran Abs Auto 0.02 0.00-0.03 X10*3/uL Lymphocytes Absolute Auto 2.1 1.2-4.9 X10*3/u L Monocytes Absolute Auto 0.9 0.1-1.2 X10*3/uL Eosinophils Absolute Auto 0.3 0.0-0.4 X10*3/u L Basophils Absolute Auto 0.1 0.0-0.2 X10*3/uL NRBC Abs Auto 0.000 0.0-0.012 X10*3/uL Comprehensive [place]. Panel Fa st Reviewed date:07/28/2023 10:13:07 AM Interpretation:see back 07-25-2023 Performing Lab:[facility], [address] [place] [phone] Notes/Report: Sodium 141 135-145 mmol/L Potassium 4.1 3.3-5.1 mmol/L Chloride 105 96-108 mmol/L Carbon Dioxide 29 22-29 mmol/L Anion Gap 11 12-20 Blood Urea Nitrogen 31 9-16 mg/dL Creatinine 1.63 0.5-1.4 mg/dL Estimated Glomerular Filt Rate 30 NOTE: For -Mauritanian individuals, multiply the result by 1.210. Chronic Kidney Disease: Estimated GFR < 60 mL/min/1.73m2 Severe Kidney Disease: Estimated GFR < 15 mL/min/1.73m2 Glucose Fasting 96 60-99 mg/dL Calcium 9.9 8.4-10.2 mg/dL Bilirubin Total 0.6 0.0-1.0 mg/dL Aspartate Amino Transferase 25 5-31 U/L Alanine Aminotransferase 12 0-31 U/L Total Protein 7.7 6.5-8.0 g/dL Albumin Level 4.7 3.5-5.0 g/dL Alkaline Phosphatase 58 39-117 U/L IRON PROFILE Reviewed date:06/23/2023 05:27:25 PM Interpretation: Performing Lab:[facility], [address] [place] [phone] Notes/Report: Iron 134 30-160 mcg/dL Total Iron Binding Capacity 314 228-428 mcg/d L Percent Iron Saturation 43 15-50 % Unsaturated Iron Binding 180 Lipid Panel Reviewed date:06/23/2023 05:27:17 PM Interpretation: Performing Lab:[facility], [address] [place] [phone] Notes/Report: Triglycerides 164 <150 mg/dL Desirable Triglyceride: less than 150 mg/dL Borderline High Triglyceride 150-199 mg/dL High Triglyceride: 200-499 mg/dL Very High Triglyceride: greater than or equal to 5OO mg/dL Cholesterol 190 <200 mg/dL Desirable Cholesterol: less than 200 mg/dL Borderline High Cholesterol: 200-239 mg/dL High Cholesterol: greater than 239 mg/dL LDL Cholesterol Calculated 112 <100 mg/dL Desirable LDL: less than 100 mg/dL Near Optimal/Above Optimal LDL: 110-129 mg/dL Borderline High LDL: 130-159 mg/dL High LDL: 160-189 mg/dL Very High LDL: greater than or equal to 190 mg/dL HDL Cholesterol 46 >40 mg/dL Desirable HDL: greater than 40 mg/dL Note: This HDL assay may give artificially low results in patients with liver disease. Urine Culture Reviewed date:07/01/2023 03:01:47 PM Interpretation: Performing Lab:[facility], [address] [place] [phone] Notes/Report: Urine Culture Report Result Urine Culture < 10,000 cfu/ml UA ClnCatch+Micro w/rflx Cul t Reviewed date:06/30/2023 05:42:26 PM Interpretation: Performing Lab:[address] [phone] Notes/Report: Urine, Clean Catch Color Urine Yellow Appearance Urine Clear PH 7.0 5.0-9.0 Glucose Urine UA Negative Negative mg/dL Urine Blood Negative Negative Specific [place] - Urine 1.015 1.005-1.025 Urine Protein Trace Neg-Trace mg/dL Urine Ketones Negative Negative mg/dL Nitrite Urine Negative Negative Leukocyte Esterase Urine Large (3+) Negative RBC Urine 0-2 0-2 /HPF WBC Urine 11-20 0-5 /HPF Squamous Epithelial Cell Urine 0-2 0-2 /HPF Bacteria Urine None Seen None Seen Hyaline Casts Urine 0-2 0-2 /LPF Hold James Reviewed date:07/25/2023 12:51:31 PM Interpretation: Performing Lab:[address] [phone] Notes/Report: Naa Ramirez See Note Specimen held untested for 24 hours; Call to request Chemistry testing. Blood Urea Nitrogen Reviewed date:07/25/2023 12:49:27 PM Interpretation: Performing Lab:[address] [phone] Notes/Report: Blood Urea Nitrogen 32 9-16 mg/dL Creatinine Reviewed date:07/25/2023 12:49:04 PM Interpretation: Performing Lab:[address] [phone] Notes/Report: Creatinine 1.75 0.5-1.4 mg/dL Estimated Glomerular Filt Rate 28 NOTE: For -Mauritanian individuals, multiply the result by 1.210. Chronic Kidney Disease: Estimated GFR < 60 mL/min/1.73m2 Severe Kidney Disease: Estimated GFR < 15 mL/min/1.73m2 Blood Urea Nitrogen Reviewed date:08/15/2023 12:39:20 PM Interpretation: Performing Lab:[facility], [address] [place] [phone] Notes/Report: Blood Urea Nitrogen 25 9-16 mg/dL Creatinine Reviewed date:10/17/2023 09:06:24 AM Interpretation:24 repeat 2 month Performing Lab:[facility], [address] [place] [phone] Notes/Report: Creatinine 1.57 0.5-1.4 mg/dL Estimated Glomerular Filt Rate 32 NOTE: For -Mauritanian individuals, multiply the result by 1.210. Chronic Kidney Disease: Estimated GFR < 60 mL/min/1.73m2 Severe Kidney Disease: Estimated GFR < 15 mL/min/1.73m2 Blood Urea Nitrogen Reviewed date:10/14/2023 03:32:08 PM Interpretation: Performing Lab:[facility], [address] [place] [phone] Notes/Report: Blood Urea Nitrogen 30 9-16 mg/dL Creatinine Reviewed date:10/14/2023 03:31:24 PM Interpretation: Performing Lab:[facility], [address] [place] [phone] Notes/Report: Creatinine 1.67 0.5-1.4 mg/dL Estimated Glomerular Filt Rate 30 NOTE: For -Mauritanian individuals, multiply the result by 1.210. Chronic Kidney Disease: Estimated GFR < 60 mL/min/1.73m2 Severe Kidney Disease: Estimated GFR < 15 mL/min/1.73m2 Complete Blood Count Auto Di ff Reviewed date:10/18/2023 12:53:13 PM Interpretation: Performing Lab:[facility], [address] [place] [phone] Notes/Report: White Blood Count 7.5 4.8-10.8 X10*3/uL Red Blood Count 4.00 4.20-5.50 X10*6/uL Hemoglobin 12.6 12.0-16.0 g/dl Hematocrit 37.6 37.0-47.0 % Mean Corpuscular Volume 94.0 80.0-98.0 fL Mean Corpuscular Hemoglobin 31.5 27.0-33.0 pg Mean Corpuscular HGB Conc 33.5 31.0-35.0 g/dl Red Cell Distribution Width 12.9 11.0-16.0 % Platelet Count 207 160-400 X10*3/uL Mean Platelet Volume 9.4 9.4-12.3 fL Neutrophils Percent Auto 65.8 45-73 % Imm Gran Pct Auto 0.4 0.0-0.4 % Lymphocytes Percent Auto 23.2 20-40 % Monocytes Percent Auto 5.6 2-11 % Eosinophils Percent Auto 4.1 0-4 % Basophils Percent Auto 0.9 0-2 % NRBC Pct Auto 0.0 0.0-0.2 /100WBC Neutrophils Absolute Auto 4.9 2.0-8.3 x10*3/u L Imm Gran Abs Auto 0.03 0.00-0.03 X10*3/uL Lymphocytes Absolute Auto 1.7 1.2-4.9 X10*3/u L Monocytes Absolute Auto 0.4 0.1-1.2 X10*3/uL Eosinophils Absolute Auto 0.3 0.0-0.4 X10*3/u L Basophils Absolute Auto 0.1 0.0-0.2 X10*3/uL NRBC Abs Auto 0.000 0.0-0.012 X10*3/uL Electrolytes Reviewed date:10/18/2023 12:36:27 PM Interpretation: Performing Lab:[facility], [address] [place] [phone] Notes/Report: Sodium 141 135-145 mmol/L Potassium 3.7 3.3-5.1 mmol/L Chloride 103 96-108 mmol/L Carbon Dioxide 30 22-29 mmol/L Anion Gap 12 12-20 Blood Urea Nitrogen Reviewed date:10/18/2023 09:13:59 AM Interpretation: Performing Lab:[facility], [address] [place] [phone] Notes/Report: Blood Urea Nitrogen 29 9-16 mg/dL Creatinine Reviewed date:10/18/2023 09:14:11 AM Interpretation: Performing Lab:[facility], [address] [place] [phone] Notes/Report: Creatinine 1.67 0.5-1.4 mg/dL Estimated Glomerular Filt Rate 30 NOTE: For -Mauritanian individuals, multiply the result by 1.210. Chronic Kidney Disease: Estimated GFR < 60 mL/min/1.73m2 Severe Kidney Disease: Estimated GFR < 15 mL/min/1.73m2 Calcium Reviewed date:10/18/2023 12:36:15 PM Interpretation: Performing Lab:[facility], [address] [place] [phone] Notes/Report: Calcium 9.9 8.4-10.2 mg/dL Phosphorus Reviewed date:10/18/2023 12:49:41 PM Interpretation: Performing Lab:[facility], [address] [place] [phone] Notes/Report: Phosphorus 3.9 2.7-4.5 mg/dL Parathyroid Hormone Intact Reviewed date:10/18/2023 12:51:12 PM Interpretation: Performing Lab:[facility], [address] [place] [phone] Notes/Report: Parathyroid Hormone Intact 47.5 8.7-77.1 pg/mL Complete Blood Count Auto Di ff Reviewed date:02/14/2024 12:41:07 PM Interpretation: Performing Lab:[facility], [address] [place] [phone] Notes/Report: White Blood Count 8.9 4.8-10.8 X10*3/uL Red Blood Count 4.31 4.20-5.50 X10*6/uL Hemoglobin 13.5 12.0-16.0 g/dl Hematocrit 40.7 37.0-47.0 % Mean Corpuscular Volume 94.4 80.0-98.0 fL Mean Corpuscular Hemoglobin 31.3 27.0-33.0 pg Mean Corpuscular HGB Conc 33.2 31.0-35.0 g/dl Red Cell Distribution Width 12.0 11.0-16.0 % Platelet Count 179 160-400 X10*3/uL Mean Platelet Volume 9.8 9.4-12.3 fL Neutrophils Percent Auto 65.7 45-73 % Imm Gran Pct Auto 0.3 0.0-0.4 % Lymphocytes Percent Auto 23.0 20-40 % Monocytes Percent Auto 6.3 2-11 % Eosinophils Percent Auto 4.0 0-4 % Basophils Percent Auto 0.7 0-2 % NRBC Pct Auto 0.0 0.0-0.2 /100WBC Neutrophils Absolute Auto 5.8 2.0-8.3 x10*3/u L Imm Gran Abs Auto 0.03 0.00-0.03 X10*3/uL Lymphocytes Absolute Auto 2.0 1.2-4.9 X10*3/u L Monocytes Absolute Auto 0.6 0.1-1.2 X10*3/uL Eosinophils Absolute Auto 0.4 0.0-0.4 X10*3/u L Basophils Absolute Auto 0.1 0.0-0.2 X10*3/uL NRBC Abs Auto 0.000 0.0-0.012 X10*3/uL Comprehensive Met. Panel Reviewed date:02/14/2024 12:37:12 PM Interpretation: Performing Lab:[facility], [address] [place] [phone] Notes/Report: Sodium 142 135-145 mmol/L Potassium 4.1 3.3-5.1 mmol/L Chloride 105 96-108 mmol/L Carbon Dioxide 29 22-29 mmol/L Anion Gap 12 12-20 Blood Urea Nitrogen 24 9-16 mg/dL Creatinine 1.54 0.5-1.4 mg/dL Estimated Glomerular Filt Rate 32 Chronic Kidney Disease: Estimated GFR < 60 mL/min/1.73m2 Severe Kidney Disease: Estimated GFR < 15 mL/min/1.73m2 Glucose Random 93 60-115 mg/dL Calcium 9.9 8.4-10.2 mg/dL Bilirubin Total 0.7 0.0-1.0 mg/dL Aspartate Amino Transferase 29 5-31 U/L Alanine Aminotransferase 16 0-31 U/L Total Protein 7.5 6.5-8.0 g/dL Albumin Level 4.5 3.5-5.0 g/dL Alkaline Phosphatase 50 39-117 U/L REASON FOR REFERRAL No Information MEDICATIONS Medication SIG (Take, Route, Frequency, Duration) Notes Start Date End Date Status hydrALAZINE HCl 25 MG 1 tablet with food Orally Three times a day Active Clopidogrel Bisulfate 75 MG TAKE 1 TABLET BY MOUTH 1 TIME EACH DAY for 90 Active Vitamin D3 25 MCG (1000 UT) 1 capsule Orally Once a day for 30 day(s) Active hydrALAZINE HCl 50 MG 1 tablet with food Orally Three times a day Active Dilt-XR 240 MG TAKE 1 CAPSULE BY MO UTH EVERY DAY ON EMPTY STOMACH IN THE MORNING Active Atenolol 25 MG TAKE 1 TABLET BY NEELIMA TH EVERY DAY for 90 Active Probiotic 250 MG 1 capsule Orally onc e a day Active Ventolin HFA * 108 (90 Base) MCG/ACT 2 puffs as needed Inhalation every 4 hrs for 30 day(s) 09/03/2011 Not-Taking Vitamin C 500 MG 1 tablet Orally ever y other day Active Folic Acid 400 MCG 1 tablet Orally Once a day for 30 day(s) Active Diflucan 150 MG 1 tablet Orally deysi y for 5 days 09/30/2022 Not-Taking Glucosamine Chondr Complex 500-400 MG 1 capsule with a meal Orally Once a day Active Tylenol Extra Strength 500 MG 2 tablets as needed Orally every 6 hrs Not-Taking IMMUNIZATIONS Vaccine Route Administration Date Status Comme nts Flu Vaccine IM Intramuscular 10/26/2010 Administered Flu Vaccine IM Intramuscular 12/21/2010 Administered Shingles IM Intramuscular 04/06/2011 Administered TDaP IM Intramuscular 05/03/2011 Administered Flu Vaccine ID Intradermal 12/20/2011 Administered Prevnar 13 Unknown 05/19/2012 Administered Flu Vaccine IM Intramuscular 12/12/2012 Administered Fluarix Quadrivalent IM Intramuscular 12/10/2013 Administe red PPSV23 (Pnemovax) IM Intramuscular 05/31/2014 Administered Fluarix Quadrivalent IM Intramuscular 12/12/2014 Administe red Covid Vaccine Unknown 04/14/2020 Administered Pfizer SARS-COV-2 Pfizer Unknown 05/05/2020 Administered Influenza High Dose IM Intramuscular 12/12/2020 Administer ed SARS-COV-2 Pfizer Unknown 12/26/2020 Administered TDaP Unknown 04/13/2021 Administered [facility] SARS-COV-2 Pfizer Unknown 12/26/2020 Administered SARS-COV-2 Pfizer Unknown 07/13/2021 Administered [facility] SARS-COV-2 Pfizer Unknown 12/03/2021 Administered [facility] Influenza High Dose IM Intramuscular 12/15/2021 Administer ed SARS-COV-2 Pfizer Unknown 12/12/2022 Administered [facility] Influenza High Dose IM Intramuscular 01/03/2023 Administer ed Influenza High Dose IM Intramuscular 01/02/2024 Administer ed Fluarix Quadrivalent Unknown 11/29/2016 Refused Fluarix Quadrivalent Unknown 01/18/2017 Refused Fluarix Quadrivalent Unknown 12/27/2017 Refused PPSV23 (Pnemovax) Unknown 05/29/2018 Refused Fluarix Quadrivalent Unknown 11/21/2018 Refused Prevnar 13 Unknown 04/16/2019 Refused Fluarix Quadrivalent Unknown 06/04/2019 Refused PPSV23 (Pnemovax) Unknown 06/04/2019 Refused Fluarix Quadrivalent Unknown 12/10/2019 Refused zzz Unknown 05/19/2012 Pending Flu Vaccine Unknown 12/10/2013 Pending SOCIAL HISTORY Tobacco Use: Social History Observation Description Date Details (start date - stop date) Former Smoker NA - NA Sex Assigned At : Social History Observation Description Sex Assigned At Unknown Tobacco Use/Smoking Question Answer Notes Patient is a former smoker How long has it been since y ou last smoked? > 10 years Additional Findings: Tobacco Non-User Fo rmer smoker, currently using no form of tobacco Alcohol Screen Question Answer Notes Did you have a drink containing alcohol in the p ast year? 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 52780403 Problem History of pulmonary embolus (PE) (Z86.711) Active confirmed 229528769 Problem Dysthymia (F34.1) Active confirmed 7716 7006 Problem Iron deficiency anemia, unspecified iron deficiency anemia type (D50.9) Active confirmed 40968611 Problem Claudication (I73.9) Active confirmed 97120767 Problem 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) Active confirmed 803420766 Problem Bilateral carotid artery stenosis (I65.23) Active confirmed 81474589 Problem Aortic dilatation (I77.819) Active confirmed 16879028 Problem Bilateral carpal tunnel syndrome (G56.03) Active confirmed 48369071466701539 Problem Asymptomatic stenosis of right carotid artery (I65.21) Active confirmed 68299199 Problem Bilateral tinnitus (H93.13) Active confirmed 1864830678647 Problem Malignant neoplasm of colon, unspecified part of colon (C18.9) Active confirmed 763333123 Problem Uterine prolapse (N81.4) Active confirmed 30498748 Problem Osteopenia determined by x-ray (M85.80) Active confirmed 713198827 Problem Intermittent spinal claudication (G95.19) Active confirmed Intermittent sp inal claudication (332157026) Problem Left-sided tinnitus (H93.12) Active confirmed 0196092360429 Problem Intracranial aneurysm (I67.1) Active confirmed 735861107 Problem 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 Stricture o f artery (55377617) Problem 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) Active confirmed 042246715 Problem Carotid artery tenderness (G90.01) Active confirmed 751158232 VITAL SIGNS Blood pressure diastolic 68 mm Hg 01/02/2024 Height 60 in 01/02/2024 Blood pressure systolic 102 mm Hg 01/02/2024 Weight 106 lbs 01/02/2024 BMI 20.70 kg/m2 01/02/2024 Encounters Encounter Location Date Provider Diagnosis Wood Conti MD [address] [place] [id number] 06/30/2023 Wood Conti Essential hypertensi on I10 ; Annual physical exam Z00.00 ; Atherosclerosis of renal artery I70.1 ; Bilateral carpal tunnel syndrome G56.03 ; Iron deficiency anemia, unspecified iron deficiency anemia type D50.9 ; Cervical spinal stenosis M48.02 and Elevated BUN R79.9 Wood Conit MD [address] [place] [address] [id number] 05/13/2023 Wood Conti Aortic dilatation I77.819 and Bilateral carpal tunnel syndrome G56.03 Wood Conti MD [address] [place] [id number] 06/23/2023 Wood Conti Blood tests for rout ine general physical examination Z00.00 ; Essential hypertension I10 ; Iron deficiency anemia, unspecified iron deficiency anemia type D50.9 and Hypokalemia E87.6 Wood Conti MD [address] [place] [id number] 07/25/2023 Wood Conti Essential hypertensi on I10 Wood Conti MD [address] [place] [id number] 08/15/2023 Wood Conti Elevated BUN R79.9 Wood Conti MD [address] [place] [id number] 10/14/2023 Wood Conti Essential hypertensi on I10 Wood Conti MD [address] [place] [id number] 01/02/2024 Wood Conti Encounter for immunization Z23 and Essential hypertension I10 Wood Conti MD [address] [place] [id number] 08/19/2023 Wood Conti Essential hypertensi on I10 ; Bilateral carpal tunnel syndrome G56.03 and Elevated BUN R79.9 Wood Conti MD [address] [place] [id number] 11/24/2023 Wood Conti Essential hypertensi on I10 and Bilateral carpal tunnel syndrome G56.03 Wood Conti MD [address] [place] [id number] 11/17/2023 Wood Conti ASSESSMENTS Encounter Date Diagnosis Assessment Notes Treatment Notes Treatment Clinical Notes 06/30/2023 Annual physical exam (ICD-10 - Z00.00) Labs reviewed and discussed with patient 06/30/2023 Essential hypertension (ICD-10 - I10) 05/13/2023 Aortic dilatation (ICD-10 - I77.819) is not significant and is followed by dr valentin 05/13/2023 Bilateral carpal tunnel syndrome (ICD-10 - G56.03) is going to have emg and nerve conduction 06/23/2023 Essential hypertension (ICD-10 - I10) 06/23/2023 Blood tests for routine general physical examination (ICD-10 - Z00.00) 07/25/2023 Essential hypertension (ICD-10 - I10) 08/15/2023 Elevated BUN (ICD-10 - R79.9) 10/14/2023 Essential hypertension (ICD-10 - I10) 01/02/2024 Encounter for immunization (ICD-10 - Z23) administered flu vaccine today have discussed the covid shot with her. 01/02/2024 Essential hypertension (ICD-10 - I10) running on the low side. she is making adjustments on her meds to keep bp controlled. is going to see software sales next month 08/19/2023 Essential hypertension (ICD-10 - I10) well controlled, will contnue current regiment 08/19/2023 Bilateral carpal tunnel syndrome (ICD-10 - G56.03) had one done and is healing well. waiting to get the next one done 11/24/2023 Essential hypertension (ICD-10 - I10) is alternating between hydralzine and diltizaim and bps are doing well, will continue current regiment, is presently at goal 11/24/2023 Bilateral carpal tunnel syndrome (ICD-10 - G56.03) recovering nicely 06/30/2023 Atherosclerosis of renal artery (ICD-10 - I70.1) 06/23/2023 Iron deficiency anemia, unspecified iron deficiency anemia type (ICD-10 - D50.9) 08/19/2023 Elevated BUN (ICD-10 - R79.9) stable followed by nephrology 06/30/2023 Bilateral carpal tunnel syndrome (ICD-10 - G56.03) having surgery in 06/23/2023 Hypokalemia (ICD-10 - E87.6) 06/30/2023 Iron deficiency anemia, unspecified iron deficiency anemia type (ICD-10 - D50.9) has resolved 06/30/2023 Cervical spinal stenosis (ICD-10 - M48.02) going to wait to have surgery until carpal tunnel relieved 06/30/2023 Elevated BUN (ICD-10 - R79.9) is followed by dr conte PLAN OF TREATMENT Pending Test Test Name Order Date Electrocardiogram (EKG) 01/08/2016 Electrocardiogram (EKG) 01/20/2017 CT ABD & PELVIS WITH CONTRAST 03/19/2021 CT ABD & PELVIS NO CONTRAST 03/12/2021 MRI LUMBAR SPINE NO CONTRAST 09/17/2022 BONE DENSITY DEXA 12/09/2020 CT lumbar spine wo con 05/15/2021 MM tomosynthesis screening BI 12/09/2020 XR DEXA axial skeleton 06/10/2020 Next Appt Details Provider Name:Wood Nash ier, 06/28/2024 07:30:00 AM, [address], [address], [place], [place], [phone], Provider Name:Wood Nash ier, 07/05/2024 11:00:00 AM, [address], [address], [place], [place], [id number], Insurance Providers Payer Name Payer Address Payer Phone Subscriber Number Group Number Insured Name Patient Relationship to Insured Coverage Start Date Coverage End Date [employer] PLAN [address] [place] [phone] [id number] Ira Gaviota Self - patient is the insured [employer] [address] [place] [address] [id number] Ira Gaviota Self - patient is the insured MEDICAL (GENERAL) HISTORY Medical History History ICD Code pulmonary embolism 08/15 Atrial fibrillation Other pulmonary embolism and infarction NEEDS TO HAVE BUN AND CR EVERY 6 MONTHS Rheumatic fever as a child 11/20/2012 - Colonoscopy; col onoscopy 12/19/13; Colonoscopy 12/24/15 w/Dr. Fuller - repeat in 3 years; Colonoscopy 01/29/19 (repeat 3 years)05/06/21 colonoscopy repeat 3 yrs flu vac 12/18 carotid ultrasound yearly at [facility] - next is due Dec 2014 Abscess of anal and rectal regions RADHA-inhibitor cough Surgical History Surgery Date(Month/Year) Gallbladder removed 12/28/2011 colon resection (hemicolectomy) 11/23/19 13 Excision Ganglion Cyst, Rt Foot 04/27/19 18
== END 2024-02-14 07:16 | disposition home or self-care (01) ==
LOC: HO.LAB 07:15
PROVIDERS: PCP Internal Medicine; Visit Provider Internal Medicine Hypertension Specialist
DX: I70.1 Atherosclerosis of renal artery (principal); I12.9 Hypertensive chronic kidney disease with stage 1 through stage 4 chronic kidney disease, or unspecified chronic kidney disease; N18.30 Chronic kidney disease, stage 3 unspecified
CPT/HCPCS: 36415; 80053; 85025

== ENCOUNTER 2024-02-21 10:18 | Outpatient (AMB) | payer MEDICARE, SELFPAY ==
[2024-02-21 10:21] VITALS: BP 110/72; PULSE 63; O2SAT 97; BMI 21.0
--- NOTE | 2024-02-21 10:21 | HO.NEPHOV_ITS ---
Vital Signs 02/21/24 10:21 Height 4 ft 11 in Weight 104 lb BMI 21.0 BP 110/72 Blood Pressure Location Lt brachial Position Sitting Pulse 63 Pulse Source Pulse Oximeter Pulse Oximetry (%) 97 Oxygen Delivery Method Room Air Intake Visit Reasons: CKD/ Conf Coffee Sommelier Required: No Accompanied by: Self / Same As Patient Allergies Zmdvhve-[id number]-HjD Reductase Inhibitor [[id number] REDUCTASE INHIBITOR] Allergy (Severe, Verified 02/21/24 10:23) TONGUE SWELLING vancomycin Allergy (Severe, Verified 02/21/24 10:23) Rash amoxicillin [AMOXICILLIN] Allergy (Intermediate, Verified 02/21/24 10:23) NAUSEA aspirin [ASA] Allergy (Intermediate, Verified 02/21/24 10:23) FEELING OF PEPPER ON TONGUE atorvastatin [ATORVASTATIN] Allergy (Intermediate, Verified 02/21/24 10:23) FEELING OF PEPPER ON TONGUE fluconazole [FLUCONAZOLE] Allergy (Intermediate, Verified 02/21/24 10:23) FEELING OF PEPPER ON TONGUE irbesartan [IRBESARTAN] Allergy (Intermediate, Verified 02/21/24 10:23) SORE TONGUE,GERD metronidazole [Flagyl] Allergy (Intermediate, Verified 02/21/24 10:23) Rash morphine [MORPHINE] Allergy (Intermediate, Verified 02/21/24 10:23) HIVES oxycodone [OXYCODONE] Allergy (Intermediate, Verified 02/21/24 10:23) RASH pepper (genus Capsicum) [PEPPER] Allergy (Intermediate, Verified 02/21/24 10:23) SENSITIVE TO lisinopril [LISINOPRIL] Allergy (Mild, Verified 02/21/24 10:23) COUGH Iodinated Contrast Media [Contrast Dye] Allergy (Unknown, Verified 02/21/24 10:23) Unknown Tetracyclines [TETRACYCLINES] Adverse Reaction (Intermediate, Verified 02/21/24 10:23) SHAKES lorazepam [From ATIVAN] Adverse Reaction (Mild, Verified 02/21/24 10:23) HALLUCINATIONS Medication List - Last Reconciled 02/21/24 by Luis Conley MD [acetaminophen 1,000 mg PO DAILY PRN] ascorbic acid (vitamin C) 500 mg PO DAILY atenolol 25 mg PO DAILY cholecalciferol (vitamin D3) 25 mcg PO DAILY clopidogrel 75 mg PO DAILY folic acid 0.4 mg PO DAILY garlic 300 mg PO DAILY glucosamine sulfate (Glucosamine) 500 mg PO BID tramadol 50 mg PO Q8H PRN HPI Comments Details: Gaviota is a elderly woman with a history of for chronic kidney disease in the setting of renal artery stenosis and severe hypertension. She has undergone renal angiogram with angioplasty and stent placement by Dr. Steele. Currently she is on Plavix. She has a history of back pain and lower leg pains. MRI reveals significant disc disease and arthritis. She is being followed by [facility] staffing specialist From a renal standpoint she is doing very well. No new complaints today. Blood pressure has been well controlled 10/25/23 Underwent carpel tunnel surgery. Doing OK 02/21/24 Doing well OFF ALL anti hypertensives since November 2023 [facility] Medical History CKD (chronic kidney disease) Renal artery stenosis Hx of colon cancer, stage III History of colon cancer Joint pain Afib HTN (hypertension) Surgical History History of carpal tunnel surgery of left wrist (~08/2023) Hx of removal of cyst History of colonoscopy History of surgery History of surgery Hx of cerebral aneurysm repair History of renal angiogram Hx of cataract Family History Father No problems noted. Mother No problems noted. Brother CAD (coronary artery disease) Social History Are you a primary point of care technician to a significant other at home: No Do you presently have visiting nurse or other home services: No Patient Tobacco Use Status: Former Tobacco user Tobacco use type: Cigarette Physical Exam Vital Signs: Last Vital Signs Pulse 63 02/21/24 10:21 BP 110/72 02/21/24 10:21 Pulse Ox 97 02/21/24 10:21 Oxygen Delivery Method Room Air 02/21/24 10:21 BMI result Body Mass Index 21.0 Comfortable Neck supple no JVD. Lungs entry equal no rales. Heart S1-S2 heard no gallop or rub. Abdomen soft nontender. Neuro alert awake oriented. No asterixis. Extremities no edema. Results Reviewed Nephrology Results: Hgb 13.5 g/dl (12.0-16.0) 02/14/24 WBC 8.9 X10*3/uL (4.8-10.8) 02/14/24 Plt Count 179 X10*3/uL (160-400) 02/14/24 Sodium 142 mmol/L (135-145) 02/14/24 Potassium 4.1 mmol/L (3.3-5.1) 02/14/24 Chloride 105 mmol/L (96-108) 02/14/24 Carbon Dioxide 29 mmol/L (22-29) 02/14/24 BUN 24 mg/dL (9-16) H 02/14/24 Creatinine 1.54 mg/dL (0.5-1.4) H 02/14/24 Calcium 9.9 mg/dL (8.4-10.2) 02/14/24 Phosphorus 3.9 mg/dL (2.7-4.5) 10/18/23 PTH Intact 47.5 pg/mL (8.7-77.1) 10/18/23 Assessment & Plan Assessment & Plan (1) Renal artery stenosis: Code(s): I70.1 - Atherosclerosis of renal artery Category: Medical (2) CKD (chronic kidney disease) stage 3, GFR 30-59 ml/min: Code(s): N18.30 - Chronic kidney disease, stage 3 unspecified Category: Medical (3) HTN (hypertension): Code(s): I10 - Essential (primary) hypertension Category: Medical Plan Elderly woman with hypertension history of large stenosis with CKD. Renal function stable with creatinine 1.4 to 1.6. Goal is to slow the progression of disease. Continue to avoid nephrotoxic agents. Hypertension Most likely due to underlying renal artery stenosis. Status post stent placement. Blood pressure is well controlled with just on ATENOLOL 25 mg QD She should continue low-sodium diet. No changes made to the antihypertensive regimen. History of renal artery stenosis. Status post stent placement. She is being followed by Dr. Steele. Spinal stenosis s/p Carpel tunnel syndrome -defer management to [facility] staffing specialist Would avoid NSAIDS Orders: Orders Basic Metabolic Panel 4 Months N18.30 - Chronic kidney disease, stage 3 unspecified Coding Level of Care Code Est Pt Level 4 (49956) Diagnoses Renal artery stenosis I70.1 CKD (chronic kidney disease) stage 3, GFR 30-59 ml/min N18.30 HTN (hypertension) I10
--- OUTSIDE RECORDS SUMMARY | 2024-02-21 10:21 | XMS_ITS ---
Author Organization Wood Conti MD Address [address] [place] [phone] Care Team Providers Care Manager Intensive Care Unit Name Role Phone Wood Conti Primary Care Provider [phone] ALLERGIES Allergen (clinical drug ingredient) Drug/Non Drug Allergy documented on EMR Reaction Allergy Type Onset Date Status lisinopril Lisinopril cough Drug Allergy Activ e irbesartan Irbesartan burning tongue Drug Allergy Active metronidazole Flagyl rash Drug Allergy Act ning fluconazole Diflucan burning tongue Drug Allergy Active atorvastatin Atorvastatin Calcium tongue swelling Drug Allergy Active lorazepam Ativan hallucinations Drug Allergy Ac tive aspirin Aspirin tongue swelling Drug Allergy A ctive contrast dye (uncoded) kidney damage Allergy Active tetracycline Tetracycline HCl Unknown Drug Allergy Active oxycodone Oxycodone HCl Unknown Drug Allergy Act ning nystatin Nystatin burning tongue Drug Allergy Ac tive REASON FOR VISIT 6 mo f/u MEDICATIONS [...] 240 MG TAKE 1 CAPSULE BY [facility] EVERY DAY ON EMPTY STOMACH [...] Date Provider Diagnosis Wood Conti MD [address] [place], [place] [phone] 01/02/2024 Wood Conti Encounter for immunization Z23 [...] keep bp controlled. is going to see varnisher next month PLAN OF TREATMENT Treatment Notes Assessment Notes Encounter for immunization administered flu vaccine today Essential hypertension running on the lo w side. she is making adjustments on her meds to keep bp controlled. is going to see varnisher next month Next Appt Details Provider Name:Wood solis, 06/28/2024 07:30:00 AM, [address] [place] [address], [address], [place], [place], [phone], Provider Name:Wood solis, 07/05/2024 11:00:00 AM, [address] [place] [address], [address], [place], [place], [phone], Progress Notes * Examination Category Sub-Category Detail Notes General Examination GENERAL APPEARANCE: well dev eloped, well nourished , female HEAD: normocephalic HEART: regular rate and rhy thm , no murmurs, rubs, gallops LUNGS: no wheezes, rales, r honchi , good air movement , clear to auscultation bilaterally SKIN: good turgor
--- OUTSIDE RECORDS SUMMARY | 2024-02-21 10:21 | XMS_ITS ---
Author Organization Wood Conti MD Address [address] [place] [phone] Care Team Providers Care Retail Representative Name Role Phone Wood Conti Primary Care Provider [phone] ALLERGIES Allergen (clinical drug ingredient) Drug/Non Drug [...] Drug Allergy Ac tive REASON FOR VISIT follow up appt from [...] Dilt-XR 240 MG TAKE 1 CAPSULE BY [facility] EVERY DAY ON EMPTY STOMACH IN [...] Location Date Provider Diagnosis Wood Conti MD [address] [place] [address] [place] [phone] 11/24/2023 Wood Conti Essential hypertension I10 and [...] Details Provider Name:Wood solis, 06/28/2024 07:30:00 AM, [address] [place] [address], [address], [place], [place], [phone], Provider Name:Wood solis, 07/05/2024 11:00:00 AM, [address] [place] [address], [address], [place], [place], [phone], Progress Notes * Examination Category Sub-Category Detail Notes General Examination GENERAL APPEARANCE: alert, w ell hydrated, in no distress HEART: no murmurs, rubs, ga llops, regular rate and rhythm LUNGS: no wheezes, rales, r honchi, good air movement, clear to auscultation bilaterally SKIN: abnormal doing well with the wound healing well
--- OUTSIDE RECORDS SUMMARY | 2024-02-21 10:22 | XMS_ITS | Patient Health Record ---
Author Organization Wood Conti MD Address [address] [place], [place] [id number] Care Team Providers Care Pathology Teacher Name Role Phone Wood Conti Primary Care Provider [phone] ALLERGIES Allergen (clinical drug ingredient) Drug/Non Drug [...] Nystatin burning tongue Drug Allergy Ac tive RESULTS Component Value Reference Range Notes XR cervical spine 4V Reviewed date:05/02/2023 04:47:25 PM Interpretation: Performing Lab: Notes/Report: [facility] [address] [place] [address] XRay Report Signed Patient: Gaviota Roth MR#: [id number] : 1945 Acct:[id number] Age/Sex: 77 / F ADM Date: 04/29/23 Loc: HO.HOSX Attending Dr: Rudy RODGERS Ordering Physician: Rudy Garcia Date of Service: 04/29/23 Procedure(s): XR cervical spine 4V Accession Number(s): [id number] cc: Rudy Garcia; Wood Conti MD EXAMINATION: [...] in OV> 05/02/23 1517 DD/ 1406 TD/TT: Steel Pan Form Placing Supervisor: XR lumbar spine 4V min Reviewed date:05/13/2023 10:32:43 AM Interpretation:see back 05-13-23 Performing Lab: Notes/Report: [facility] [address] [place] [address] Drive [address] [place] [address] XRay Report Signed Patient: Gaviota Roth MR#: [id number] : 1945 Acct:[id number] Age/Sex: 77 / F ADM Date: 04/29/23 Loc: HO.HOSX Attending Dr: Rudy RODGERS Ordering Physician: Rudy Garcia Date of Service: 04/29/23 Procedure(s): XR lumbar spine 4V min Accession Number(s): [id number] cc: Rudy Garcia; Wood Conti MD EXAMINATION: [...] in OV> 05/04/23 1557 DD/ 1406 TD/TT: Steel Pan Form Placing Supervisor: Electrolytes Reviewed date:05/24/2023 03:57:08 PM Interpretation: Performing Lab:[facility], [address] [place] [phone] Notes/Report: Sodium 142 135-145 mmol/L Potassium 3.8 3.3-5.1 mmol/L Chloride 103 96-108 mmol/L Carbon Dioxide 29 22-29 mmol/L Anion Gap 14 12-20 Blood Urea Nitrogen Reviewed date:05/24/2023 03:56:23 PM Interpretation: Performing Lab:[facility], [address] [place] [phone] Notes/Report: Blood Urea Nitrogen 23 9-16 mg/dL Creatinine Reviewed date:05/24/2023 03:56:33 PM Interpretation: Performing Lab:[facility], [address] [place] [phone] Notes/Report: Creatinine 1.36 0.5-1.4 mg/dL Estimated Glomerular Filt Rate 38 NOTE: For -Swiss individuals, multiply the result by 1.210. Chronic Kidney Disease: Estimated GFR < 60 mL/min/1.73m2 Severe Kidney Disease: Estimated GFR < 15 mL/min/1.73m2 Hold Gold Reviewed date:06/23/2023 12:46:26 PM Interpretation: Performing Lab:[facility], [address] [place] [address] Notes/Report: Hold Gold See Note Specimen held untested for 24 hours; Call to request Chemistry testing. Complete Blood Count Auto Di ff Reviewed date:06/23/2023 05:28:35 PM Interpretation: Performing Lab:[facility], [address] [place] [address] Notes/Report: White Blood Count 9.1 4.8-10.8 X10*3/uL [...] NRBC Abs Auto 0.000 0.0-0.012 X10*3/uL Comprehensive Elm Mott. Panel Fa st Reviewed date:07/28/2023 10:13:07 AM Interpretation:see back 07-25-2023 Performing Lab:[facility], [address] [place] [phone] Notes/Report: Sodium 141 135-145 mmol/L Potassium 4.1 3.3-5.1 mmol/L Chloride 105 96-108 mmol/L Carbon Dioxide 29 22-29 mmol/L Anion Gap 11 12-20 Blood Urea Nitrogen 31 9-16 mg/dL Creatinine 1.63 0.5-1.4 mg/dL Estimated Glomerular Filt Rate 30 NOTE: For -Swiss individuals, multiply the result by 1.210. Chronic [...] PROFILE Reviewed date:06/23/2023 05:27:25 PM Interpretation: Performing Lab:[facility], [address] [place] [phone] Notes/Report: Iron 134 30-160 mcg/dL Total Iron Binding Capacity 314 228-428 mcg/d L Percent Iron Saturation 43 15-50 % Unsaturated Iron Binding 180 Lipid Panel Reviewed date:06/23/2023 05:27:17 PM Interpretation: Performing Lab:[facility], [address] [place] [phone] Notes/Report: Triglycerides 164 <150 mg/dL Desirable Triglyceride: [...] Culture Reviewed date:07/01/2023 03:01:47 PM Interpretation: Performing Lab:[facility], [address] [place] [phone] Notes/Report: Urine Culture Report Result Urine Culture < 10,000 cfu/ml UA ClnCatch+Micro w/rflx Cul t Reviewed date:06/30/2023 05:42:26 PM Interpretation: Performing Lab:[address] [phone] Notes/Report: Urine, Clean Catch Color Urine Yellow Appearance Urine Clear PH 7.0 5.0-9.0 Glucose Urine UA Negative Negative mg/dL Urine Blood Negative Negative Specific [place] - Urine 1.015 1.005-1.025 Urine Protein Trace Neg-Trace mg/dL Urine Ketones Negative Negative mg/dL Nitrite Urine Negative Negative Leukocyte Esterase Urine Large (3+) Negative RBC Urine 0-2 0-2 /HPF WBC Urine 11-20 0-5 /HPF Squamous Epithelial Cell Urine 0-2 0-2 /HPF Bacteria Urine None Seen None Seen Hyaline Casts Urine 0-2 0-2 /LPF Hold James Reviewed date:07/25/2023 12:51:31 PM Interpretation: Performing Lab:[address] [phone] Notes/Report: Naa Ramirez See Note Specimen held untested for 24 hours; Call to request Chemistry testing. Blood Urea Nitrogen Reviewed date:07/25/2023 12:49:27 PM Interpretation: Performing Lab:[address] [phone] Notes/Report: Blood Urea Nitrogen 32 9-16 mg/dL Creatinine Reviewed date:07/25/2023 12:49:04 PM Interpretation: Performing Lab:[address] [phone] Notes/Report: Creatinine 1.75 0.5-1.4 mg/dL Estimated Glomerular Filt Rate 28 NOTE: For -Swiss individuals, multiply the result by 1.210. Chronic Kidney Disease: Estimated GFR < 60 mL/min/1.73m2 Severe Kidney Disease: Estimated GFR < 15 mL/min/1.73m2 Blood Urea Nitrogen Reviewed date:08/15/2023 12:39:20 PM Interpretation: Performing Lab:[facility], [address] [place] [phone] Notes/Report: Blood Urea Nitrogen 25 9-16 mg/dL Creatinine Reviewed date:10/17/2023 09:06:24 AM Interpretation:24 repeat 2 month Performing Lab:[facility], [address] [place] [phone] Notes/Report: Creatinine 1.57 0.5-1.4 mg/dL Estimated Glomerular Filt Rate 32 NOTE: For -Swiss individuals, multiply the result by 1.210. Chronic Kidney Disease: Estimated GFR < 60 mL/min/1.73m2 Severe Kidney Disease: Estimated GFR < 15 mL/min/1.73m2 Blood Urea Nitrogen Reviewed date:10/14/2023 03:32:08 PM Interpretation: Performing Lab:[facility], [address] [place] [phone] Notes/Report: Blood Urea Nitrogen 30 9-16 mg/dL Creatinine Reviewed date:10/14/2023 03:31:24 PM Interpretation: Performing Lab:[facility], [address] [place] [phone] Notes/Report: Creatinine 1.67 0.5-1.4 mg/dL Estimated Glomerular Filt Rate 30 NOTE: For -Swiss individuals, multiply the result by 1.210. Chronic Kidney Disease: Estimated GFR < 60 mL/min/1.73m2 Severe Kidney Disease: Estimated GFR < 15 mL/min/1.73m2 Complete Blood Count Auto Di ff Reviewed date:10/18/2023 12:53:13 PM Interpretation: Performing Lab:[facility], [address] [place] [phone] Notes/Report: White Blood Count 7.5 4.8-10.8 X10*3/uL [...] Electrolytes Reviewed date:10/18/2023 12:36:27 PM Interpretation: Performing Lab:[facility], [address] [place] [phone] Notes/Report: Sodium 141 135-145 mmol/L Potassium 3.7 3.3-5.1 mmol/L Chloride 103 96-108 mmol/L Carbon Dioxide 30 22-29 mmol/L Anion Gap 12 12-20 Blood Urea Nitrogen Reviewed date:10/18/2023 09:13:59 AM Interpretation: Performing Lab:[facility], [address] [place] [phone] Notes/Report: Blood Urea Nitrogen 29 9-16 mg/dL Creatinine Reviewed date:10/18/2023 09:14:11 AM Interpretation: Performing Lab:[facility], [address] [place] [phone] Notes/Report: Creatinine 1.67 0.5-1.4 mg/dL Estimated Glomerular Filt Rate 30 NOTE: For -Swiss individuals, multiply the result by 1.210. Chronic Kidney Disease: Estimated GFR < 60 mL/min/1.73m2 Severe Kidney Disease: Estimated GFR < 15 mL/min/1.73m2 Calcium Reviewed date:10/18/2023 12:36:15 PM Interpretation: Performing Lab:[facility], [address] [place] [phone] Notes/Report: Calcium 9.9 8.4-10.2 mg/dL Phosphorus Reviewed date:10/18/2023 12:49:41 PM Interpretation: Performing Lab:[facility], [address] [place] [phone] Notes/Report: Phosphorus 3.9 2.7-4.5 mg/dL Parathyroid Hormone Intact Reviewed date:10/18/2023 12:51:12 PM Interpretation: Performing Lab:[facility], [address] [place] [phone] Notes/Report: Parathyroid Hormone Intact 47.5 8.7-77.1 pg/mL Complete Blood Count Auto Di ff Reviewed date:02/14/2024 12:41:07 PM Interpretation: Performing Lab:[facility], [address] [place] [phone] Notes/Report: White Blood Count 8.9 4.8-10.8 X10*3/uL [...] Panel Reviewed date:02/14/2024 12:37:12 PM Interpretation: Performing Lab:[facility], [address] [place] [phone] Notes/Report: Sodium 142 135-145 mmol/L Potassium 4.1 [...] Code Notes Problem Hypokalemia (E87.6) Active confirmed 56072196 Problem Atherosclerosis of renal artery (I70.1) Active confirmed 416424963202951 Problem Sciatica, right side (M54.31) Active confirmed 58433817844110599 Problem Essential hypertension (I10) Active confirmed 45509936 Problem Osteoporosis (M81.0) Active confirmed Osteoporosis (22237142) Problem Renal artery stenosis (I70.1) Active confirmed 641611761 Problem 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 85409467 Problem History of pulmonary embolus (PE) (Z86.711) Active confirmed 371979535 Problem Dysthymia (F34.1) Active confirmed 4816 7006 Problem Iron deficiency anemia, unspecified iron deficiency anemia type (D50.9) Active confirmed 45164037 Problem Claudication (I73.9) Active confirmed 83557305 Problem 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) Active confirmed 143337509 Problem Bilateral carotid artery stenosis (I65.23) Active confirmed 59667284 Problem Aortic dilatation (I77.819) Active confirmed 46316638 Problem Bilateral carpal tunnel syndrome (G56.03) Active confirmed 70480811787811241 Problem Asymptomatic stenosis of right carotid artery (I65.21) Active confirmed 40700284 Problem Bilateral tinnitus (H93.13) Active confirmed 7939691451599 Problem Malignant neoplasm of colon, unspecified part of colon (C18.9) Active confirmed 094576771 Problem Uterine prolapse (N81.4) Active confirmed 65189632 Problem Osteopenia determined by x-ray (M85.80) Active confirmed 282793921 Problem Intermittent spinal claudication (G95.19) Active confirmed Intermittent sp inal claudication (652695598) Problem Left-sided tinnitus (H93.12) Active confirmed 6507671807072 Problem Intracranial aneurysm (I67.1) Active confirmed 269849905 Problem 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 Stricture o f artery (00299520) Problem 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) Active confirmed 904846169 Problem Carotid artery tenderness (G90.01) Active confirmed 755408967 VITAL SIGNS Blood pressure diastolic 68 mm Hg 01/02/2024 Height 60 in 01/02/2024 Blood pressure systolic 102 mm Hg 01/02/2024 Weight 106 lbs 01/02/2024 BMI 20.70 kg/m2 01/02/2024 Encounters Encounter Location Date Provider Diagnosis Wood Conti MD [address] [place] [id number] 06/30/2023 Wood Conti Essential hypertensi on I10 ; Annual physical exam Z00.00 ; Atherosclerosis of renal artery I70.1 ; Bilateral carpal tunnel syndrome G56.03 ; Iron deficiency anemia, unspecified iron deficiency anemia type D50.9 ; Cervical spinal stenosis M48.02 and Elevated BUN R79.9 [address] Conti MD [address] [place] [address] [id number] 05/13/2023 Wood Conti Aortic dilatation I77.819 and Bilateral carpal tunnel syndrome G56.03 Wood Conti MD [address] [place] [address] [id number] 06/23/2023 Wood Conti Blood tests for rout ine general physical examination Z00.00 ; Essential hypertension I10 ; Iron deficiency anemia, unspecified iron deficiency anemia type D50.9 and Hypokalemia E87.6 Wood Conti MD [address] [place] [address] [id number] 07/25/2023 Wood Conti Essential hypertensi on I10 Wood Conti MD [address] [place] [address] [id number] 08/15/2023 Wood Conti Elevated BUN R79.9 Wood Conti MD [address] [place] [address] [id number] 10/14/2023 Wood Conti Essential hypertensi on I10 Wood Conti MD [address] [place] [address] [id number] 01/02/2024 Wood Conti Encounter for immunization Z23 and Essential hypertension I10 Wood Conti MD [address] [place] [address] [id number] 08/19/2023 Wood Conti Essential hypertensi on I10 ; Bilateral carpal tunnel syndrome G56.03 and Elevated BUN R79.9 Wood Conti MD [address] [place] [address] [id number] 11/24/2023 Wood Conti Essential hypertensi on I10 and Bilateral carpal tunnel syndrome G56.03 Wood Conti MD [address] [place] [id number] 11/17/2023 Wood Conti ASSESSMENTS Encounter Date Diagnosis [...] keep bp controlled. is going to see manager risk management next month 08/19/2023 Essential hypertension (ICD-10 - [...] 07:30:00 AM, [address], [address], [place], [place], [phone], Provider Name:Wood Nash ier, 07/05/2024 11:00:00 AM, [address], [address], [place], [place], [phone], Insurance Providers Payer Name Payer Address Payer Phone Subscriber Number Group Number Insured Name Patient Relationship to Insured Coverage Start Date Coverage End Date [employer] PLAN [address] [place] [phone] [id number] Ira Gaviota Self - patient is the insured [employer] [address] [place] [address] [id number] Ira Gaviota Self - patient is the [...] flu vac 12/18 carotid ultrasound yearly at [facility] - next is due Dec 2014 Abscess of anal and rectal regions RADHA-inhibitor cough Surgical History Surgery Date(Month/Year) Gallbladder removed 12/28/2011 colon resection (hemicolectomy) 11/23/19 13 Excision Ganglion Cyst, Rt Foot 04/27/19 18
--- OUTSIDE RECORDS SUMMARY | 2024-02-21 10:22 | XMS_ITS | Patient Health Record ---
Author Organization [facility] Address [address] [place] [address] Care Team Providers Care Food Mixer Name Role Phone Gallito SHINE, Wood Primary Care Provider Saul Templeton [phone] ALLERGIES Allergen (clinical drug ingredient) Drug/Non Drug [...] capsule Orally Once a day Active Vitamin S36-Zxwvw Acid 500-400 MCG 1 Orally QOD Active [...] malignant neoplasm of colon (Z12.11) Active confirmed 922819187 Problem History of adenomatous polyp of colon (Z86.010) Active confirmed 429362454 Problem Encounter for screening for malignant neoplasm of rectum (Z12.12) Active confirmed Screening fo r malignant neoplasm of rectum (374245386) Problem Preprocedural examination (Z01.818) Active confirmed 41944916 Problem History of colon polyps (Z86.010) Active confirmed History of polyp of colon (409408904) Problem History of colon cancer (Z85.038) Active confirmed 930846875 Problem Constipation, unspecified constipation type (K59.00) Active confirmed 52406486 Problem Hypertension, unspecified type (I10) Active confirmed 97149181 Problem Abdominal pain, diffuse (R10.84) Active confirmed 810791206 Problem Hx of Billroth II operation (Z98.0) Active confirmed History of gastrointestinal tract bypass (660555150) PLAN OF TREATMENT Pending Test Test Name Order Date BUN 10/02/2013 CREATININE 10/02/2013 Future Test Test Name Order Date COLONOSCOPY 09/16/2015 COLONOSCOPY 11/21/2018 COLONOSCOPY 04/10/2021 Insurance Providers Payer Name Payer Address Payer Phone Subscriber Number Group Number Insured Name Patient Relationship to Insured Coverage Start Date Coverage End Date [facility] [address] [facility] [phone] [id number] MORAIMA MACIAS Self - patient is the insured MEDICAL (GENERAL) HISTORY Medical History History ICD Code EGD [id number] History of tubular adenomas removed from the [...] negative fo r any significant findings Denies NE,DM,CVA,Lung disease,renal dise ase Negative colonoscopy in 12/2013 and 12/06 016 Chronic constipation--she ochoa d some type of surgery with Dr. Daniel in 2010, including a rectocele repair Cerebral aneurysm as below Renal artery stenosis--s/p stent placeme nt Colonoscopy 01/2019 with a hyperplastic polyp removed Surgical History Surgery Date(Month/Year) Rectocele repair-Dr. Daniel- -2010--at [facility]--had complications of Afib and Blood clots Cholecystectomy-2011 Right colectomy for colon cancer-11/2012- Dr. Kiera White-as above Cataract-lens implants 03/2018 Cyst removal on right foot 04/27/2017 Cerebral aneurysm repair with coil [address] Beltre 01/31/20 Bilateral oopherectomy
--- OUTSIDE RECORDS SUMMARY | 2024-02-21 10:22 | XMS_ITS ---
Author Organization Wood Conti MD Address [address] [place] [address] [place] [phone] Care Team Providers Care Statistical Financial Analyst Name Role Phone Wood Conti Primary Care Provider [phone] REASON FOR VISIT discharge Encounters Encounter Location Date Provider Diagnosis Wood Conti MD [address] [place] [address] [place] [phone] 11/17/2023 Wood Conti PLAN OF TREATMENT Next Appt Details Provider Name:Wood solis, 06/28/2024 07:30:00 AM, [address] [place] [address], [address], [phone], Provider Name:Wood solis, 07/05/2024 11:00:00 AM, [address] [place] [address], [place], [place], [phone],
== END 2024-02-21 10:37 | disposition home or self-care (01) ==
PROVIDERS: PCP Internal Medicine; Visit Provider Internal Medicine Hypertension Specialist
DX: I70.1 Atherosclerosis of renal artery (principal); I12.9 Hypertensive chronic kidney disease with stage 1 through stage 4 chronic kidney disease, or unspecified chronic kidney disease; N18.30 Chronic kidney disease, stage 3 unspecified
CPT/HCPCS: 99214

== ENCOUNTER → 2024-02-21 10:18 | Outpatient (BNVA) | payer MEDICARE, SELFPAY | PROVIDERS: PCP Internal Medicine; Visit Provider Internal Medicine Hypertension Specialist | DX: I12.9 Hypertensive chronic kidney disease with stage 1 through stage 4 chronic kidney disease, or unspecified chronic kidney disease (principal); N18.30 Chronic kidney disease, stage 3 unspecified; I70.1 Atherosclerosis of renal artery | CPT/HCPCS: 99212 ==

== ENCOUNTER 2024-06-12 07:05 | Outpatient (REF) | payer MEDICARE, SELFPAY ==
--- OUTSIDE RECORDS SUMMARY | 2024-06-12 07:07 | XMS_ITS | Clinical Summary ---
Author Organization [facility] [address] [place] [address] Care Team Providers Care Information Technology Analyst Name Role Phone Unavailable Primary Care Provider Unavailabl e Social History Tobacco Use Types Packs/Day Years Used Date Smoking Tobacco: Never Assessed Comments Unknown Sex and Gender Information Value Date Recorded Sex Assigned at Not on file Legal Sex Female 9:32 AM EDT Gender Identity Not on file Sexual Orientation Not on file Plan of Treatment Health Maintenance Due Date Last Done Comments HIV screening 08/23/1956 Tetanus adult (Td q 10,TDAP once) 1963 Lipid disorder screening 1983 Diabetes screening 08/23/1988 Shingles vaccine (Shingrix) (1 of 2 - Shingrix (RZV) 2 Dose Standard Series) 08/23/1993 Osteoporosis screening (bone density) 08/23/2008 Pneumococcal Vaccine (50+ ye ars) (1 of 1 - PCV) 08/23/2008 RSV Immunization (1 - 1-dose 75+ series) 08/23/2018 Influenza vaccine 10/06/2023 Covid-19 vaccine series ( - 2023- season) 2023 Breast cancer screening Discontinued Cervical cancer screening Discontinued Meningococcal Vaccine Aged Out No luz maria luis felipe eligible based on patient's age to complete this topic Insurance COMMERCIAL GENERIC COMMERCIAL GENERIC Member Subscriber Plan / Payer (Ef fective 2008-Present) Name:Gaviota Roth Relation to Subscriber:Self Name:Gaviota Roth Payer ID:[id number] Group ID:Not on file Type:Not on file Address: [address] [phone] COMMERCIAL GENERIC on file COMMERCIAL GENERIC on file COMMERCIAL GENERIC
--- OUTSIDE RECORDS SUMMARY | 2024-06-12 07:07 | XMS_ITS | Clinical Summary ---
Author Organization [facility] Address [address] [place] [phone] Phone Care Team Providers Care Land Manager Name Role Phone Wood Conti MD Primary Care Provider Allergies Active Allergy Reactions Criticality Noted Date Comments Aspirin Other (see comments) 06/19/2020 Atorvastatin Other (see comments) 06/19/2020 Lockett Swelling 06/08/2021 Cinnamon Swelling 06/08/2021 Fluconazole Hives 06/08/2021 Hydralazine Other (see comments) 06/19/2020 Irbesartan Other (see comments) 06/19/2020 Lisinopril Other (see comments) 06/19/2020 Lorazepam Other (see comments) 06/19/2020 Metronidazole Other (see comments) 06/19/2020 Nystatin Other (see comments) 06/19/2020 Oxycodone Other (see comments) 06/19/2020 Raspberry 06/08/2021 Other reaction(s): bryan swelling Sulfadiazine Rash Low 06/08/2021 Tetracycline Other (see comments) 06/19/2020 Medications Probiotic Product (PROBIOTIC PO) Take 1 tablet by mouth 1 (one) time each day Active acetaminophen (TYLENOL) 325 MG tablet Active ascorbic acid (VITAMIN C) 500 MG tablet Take 1 tablet by mouth 1 (one) time each day Active B Complex-Folic Acid (SM NATURAL B-100 PO) Take 1 tablet by mouth every other day Active cyanocobalamin (VITAMIN B-12) 1000 MCG tablet Take 1,000 mcg by mouth 1 (one) time each day Active glucosamine-cho ndroitin 500-400 MG tablet Take 1 tablet by mouth 3 (three) times a day Active atenolol (TENORMIN) 25 MG tablet Take 25 mg by mouth 1 (one) time each day 08/19/2020 Active Dilt-XR 240 MG 24 hr capsule TAKE 1 CAPSULE BY MOUTH EVERY DAY ON EMPTY STOMACH IN THE MORNING 09/10/2020 Active clopidogrel (PLAVIX) 75 MG tablet TAKE 1 TABLET BY MOUTH 1 TIME EACH DAY. 90 tablet 3 06/07/2021 Active tobramycin-dexa methasone (TOBRADEX) ophthalmic solution INSTILL 1 DROP IN BOTH EYES FOUR TIMES A DAY 01/02/2022 Active hydrALAZINE 25 MG tablet Take 1 tablet (25 mg total) by mouth in the morning and 1 tablet (25 mg total) in the evening and 1 tablet (25 mg total) before bedtime. 90 tablet 11 06/03/2022 Active hydrALAZINE 50 MG tablet Take 1 tablet (50 mg total) by mouth in the morning and 1 tablet (50 mg total) in the evening and 1 tablet (50 mg total) before bedtime. 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 10/01/2022 Osteopenia 10/01/2022 10/01/2022 Osteoporosis 10/01/2022 10/01/2022 Tinnitus of left ear 10/01/2022 10/01/2022 Uterine prolapse 10/01/2022 10/01/2022 Iron deficiency anemia 10/15/2021 Malignant neoplasm of colon 10/15/2021 Tonsillectomy 10/15/2021 H/O: pulmonary embolus 10/15/2021 Carotid artery stenosis 10/15/2021 Hypertensive disorder 06/19/2020 Hypokalemia 06/19/2020 Renal artery stenosis 06/19/2020 Immunizations Name Administration Dates Next Due Influenza (IM) Preservative Free 12/12/2014,1008/2013 Influenza Split 12/12/2012,12/20/2011,12/21/2010 Influenza Split High Dose Pr eservative Free IM 12/15/2021,12/12/2020 Influenza Vaccine, Quadrival ent, Adjuvanted 10/26/2010 Pfizer SARS-COV-2 12/03/2021,,12/26/2020,05/05,04/14/2020 Pneumococcal Conjugate 13-Valent 05/19/2012 Pneumococcal Polysaccharide 05/31/2014 Tdap 04/13/2021,05/03/2011 Zoster 04/06/2011 Family History Medical History Relation Comments Heart disease Father Diabetes Mother Hypertension Mother Relation Status Comments Father Mother Social History Tobacco Use Types Packs/Day Years Used Date Smoking Tobacco: Former Smokeless Tobacco: Never Tobacco Cessation:Counseling Given: Not Answered Comments:Smoking History Info:Every day Comments Unknown Sex and Gender Information Value Date Recorded Sex Assigned at Not on file Legal Sex Female 4:55 PM EST Gender Identity Not on file Sexual Orientation Not on file Last Filed Vital Signs Vital Sign Reading Time Taken Comments Blood Pressure 110/60 10/04/2022 12:57 PM EDT Pulse 65 10/04/2022 12:57 PM EDT Temperature - - Respiratory Rate - - Oxygen Saturation 94% 10/04/2022 12:57 PM EDT Inhaled Oxygen Concentration - - Weight 48.2 kg (106 lb 3.2 oz) 10/04/2022 12:57 PM EDT Height 149.9 cm (4' 11 ) 06/03/2022 1:00 PM EDT Body Mass Index 21.45 06/03/2022 1:00 PM EDT Plan of Treatment Health Maintenance Due Date Last Done Comments Influenza Vaccine (Season Ended) 2024 12/15/2021, 12/15/2021, 12/12/2020, Additional history exists Pneumococcal Vaccine: 65+ Years Completed 05/31/2014, 05/31/2014, 05/19/2012, Additional history exists Hepatitis B Vaccine Aged Out No longe r eligible based on patient's age to complete this topic [place] [facility] [place] [facility] Care Teams Land Manager Relationship Specialty Start Date End Date Wood Conti MD [address] [place] [address] [address] [place] [address] PCP - General 03/17/20
--- OUTSIDE RECORDS SUMMARY | 2024-06-12 07:07 | XMS_ITS | Encounter Summary ---
Author Organization [facility] Address [address] [place] [phone] Care Team Providers Care Dials Inspector Name Role Phone Unavailable Primary Care Provider Unavailabl e Encounter Details Date Type Department Care Team ([facility] st Contact Info) Description 07/25/2018 Scanned Document [facility] [address] [facility] [address] [place] [address] Provider, historical . Social History Tobacco Use Types Packs/Day Years Used Date Smoking Tobacco: Never Assessed Comments Unknown Sex and Gender Information Value Date Recorded Sex Assigned at Not on file Legal Sex Female 9:32 AM EDT Gender Identity Not on file Sexual Orientation Not on file documented as of this encounter Plan of Treatment Not on file documented as of this encounter Procedures Procedure Name Priority Date/Time Associated Diagnosis Comments MRI RESULT SCAN Routine 06/30/2018 MRI RESULT SCAN Routine 06/09/2018 documented in this encounter Results * MRI Result Scan (06/30/2018) us Historical Provider IMG SCAN REPORTS Final Resul t * MRI Result Scan (06/09/2018) us Historical Provider IMG SCAN REPORTS Final Resul t documented in this encounter Visit Diagnoses Not on filedocumented in this encounter
--- OUTSIDE RECORDS SUMMARY | 2024-06-12 07:07 | XMS_ITS ---
Author Organization Wood Conti MD Address [address] [place] [phone] Care Team Providers Care Four Corner Stayer Machine Operator Name Role Phone Wood Conti Primary Care Provider Allergies Allergen (clinical drug ingredient) Drug/Non Drug Allergy documented on EMR Reaction Allergy Type Onset Date Status fluconazole Diflucan burning tongue Drug Allergy Active [...] metronidazole Flagyl rash Drug Allergy Act ning REASON FOR VISIT follow up appt from having surgery by Dr. Prado Medications Medication SIG (Take, Route, Frequency, Duration) Notes Start Date End Date Status Probiotic 250 MG 1 capsule Orally onc e a day Active Glucosamine Chondr Complex 500-400 MG 1 capsule with a meal Orally Once a day Active Folic Acid 400 MCG 1 tablet Orally Once a day for 30 day(s) Active Dilt-XR 240 MG TAKE 1 CAPSULE BY [facility] EVERY DAY ON EMPTY STOMACH IN [...] Once a day for 30 day(s) Active Vital Signs Blood pressure systolic 122 mm Hg 11/24/19 24 Blood pressure diastolic 80 mm Hg 024 Height 60 in 11/24/2023 Weight 105 lbs 11/24/2023 BMI 20.50 kg/m2 11/24/2023 Encounters Encounter Location Date Provider Diagnosis Wood Conti MD [address] [place] [address] [place] [phone] 11/24/2023 Wood Conti Essential hypertension I10 and Bilateral carpal tunnel syndrome G56.03 Assessments Encounter Date Diagnosis (ICD Code) Assessment Notes Treatment Notes Treatment Clinical Notes Section Notes 11/24/2023 Essential hypertension (ICD-10 - I10) is alternating between hydralzine and diltizaim and bps are doing well, will continue current regiment, is presently at goal 11/24/2023 Bilateral carpal tunnel syndrome (ICD-10 - G56.03) recovering nicely Plan Of Treatment Medication Medication Name Sig Start Date Stop [...] Details Provider Name:Wood solis, 06/28/2024 07:30:00 AM, [address] [place] [address], [address], [place], [place], [phone], Provider Name:Wood solis, 07/05/2024 11:00:00 AM, [address], [address], [place], [place], [phone], Progress Notes * Gaviota MACIASDOB:1945 (6 0 yo F)Acc No.[id number]:11/24/2023 Progress Notes Patient:Gaviota Orta Provider:?Wood Conti MD :1945???Age:78 Y???Sex:Female D ate:11/24/2023 Address: [facility] [[email or web address]] [place], [id number] Subjective: * Chief Complaints: * ???follow up appt from adwoa surgery by Dr. Prado * HPI: ???Symptom(s):? patient is a 78 yo female here for follow up of surgery. is feeling good. still with some tingling, but numbness is gone/ bp was low in the hospital so she stopped her antihypertensives. now taking it as needed. sometime takes diltiazem and sometimes hydralizine. * ROS:?General/Constitutional:?Denies?Chills.?Denies?Fatigue.?Denies?Fever.?Denies?Headache.?ENT:?Patient denies?decreased sense of smell , any loss of taste , sore throat.?Denies?Sore throat.?Respiratory:?Denies?Cough.?Denies?Shortness of breath at rest.?Denies?Shortness of breath with exertion.?Gastrointestinal:?Denies?Diarrhea.?Denies?Nausea.?Musculoskeletal:?Patient denies?muscle aches.?Peripheral Vascular:?Patient denies?red and blue toes.? * Medical History:? * Surgical History:? * Hospitalization/Major Diagno stic Procedure:? * Medications:?TakingFolic Aci d 400 MCG Tablet 1 tablet Orally Once a dayhydrALAZINE HCl 50 MG Tablet 1 tablet with food Orally Three times a dayGlucosamine Chondr Complex 500-400 MG Capsule [...] TABLET BY MOUTH 1 TIME EACH DAY Metoprolol Succinate ER 25 MG Tablet Extended Release 24 Hour 1 tablet Orally Once a dayDilt-XR 240 MG Capsule Extended Release 24 Hour TAKE 1 CAPSULE BY MOUTH EVERY DAY ON EMPTY STOMACH IN THE MORNING Atenolol 25 MG Tablet TAKE 1 TABLET BY MOUTH EVERY DAY Taking Folic Acid 400 MCG Tablet 1 tablet Orally Once a dayTaking hydrALAZINE HCl 50 MG Tablet 1 tablet with food Orally Three times a dayTaking Glucosamine Chondr Complex 500-400 MG [...] BY MOUTH 1 TIME EACH DAY Taking Metoprolol Succinate ER 25 MG Tablet Extended Release 24 Hour 1 tablet Orally Once a dayTaking Dilt-XR 240 MG Capsule Extended Release 24 Hour TAKE 1 CAPSULE BY MOUTH EVERY DAY ON EMPTY STOMACH IN THE MORNING Taking Atenolol 25 MG Tablet TAKE 1 TABLET BY MOUTH EVERY DAY Not-Taking/PRNDiflucan 150 MG Tablet 1 tablet Orally dailyTylenol Extra Strength 500 MG Tablet 2 tablets as needed Orally every 6 hrsVentolin HFA * 108 (90 Base) MCG/ACT Aerosol Solution 2 puffs as needed Inhalation every 4 hrsMedication List reviewed and reconciled with the patientNot-Taking/PRN Diflucan 150 MG Tablet 1 tablet Orally dailyNot-Taking/PRN Tylenol Extra Strength 500 MG Tablet 2 tablets as needed Orally every 6 hrsNot-Taking/PRN Ventolin HFA * 108 (90 Base) MCG/ACT Aerosol Solution 2 puffs as needed Inhalation every 4 hrsMedication List reviewed and reconciled with the patient * Allergies:?Tetracycline HClO xycodone HClFlagyl: rashLisinopril: coughAtivan: hallucinationsAspirin: tongue swellingAtorvastatin Calcium: tongue swellingDiflucan: burning tongueNystatin: burning tongueIrbesartan: burning tonguecontrast dye: kidney damageyes[Allergies Verified] Objective: * Vitals:?Ht: 60, Wt:105, BMI: 20.50, BP:122/80. * Examination: ???General Examination: ?GENERAL APPEARANCE:? alert, well hydrated, in no distress .?SKIN:? abnormal doing well with the wound healing well.?HEART:? no murmurs, rubs, gallops, regular rate and rhythm.?LUNGS:? no wheezes, rales, rhonchi, good air movement, clear to auscultation bilaterally.? Assessment: * Assessment: 1.?Essential hypertension - I10 (Primary)?2.?Bilateral carpal tunnel syndrome - G56.03? Plan: * Treatment: 2.?Bilateral carpal tunnel s yndrome? Notes: recovering nicely?? * Procedure Codes:? * * Sign off status: Completed true * Provider:?Wood Conti MD Date:?0 11/24/2023 Generated for Albert whitley/Dina/Bandaritting on:?06/12/2024 07:07 AM EDT History and Physical Notes * HPI (History of Present Illness) Category Sub-Category Detail Notes Category Not es Symptom(s) patient is a 78 yo female here for follow up of surgery. is feeling good. still with some tingling, but numbness is gone/ bp was low in the hospital so she stopped her antihypertensives. now taking it as needed. sometime takes diltiazem and sometimes hydralizine Examination Category Sub-Category Detail Notes Category Not es General Examination GENERAL APPEARANCE: alert, w ell hydrated, in no distress HEART: no murmurs, rubs, ga llops, regular rate and rhythm LUNGS: no wheezes, rales, r honchi, good air movement, clear to auscultation bilaterally SKIN: abnormal doing well with the wound healing well
--- OUTSIDE RECORDS SUMMARY | 2024-06-12 07:08 | XMS_ITS ---
Author Organization Wood Conti MD Address [address] [place] [address] [place] [phone] Care Team Providers Care Rail Car Maintenance Mechanic Name Role Phone Wood Conti Primary Care Provider [phone] REASON FOR VISIT HCC Risk Codes 07/05 Encounters Encounter Location Date Provider Diagnosis Wood Conti MD [address] [place] [address] [place] [phone] 05/21/2024 Wood Conti Plan Of Treatment Next Appt Details Provider Name:Wood Nash ier, 06/28/2024 07:30:00 AM, [address] [place] [address], [address], [phone], Provider Name:Wood Nash ier, 07/05/2024 11:00:00 AM, [address] [place] [address], [phone], Progress Notes * GILBERTOMelinda RichardsonvernaDOB:1945 (6 0 yo F)Acc No.[id number]:05/21/2024 Patient:?GILBERTOGaviota Richardson :1945???Age:78 Y???Sex:Female Address: [place] [address] * * Date:?
--- OUTSIDE RECORDS SUMMARY | 2024-06-12 07:08 | XMS_ITS ---
Author Organization Wood Conti MD Address [address] [place] [phone] Care Team Providers Care Town Justice Name Role Phone Wood Conti Primary Care Provider [phone] Allergies Allergen (clinical drug ingredient) Drug/Non Drug [...] Drug Allergy Act ning REASON FOR VISIT 6 mo f/u Medications [...] Location Date Provider Diagnosis Wood Conti MD [address] [place] [address] [address] [place] [phone] 01/02/2024 Wood Conti Encounter for immunization Z23 [...] keep bp controlled. is going to see [facility] next month Plan Of Treatment Treatment Notes Assessment Notes Encounter for immunization administered flu vaccine today Essential hypertension running on the lo w side. she is making adjustments on her meds to keep bp controlled. is going to see [facility] next month Next Appt Details Provider Name:Wood solis, 06/28/2024 07:30:00 AM, [address] [place] [address], [address], [place], [place], [phone], Provider Name:Wood solis, 07/05/2024 11:00:00 AM, [address] [place] [address], [address], [place], [place], [phone], Progress Notes * Obed MACIAS:1945 (6 0 yo F)Acc No.[id number]:01/02/2024 Progress Notes Patient:?Gaviota Macias Provider:?Wood Conti MD :1945???Age:78 Y???Sex:Female D ate:01/02/2024 Address:[address] [place] [address] Subjective: * Chief Complaints: * ???6 mo f/u * HPI: ???Symptom(s):? patient is a 78 yo female here for 6 month follow up visit/ has not gotten her covid shot. * ROS:?General/Constitutional:?Denies?Chills.?Denies?Fatigue.?Denies?Fever.?Denies?Headache.?ENT:?Patient denies?decreased sense of smell , [...] Orally Once a dayTaking Glucosamine Chondr Complex 500- 400 MG Capsule 1 capsule with a meal [...] 2 puffs as needed Inhalation every 4 hrsNot- Taking/PRN Diflucan 150 MG Tablet 1 tablet Orally [...] kidney damageyes[Allergies Verified] Objective: * Vitals:?Ht: 60, Wt:106, BMI: 20.70, BP:102/68. * Examination: ???General Examination: ?GENERAL APPEARANCE:?well developed, well nourished , female.?HEAD:?normocephalic.?SKIN:?good turgor.?HEART:?regular rate and rhythm , no murmurs, rubs, gallops.?LUNGS:?no wheezes, rales, rhonchi , good air movement , clear to auscultation bilaterally.? Assessment: * Assessment: 1.?Essential hypertension - I10 (Primary)?2.?Encounter for immunization - Z23? Plan: * Treatment: 2.?Encounter for immunizatio n? Notes: administered flu vaccine today?? Clinical Notes: have discussed the covid shot with her. ?? * Immunizations:? Influenza High Dose : 0.5 mL (Dose No:1) (Route: Intramuscular) given by [place] on Left Deltoid * Procedure Codes:?66031 FLU V ACC PRSV FREE INC [id number] ADMN FLU VAC NO FEE SCHED SAME DAY * Preventive Medicine:? ??Immunizations:?Influenza?Have you had a flu shot since the most recent November 05??Yes.? * * Sign off status: Completed true * Provider:?Wood Conti MD Date:?1 Generated for Albert whitley/Dina/eTransmitting on:?06/12/2024 07:08 AM EDT History and Physical Notes * [...]
[2024-06-12 08:16] LABS: Anion Gap 13 (12-20); Blood Urea Nitrogen 29 mg/dL (9-16); Carbon Dioxide 29 mmol/L (22-29); Chloride 106 mmol/L (96-108); Estimated Glomerular Filt Rate 35; Glucose Random 106 mg/dL (60-115); Potassium 4.1 mmol/L (3.3-5.1); Sodium 144 mmol/L (135-145)
== END 2024-06-12 07:06 | disposition home or self-care (01) ==
LOC: HO.LAB 07:05
PROVIDERS: PCP Internal Medicine; Visit Provider Internal Medicine Hypertension Specialist
DX: N18.30 Chronic kidney disease, stage 3 unspecified (principal)
CPT/HCPCS: 36415; 80048

== ENCOUNTER 2024-06-21 10:17 | Outpatient (AMB) | payer MEDICARE, SELFPAY ==
[2024-06-21 10:24] VITALS: BP 168/70; PULSE 62; O2SAT 98; BMI 21.4
--- NOTE | 2024-06-21 10:24 | HO.NEPHOV ---
Vital Signs 06/21/24 10:24 Height 4 ft 11 in Weight 106 lb BMI 21.4 BP 168/70 H Blood Pressure Location Rt brachial Position Sitting Pulse 62 Pulse Source Pulse Oximeter Pulse Oximetry (%) 98 Oxygen Delivery Method Room Air Intake Visit Reasons: CKD/LVM Silo Operator Required: No Accompanied by: Self / Same As Patient Allergies Krgrpil-DNH-CkS Reductase Inhibitor [EHHXPXT-BAL-LIL REDUCTASE INHIBITOR] Allergy (Severe, Verified 06/21/24 10:27) TONGUE SWELLING vancomycin Allergy (Severe, Verified 06/21/24 10:27) Rash amoxicillin [AMOXICILLIN] Allergy (Intermediate, Verified 06/21/24 10:27) NAUSEA aspirin [ASA] Allergy (Intermediate, Verified 06/21/24 10:27) FEELING OF PEPPER ON TONGUE atorvastatin [ATORVASTATIN] Allergy (Intermediate, Verified 06/21/24 10:27) FEELING OF PEPPER ON TONGUE fluconazole [FLUCONAZOLE] Allergy (Intermediate, Verified 06/21/24 10:27) FEELING OF PEPPER ON TONGUE irbesartan [IRBESARTAN] Allergy (Intermediate, Verified 06/21/24 10:27) SORE TONGUE,GERD metronidazole [Flagyl] Allergy (Intermediate, Verified 06/21/24 10:27) Rash morphine [MORPHINE] Allergy (Intermediate, Verified 06/21/24 10:27) HIVES oxycodone [OXYCODONE] Allergy (Intermediate, Verified 06/21/24 10:27) RASH pepper (genus Capsicum) [PEPPER] Allergy (Intermediate, Verified 06/21/24 10:27) SENSITIVE TO lisinopril [LISINOPRIL] Allergy (Mild, Verified 06/21/24 10:27) COUGH Iodinated Contrast Media [Contrast Dye] Allergy (Unknown, Verified 06/21/24 10:27) Unknown Tetracyclines [TETRACYCLINES] Adverse Reaction (Intermediate, Verified 06/21/24 10:27) SHAKES lorazepam [From ATIVAN] Adverse Reaction (Mild, Verified 06/21/24 10:27) HALLUCINATIONS Medication List - Last Reconciled 06/21/24 by Luis Conley MD [acetaminophen 1,000 mg PO DAILY PRN] ascorbic acid (vitamin C) 500 mg PO DAILY atenolol 25 mg PO DAILY cholecalciferol (vitamin D3) 25 mcg PO DAILY clopidogrel 75 mg PO DAILY folic acid 0.4 mg PO DAILY garlic 300 mg PO DAILY glucosamine sulfate (Glucosamine) 500 mg PO BID tramadol 50 mg PO Q8H PRN Do you need a note to return to daycare/school/sports/work: No HPI Comments Details: Gaviota is a elderly woman with a history of for chronic kidney disease in the setting of renal artery stenosis and severe hypertension. She has undergone renal angiogram with angioplasty and stent placement by Dr. Steele. Currently she is on Plavix. She has a history of back pain and lower leg pains. MRI reveals significant disc disease and arthritis. She is being followed by [facility] compensation/benefits specialist From a renal standpoint she is doing very well. No new complaints today. Blood pressure has been well controlled 10/25/23;Underwent carpel tunnel surgery. Doing OK 02/21/24;Doing well; OFF ALL anti hypertensives since November 2023 06/21/24: c/o Fatigue in legs. Has an appointment with in September 2024 Home BP looks good. [facility] Medical History CKD (chronic kidney disease) Renal artery stenosis Hx of colon cancer, stage III History of colon cancer Joint pain Afib HTN (hypertension) Surgical History History of carpal tunnel surgery of left wrist (~08/2023) Hx of removal of cyst History of colonoscopy History of surgery History of surgery Hx of cerebral aneurysm repair History of renal angiogram Hx of cataract Family History Father No problems noted. Mother No problems noted. Brother CAD (coronary artery disease) Social History Are you a primary pulmonary care nurse to a significant other at home: No Do you presently have visiting nurse or other home services: No Patient Tobacco Use Status: Former Tobacco user Tobacco use type: Cigarette Physical Exam Vital Signs: BMI result Body Mass Index 21.4 Comfortable Neck supple no JVD. Lungs entry equal no rales. Heart S1-S2 heard no gallop or rub. Abdomen soft nontender. Neuro alert awake oriented. No asterixis. Extremities no edema. Results Reviewed Nephrology Results: Hgb 13.5 g/dl (12.0-16.0) 02/14/24 WBC 8.9 X10*3/uL (4.8-10.8) 02/14/24 Plt Count 179 X10*3/uL (160-400) 02/14/24 Sodium 144 mmol/L (135-145) 06/12/24 Potassium 4.1 mmol/L (3.3-5.1) 06/12/24 Chloride 106 mmol/L (96-108) 06/12/24 Carbon Dioxide 29 mmol/L (22-29) 06/12/24 BUN 29 mg/dL (9-16) H 06/12/24 Creatinine 1.44 mg/dL (0.5-1.4) H 06/12/24 Calcium 10.0 mg/dL (8.4-10.2) 06/12/24 Assessment & Plan Assessment & Plan (1) Renal artery stenosis: Code(s): I70.1 - Atherosclerosis of renal artery Category: Medical (2) CKD (chronic kidney disease) stage 3, GFR 30-59 ml/min: Code(s): N18.30 - Chronic kidney disease, stage 3 unspecified Category: Medical (3) HTN (hypertension): Code(s): I10 - Essential (primary) hypertension Category: Medical Plan Elderly woman with hypertension history of Renal artery stenosis with CKD. Renal function stable with creatinine 1.4 to 1.6. Goal is to slow the progression of disease. Continue to avoid nephrotoxic agents. Hypertension Due to underlying renal artery stenosis. Status post stent placement. Blood pressure is well controlled based on home readings with just on ATENOLOL 25 mg QD Office reading elevated today due to ? white coat effect She should continue low-sodium diet. No changes made to the antihypertensive regimen. History of renal artery stenosis. Status post stent placement. She is being followed by Dr. Steele. Spinal stenosis s/p Carpel tunnel syndrome -defer management to [facility] compensation/benefits specialist Would avoid NSAIDS Orders: Orders Basic Metabolic Panel 4 Months I70.1 - Atherosclerosis of renal artery, N18.30 - Chronic kidney disease, stage 3 unspecified Coding Level of Care Code Est Pt Level 4 (33188) Diagnoses Renal artery stenosis I70.1 CKD (chronic kidney disease) stage 3, GFR 30-59 ml/min N18.30 HTN (hypertension) I10
--- OUTSIDE RECORDS SUMMARY | 2024-06-21 12:12 | XMS_ITS | Clinical Summary ---
Author Organization [facility] Address [address] [place] [phone] Phone Care Team Providers Care Quantitative Strategy Analyst Name Role Phone Wood Conti MD Primary [...] Hypokalemia 06/19/2020 Renal artery stenosis 06/19/2020 Immunizations Immunization Administration Dates Next Due Influenza (IM) Preservative Free 12/12/2014,1008/2013 Influenza Split 12/12/2012,12/20/2011,12/21/2010 Influenza Split High Dose Pr eservative Free IM 12/15/2021,12/12/2020 Influenza Vaccine, Quadrival ent, Adjuvanted 10/26/2010 Pfizer SARS-COV-2 12/03/2021, 2,12/26/2020,05/05,04/14/2020 Pneumococcal Conjugate 13-Valent 05/19/2012 Pneumococcal Polysaccharide 05/31/2014 [...] 12/15/2021, 12/12/2020, Additional history exists Pneumococcal Vaccine: 50+ Years Completed 05/31/2014, 05/31/2014, 05/19/2012, Additional history exists Pneumococcal Vaccine: Peds (0 to 5 Years) and At-Risk Patients (6 to 49 Years) Discontinued 05/31/2014, 05/31/2014, 05/19/2012, Additional history exists Hepatitis B Vaccine Aged Out No longe r eligible based on patient's age to complete this topic Insurance [facility] Care Teams Quantitative Strategy Analyst Relationship Specialty Start Date End Date Wood Conti MD [address] [place] [address] [address] [place] [address] PCP - General 03/17/20
--- OUTSIDE RECORDS SUMMARY | 2024-06-21 12:12 | XMS_ITS ---
Author Organization Wood Conti MD Address [address] [place] [address] [place] [phone] Care Team Providers Care Supervisor Cutting And Boning Name Role Phone Wood Conti Primary Care Provider REASON FOR VISIT HCC Risk Codes 07/05 Encounters Encounter Location Date Provider Diagnosis Wood Conti MD [address] [place] [address] [place] [phone] 05/21/2024 Wood Conti Plan Of Treatment Next Appt Details Provider Name:Wood Nash ier, 06/28/2024 07:30:00 AM, [address] [place] [address], [address], [phone], Provider Name:Wood Nash ier, 07/05/2024 11:00:00 AM, [address] [place] [address], [phone], Progress Notes * GILBERTOMelindavernaDOB:1945 (6 0 yo F)Acc No.[id number]:05/21/2024 Patient:?GILBERTOGaviota Richardson :1945???Age:78 Y???Sex:Female Address: [place] [address] * * Date:?
--- OUTSIDE RECORDS SUMMARY | 2024-06-21 12:12 | XMS_ITS | Patient Health Record ---
Author Organization Wood Conti MD Address [address] [place], [place] [phone] Care Team Providers Care Stenotypist Name Role Phone Wood Conti Primary Care Provider [phone] Allergies Allergen (clinical drug ingredient) Drug/Non Drug [...] Nystatin burning tongue Drug Allergy Ac tive Lisinopril cough Drug Allergy Active irbesartan Irbesartan burning tongue Drug Allergy Active metronidazole Flagyl rash Drug Allergy Act ning Results Component Value Reference Range Notes Complete Blood Count Auto Di ff Reviewed date:06/23/2023 05:28:35 PM Interpretation: Performing Lab:[facility], [address] [place] [phone] Notes/Report: White Blood Count 9.1 4.8-10.8 X10*3/uL [...] NRBC Abs Auto 0.000 0.0-0.012 X10*3/uL Comprehensive [place]. Panel Fa st Reviewed date:07/28/2023 10:13:07 AM Interpretation:see back 07-25-2023 Performing Lab:[facility], [address] [place] [phone] Notes/Report: Sodium 141 135-145 mmol/L Potassium 4.1 3.3-5.1 mmol/L Chloride 105 96-108 mmol/L Carbon Dioxide 29 22-29 mmol/L Anion Gap 11 12-20 Blood Urea Nitrogen 31 9-16 mg/dL Creatinine 1.63 0.5-1.4 mg/dL Estimated Glomerular Filt Rate 30 NOTE: For -Argentine individuals, multiply the result by 1.210. Chronic [...] PROFILE Reviewed date:06/23/2023 05:27:25 PM Interpretation: Performing Lab:[facility], [address] [place] [phone] Notes/Report: Iron 134 30-160 mcg/dL Total Iron Binding Capacity 314 228-428 mcg/d L Percent Iron Saturation 43 15-50 % Unsaturated Iron Binding 180 Lipid Panel Reviewed date:06/23/2023 05:27:17 PM Interpretation: Performing Lab:[facility], [address] [place] [phone] Notes/Report: Triglycerides 164 <150 mg/dL Desirable Triglyceride: [...] low results in patients with liver disease. Blood Urea Nitrogen Reviewed date:07/25/2023 12:49:27 PM Interpretation: Performing Lab:[facility], [address] [place] [phone] Notes/Report: Blood Urea Nitrogen 32 9-16 mg/dL Creatinine Reviewed date:07/25/2023 12:49:04 PM Interpretation: Performing Lab:[facility], [address] [place] [phone] Notes/Report: Creatinine 1.75 0.5-1.4 mg/dL Estimated Glomerular Filt Rate 28 NOTE: For -Argentine individuals, multiply the result by 1.210. Chronic Kidney Disease: Estimated GFR < 60 mL/min/1.73m2 Severe Kidney Disease: Estimated GFR < 15 mL/min/1.73m2 Blood Urea Nitrogen Reviewed date:08/15/2023 12:39:20 PM Interpretation: Performing Lab:[facility], [address] [place] [phone] Notes/Report: Blood Urea Nitrogen 25 9-16 mg/dL Creatinine Reviewed date:10/17/2023 09:06:24 AM Interpretation:10-14-23 repeat 2 month Performing Lab:[facility], [address] [place] [phone] Notes/Report: Creatinine 1.57 0.5-1.4 mg/dL Estimated Glomerular Filt Rate 32 NOTE: For -Argentine individuals, multiply the result by 1.210. Chronic Kidney Disease: Estimated GFR < 60 mL/min/1.73m2 Severe Kidney Disease: Estimated GFR < 15 mL/min/1.73m2 Blood Urea Nitrogen Reviewed date:10/14/2023 03:32:08 PM Interpretation: Performing Lab:[facility], [address] [place] [phone] Notes/Report: Blood Urea Nitrogen 30 9-16 mg/dL Creatinine Reviewed date:10/14/2023 03:31:24 PM Interpretation: Performing Lab:[facility], [address] [place] [phone] Notes/Report: Creatinine 1.67 0.5-1.4 mg/dL Estimated Glomerular Filt Rate 30 NOTE: For -Argentine individuals, multiply the result by 1.210. Chronic Kidney Disease: Estimated GFR < 60 mL/min/1.73m2 Severe Kidney Disease: Estimated GFR < 15 mL/min/1.73m2 UA ClnCatch+Micro w/rflx Cul t Reviewed date:06/30/2023 05:42:26 PM Interpretation: Performing Lab:[address] [phone] Notes/Report: Urine, Clean Catch Color Urine Yellow Appearance Urine Clear PH 7.0 5.0-9.0 Glucose Urine UA Negative Negative mg/dL Urine Blood Negative Negative Specific [place] - Urine 1.015 1.005-1.025 Urine Protein Trace Neg-Trace mg/dL Urine Ketones Negative Negative mg/dL Nitrite Urine Negative Negative Leukocyte Esterase Urine Large (3+) Negative RBC Urine 0-2 0-2 /HPF WBC Urine 11-20 0-5 /HPF Squamous Epithelial Cell Urine 0-2 0-2 /HPF Bacteria Urine None Seen None Seen Hyaline Casts Urine 0-2 0-2 /LPF Naa Ramirez Reviewed date:06/23/2023 12:46:26 PM Interpretation: Performing Lab:[facility], [address] [place] [phone] Notes/Report: Naa Ramirez See Note Specimen held untested for 24 hours; Call to request Chemistry testing. Urine Culture Reviewed date:07/01/2023 03:01:47 PM Interpretation: Performing Lab:[facility], [address] [place] [phone] Notes/Report: Urine Culture Report Result Urine Culture < 10,000 cfu/ml Naa Ramirez Reviewed date:07/25/2023 12:51:31 PM Interpretation: Performing Lab:[facility], [address] [place] [phone] Notes/Report: Naa Ramirez See Note Specimen held untested for 24 hours; Call to request Chemistry testing. Complete Blood Count Auto Di ff Reviewed date:10/18/2023 12:53:13 PM Interpretation: Performing Lab:[facility], [address] [place] [phone] Notes/Report: White Blood Count 7.5 4.8-10.8 X10*3/uL [...] Electrolytes Reviewed date:10/18/2023 12:36:27 PM Interpretation: Performing Lab:[address] [phone] Notes/Report: Sodium 141 135-145 mmol/L Potassium 3.7 3.3-5.1 mmol/L Chloride 103 96-108 mmol/L Carbon Dioxide 30 22-29 mmol/L Anion Gap 12 12-20 Blood Urea Nitrogen Reviewed date:10/18/2023 09:13:59 AM Interpretation: Performing Lab:[address] [phone] Notes/Report: Blood Urea Nitrogen 29 9-16 mg/dL Creatinine Reviewed date:10/18/2023 09:14:11 AM Interpretation: Performing Lab:[address] [phone] Notes/Report: Creatinine 1.67 0.5-1.4 mg/dL Estimated Glomerular Filt Rate 30 NOTE: For -Argentine individuals, multiply the result by 1.210. Chronic Kidney Disease: Estimated GFR < 60 mL/min/1.73m2 Severe Kidney Disease: Estimated GFR < 15 mL/min/1.73m2 Calcium Reviewed date:10/18/2023 12:36:15 PM Interpretation: Performing Lab:[address] [phone] Notes/Report: Calcium 9.9 8.4-10.2 mg/dL Phosphorus Reviewed date:10/18/2023 12:49:41 PM Interpretation: Performing Lab:[facility], [address] [place] [phone] Notes/Report: Phosphorus 3.9 2.7-4.5 mg/dL Parathyroid Hormone Intact Reviewed date:10/18/2023 12:51:12 PM Interpretation: Performing Lab:[facility], [address] [place] [phone] Notes/Report: Parathyroid Hormone Intact 47.5 8.7-77.1 pg/mL Complete Blood Count Auto Di ff Reviewed date:02/14/2024 12:41:07 PM Interpretation: Performing Lab:[facility], [address] [place] [phone] Notes/Report: White Blood Count 8.9 4.8-10.8 X10*3/uL [...] Panel Reviewed date:02/14/2024 12:37:12 PM Interpretation: Performing Lab:[facility], [address] [place] [phone] Notes/Report: Sodium 142 135-145 mmol/L Potassium 4.1 [...] 3.5-5.0 g/dL Alkaline Phosphatase 50 39-117 U/L Basic Metabolic Panel Reviewed date:06/12/2024 12:35:00 PM Interpretation: Performing Lab:[facility], [address] [place] [phone] Notes/Report: Sodium 144 135-145 mmol/L Potassium 4.1 3.3-5.1 mmol/L Chloride 106 96-108 mmol/L Carbon Dioxide 29 22-29 mmol/L Anion Gap 13 12-20 Blood Urea Nitrogen 29 9-16 mg/dL Creatinine 1.44 0.5-1.4 mg/dL Estimated Glomerular Filt Rate 35 Chronic Kidney Disease: Estimated GFR < 60 mL/min/1.73m2 Severe Kidney Disease: Estimated GFR < 15 mL/min/1.73m2 Glucose Random 106 60-115 mg/dL Calcium 10.0 8.4-10.2 mg/dL Reason For Referral No Information Medications Medication SIG (Take, Route, Frequency, Duration) [...] 05/19/2012 Pending Flu Vaccine Unknown 12/10/2013 Pending Social History Tobacco Use: Social History Observation Description Date Details (start date - stop date) Former Smoker NA - NA Tobacco Use/Smoking Question Answer Notes Patient is a former smoker How long has it been since y ou last smoked? > 10 years Additional Findings: Tobacco Non-User Fo rmer smoker, currently using no form of tobacco Alcohol Screen Question Answer Notes Did you have a drink containing alcohol in the p ast year? 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 Problem 093204403 History of pulmonary embolus (PE) (Z86.711) Active confirmed Problem 74171683 Dysthymia (F34.1) Active confirmed Problem 38557159 Iron deficiency anemia, unspecified iron deficiency anemia type (D50.9) Active confirmed Problem 80607909 Claudication (I73.9) Active confirmed Problem 000205555 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) Active confirmed Problem 49426838 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) Active confirmed Problem 22525276 Aortic dilatatio n (I77.819) Active confirmed Problem 76134147384714202 Bilateral carp al tunnel syndrome (G56.03) Active confirmed Problem 23545778 Asymptomatic stenosis of right carotid artery (I65.21) Active confirmed Problem 5919704862655 Bilateral tinnitus (H93.13) Active confirmed Problem 668050964 Malignant neoplasm of colon, unspecified part of colon (C18.9) Active confirmed Problem 79497539 Uterine prolapse (N81.4) Active confirmed Problem 008176856 Osteopenia determined by x-ray (M85.80) Active confirmed Problem Intermittent spinal claudication (634725733) Intermittent spinal claudication (G95.19) Active confirmed Problem 7209953081612 Left-sided tinnitus (H93.12) Active confirmed Problem 336962130 Intracranial aneurysm (I67.1) Active confirmed Problem Stricture of artery (08619396) 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 Problem 936750021 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) Active confirmed Problem 942971766 Carotid artery tenderness (G90.01) Active confirmed Vital Signs Blood pressure diastolic 68 mm Hg 01/02/2024 Height 60 in 01/02/2024 Blood pressure systolic 102 mm Hg 01/02/2024 Weight 106 lbs 01/02/2024 BMI 20.70 kg/m2 01/02/2024 Encounters Encounter Location Date Provider Diagnosis Wood Conti MD [address] [place] [id number] 06/23/2023 Wood Conti Blood tests for rout ine general physical examination Z00.00 ; Essential hypertension I10 ; Iron deficiency anemia, unspecified iron deficiency anemia type D50.9 and Hypokalemia E87.6 Wood Conti MD [address] [place] [id number] 07/25/2023 Wood Conti Essential hypertensi on I10 Wood Conti MD [address] [place] [id number] 08/15/2023 Wood Conti Elevated BUN R79.9 Wood Conti MD [address] [place] [id number] 10/14/2023 Wood Conti Essential hypertensi on I10 Wood Conti MD [address] [place] [id number] 06/30/2023 Wood Conti Essential hypertensi on I10 ; Annual physical exam Z00.00 ; Atherosclerosis of renal artery I70.1 ; Bilateral carpal tunnel syndrome G56.03 ; Iron deficiency anemia, unspecified iron deficiency anemia type D50.9 ; Cervical spinal stenosis M48.02 and Elevated BUN R79.9 Wood Conti MD [address] [place] [id number] 08/19/2023 Wood Conti Essential hypertensi on I10 ; Bilateral carpal tunnel syndrome G56.03 and Elevated BUN R79.9 Wood Conti MD [address] [place] [address] [id number] 11/24/2023 Wood Conti Essential hypertensi on I10 and Bilateral carpal tunnel syndrome G56.03 Wood Conti MD [address] [place] [id number] 01/02/2024 Wood Conti Encounter for immunization Z23 and Essential hypertension I10 Wood Conti MD [address] [id number] 05/21/2024 Wood Conti MD [address] [place] [address] [id number] 11/17/2023 Wood Conti Assessments Encounter Date Diagnosis (ICD Code) Assessment Notes Treatment Notes Treatment Clinical Notes Section Notes 06/23/2023 Blood tests for routine general physical examination (ICD-10 - Z00.00) 06/23/2023 Essential hypertension (ICD-10 - I10) 07/25/2023 Essential hypertension (ICD-10 - I10) 08/15/2023 Elevated BUN (ICD-10 - R79.9) 10/14/2023 Essential hypertension (ICD-10 - I10) 06/30/2023 Essential hypertension (ICD-10 - I10) 06/30/2023 Annual physical exam (ICD-10 - Z00.00) Labs reviewed and discussed with patient 08/19/2023 Essential hypertension (ICD-10 - I10) well [...] tunnel syndrome (ICD-10 - G56.03) recovering nicely 01/02/2024 Encounter for immunization (ICD-10 - Z23) administered flu vaccine today have discussed the covid shot with her. 01/02/2024 Essential hypertension (ICD-10 - I10) running on the low side. she is making adjustments on her meds to keep bp controlled. is going to see meter record clerk next month 06/23/2023 Iron deficiency anemia, unspecified iron deficiency anemia type (ICD-10 - D50.9) 06/30/2023 Atherosclerosis of renal artery (ICD-10 - I70.1) 08/19/2023 Elevated BUN (ICD-10 - R79.9) stable followed by nephrology 06/23/2023 Hypokalemia (ICD-10 - E87.6) 06/30/2023 Bilateral carpal tunnel syndrome (ICD-10 - G56.03) having surgery in 06/30/2023 Iron deficiency anemia, unspecified iron deficiency anemia type (ICD-10 - D50.9) has resolved 06/30/2023 Cervical spinal stenosis (ICD-10 - M48.02) going to wait to have surgery until carpal tunnel relieved 06/30/2023 Elevated BUN (ICD-10 - R79.9) is followed by dr conte Plan Of Treatment Pending Test Test Name Order Date Electrocardiogram [...] 07:30:00 AM, [address], [address], [place], [phone], Provider Name:Wood Nash ier, 07/05/2024 11:00:00 AM, [address], [address], [place], [phone], Insurance Providers Payer Name Payer Address Payer Phone Subscriber Number Group Number Insured Name Patient Relationship to Insured Coverage Start Date Coverage End Date [employer] PLAN [address] [place] [phone] [id number] IraGaviota garvey Self - patient is the insured [employer] [address] [place] [id number] Gaviota Roth Self - patient is the insured Medical (General) History Medical History History ICD Code pulmonary embolism 08/15 Atrial fibrillation Other pulmonary embolism and infarction NEEDS TO HAVE BUN AND CR EVERY 6 MONTHS Rheumatic fever as a child 11/20/2012 - Colonoscopy; col onoscopy 12/19/13; Colonoscopy 12/24/15 w/Dr. Fuller - repeat in 3 years; Colonoscopy 01/29/19 (repeat 3 years)05/06/21 colonoscopy repeat 3 yrs flu vac 12/18 carotid ultrasound yearly at [facility] - next is due Dec 2014 Abscess of anal and rectal regions RADHA-inhibitor cough Surgical History Surgery Date(Month/Year) Gallbladder removed 12/28/2011 colon resection (hemicolectomy) 11/23/19 13 Excision Ganglion Cyst, Rt Foot 04/27/19 18
--- OUTSIDE RECORDS SUMMARY | 2024-06-21 12:12 | XMS_ITS ---
Author Organization Wood Conti MD Address [address] [place] [phone] Care Team Providers Care Tax Examining Technician Name Role Phone Wood Conti Primary Care Provider [phone] Allergies Allergen (clinical drug ingredient) Drug/Non Drug [...] Dilt-XR 240 MG TAKE 1 CAPSULE BY [facility] EVERY DAY ON EMPTY STOMACH [...] Location Date Provider Diagnosis Wood Conti MD [address] [place] [address] [place] [id number] 11/24/2023 Wood Conti Essential hypertension I10 and [...] Details Provider Name:Wood solis, 06/28/2024 07:30:00 AM, [address] [place] [address], Suite [facility], [place], [place], [phone], Provider Name:Wood solis, 07/05/2024 11:00:00 AM, [address], [address], [place], [place], [phone], Progress Notes * Gaviota MACIASDOB:1945 (6 0 yo F)Acc No.[id number]:11/24/2023 Progress Notes Patient:Gaviota Orta Provider:?Wood Conti MD :1945???Age:78 Y???Sex:Female D ate:11/24/2023 Address: [facility] Subjective: * Chief Complaints: * ?[facility] * HPI: ???Symptom(s):? [...] MD Date:?0 11/24/2023 Generated for Albert whitley/Dina/Bandaritting on:?06/21/2024 12:12 PM EDT History and Physical Notes * [...]
--- OUTSIDE RECORDS SUMMARY | 2024-06-21 12:12 | XMS_ITS | Encounter Summary ---
Author Organization [facility] Address [address] [place] [phone] Care Team Providers Care Director Smb Sales Name Role Phone Unavailable Primary Care Provider Unavailabl e Encounter Details Date Type Department Care Team ([facility] st Contact Info) Description 07/25/2018 Scanned Document [facility] [address] [facility] [address] [place] [address] Provider, historical . Social History Tobacco Use [...]
--- OUTSIDE RECORDS SUMMARY | 2024-06-21 12:12 | XMS_ITS | Clinical Summary ---
Author Organization [facility] [address] [place] [address] Care Team Providers Care Claim Investigator Name Role Phone Unavailable Primary Care Provider [...] Lipid disorder screening 1983 Diabetes screening 08/23/1988 Pneumococcal Vaccine (50+ ye ars) (1 of 1 - PCV) 08/23/1993 Shingles vaccine (Shingrix) (1 of 2 - Shingrix (RZV) 2 Dose Standard Series) 08/23/1993 Osteoporosis screening (bone density) 08/23/2008 RSV Immunization (1 - 1-dose 75+ series) 08/23/2018 Covid-19 vaccine series () 11/06/2023 Influenza vaccine 11/05/2024 Breast cancer screening Discontinued Cervical cancer screening Discontinued Meningococcal Vaccine Aged Out No luz maria luis felipe eligible based on patient's age to complete this topic Insurance [employer] COMM[employer]IC Member Subscriber Plan / Payer (Ef fective 2008-Present) Name:Gaviota Roth Relation to Subscriber:Self Name:Gaviota Roth Payer ID:[id number] Group ID:Not on file Type:Not on file Address: [address] [place] [phone] COMMERCIAL GENERIC on file COMMERCIAL GENERIC on file COMMERCIAL GENERIC
--- OUTSIDE RECORDS SUMMARY | 2024-06-21 12:13 | XMS_ITS ---
Author Organization Wood Conti MD Address [address] [place] [phone] Care Team Providers Care Treatment Specialist Name Role Phone Wood Conti Primary Care Provider [phone] Allergies Allergen (clinical drug ingredient) Drug/Non Drug [...] 240 MG TAKE 1 CAPSULE BY [facility] EVERY DAY ON EMPTY STOMACH [...] Location Date Provider Diagnosis Wood Conti MD [address] [place] [address] [place] [id number] 01/02/2024 Wood Conti Encounter for immunization Z23 [...] keep bp controlled. is going to see lead software qa engineer next month Plan Of Treatment Treatment Notes Assessment Notes Encounter for immunization administered flu vaccine today Essential hypertension running on the lo w side. she is making adjustments on her meds to keep bp controlled. is going to see lead software qa engineer next month Next Appt Details Provider Name:Wood solis, 06/28/2024 07:30:00 AM, [address] [place] [address], [address], [place], [place], [phone], Provider Name:Wood solis, 07/05/2024 11:00:00 AM, [address] [place] [address], [address], [place], [place], [phone], Progress Notes * Obed MACIAS:1945 (6 0 yo F)Acc No.[id number]:01/02/2024 Progress Notes Patient:Gaviota Orta Provider:?Wood Conti MD :1945???Age:78 Y???Sex:Female D ate:01/02/2024 Address:[address] [place] [address] Subjective: * Chief Complaints: * ???6 mo [...] [place] on Left Deltoid * Procedure Codes:?95197 FLU V ACC PRSV FREE INC [id number] ADMN FLU VAC NO FEE SCHED SAME DAY * Preventive Medicine:? ??Immunizations:?Influenza?Have you had a flu shot since the most recent November 05??Yes.? * * Sign off status: Completed true * Provider:?Wood Conti MD Date:?1 Generated for Albert whitley/Dina/eTransmitting on:?06/21/2024 12:13 PM EDT History and Physical Notes * [...]
--- OUTSIDE RECORDS SUMMARY | 2024-06-21 12:14 | XMS_ITS | Patient Health Record ---
Author Organization [facility] Address [address] [place] [address] Care Team Providers Care Zipper Lining Folder Name Role Phone Gallito SHINE, Wood Primary Care Provider Saul Templeton [phone] Allergies Allergen (clinical drug ingredient) Drug/Non Drug [...] ning nystatin Nystatin Unknown Drug Allergy Active MiraLax Unknown Drug Allergy Active Lisinopril Unknown Drug Allergy Active irbesartan Irbesartan Unknown Drug Allergy Activ e Hydralazine-HCTZ Unknown Drug Allergy Active fluconazole Fluconazole Unknown Drug Allergy Act ning metronidazole Flagyl Unknown Drug Allergy Act ning Reason For Referral No Information Medications Medication [...] capsule Orally Once a day Active Vitamin W02-Zdwbr Acid 500-400 MCG 1 Orally QOD Active Vitamin D3 400 UNIT 1 tablet Orally Once a day Active Probiotic Colon Support 1 1 Orally once a day Active Acetaminophen 500 MG 1 capsule as needed Orally prn Active Garlic 1500 Active Metoprolol Succinate ER 50 MG 1 tablet Orally Once a day Not-Taking Vitamin C 500 MG 1 tablet Orally QOD Active Immunizations Vaccine Route Administration Date Status Comme nts Influenza Unknown 04/10/2021 Administered Influenza Unknown 11/21/2018 Refused Problems Problem Type SNOMED Code ICD Code Onset Dates Problem Status W/U Status Risk Notes Problem [id number] Encounter for screening for malignant neoplasm of colon (Z12.11) Active confirmed Problem 770197563 History of adenomatous polyp of colon (Z86.010) Active confirmed Problem Screening for malignant neoplasm of rectum (456226151) Encounter for screening for malignant neoplasm of rectum (Z12.12) Active confirmed Problem 91393555 Preprocedural examination (Z01.818) Active confirmed Problem History of polyp of colon (741233398) History of colon polyps (Z86.010) Active confirmed Problem 181208349 History of colon cancer (Z85.038) Active confirmed Problem 67289092 Constipation, unspecified constipation type (K59.00) Active confirmed Problem 16584594 Hypertension, unspecified type (I10) Active confirmed Problem 124599046 Abdominal pain, diffuse (R10.84) Active confirmed Problem History of gastrointestinal tract bypass (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) Active confirmed Plan Of Treatment Pending Test Test Name Order Date BUN 10/02/2013 CREATININE 10/02/2013 Future Test Test Name Order Date COLONOSCOPY 09/16/2015 COLONOSCOPY 11/21/2018 COLONOSCOPY 04/10/2021 Insurance Providers Payer Name Payer Address Payer Phone Subscriber Number Group Number Insured Name Patient Relationship to Insured Coverage Start Date Coverage End Date [facility] [address] [facility] [place] [phone] [id number] MORAIMA MACIAS Self - patient is the insured Medical (General) History Medical History History ICD Code EGD [id number] History of tubular adenomas removed from the [...] negative fo r any significant findings Denies SD,DM,CVA,Lung disease,renal dise ase Negative colonoscopy in 12/2013 and 12/06 016 Chronic constipation--she ochoa d some type of surgery with Dr. Daniel in 2010, including a rectocele repair Cerebral aneurysm as below Renal artery stenosis--s/p stent placeme nt Colonoscopy 01/2019 with a hyperplastic polyp removed Surgical History Surgery Date(Month/Year) Rectocele repair-Dr. Daniel- -2010--at [facility]--had complications of Afib and Blood clots Cholecystectomy-2011 Right colectomy for colon cancer-11/2012- Dr. Kiera White-as above Cataract-lens implants 03/2018 Cyst removal on right foot 04/27/2017 Cerebral aneurysm repair with coil [address] Beltre 01/31/20 Bilateral oopherectomy
== END 2024-06-21 10:41 | disposition home or self-care (01) ==
LOC: HO.HKA 10:17
PROVIDERS: PCP Internal Medicine; Visit Provider Internal Medicine Hypertension Specialist
DX: I70.1 Atherosclerosis of renal artery (principal); N18.30 Chronic kidney disease, stage 3 unspecified; I10 Essential (primary) hypertension
CPT/HCPCS: 99214

== ENCOUNTER → 2024-06-21 10:17 | Outpatient (BNVA) | payer MEDICARE, SELFPAY | PROVIDERS: PCP Internal Medicine; Visit Provider Internal Medicine Hypertension Specialist | DX: I12.9 Hypertensive chronic kidney disease with stage 1 through stage 4 chronic kidney disease, or unspecified chronic kidney disease (principal); I70.1 Atherosclerosis of renal artery; N18.30 Chronic kidney disease, stage 3 unspecified | CPT/HCPCS: 99212 ==

== ENCOUNTER 2024-06-28 10:26 | Outpatient (REF) | payer MEDICARE, SELFPAY ==
[2024-06-28 10:30] LABS: MANUAL DIFF FLAG NO
[2024-06-28 11:08] LABS: Basophils Absolute Auto 0.1 X10*3/uL (0.0-0.2); Basophils Percent Auto 0.9 % (0-2); Eosinophils Absolute Auto 0.4 X10*3/uL (0.0-0.4); Eosinophils Percent Auto 6.1 % (0-4); Hematocrit 38.9 % (37.0-47.0); Imm Gran Abs Auto 0.03 X10*3/uL (0.00-0.03); Imm Gran Pct Auto 0.4 % (0.0-0.4); Lymphocytes Percent Auto 28.8 % (20-40); Mean Corpuscular HGB Conc 33.4 g/dl (31.0-35.0); Mean Corpuscular Hemoglobin 31.1 pg (27.0-33.0); Mean Corpuscular Volume 93.1 fL (80.0-98.0); Mean Platelet Volume 10.3 fL (9.4-12.3); Monocytes Absolute Auto 0.7 X10*3/uL (0.1-1.2); Monocytes Percent Auto 9.5 % (2-11); Neutrophils Absolute Auto 3.8 x10*3/uL (2.0-8.3); Neutrophils Percent Auto 54.3 % (45-73); Platelet Count 179 X10*3/uL (160-400); Red Blood Count 4.18 X10*6/uL (4.20-5.50); Red Cell Distribution Width 12.4 % (11.0-16.0)
[2024-06-28 11:16] LABS: Appearance Urine Clear; Color Urine Yellow; Glucose Urine UA Negative (Negative); Leukocyte Esterase Urine Trace (Negative); Nitrite Urine Negative (Negative); PH 7.5 (5.0-9.0); UMIC TRIGGER UACC YES; Urine Blood Negative (Negative); Urine Ketones Negative (Negative); Urine Protein Negative (Neg-Trace)
[2024-06-28 11:21] LABS: Bacteria Urine None Seen (None Seen); Hyaline Casts Urine 0-2 /LPF (0-2); RBC Urine 0-2 /HPF (0-2); Squamous Epithelial Cell Urine 0-2 /HPF (0-2); WBC Urine 0-5 /HPF (0-5)
[2024-06-28 11:24] LABS: Alanine Aminotransferase 19 U/L (0-31); Albumin Level 4.5 g/dL (3.5-5.0); Alkaline Phosphatase 53 U/L (39-117); Anion Gap 12 (12-20); Aspartate Amino Transferase 33 U/L (5-31); Bilirubin Total 0.7 mg/dL (0.0-1.0); Blood Urea Nitrogen 28 mg/dL (9-16); Calcium 9.9 mg/dL (8.4-10.2); Carbon Dioxide 29 mmol/L (22-29); Chloride 104 mmol/L (96-108); Cholesterol 180 mg/dL (<200); Estimated Glomerular Filt Rate 38; Glucose Fasting 89 mg/dL (60-99); HDL Cholesterol 45 mg/dL (>40); Iron 124 mcg/dL (30-160); LDL Cholesterol Calculated 101 mg/dL (<100); Percent Iron Saturation 44 % (15-50); Potassium 4.2 mmol/L (3.3-5.1); Sodium 141 mmol/L (135-145); Total Iron Binding Capacity 283 mcg/dL (228-428); Total Protein 7.3 g/dL (6.5-8.0); Triglycerides 174 mg/dL (<150); Unsaturated Iron Binding 159 ug/dL
--- OUTSIDE RECORDS SUMMARY | 2024-06-28 12:03 | XMS_ITS | Clinical Summary ---
Author Organization [facility] Address [address] [place] [phone] Phone Care Team Providers Care Oil Mixer Name Role Phone Wood Conti MD Primary Care Provider [phone] Allergies Active Allergy Reactions Criticality Noted Date [...] patient's age to complete this topic Insurance [facility] Care Teams Oil Mixer Relationship Specialty Start Date End Date Wood Conti MD [address] [place] [address] [address] [place] [address] PCP - General 03/17/20
--- OUTSIDE RECORDS SUMMARY | 2024-06-28 12:03 | XMS_ITS | Clinical Summary ---
Author Organization [facility] [address] [place] [address] Care Team Providers Care Radio Station Manager Name Role Phone Unavailable Primary Care Provider [...] 1-dose 75+ series) 08/23/2018 Covid-19 vaccine series ( - ) 11/06/2023 Influenza vaccine 11/05/2024 Breast cancer screening Discontinued Cervical cancer screening Discontinued Meningococcal Vaccine Aged Out No luz maria luis felipe eligible based on patient's age to complete this topic Insurance [employer] COMM[employer]IC Member Subscriber Plan / Payer (Ef fective 2008-Present) Name:Gaviota Roth Relation to Subscriber:Self Name:Gaviota Roth Payer ID:[id number] Group ID:Not on file Type:Not on file Address: [address] [place] [phone] COMMERCIAL GENERIC on file COMMERCIAL GENERIC on file COMMERCIAL GENERIC
--- OUTSIDE RECORDS SUMMARY | 2024-06-28 12:03 | XMS_ITS ---
Author Organization Wood Conti MD Address [address] [place], [place] [phone] Care Team Providers Care Press Bucker Name Role Phone Wood Conti Primary Care Provider [phone] Results Component Value Reference Range Notes Complete Blood Count Auto Di ff (Not yet reviewed by provider) Interpretation: Performing Lab:[facility], [address] [place] [phone] Notes/Report: White Blood Count 7.0 4.8-10.8 X10*3/uL [...] NRBC Abs Auto 0.000 0.0-0.012 X10*3/uL Comprehensive [place]. Panel Fa (Not yet reviewed by provider) Interpretation: Performing Lab:[address] [phone] Notes/Report: Sodium 141 135-145 mmol/L Potassium 4.2 [...] Alkaline Phosphatase 53 39-117 U/L IRON PROFILE (Not yet review ed by provider) Interpretation: Performing Lab:[address] [phone] Notes/Report: Iron 124 30-160 mcg/dL Total Iron Binding Capacity 283 228-428 mcg/d L Percent Iron Saturation 44 15-50 % Unsaturated Iron Binding 159 Lipid Panel (Not yet reviewe d by provider) Interpretation: Performing Lab:[address] [phone] Notes/Report: Triglycerides 174 <150 mg/dL Desirable Triglyceride: [...] liver disease. UA ClnCatch+Micro w/rflx Cul t (Not yet reviewed by provider) Interpretation: Performing Lab:[facility], [address] [place] [phone] Notes/Report: Urine, Clean Catch Color Urine Yellow Appearance Urine Clear PH 7.5 5.0-9.0 Glucose Urine UA Negative Negative mg/dL Urine Blood Negative Negative Specific [place] - Urine 1.010 1.005-1.025 Urine Protein Negative [...] Provider Diagnosis Wood Conti MD [address] [place], [place] [phone] 06/28/2024 Wood Conti Blood tests for routine [...] Hypokalemia (ICD-10 - E87.6) Plan Of Treatment Pending Test Test Name Order Date Complete Blood Count Auto Diff 5 Comprehensive [place]. Panel Fast 5 IRON PROFILE 06/28/2024 Lipid Panel 06/28/2024 UA ClnCatch+Micro w/rflx Cult 06/28/2024 Next Appt Details Provider Name:Wood Nash ier, 07/05/2024 11:00:00 AM, [address], [address], [place], [place], [phone], Progress Notes * Gaviota MACIASDOB:1945 ([age] yo F)Acc No.[id number]:06/28/2024 Progress Note Patient:?Gaviota MACIAS Provider:?Wood Conti MD :1945???Age:78 Y???Sex:Female D ate:06/28/2024 Address:[address] [facility] Subjective: * Chief Complaints: * ???1. Fastng labs. * Medical History:? Objective: * Vitals:? Assessment: * Assessment: 1.?Blood tests for routine g eneral physical examination - Z00.00 (Primary)???2.?Essential hypertension - I10???3.?Iron deficiency anemia, unspecified iron deficiency anemia type - D50.9???4.?Hypokalemia - E87.6??? Plan: * Treatment: 2.?Essential hypertension?LAB: Complete Blood Count Auto Diff (Collection Date & Time - 06/28/2024 07:30 AM) ?LAB: Comprehensive [place]. Panel Fast (Collection Date & Time - 06/28/2024 07:30 AM) ?LAB: IRON PROFILE (Collection Date & Time - 06/28/2024 07:30 AM) ?LAB: Lipid Panel (Collection Date & Time - 06/28/2024 07:30 AM) ?LAB: UA ClnCatch+Micro w/rflx Cult (Collection Date & Time - 06/28/2024 07:30 AM) 3.?Iron deficiency anemia, u nspecified iron deficiency anemia type?LAB: Complete Blood Count Auto Diff (Collection Date & Time - 06/28/2024 07:30 AM) ?LAB: Comprehensive [place]. Panel Fast (Collection Date & Time - 06/28/2024 07:30 AM) ?LAB: IRON PROFILE (Collection Date & Time - 06/28/2024 07:30 AM) ?LAB: Lipid Panel (Collection Date & Time - 06/28/2024 07:30 AM) ?LAB: UA ClnCatch+Micro w/rflx Cult (Collection Date & Time - 06/28/2024 07:30 AM) 4.?Hypokalemia?LAB: Complete Blood Count Auto Diff (Collection Date & Time - 06/28/2024 07:30 AM) ?LAB: Comprehensive [place]. Panel Fast (Collection Date & Time - 06/28/2024 07:30 AM) ?LAB: IRON PROFILE (Collection Date & Time - 06/28/2024 07:30 AM) ?LAB: Lipid Panel (Collection Date & Time - 06/28/2024 07:30 AM) ?LAB: UA ClnCatch+Micro w/rflx Cult (Collection Date & Time - 06/28/2024 07:30 AM) * Procedure Codes:?17578 VENIP UNCT, ROUTINE* * * The named appointment provid er may or may not be the originator of this progress note, and it is not deemed complete until electronically signed by the appointment provider. Sign off status: Pending * Provider:?Wood Conti MD Date:?0 06/28/2024 Generated for Albert whitley/Dina/eTransmitting on:?06/28/2024 12:03 PM EDT
--- OUTSIDE RECORDS SUMMARY | 2024-06-28 12:03 | XMS_ITS | Encounter Summary ---
Author Organization [facility] Address [address] [place] [phone] Care Team Providers Care Lay Health Advocate Name Role Phone Unavailable Primary Care Provider Unavailabl e Encounter Details Date Type Department Care Team ([facility] st Contact Info) Description 07/25/2018 Scanned Document [facility] [address] [facility] [address] [place] [address] Provider, historical . Social History Tobacco Use [...]
--- OUTSIDE RECORDS SUMMARY | 2024-06-28 12:04 | XMS_ITS ---
Author Organization Wood Conti MD Address [address] [place] [address] [place] [phone] Care Team Providers Care Consumer Electronics Merchandiser Name Role Phone Wood Conti Primary Care Provider REASON FOR VISIT HCC Risk Codes 07/05 Encounters Encounter Location Date Provider Diagnosis Wood Conti MD [address] [place] [address] [place] [phone] 05/21/2024 Wood Conti Plan Of Treatment Next Appt Details Provider Name:Wood Nash ier, 07/05/2024 11:00:00 AM, [address] [place] [address], [address] [place] [address], [phone], Progress Notes * Gaviota MACIASDOB:1945 ([age] yo F)Acc No.[id number]:05/21/2024 Patient:?GILBERTO Gaviota :1945???Age:78 Y???Sex:Female Address: [place] [address] * * Date:?
--- OUTSIDE RECORDS SUMMARY | 2024-06-28 12:04 | XMS_ITS | Patient Health Record ---
Author Organization Wood Conti MD Address [address] [place], [place] [id number] Care Team Providers Care Batch Operator Name Role Phone Wood Conti Primary [...] ning Results Component Value Reference Range Notes Blood Urea Nitrogen Reviewed date:07/25/2023 12:49:27 PM Interpretation: Performing Lab:[facility], [address] [place] [phone] Notes/Report: Blood Urea Nitrogen 32 9-16 mg/dL Creatinine Reviewed date:07/25/2023 12:49:04 PM Interpretation: Performing Lab:[facility], [address] [place] [phone] Notes/Report: Creatinine 1.75 0.5-1.4 mg/dL Estimated Glomerular Filt Rate 28 NOTE: For -Syrian individuals, multiply the result by 1.210. Chronic Kidney Disease: Estimated GFR < 60 mL/min/1.73m2 Severe Kidney Disease: Estimated GFR < 15 mL/min/1.73m2 Blood Urea Nitrogen Reviewed date:08/15/2023 12:39:20 PM Interpretation: Performing Lab:[facility], [address] [place] [phone] Notes/Report: Blood Urea Nitrogen 25 9-16 mg/dL Creatinine Reviewed date:10/17/2023 09:06:24 AM Interpretation:10-13-24 repeat 2 month Performing Lab:[facility], [address] [place] [phone] Notes/Report: Creatinine 1.57 0.5-1.4 mg/dL Estimated Glomerular Filt Rate 32 NOTE: For -Syrian individuals, multiply the result by 1.210. Chronic Kidney Disease: Estimated GFR < 60 mL/min/1.73m2 Severe Kidney Disease: Estimated GFR < 15 mL/min/1.73m2 Blood Urea Nitrogen Reviewed date:10/14/2023 03:32:08 PM Interpretation: Performing Lab:[facility], [address] [place] [phone] Notes/Report: Blood Urea Nitrogen 30 9-16 mg/dL Creatinine Reviewed date:10/14/2023 03:31:24 PM Interpretation: Performing Lab:[address] [phone] Notes/Report: Creatinine 1.67 0.5-1.4 mg/dL Estimated Glomerular Filt Rate 30 NOTE: For -Syrian individuals, multiply the result by 1.210. Chronic Kidney Disease: Estimated GFR < 60 mL/min/1.73m2 Severe Kidney Disease: Estimated GFR < 15 mL/min/1.73m2 Complete Blood Count Auto Di ff (Not yet reviewed by provider) Interpretation: Performing Lab:[facility], [address] [place] [phone] Notes/Report: White Blood Count 7.0 4.8-10.8 X10*3/uL [...] NRBC Abs Auto 0.000 0.0-0.012 X10*3/uL Comprehensive [place]. Panel Fa st (Not yet reviewed by provider) Interpretation: Performing Lab:[facility], [address] [place] [phone] Notes/Report: Sodium 141 135-145 mmol/L Potassium 4.2 [...] yet review ed by provider) Interpretation: Performing Lab:[facility], [address] [place] [phone] Notes/Report: Iron 124 30-160 mcg/dL Total Iron Binding Capacity 283 228-428 mcg/d L Percent Iron Saturation 44 15-50 % Unsaturated Iron Binding 159 Lipid Panel (Not yet review ed by provider) Interpretation: Performing Lab:[address] [phone] Notes/Report: Triglycerides 174 <150 mg/dL Desirable Triglyceride: [...] (Not yet reviewed by provider) Interpretation: Performing Lab:[address] [phone] Notes/Report: Urine, Clean Catch Color Urine Yellow Appearance Urine Clear PH 7.5 5.0-9.0 Glucose Urine UA Negative Negative mg/dL Urine Blood Negative Negative Specific [place] - Urine 1.010 1.005-1.025 Urine Protein Negative Neg-Trace mg/dL Urine Ketones Negative Negative mg/dL Nitrite Urine Negative Negative Leukocyte Esterase Urine Trace Negative RBC Urine 0-2 0-2 /HPF WBC Urine 0-5 0-5 /HPF Squamous Epithelial Cell Urine 0-2 0-2 /HPF Bacteria Urine None Seen None Seen Hyaline Casts Urine 0-2 0-2 /LPF UA ClnCatch+Micro w/rflx Cul t Reviewed date:06/30/2023 05:42:26 PM Interpretation: Performing Lab:[address] [phone] Notes/Report: Urine, Clean Catch Color Urine Yellow Appearance Urine Clear PH 7.0 5.0-9.0 Glucose Urine UA Negative Negative mg/dL Urine Blood Negative Negative Specific [place] - Urine 1.015 1.005-1.025 Urine Protein Trace Neg-Trace mg/dL Urine Ketones Negative Negative mg/dL Nitrite Urine Negative Negative Leukocyte Esterase Urine Large (3+) Negative RBC Urine 0-2 0-2 /HPF WBC Urine 11-20 0-5 /HPF Squamous Epithelial Cell Urine 0-2 0-2 /HPF Bacteria Urine None Seen None Seen Hyaline Casts Urine 0-2 0-2 /LPF Urine Culture Reviewed date:07/01/2023 03:01:47 PM Interpretation: Performing Lab:[address] [phone] Notes/Report: Urine Culture Report Result Urine Culture < 10,000 cfu/ml Naa Ramirez Reviewed date:07/25/2023 12:51:31 PM Interpretation: Performing Lab:[address] [phone] Notes/Report: Naa Ramirez See Note Specimen held untested for 24 hours; Call to request Chemistry testing. Complete Blood Count Auto Di ff Reviewed date:10/18/2023 12:53:13 PM Interpretation: Performing Lab:[address] [phone] Notes/Report: White Blood Count 7.5 4.8-10.8 X10*3/uL [...] Electrolytes Reviewed date:10/18/2023 12:36:27 PM Interpretation: Performing Lab:[address] [phone] Notes/Report: Sodium 141 135-145 mmol/L Potassium 3.7 3.3-5.1 mmol/L Chloride 103 96-108 mmol/L Carbon Dioxide 30 22-29 mmol/L Anion Gap 12 12-20 Blood Urea Nitrogen Reviewed date:10/18/2023 09:13:59 AM Interpretation: Performing Lab:[facility], [address] [place] [phone] Notes/Report: Blood Urea Nitrogen 29 9-16 mg/dL Creatinine Reviewed date:10/18/2023 09:14:11 AM Interpretation: Performing Lab:[address] [phone] Notes/Report: Creatinine 1.67 0.5-1.4 mg/dL Estimated Glomerular Filt Rate 30 NOTE: For -Syrian individuals, multiply the result by 1.210. Chronic Kidney Disease: Estimated GFR < 60 mL/min/1.73m2 Severe Kidney Disease: Estimated GFR < 15 mL/min/1.73m2 Calcium Reviewed date:10/18/2023 12:36:15 PM Interpretation: Performing Lab:[facility], [address] [place] [phone] Notes/Report: Calcium 9.9 8.4-10.2 mg/dL Phosphorus Reviewed date:10/18/2023 12:49:41 PM Interpretation: Performing Lab:[facility], [address] [place] [phone] Notes/Report: Phosphorus 3.9 2.7-4.5 mg/dL Parathyroid Hormone Intact Reviewed date:10/18/2023 12:51:12 PM Interpretation: Performing Lab:[address] [phone] Notes/Report: Parathyroid Hormone Intact 47.5 8.7-77.1 pg/mL Complete Blood Count Auto Di ff Reviewed date:02/14/2024 12:41:07 PM Interpretation: Performing Lab:[facility], [address] [place] [phone] Notes/Report: White Blood Count 8.9 4.8-10.8 X10*3/uL [...] Panel Reviewed date:02/14/2024 12:37:12 PM Interpretation: Performing Lab:[facility], [address] [place] [phone] Notes/Report: Sodium 142 135-145 mmol/L Potassium 4.1 [...] Panel Reviewed date:06/12/2024 12:35:00 PM Interpretation: Performing Lab:[address] [phone] Notes/Report: Sodium 144 135-145 mmol/L Potassium 4.1 3.3-5.1 mmol/L Chloride 106 96-108 mmol/L Carbon Dioxide 29 22-29 mmol/L Anion Gap 13 12-20 Blood Urea Nitrogen 29 9-16 mg/dL Creatinine 1.44 0.5-1.4 mg/dL Estimated Glomerular Filt Rate 35 Chronic Kidney Disease: Estimated GFR < 60 mL/min/1.73m2 Severe Kidney Disease: Estimated GFR < 15 mL/min/1.73m2 Glucose Random 106 60-115 mg/dL Calcium 10.0 8.4-10.2 mg/dL Hold Gold (Not yet reviewed by provider) Interpretation: Performing Lab:[facility], [address] [place] [phone] Notes/Report: Hold Gold See Note Specimen held untested for 24 hours; Call to request Chemistry testing. Reason For Referral No Information Medications Medication SIG (Take, Route, Frequency, Duration) Notes Start Date End Date Status Clopidogrel Bisulfate 75 MG TAKE 1 TABLET BY MOUTH 1 TIME EACH DAY 90 for 90 Active hydrALAZINE HCl 25 MG 1 tablet with food Orally Three times a day Active Vitamin D3 25 MCG (1000 UT) [...] Problem Status W/U Status Risk Notes Problem 17774876 Hypokalemia (E87.6) Active confirmed Problem 046309791339627 Atherosclerosis of renal artery (I70.1) Active confirmed Problem 53257399828320468 Sciatica, righ t side (M54.31) Active confirmed Problem 25391766 Essential hypertension (I10) Active confirmed Problem Osteoporosis (90171474) Osteoporosis (M81.0) Active confirmed Problem 799351179 Renal artery stenosis (I70.1) Active confirmed Problem 76184295 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 Problem 717299136 History of pulmonary embolus (PE) (Z86.711) Active confirmed Problem 56619499 Dysthymia (F34.1) Active confirmed Problem 50875814 Iron deficiency anemia, unspecified iron deficiency anemia type (D50.9) Active confirmed Problem 74228381 Claudication (I73.9) Active confirmed Problem 537577827 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) Active confirmed Problem 27048427 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) Active confirmed Problem 11489008 Aortic dilatatio n (I77.819) Active confirmed Problem 36088740316505300 Bilateral carp al tunnel syndrome (G56.03) Active confirmed Problem 03481250 Asymptomatic stenosis of right carotid artery (I65.21) Active confirmed Problem 2069399468802 Bilateral tinnitus (H93.13) Active confirmed Problem 490772965 Malignant neoplasm of colon, unspecified part of colon (C18.9) Active confirmed Problem 07954980 Uterine prolapse (N81.4) Active confirmed Problem 857932178 Osteopenia determined by x-ray (M85.80) Active confirmed Problem Intermittent spinal claudication (774625484) Intermittent spinal claudication (G95.19) Active confirmed Problem 5377293315636 Left-sided tinnitus (H93.12) Active confirmed Problem 335146554 Intracranial aneurysm (I67.1) Active confirmed Problem Stricture of artery (78796817) 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 Problem 618236245 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) Active confirmed Problem 533052510 Carotid artery tenderness (G90.01) Active confirmed Vital Signs Blood pressure diastolic 68 mm Hg 01/02/2024 Height 60 in 01/02/2024 Blood pressure systolic 102 mm Hg 01/02/2024 Weight 106 lbs 01/02/2024 BMI 20.70 kg/m2 01/02/2024 Encounters Encounter Location Date Provider Diagnosis Wood Conti MD [address] [place], [place] [id number] 07/25/2023 Wood Conti Essential hypertensi on I10 Wood Conti MD [address] [place], [place] [id number] 08/15/2023 Wood Conti Elevated BUN R79.9 Wood Conti MD [address] [place] [id number] 10/14/2023 Wood Conti Essential hypertensi on I10 Wood Conti MD [address] [place] [id number] 06/28/2024 Wood Conti Blood tests for rout ine general physical examination Z00.00 ; Essential hypertension I10 ; Iron deficiency anemia, unspecified iron deficiency anemia type D50.9 and Hypokalemia E87.6 Wood Conti MD [address] [place] [id number] 06/30/2023 Wood Conti Essential hypertensi on I10 ; Annual physical exam Z00.00 ; Atherosclerosis of renal artery I70.1 ; Bilateral carpal tunnel syndrome G56.03 ; Iron deficiency anemia, unspecified iron deficiency anemia type D50.9 ; Cervical spinal stenosis M48.02 and Elevated BUN R79.9 Wood Conti MD [address] [place] [id number] 08/19/2023 Wood Conti Essential hypertensi on I10 ; Bilateral carpal tunnel syndrome G56.03 and Elevated BUN R79.9 Wood Conti MD [address] [place] [id number] 11/24/2023 Wood Conti Essential hypertensi on I10 and Bilateral carpal tunnel syndrome G56.03 Wood Conti MD [address] [place] [id number] 01/02/2024 Wood Conti Encounter for immunization Z23 and Essential hypertension I10 Wood Conti MD [address] [place] [id number] 05/21/2024 Wood Conti MD [address] [place] [id number] 11/17/2023 Wood Conti Assessments Encounter Date Diagnosis (ICD Code) Assessment Notes Treatment Notes Treatment Clinical Notes Section Notes 07/25/2023 Essential hypertension (ICD-10 - I10) 08/15/2023 Elevated BUN (ICD-10 - R79.9) 10/14/2023 Essential hypertension (ICD-10 - I10) 06/28/2024 Blood tests for routine general physical examination (ICD-10 - Z00.00) 06/30/2023 Essential hypertension (ICD-10 - I10) 06/30/2023 [...] keep bp controlled. is going to see environmental laboratory technician next month 06/28/2024 Essential hypertension (ICD-10 - I10) 06/30/2023 Atherosclerosis of renal artery (ICD-10 - I70.1) 08/19/2023 Elevated BUN (ICD-10 - R79.9) stable followed by nephrology 06/28/2024 Iron deficiency anemia, unspecified iron deficiency anemia type (ICD-10 - D50.9) 06/30/2023 Bilateral carpal tunnel syndrome (ICD-10 - G56.03) having surgery in 06/28/2024 Hypokalemia (ICD-10 - E87.6) 06/30/2023 Iron deficiency anemia, unspecified iron deficiency anemia type (ICD-10 - D50.9) has resolved 06/30/2023 Cervical spinal stenosis (ICD-10 - M48.02) going to wait to have surgery until carpal tunnel relieved 06/30/2023 Elevated BUN (ICD-10 - R79.9) is followed by dr athrea Plan Of Treatment Pending Test Test Name Order Date Electrocardiogram (EKG) 01/08/2016 Electrocardiogram (EKG) 01/20/2017 CT ABD & PELVIS WITH CONTRAST 03/19/2021 CT ABD & PELVIS NO CONTRAST 03/12/2021 MRI LUMBAR SPINE NO CONTRAST 09/17/2022 BONE DENSITY DEXA 12/09/2020 Complete Blood Count Auto Diff 5 Comprehensive [place]. Panel Fast 5 IRON PROFILE 06/28/2024 Lipid Panel 06/28/2024 Hold Gold 06/28/2024 CT lumbar spine wo con 05/15/2021 MM tomosynthesis screening BI 12/09/2020 XR DEXA axial skeleton 06/10/2020 UA ClnCatch+Micro w/rflx Cult 06/28/2024 Next Appt Details Provider Name:Wood Nash ier, 07/05/2024 11:00:00 AM, [address] [facility], [address], [place], [place], [id number], Insurance Providers Payer Name Payer Address Payer Phone Subscriber Number Group Number Insured Name Patient Relationship to Insured Coverage Start Date Coverage End Date [employer] PLAN [address] [place] [phone] [id number] Gaviota Roth Self - patient is the insured [employer] [address] [place] [address] [id number] Gaviota Roth Self - patient is the [...] flu vac 12/18 carotid ultrasound [facility] - next is due Dec 2014 Abscess of anal and rectal regions RADHA-inhibitor cough Surgical History Surgery Date(Month/Year) Gallbladder removed 12/28/2011 colon resection (hemicolectomy) 11/23/19 13 Excision Ganglion Cyst, Rt Foot 04/27/19 18
--- OUTSIDE RECORDS SUMMARY | 2024-06-28 12:04 | XMS_ITS | Patient Health Record ---
Author Organization [facility] Address [address] [place] [address] Care Team Providers Care Grid Inspector Name Role Phone Gallito SHINE, Wood Primary Care Provider Saul [place] [phone] Allergies Allergen (clinical drug ingredient) Drug/Non Drug [...] capsule Orally Once a day Active Vitamin S17-Txfws Acid 500-400 MCG 1 Orally QOD Active [...] Problem Status W/U Status Risk Notes Problem 959606274 Encounter for screening for malignant neoplasm of colon (Z12.11) Active confirmed Problem 571528037 History of adenomatous polyp of colon (Z86.010) Active confirmed Problem Screening for malignant neoplasm of rectum (593916766) Encounter for screening for malignant neoplasm of rectum (Z12.12) Active confirmed Problem 62215209 Preprocedural examination (Z01.818) Active confirmed Problem History of polyp of colon (situation) (195018336) History of colon polyps (Z86.010) Active confirmed Problem 104060325 History of colon cancer (Z85.038) Active confirmed Problem 62988522 Constipation, unspecified constipation type (K59.00) Active confirmed Problem 56335663 Hypertension, unspecified type (I10) Active confirmed Problem 454776022 Abdominal pain, diffuse (R10.84) Active confirmed Problem 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) Active confirmed Plan Of Treatment Pending Test Test Name Order Date BUN 10/02/2013 CREATININE 10/02/2013 Future Test Test Name Order Date COLONOSCOPY 09/16/2015 COLONOSCOPY 11/21/2018 COLONOSCOPY 04/10/2021 Insurance Providers Payer Name Payer Address Payer Phone Subscriber Number Group Number Insured Name Patient Relationship to Insured Coverage Start Date Coverage End Date [facility] [address] [facility] [phone] [id number] MORAIMA MACIAS Self - patient is the insured Medical (General) History Medical History History ICD Code EGD [id number] History of tubular adenomas removed from the [...] negative fo r any significant findings Denies SC,DM,CVA,Lung disease,renal dise ase Negative colonoscopy in 12/2013 and 12/06 016 Chronic constipation--she ochoa d some type of surgery with Dr. Daniel in 2010, including a rectocele repair Cerebral aneurysm as below Renal artery stenosis--s/p stent placeme nt Colonoscopy 01/2019 with a hyperplastic polyp removed Surgical History Surgery Date(Month/Year) Rectocele repair-Dr. Daniel- -2010--at [facility]--had complications of Afib and Blood clots Cholecystectomy-2011 Right colectomy for colon cancer-11/2012- Dr. Kiera White-as above Cataract-lens implants 03/2018 Cyst removal on right foot 04/27/2017 Cerebral aneurysm repair with coil [address] Beltre 01/31/20 Bilateral oopherectomy
--- OUTSIDE RECORDS SUMMARY | 2024-06-28 12:04 | XMS_ITS ---
Author Organization Wood Conti MD Address [address] [place] [phone] Care Team Providers Care Decator Operator Name Role Phone Wood Conti Primary [...] Location Date Provider Diagnosis Wood Conti MD [address] [place] [address] [place] [id number] 01/02/2024 Wood Conti Encounter for immunization Z23 [...] keep bp controlled. is going to see box builder next month Plan Of Treatment Treatment Notes Assessment Notes Encounter for immunization administered flu vaccine today Essential hypertension running on the lo w side. she is making adjustments on her meds to keep bp controlled. is going to see box builder next month Next Appt Details Provider Name:Wood Nash ier, 07/05/2024 11:00:00 AM, [address], [address], [place], [place], [id number], Progress Notes * Gaviota MACIASDOB:1945 ([age] yo F)Acc No.[id number]:01/02/2024 Progress Notes Patient:?Ira Gaviota Provider:?Wood Conti MD :1945???Age:78 Y???Sex:Female D ate:01/02/2024 Address:[address] [place], [place] [address]Karen [facility] Subjective: * Chief Complaints: * ???6 mo [...] [place] on Left Deltoid * Procedure Codes:?86373 FLU V ACC PRSV FREE INC [id number] ADMN FLU VAC NO FEE SCHED SAME DAY * Preventive Medicine:? ??Immunizations:?Influenza?Have you had a flu shot since the most recent November 05??Yes.? * * Sign off status: Completed true * Provider:?Wood Conti MD Date:?1 Generated for Albert whitley/Dina/Bandaritting on:?06/28/2024 12:03 PM EDT History and Physical Notes * [...]
== END 2024-06-28 10:27 | disposition home or self-care (01) ==
LOC: HO.LNP 10:26
PROVIDERS: Visit Provider Internal Medicine
DX: Z00.00 Encounter for general adult medical examination without abnormal findings (principal); I10 Essential (primary) hypertension; D50.9 Iron deficiency anemia, unspecified; E87.6 Hypokalemia
CPT/HCPCS: 80053; 80061; 81001; 83540; 85025

== ENCOUNTER 2024-08-16 11:28 | Outpatient (AMB) | payer MEDICARE, SELFPAY ==
[2024-08-16 11:30] VITALS: BP 134/62; PULSE 84; O2SAT 96; BMI 21.4
--- NOTE | 2024-08-16 11:30 | HO.NEPHOV_ITS ---
Vital Signs 08/16/24 11:30 Height 4 ft 11 in Weight 106 lb BMI 21.4 BP 134/62 Blood Pressure Location Lt brachial Position Sitting Pulse 84 Pulse Source Pulse Oximeter Pulse Oximetry (%) 96 Oxygen Delivery Method Room Air Intake Visit Reasons: Medication Review/Conf Rag Collector Required: No Accompanied by: Self / Same As Patient Allergies Ugxulbd-OVA-RuR Reductase Inhibitor [VBTJBEI-UQZ-HPD REDUCTASE INHIBITOR] Allergy (Severe, Verified 08/16/24 11:31) TONGUE SWELLING vancomycin Allergy (Severe, Verified 08/16/24 11:31) Rash amoxicillin [AMOXICILLIN] Allergy (Intermediate, Verified 08/16/24 11:31) NAUSEA aspirin [ASA] Allergy (Intermediate, Verified 08/16/24 11:31) FEELING OF PEPPER ON TONGUE atorvastatin [ATORVASTATIN] Allergy (Intermediate, Verified 08/16/24 11:31) FEELING OF PEPPER ON TONGUE fluconazole [FLUCONAZOLE] Allergy (Intermediate, Verified 08/16/24 11:31) FEELING OF PEPPER ON TONGUE irbesartan [IRBESARTAN] Allergy (Intermediate, Verified 08/16/24 11:31) SORE TONGUE,GERD metronidazole [Flagyl] Allergy (Intermediate, Verified 08/16/24 11:31) Rash morphine [MORPHINE] Allergy (Intermediate, Verified 08/16/24 11:31) HIVES oxycodone [OXYCODONE] Allergy (Intermediate, Verified 08/16/24 11:31) RASH pepper (genus Capsicum) [PEPPER] Allergy (Intermediate, Verified 08/16/24 11:31) SENSITIVE TO lisinopril [LISINOPRIL] Allergy (Mild, Verified 08/16/24 11:31) COUGH Iodinated Contrast Media [Contrast Dye] Allergy (Unknown, Verified 08/16/24 11:31) Unknown Tetracyclines [TETRACYCLINES] Adverse Reaction (Intermediate, Verified 08/16/24 11:31) SHAKES lorazepam [From ATIVAN] Adverse Reaction (Mild, Verified 08/16/24 11:31) HALLUCINATIONS Medication List - Last Reconciled 08/16/24 by Luis Conley MD [acetaminophen 1,000 mg PO DAILY PRN] ascorbic acid (vitamin C) 500 mg PO DAILY atenolol 25 mg PO DAILY cholecalciferol (vitamin D3) 25 mcg PO DAILY clopidogrel 75 mg PO DAILY diltiazem HCl ER (DILT-XR) 240 mg PO DAILY garlic 300 mg PO DAILY glucosamine sulfate (Glucosamine) 500 mg PO BID hydralazine 50 mg PO TID hydralazine 25 mg PO TID HPI Comments Details: Gaviota is a elderly woman with a history of for chronic kidney disease in the setting of renal artery stenosis and severe hypertension. She has undergone renal angiogram with angioplasty and stent placement by Dr. Steele. Currently she is on Plavix. She has a history of back pain and lower leg pains. MRI reveals significant disc disease and arthritis. She is being followed by [facility] internet marketing specialist From a renal standpoint she is doing very well. No new complaints today. Blood pressure has been well controlled 10/25/23;Underwent carpel tunnel surgery. Doing OK 02/21/24;Doing well; OFF ALL anti hypertensives since November 2023 06/21/24: c/o Fatigue in legs.Has an appointment with in September 2024; Home BP looks good. 08/16/24 78-year-old female presenting with fluctuating blood pressure readings. In the past, her blood pressure was consistently low, allowing her to reduce her medication intake. However, recently there has been an increase in blood pressure levels, occasionally reaching as high as 189/79 mmHg. She reports that her current medication regimen includes Hydralazine, which she prefers over Diltiazem due to better personal control. She regulates her dosage based on current blood pressure readings, taking between 50 mg and 75 mg, noting an improvement in blood pressure control thereafter. ON LICENSE OF [facility] Medical History CKD (chronic kidney disease) Renal artery stenosis Hx of colon cancer, stage III History of colon cancer Joint pain Afib HTN (hypertension) Surgical History History of carpal tunnel surgery of left wrist (~08/2023) Hx of removal of cyst History of colonoscopy History of surgery History of surgery Hx of cerebral aneurysm repair History of renal angiogram Hx of cataract Family History Father No problems noted. Mother No problems noted. Brother CAD (coronary artery disease) Social History Are you a primary care asst to a significant other at home: No Do you presently have visiting nurse or other home services: No Patient Tobacco Use Status: Former Tobacco user Tobacco use type: Cigarette Physical Exam Vital Signs: Last Vital Signs Pulse 84 08/16/24 11:30 BP 134/62 08/16/24 11:30 Pulse Ox 96 08/16/24 11:30 Oxygen Delivery Method Room Air 08/16/24 11:30 BMI result Body Mass Index 21.4 Comfortable Neck supple no JVD. Lungs entry equal no rales. Heart S1-S2 heard no gallop or rub. Abdomen soft nontender. Neuro alert awake oriented. No asterixis. Extremities no edema. Results Reviewed Nephrology Results: Hgb 13.0 g/dl (12.0-16.0) 06/28/24 WBC 7.0 X10*3/uL (4.8-10.8) 06/28/24 Plt Count 179 X10*3/uL (160-400) 06/28/24 Sodium 141 mmol/L (135-145) 06/28/24 Potassium 4.2 mmol/L (3.3-5.1) 06/28/24 Chloride 104 mmol/L (96-108) 06/28/24 Carbon Dioxide 29 mmol/L (22-29) 06/28/24 BUN 28 mg/dL (9-16) H 06/28/24 Creatinine 1.34 mg/dL (0.5-1.4) 06/28/24 Calcium 9.9 mg/dL (8.4-10.2) 06/28/24 Urine Protein Negative mg/dL (Neg-Trace) 06/28/24 Assessment & Plan Assessment & Plan (1) Renal artery stenosis: Code(s): I70.1 - Atherosclerosis of renal artery Category: Medical (2) CKD (chronic kidney disease) stage 3, GFR 30-59 ml/min: Code(s): N18.30 - Chronic kidney disease, stage 3 unspecified Category: Medical (3) HTN (hypertension): Code(s): I10 - Essential (primary) hypertension Category: Medical Plan Elderly woman with hypertension history of Renal artery stenosis with CKD. Renal function stable with creatinine 1.4 to 1.6. Goal is to slow the progression of disease. Continue to avoid nephrotoxic agents. Hypertension Due to underlying renal artery stenosis. Status post stent placement. Blood pressure is well controlled based on home readings with just on ATENOLOL 25 mg QD Office reading elevated today due to ? white coat effect She should continue low-sodium diet. No changes made to the antihypertensive regimen. History of renal artery stenosis. Status post stent placement. She is being followed by Dr. Steele. Spinal stenosis s/p Carpel tunnel syndrome -defer management to [facility] internet marketing specialist Would avoid NSAIDS Check labs today and again in September Keep Hydralazine 50 to 75 mg TID based on home readings Orders: Orders Basic Metabolic Panel 4 Months N18.30 - Chronic kidney disease, stage 3 unspecified Basic Metabolic Panel 5 Weeks N18.30 - Chronic kidney disease, stage 3 unspecified Basic Metabolic Panel Today N18.30 - Chronic kidney disease, stage 3 unspecified Medications: New hydralazine 50 mg PO TID 270 tabs 3RF Coding Level of Care Code Est Pt Level 4 (64991) Diagnoses Renal artery stenosis I70.1 CKD (chronic kidney disease) stage 3, GFR 30-59 ml/min N18.30 HTN (hypertension) I10
--- OUTSIDE RECORDS SUMMARY | 2024-08-16 13:38 | XMS_ITS | Clinical Summary ---
Author Organization [facility] Address [address] [place] [phone] Phone Care Team Providers Care Chief Medical Technologist Name Role Phone Wood Conti MD Primary [...] patient's age to complete this topic Insurance [facility] Care Teams Chief Medical Technologist Relationship Specialty Start Date End Date Wood Conti MD [address] [place] [address] [address] [place] [address] PCP - General 03/17/20
== END 2024-08-16 11:47 | disposition home or self-care (01) ==
LOC: HO.HKA 11:29
PROVIDERS: PCP Internal Medicine; Visit Provider Internal Medicine Hypertension Specialist
DX: I70.1 Atherosclerosis of renal artery (principal); N18.30 Chronic kidney disease, stage 3 unspecified; I10 Essential (primary) hypertension
CPT/HCPCS: 99214

== ENCOUNTER 2024-08-16 11:28 | Outpatient (REF) | payer MEDICARE, SELFPAY ==
[2024-08-16 15:56] LABS: Anion Gap 13 (12-20); Blood Urea Nitrogen 29 mg/dL (9-16); Calcium 9.6 mg/dL (8.4-10.2); Carbon Dioxide 27 mmol/L (22-29); Chloride 106 mmol/L (96-108); Estimated Glomerular Filt Rate 38; Glucose Random 106 mg/dL (60-115); Potassium 4.2 mmol/L (3.3-5.1); Sodium 142 mmol/L (135-145)
== END 2024-08-16 11:29 | disposition home or self-care (01) ==
LOC: HO.LAB 11:28
PROVIDERS: PCP Internal Medicine; Visit Provider Internal Medicine Hypertension Specialist
DX: N18.30 Chronic kidney disease, stage 3 unspecified (principal)
CPT/HCPCS: 36415; 80048; 99212

== ENCOUNTER 2024-09-03 12:30 | Outpatient (AMB) | payer MEDICARE, SELFPAY ==
--- OUTSIDE RECORDS SUMMARY | 2024-07-05 07:00 | XMS_ITS ---
Author Organization Wood Conti MD Address [address] [place], [place] [id number] Care Team Providers Care Manager Cafe Name Role Phone Wood Conti Primary Care Provider [phone] Allergies Allergen (clinical drug ingredient) Drug/Non Drug Allergy documented on EMR Reaction Allergy Type Onset Date Status tetracycline Tetracycline HCl Unknown Drug Allergy Active [...] contrast dye (uncoded) kidney damage Allergy Active REASON FOR VISIT annual exam [...] Dilt-XR 240 MG TAKE [address] [facility] EVERY DAY ON EMPTY STOMACH IN THE [...] Date Provider Diagnosis Wood Conti MD [address] [place] [address] [place] [phone] 07/05/2024 Wood Conti Annual physical exam Z00.00 [...] study, pending diagnostic testing/ Spoke with Dr. Valenitn office they will be booking her for a Carotid US in September. Next Appt Details Follow Up: october, Reason: Provider Name:Wood Nash ier, 10/05/2024 10:00:00 AM, [address] [place] [address], [address], [place], [place], [phone], Provider Name:Wood Nash ier, 07/01/2025 07:45:00 AM, [address] [place] [address], Suite [facility], [place], [place], [phone], Provider Name:Wood Nash ier, 07/08/2025 10:30:00 AM, [address] [place] [address], Suite [facility], [place], [place], [phone], Progress Notes * Gaviota MACIASDOB:1945 ([age] yo F)Acc No.[id number]:07/05/2024 Progress Notes Patient: Gaviota PUENTE Provider: Tang Conti MD :1945 A ge:78 Y S ex:Female Date:07/05/2024 Address:[address] [place], [place] [phone] Subjective: * Chief Complaints: * A nnual [...] Pets: cat x1. Travel outside of the [place]: yes. * Medications: T akingFolic Acid [...] mg/dL Urine Blood Negative Negative - Specific [place] - Urine 1.010 1.005-1.025 - Urine Protein [...] Auto 0.000 0.0-0.012 - X10*3/uL L ab:Comprehensive [place]. Panel Fast (Order Date - 06/28/2024) (Collection [...] MD Date: 0 07/05/2024 Generated for Albert whitley/Dina/Bandaritting on: 0 09/03/2024 12:58 PM EDT History and Physical Notes * [...]
[2024-09-03 12:34] VITALS: BP 138/78; PULSE 71; BMI 21.4
--- NOTE | 2024-09-03 12:34 | MHC.OFFVIS ---
Vital Signs 09/03/24 12:34 Height 4 ft 11 in Weight 106 lb BMI 21.4 BP 138/78 Blood Pressure Location Lt brachial Position Sitting Pulse 71 Pulse Source Monitor Intake Visit Reasons: r/s 08/28/24 1 yr followup w/ekg Allergies Abbyzuh-VYL-UoL Reductase Inhibitor (DSSBSQI-COC-AHN REDUCTASE INHIBITOR) Allergy (Severe, Verified 08/16/24 11:31) TONGUE SWELLING vancomycin Allergy (Severe, Verified 08/16/24 11:31) Rash amoxicillin (AMOXICILLIN) Allergy (Intermediate, Verified 08/16/24 11:31) NAUSEA aspirin (ASA) Allergy (Intermediate, Verified 08/16/24 11:31) FEELING OF PEPPER ON TONGUE atorvastatin (ATORVASTATIN) Allergy (Intermediate, Verified 08/16/24 11:31) FEELING OF PEPPER ON TONGUE fluconazole (FLUCONAZOLE) Allergy (Intermediate, Verified 08/16/24 11:31) FEELING OF PEPPER ON TONGUE irbesartan (IRBESARTAN) Allergy (Intermediate, Verified 08/16/24 11:31) SORE TONGUE,GERD metronidazole (Flagyl) Allergy (Intermediate, Verified 08/16/24 11:31) Rash morphine (MORPHINE) Allergy (Intermediate, Verified 08/16/24 11:31) HIVES oxycodone (OXYCODONE) Allergy (Intermediate, Verified 08/16/24 11:31) RASH pepper (genus Capsicum) (PEPPER) Allergy (Intermediate, Verified 08/16/24 11:31) SENSITIVE TO lisinopril (LISINOPRIL) Allergy (Mild, Verified 08/16/24 11:31) COUGH Iodinated Contrast Media (Contrast Dye) Allergy (Unknown, Verified 08/16/24 11:31) Unknown Tetracyclines (TETRACYCLINES) Adverse Reaction (Intermediate, Verified 08/16/24 11:31) SHAKES lorazepam (From ATIVAN) Adverse Reaction (Mild, Verified 08/16/24 11:31) HALLUCINATIONS Medication List - Last Reconciled 09/03/24 by Pablo Hickman MD [acetaminophen 1,000 mg PO DAILY PRN] ascorbic acid (vitamin C) 500 mg PO DAILY atenolol 25 mg PO DAILY cholecalciferol (vitamin D3) 25 mcg PO DAILY clopidogrel 75 mg PO DAILY Held on 11/17/23. Instructions: Resume on 11/24/23. You may resume Plavix 1 week after surgery garlic 300 mg PO DAILY glucosamine sulfate (Glucosamine) 500 mg PO BID hydralazine 50 mg PO TID hydralazine 25 mg PO TID HPI Comments Details: Gaviota comes for follow-up. She is limited in activity level due to bilateral leg tiredness when she does any exertional activity. She has finally seeing vascular interventionalist for evaluation for peripheral vascular disease. She had also going to have carotid duplex as well as renal artery duplex in the near future. She is not having any current chest pain syndrome. About few months ago in April she had a episode of transient what appears to be speech disturbance either dysarthria or trouble finding word. She had not seek emergency care. Symptoms lasted for about an hour since then she has had no recurrent symptoms. These symptoms happen after she was shoveling snow. She also had carpal tunnel surgery and post carpal tunnel surgery she said her blood pressures were low and then after few weeks a blood pressure started going up again and she has started back on hydralazine therapy. She taking all her medications. Denies any clear anginal symptoms. Last LDL of 101 mg/dL. Her creatinine is stable at 1.33. She says a blood pressure is well controlled at this point time. [facility] Medical History CKD (chronic kidney disease) Renal artery stenosis Hx of colon cancer, stage III History of colon cancer Joint pain Afib HTN (hypertension) Surgical History History of carpal tunnel surgery of left wrist (~08/2023) Hx of removal of cyst History of colonoscopy History of surgery History of surgery Hx of cerebral aneurysm repair History of renal angiogram Hx of cataract Family History Father No problems noted. Mother No problems noted. Brother CAD (coronary artery disease) Social History Are you a primary child caregiver private home to a significant other at home: No Do you presently have visiting nurse or other home services: No Patient Tobacco Use Status: Former Tobacco user Tobacco use type: Cigarette Review of Systems Const Denies weakness Eyes Reports no additional complaints ENT Reports no additional complaints and Denies dizziness Card Reports no additional complaints, Denies chest pain, Denies chest pain with activity, Denies syncope, Denies rapid heart rate, Denies pedal edema, Denies edema, Denies leg edema, Denies lightheadedness, Denies palpitations, Denies dyspnea, Denies dyspnea on exertion and Denies orthopnea Resp Denies cough, Denies dyspnea and Denies dyspnea on exertion GI Denies hematochezia and Denies change in stool character Musc Denies abnormal gait, Denies muscle cramps, Denies muscle weakness, Denies numbness, Denies radiating pain into limb and Denies tingling Neuro Denies abnormal gait, Denies dizziness, Denies syncope, Denies numbness, Denies tingling and Denies weakness Endo Denies palpitations Physical Exam Vital Signs: Last Vital Signs Pulse 71 09/03/24 12:34 BP 138/78 09/03/24 12:34 BMI result Body Mass Index 21.4 Const General: cooperative, comfortable, no acute distress, alert and awake Nutritional Appearance: thin Orientation/consciousness: patient oriented x3 Limitations: no limitations HEENT Head: Yes atraumatic Neck Neck: Yes trachea midline, Yes supple and Yes no JVD Carotids: bruit bilateral Chest Chest palpation & inspection: normal inspection of the chest Resp Effort & Inspection: normal respiratory effort Auscultation: no crackles, no rales, no rhonchi, no wheezes and diminished lung sounds Cardio Jugular venous distension: no JVD Palpation: normal PMI Rate: regular rate Rhythm: regular rhythm Heart sounds: S1 normal heart sound present, S2 normal heart sound present, no click, no gallops, no murmurs and no rubs Skin General skin exam: no rashes or lesions noted Neuro General: patient oriented x3 Extrem General: Yes no clubbing, cyanosis or edema Office Procedures EKG Details: EKG shows normal sinus rhythm with nonspecific ST changes 24249-Ycfuvicxossmsetsg, Complete Assessment & Plan Assessment & Plan (1) Atherosclerotic cardiovascular disease: Code(s): I25.10 - Atherosclerotic heart disease of rincon coronary artery without angina pectoris Category: Medical Plan: Diffuse and significant atherosclerotic disease but without any limiting cardiac symptoms at this point time. She is currently on dual antianginal therapy with Cardizem and atenolol. Continue the same. Continue aggressive blood pressure control which currently seems to be well optimized. Continue Plavix therapy. She has been intolerant to statin therapy with multiple statins, having allergic reaction. We discussed about lipid modification with PCSK9 inhibitor therapy. She wants to think about it and discuss with Thierry was scheduled to undergo vascular ultrasound in near future. Bilateral lower extremity discomfort appear to be related to vascular claudication. Will follow up with vascular interventionalist in near future. Also suggest that if she has recurrent neurologic symptoms to seek emergency care. Will follow up in the clinic in 1 year's time, sooner p.r.n.. Thank you for allowing me to partake in her care Coding Level of Care Code Est Pt Level 4 (32788) Complex EM visit Add On G2211 Diagnoses Atherosclerotic cardiovascular disease I25.10 CPT Codes EKG - CPT: 46711-Uvabuczkqudtommfp, Complete ([id number])
--- OUTSIDE RECORDS SUMMARY | 2024-09-03 12:58 | XMS_ITS | Clinical Summary ---
Author Organization [facility] Address [address] [place] [phone] Phone Care Team Providers Care Quality Lead Name Role Phone Wood Conti MD Primary [...] patient's age to complete this topic Insurance [facility] Care Teams Quality Lead Relationship Specialty Start Date End Date Wood Conti MD [address] [place] [address] [address] [place] [address] PCP - General 03/17/20
--- OUTSIDE RECORDS SUMMARY | 2024-09-03 12:59 | XMS_ITS | Patient Health Record ---
Author Organization [facility] Address [address] [place] [address] Care Team Providers Care Software Qa Manager Name Role Phone Jong Conti Primary Care Provider Tracy Baker Unavailable [phone] Allergies Allergen (clinical drug ingredient) Drug/Non Drug Allergy documented on EMR Reaction Allergy Type Onset Date Status metronidazole Flagyl Unknown Drug Allergy Act ning oxycodone OxyContin Unknown Drug Allergy Active lorazepam ativan Unknown Drug Allergy Active Reason For Referral No Information Medications Medication SIG (Take, Route, Fr equency, Duration) Notes Start Date End Date Status Probiotic Active Valsartan Active Glucosamine Active Citracal + D Active Centrum Silver Activ e Diltiazem CD 180 MG 1 capsule Orally Once a day Active Vitamin C Active tylenol Active Problems No Known Problems Plan Of Treatment No Information Insurance Providers Payer Name Payer Address Payer Phone Subscriber Number Group Number Insured Name Patient Relationship to Insured Coverage Start Date Coverage End Date [facility] [address] [place] [address] [phone] [id number] Ira Gaviota Self - patient is the insured Medical (General) History Medical History History ICD Code Arthritis Cancer Gall bladder problems High blood pressure Surgical History Surgery Date(Month/Year) cholecystectomy colon cancer ovarian surgery
--- OUTSIDE RECORDS SUMMARY | 2024-09-03 12:59 | XMS_ITS | Patient Health Record ---
Author Organization [facility] Address [address] [place] [address] Care Team Providers Care Supply Chain Coordinator Name Role Phone Gallito SHINE, Wood Primary Care Provider Saul Templeton [phone] Allergies Allergen (clinical drug ingredient) Drug/Non Drug [...] capsule Orally Once a day Active Vitamin N16-Fafpd Acid 500-400 MCG 1 Orally QOD Active [...] Problem Status W/U Status Risk Notes Problem [id number] Encounter for screening for malignant neoplasm of colon (Z12.11) Active confirmed Problem 838293622 History of adenomatous polyp of colon (Z86.010) Active confirmed Problem Screening for malignant neoplasm of rectum (459701137) Encounter for screening for malignant neoplasm of rectum (Z12.12) Active confirmed Problem 40182987 Preprocedural examination (Z01.818) Active confirmed Problem History of polyp of colon (situation) (684765483) History of colon polyps (Z86.010) Active confirmed Problem 040017413 History of colon cancer (Z85.038) Active confirmed Problem 21143231 Constipation, unspecified constipation type (K59.00) Active confirmed Problem 22682544 Hypertension, unspecified type (I10) Active confirmed Problem 534426029 Abdominal pain, diffuse (R10.84) Active confirmed Problem History of gastrointestinal tract bypass (489125558) Hx of Billroth II operation (Z98.0) Active confirmed Plan Of Treatment Pending Test Test Name Order Date BUN 10/02/2013 CREATININE 10/02/2013 Future Test Test Name Order Date COLONOSCOPY 09/16/2015 COLONOSCOPY 11/21/2018 COLONOSCOPY 04/10/2021 Insurance Providers Payer Name Payer Address Payer Phone Subscriber Number Group Number Insured Name Patient Relationship to Insured Coverage Start Date Coverage End Date [facility] [address] [facility] [phone] [id number] MORAIMA MACIAS Self - patient is the insured Medical (General) History Medical History History ICD Code EGD [id number] History of tubular adenomas removed from the [...] negative fo r any significant findings Denies PA,DM,CVA,Lung disease,renal dise ase Negative colonoscopy in 12/2013 and 12/06 016 Chronic constipation--she ochoa d some type of surgery with Dr. Daniel in 2010, including a rectocele repair Cerebral aneurysm as below Renal artery stenosis--s/p stent placeme nt Colonoscopy 01/2019 with a hyperplastic polyp removed Surgical History Surgery Date(Month/Year) Rectocele repair-Dr. Daniel- -2010--at [facility]--had complications of Afib and Blood clots Cholecystectomy-2011 Right colectomy for colon cancer-11/2012- Dr. Kiera White-as above Cataract-lens implants 03/2018 Cyst removal on right foot 04/27/2017 Cerebral aneurysm repair with coil [address] Beltre 01/31/20 Bilateral oopherectomy
== END 2024-09-03 12:58 | disposition home or self-care (01) ==
LOC: HO.HCS 12:30
PROVIDERS: PCP Internal Medicine; Visit Provider Internal Medicine Cardiovascular Disease
DX: I25.10 Atherosclerotic heart disease of native coronary artery without angina pectoris (principal)
CPT/HCPCS: 93010; 99214; G2211

== ENCOUNTER → 2024-09-03 12:30 | Outpatient (BNVA) | payer MEDICARE, SELFPAY | PROVIDERS: PCP Internal Medicine; Visit Provider Internal Medicine Cardiovascular Disease | DX: I25.10 Atherosclerotic heart disease of native coronary artery without angina pectoris (principal); R53.1 Weakness | CPT/HCPCS: 93005; 99212 ==

== ENCOUNTER 2024-12-04 07:40 | Outpatient (REF) | payer MEDICARE, SELFPAY ==
--- OUTSIDE RECORDS SUMMARY | 2024-01-02 06:15 | XMS_ITS ---
Author Organization Wood Conti MD Address [address] [place], [place] [id number] Care Team Providers Care Pharmacist Assistant Name Role Phone Wood Conti Primary Care Provider [phone] Allergies Allergen (clinical drug ingredient) Drug/Non Drug Allergy documented on EMR Reaction Allergy Type Onset Date Status atorvastatin Atorvastatin Calcium tongue swelling Drug Allergy Active lorazepam Ativan hallucinations Drug Allergy Ac tive aspirin Aspirin tongue swelling Drug Allergy A ctive contrast dye (uncoded) kidney damage Allergy Active tetracycline Tetracycline HCl Unknown Drug Allergy Active oxycodone Oxycodone HCl Unknown Drug Allergy Act ning nystatin Nystatin burning tongue Drug Allergy Ac tive lisinopril Lisinopril cough Drug Allergy Activ e irbesartan Irbesartan burning tongue Drug Allergy Active metronidazole Flagyl rash Drug Allergy Act ning fluconazole Diflucan burning tongue Drug Allergy Active REASON FOR VISIT 6 mo f/u Medications Medication SIG (Take, Route, Frequency, Duration) Notes Start Date End Date Status Atenolol 25 MG TAKE 1 TABLET BY EVERY DAY for 90 Active hydrALAZINE HCl 25 MG 1 tablet with food Orally Three times a day Active Clopidogrel Bisulfate 75 MG TAKE 1 TABLET BY MOUTH 1 TIME EACH DAY for 90 Active Vitamin D3 25 MCG (1000 UT) 1 capsule Orally Once a day for 30 day(s) Active Probiotic 250 MG 1 capsule Orally onc e a day Active Ventolin HFA * 108 (90 Base) MCG/ACT 2 puffs as needed Inhalation every 4 hrs for 30 day(s) 09/03/2011 Not-Taking Vitamin C 500 MG 1 tablet Orally ever y other day Active Folic Acid 400 MCG 1 tablet Orally Once a day for 30 day(s) Active Glucosamine Chondr Complex 500-400 MG 1 capsule with a meal Orally Once a day Active hydrALAZINE HCl 50 MG 1 tablet with food Orally Three times a day Active Dilt-XR 240 MG TAKE 1 CAPSULE BY MO [facility] EVERY DAY ON EMPTY STOMACH IN THE MORNING Active Diflucan 150 MG 1 tablet Orally deysi y for 5 days 09/30/2022 Not-Taking Tylenol Extra Strength 500 MG 2 tablets as needed Orally every 6 hrs Not-Taking Immunizations Vaccine Route Administration Date Status Comme nts Influenza High Dose IM Intramuscular 01/02/2024 Administer ed Vital Signs Blood pressure systolic 102 mm Hg 01/02/20 24 Blood pressure diastolic 68 mm Hg 024 Height 60 in 01/02/2024 Weight 106 lbs 01/02/2024 BMI 20.70 kg/m2 01/02/2024 Encounters Encounter Location Date Provider Diagnosis Wood Conti MD [address] [place] [address] [place] [phone] 01/02/2024 Wood Conti Encounter for immunization Z23 and Essential hypertension I10 Assessments Encounter Date Diagnosis (ICD Code) Assessment Notes Treatment Notes Treatment Clinical Notes Section Notes 01/02/2024 Encounter for immunization (ICD-10 - Z23) administered flu vaccine today have discussed the covid shot with her. 01/02/2024 Essential hypertension (ICD-10 - I10) running on the low side. she is making adjustments on her meds to keep bp controlled. is going to see identity access management architect next month Plan Of Treatment Treatment Notes Assessment Notes Encounter for immunization administered flu vaccine today Essential hypertension running on the lo w side. she is making adjustments on her meds to keep bp controlled. is going to see identity access management architect next month Next Appt Details Provider Name:Wood solis, 01/07/2025 10:00:00 AM, [address] [place] [address], Suite [facility], [place], [place], [phone], Provider Name:Wood solis, 07/01/2025 07:45:00 AM, [address] [place] [address], Suite [facility], [place], [place], [phone], Provider Name:Wood solis, 07/08/2025 10:30:00 AM, [address] [place] [address], [facility] [address], [place], [place], [phone], Provider Name:Wood Nash ier, 10/10/2025 09:30:00 AM, [address] [facility], [address], [place], [place], [phone], Progress Notes * Gaviota MACIASDOB:1945 (6 0 yo F)Acc No.[id number]:01/02/2024 Progress Notes Patient: Gaviota Brice Provider: Tang Conti MD :1945 A ge:78 Y S ex:Female Date:01/02/2024 Address: [facility] Subjective: * Chief Complaints: * 6 mo f/u * HPI: S ymptom(s): patient is a 78 yo female here for 6 month follow up visit/ has not gotten her covid shot. * ROS: G eneral/Constitutional: Denies C hills. D enies F atigue. D enies F ever. D enies H eadache. E NT: Patient denies d ecreased sense of smell , any loss of taste , sore throat. D enies S ore throat. R espiratory: Denies C ough. D enies S hortness of breath at rest. D enies S hortness of breath with exertion. G astrointestinal: Denies D iarrhea. D enies N ausea. M usculoskeletal: Patient denies m uscle aches. P eripheral Vascular: Patient denies r ed and blue toes. * Medical History: * Surgical History: * Hospitalization/Major Diagno stic Procedure: * Medications: T akingFolic Acid 400 MCG Tablet 1 tablet Orally Once a dayGlucosamine Chondr Complex 500-400 MG Capsule 1 capsule with a meal Orally Once a dayProbiotic 250 MG Capsule 1 capsule Orally once a dayVitamin C 500 MG Tablet 1 tablet Orally every other dayVitamin D3 25 MCG (1000 UT) Capsule 1 capsule Orally Once a dayhydrALAZINE HCl 25 MG Tablet 1 tablet with food Orally Three times a dayClopidogrel Bisulfate 75 MG Tablet TAKE 1 TABLET BY MOUTH 1 TIME EACH DAY Atenolol 25 MG Tablet TAKE 1 TABLET BY MOUTH EVERY DAY hydrALAZINE HCl 50 MG Tablet 1 tablet with food Orally Three times a dayDilt-XR 240 MG Capsule Extended Release 24 Hour TAKE 1 CAPSULE BY MOUTH EVERY DAY ON EMPTY STOMACH IN THE MORNING Taking Folic Acid 400 MCG Tablet 1 tablet Orally Once a dayTaking Glucosamine Chondr Complex 500-400 MG Capsule 1 capsule with a meal Orally Once a dayTaking Probiotic 250 MG Capsule 1 capsule Orally once a dayTaking Vitamin C 500 MG Tablet 1 tablet Orally every other dayTaking Vitamin D3 25 MCG (1000 UT) Capsule 1 capsule Orally Once a dayTaking hydrALAZINE HCl 25 MG Tablet 1 tablet with food Orally Three times a dayTaking Clopidogrel Bisulfate 75 MG Tablet TAKE 1 TABLET BY MOUTH 1 TIME EACH DAY Taking Atenolol 25 MG Tablet TAKE 1 TABLET BY MOUTH EVERY DAY Taking hydrALAZINE HCl 50 MG Tablet 1 tablet with food Orally Three times a dayTaking Dilt-XR 240 MG Capsule Extended Release 24 Hour TAKE 1 CAPSULE BY MOUTH EVERY DAY ON EMPTY STOMACH IN THE MORNING Not-Taking/PRNDiflucan 150 MG Tablet 1 tablet Orally dailyTylenol Extra Strength 500 MG Tablet 2 tablets as needed Orally every 6 hrsVentolin HFA * 108 (90 Base) MCG/ACT Aerosol Solution 2 puffs as needed Inhalation every 4 hrsNot-Taking/PRN Diflucan 150 MG Tablet 1 tablet Orally dailyNot-Taking/PRN Tylenol Extra Strength 500 MG Tablet 2 tablets as needed Orally every 6 hrsNot-Taking/PRN Ventolin HFA * 108 (90 Base) MCG/ACT Aerosol Solution 2 puffs as needed Inhalation every 4 hrsDiscontinuedMetoprolol Succinate ER 25 MG Tablet Extended Release 24 Hour 1 tablet Orally Once a dayMedication List reviewed and reconciled with the patientDiscontinued Metoprolol Succinate ER 25 MG Tablet Extended Release 24 Hour 1 tablet Orally Once a dayMedication List reviewed and reconciled with the patient * Allergies: T etracycline HClOxycodone HClFlagyl: rashLisinopril: coughAtivan: hallucinationsAspirin: tongue swellingAtorvastatin Calcium: tongue swellingDiflucan: burning tongueNystatin: burning tongueIrbesartan: burning tonguecontrast dye: kidney damageyes[Allergies Verified] Objective: * Vitals: H t: 60, Wt:106, BMI:20.70, BP:102/68. * Examination: G eneral Examination: GENERAL APPEARANCE: w ell developed, well nourished , female. HEAD: n ormocephalic. SKIN: g ood turgor. HEART: r egular rate and rhythm , no murmurs, rubs, gallops. LUNGS: n o wheezes, rales, rhonchi , good air movement , clear to auscultation bilaterally. Assessment: * Assessment: 1. E ssential hypertension - I10 (Primary) 2 . E ncounter for immunization - Z23 Plan: * Treatment: 2. E ncounter for immunization Notes: administered flu vaccine today Clinical Notes: have discussed the covid shot with her. * Immunizations: Influenza High Dose : 0.5 mL (Dose No:1) (Route: Intramuscular) given by [place] on Left Deltoid * Procedure Codes: 9 0662 FLU VACC PRSV FREE INC [id number] ADMN FLU VAC NO FEE SCHED SAME DAY * Preventive Medicine: Immunizations: I nfluenza H ave you had a flu shot since the most recent November 05? Y es. * * Sign off status: Completed true * Provider: Tang Conti MD Date: Generated for Albert whitley/Dina/eTransmitting on: 0 12/04/2024 07:48 AM EDT History and Physical Notes * HPI (History of Present Illness) Category Sub-Category Detail Notes Category Not es Symptom(s) patient is a 78 yo female here for 6 month follow up visit/ has not gotten her covid shot. Examination Category Sub-Category Detail Notes Category Not es General Examination GENERAL APPEARANCE: well dev eloped, well nourished , female HEAD: normocephalic HEART: regular rate and rhy thm , no murmurs, rubs, gallops LUNGS: no wheezes, rales, r hon[place] , good air movement , clear to auscultation bilaterally SKIN: good turgor
--- OUTSIDE RECORDS SUMMARY | 2024-05-21 05:25 | XMS_ITS ---
Author Organization Wood Conti MD Address [address] [place] [phone] Care Team Providers Care Information Assistant Name Role Phone Wood Conti Primary Care Provider REASON FOR VISIT HCC Risk Codes 10/05 Encounters Encounter Location Date Provider Diagnosis Wood Conti MD [address] [place] [address] [place] [address] [phone] 05/21/2024 Wood Conti Plan Of Treatment Next Appt Details Provider Name:Wood Nash ier, 01/07/2025 10:00:00 AM, [address] [place] [address], [phone], Provider Name:Wood Nash ier, 07/01/2025 07:45:00 AM, [address] [place] [address], [phone], Provider Name:Wood Nash ier, 07/08/2025 10:30:00 AM, [address] [place] [address], [phone], Provider Name:Wood Nash ier, 10/10/2025 09:30:00 AM, [address] [place] [address], [phone], Progress Notes * Gaviota MACIASDOB:1945 ([age] yo F)Acc No.[id number]:05/21/2024 Patient: Gaviota PUENTE :1945 A ge:78 Y S ex:Female Address:[address] [place] [address] * true * Date: Generated for Albert whitley/Dina/Bandaritting on: 0 12/04/2024 07:48 AM EDT
--- OUTSIDE RECORDS SUMMARY | 2024-06-28 03:30 | XMS_ITS ---
Author Organization Wood Conti MD Address [address] [place], [place] [phone] Care Team Providers Care Cathode Ray Tube Assembler Name Role Phone Wood Conti Primary Care Provider Results Component Value Reference Range Notes Complete Blood Count Auto Di ff Reviewed date:06/28/2024 05:04:02 PM Interpretation: Performing Lab:[facility], [address] [place] [phone] Notes/Report: White Blood Count 7.0 4.8-10.8 X10*3/uL [...] NRBC Abs Auto 0.000 0.0-0.012 X10*3/uL Comprehensive [place]. Panel Fa st Reviewed date:06/28/2024 05:07:44 PM Interpretation: Performing Lab:[facility], [address] [place] [phone] Notes/Report: Sodium 141 135-145 mmol/L Potassium 4.2 [...] PROFILE Reviewed date:06/28/2024 04:54:00 PM Interpretation: Performing Lab:[facility], [address] [place] [phone] Notes/Report: Iron 124 30-160 mcg/dL Total Iron Binding Capacity 283 228-428 mcg/d L Percent Iron Saturation 44 15-50 % Unsaturated Iron Binding 159 Lipid Panel Reviewed date:06/28/2024 04:53:52 PM Interpretation: Performing Lab:[facility], [address] [place] [phone] Notes/Report: Triglycerides 174 <150 mg/dL Desirable Triglyceride: [...] t Reviewed date:06/30/2024 10:00:58 AM Interpretation: Performing Lab:[facility], [address] [place] [phone] Notes/Report: Urine, Clean Catch Color Urine Yellow Appearance Urine Clear PH 7.5 5.0-9.0 Glucose Urine UA Negative Negative mg/dL Urine Blood Negative Negative Specific [place] - Urine 1.010 1.005-1.025 Urine Protein Negative [...] Date Provider Diagnosis Wood Conti MD [address] [place], [place] [phone] 06/28/2024 Wood Conti Blood tests for routine [...] Provider Name:Wood Nash ier, 01/07/2025 10:00:00 AM, [address] [place] [address], [address] [place] [address], [phone], Provider Name:Wood Nam Saad ier, 07/01/2025 07:45:00 AM, [address] [place] [address], Suite [facility], [place], [place], [phone], Provider Name:Wood Nash ier, 07/08/2025 10:30:00 AM, [address] [place] [address], [address] [place] [address], [phone], Provider Name:Wood Nash ier, 10/10/2025 09:30:00 AM, [address] [place] [address], [address] [place] [address], [phone], Progress Notes * Gaviota MACIASDOB:1945 ([age] yo F)Acc No.[id number]:06/28/2024 Progress Note Patient: Gaviota PUENTE Provider: Tang Conti MD :1945 A ge:78 Y S ex:Female Date:06/28/2024 Address:[address] [place], [place] [phone] Subjective: * Chief Complaints: * 1 . [...] - 06/28/2024 07:30 AM) L AB: Comprehensive [place]. Panel Fast (Collection Date & Time - [...] - 06/28/2024 07:30 AM) L AB: Comprehensive [place]. Panel Fast (Collection Date & Time - [...] - 06/28/2024 07:30 AM) L AB: Comprehensive [place]. Panel Fast (Collection Date & Time - [...] MD Date: 0 06/28/2024 Generated for Avei ng/Faelking/eTransmitting on: 0 12/04/2024 07:47 AM EDT
--- OUTSIDE RECORDS SUMMARY | 2024-07-05 07:00 | XMS_ITS ---
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 Name Role Phone Wood Conti Primary Care [...] Dilt-XR 240 MG TAKE 1 CAPSULE BY [facility] EVERY DAY ON EMPTY STOMACH IN [...] Location Date Provider Diagnosis Wood Conti MD [address] [place] [address] [place] [phone] 07/05/2024 Wood Conti Annual physical exam Z00.00 [...] Reason: Provider Name:Wood hidalgor, 01/07/2025 10:00:00 AM, [address] [place] [address], [address] [place] [address], [phone], Provider Name:Wood Nash ier, 07/01/2025 07:45:00 AM, [address] [place] [address], Suite [facility], [place], [place], [phone], Provider Name:Wood hidalgor, 07/08/2025 10:30:00 AM, [address] [place] [address], [address], [phone], Provider Name:Wood hidalgor, 10/10/2025 09:30:00 AM, [address] [place] [address], [address] [place] [address], [phone], Progress Notes * GILBERTO, SakinavernaDOB:1945 (6 0 yo F)Acc No.[id number]:07/05/2024 Progress Notes Patient: Gaviota PUENTE Provider: Tang Conti MD :1945 A ge:78 Y S ex:Female Date:07/05/2024 Address: [facility] Subjective: * Chief Complaints: * A nnual [...] Pets: cat x1. Travel outside of the [place]: yes. * Medications: T akingFolic Acid [...] mg/dL Urine Blood Negative Negative - Specific [place] - Urine 1.010 1.005-1.025 - Urine Protein [...] Auto 0.000 0.0-0.012 - X10*3/uL L ab:Comprehensive [place]. Panel Fast (Order Date - 06/28/2024) (Collection [...] 0 07/05/2024 Generated for Albert whitley/Dina/eTwilmersmitting on: 0 12/04/2024 07:47 AM EDT History and Physical Notes * [...]
--- OUTSIDE RECORDS SUMMARY | 2024-10-05 06:00 | XMS_ITS ---
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 risk code: I48.91 Afib, N18.30 CKD Medications [...] Location Date Provider Diagnosis Wood Conti MD [address] [place] [address] [address] [place], [place] [phone] 10/05/2024 Wood Conti Encounter for general adult [...] Provider Name:Wood solis, 01/07/2025 10:00:00 AM, [address] [facility], [address], [place], [place], [phone], Provider Name:Wood Nash ier, 07/01/2025 07:45:00 AM, [address] [facility], Suite [facility], [place], [phone], Provider Name:Wood Nash ier, 07/08/2025 10:30:00 AM, [address] [facility], Suite [facility], [place], [phone], Provider Name:Wood Nash ier, 10/10/2025 09:30:00 AM, [address] [place] [address], Suite [facility], [place], [phone], Progress Notes * GILBERTOGaviota RichardsonDOB:1945 ([age] yo F)Acc No.[id number]:10/05/2024 Progress Note Patient: Gaviota PUENTE Provider: Tang Conti MD :1945 A ge:79 Y S ex:Female Date:10/05/2024 Address:[address] [facility] Karen [facility] Subjective: * Chief Complaints: * F ollow up [facility] risk code: I48.91 Afib, N18.30 CKD [...] during today's visit P ast Medical History, [place] [facility] Care, Surgical/Hospitalization History, Current medications including [...] true * Provider: Tang Conti MD Date: 10/05/2024 Generated for Albert whitley/Dina/Bandaritting on: 12/04/2024 07:47 AM EDT History and Physical [...] updated during today's visit: Past Medical History, [place] of Care, Surgical/Hospitalization History, Current medications including [...]
--- OUTSIDE RECORDS SUMMARY | 2024-12-04 07:47 | XMS_ITS | Clinical Summary ---
Author Organization [facility] Address [address] [facility] [place] [phone] Phone Care Team Providers Care Data Entry Machine Operator Name Role Phone Wood Conti MD Primary [...] FOUR TIMES A DAY 01/02/2022 Active hydrALAZINE 50 MG tablet Take 1 [...] Due Date Last Done Comments Influenza Vaccine (#1) 2024 2, 12/15/2021, 12/12/2020, Additional history exists Pneumococcal Vaccine: 50+ Years Completed 05/31/2014, 05/31/2014, 05/19/2012, Additional history exists Pneumococcal Vaccine: Peds (0 to 5 Years) and At-Risk Patients (6 to 49 Years) Discontinued 05/31/2014, 05/31/2014, 05/19/2012, Additional history exists Hepatitis B Vaccine Aged Out No longe r eligible based on patient's age to complete this topic Insurance [facility] [place], [place] [facility] Care Teams Data Entry Machine Operator Relationship Specialty Start Date End Date Wood Conti MD [address] [place] [address] [address] [place] [address] PCP - General 03/17/20
--- OUTSIDE RECORDS SUMMARY | 2024-12-04 07:47 | XMS_ITS | Encounter Summary ---
Author Organization [facility] Address [address] [place] [address] Care Team Providers Care Customer Contact Sales Associate Name Role Phone Unavailable Primary Care Provider Unavailabl e Encounter Details Date Type Department Care Team (Late st Contact Info) Description 07/25/2018 Scanned Document [facility] [address] [facility] [address] [place], [place] [phone] Provider, Historical . Social History Tobacco Use Types Packs/Day [...] encounter Results * MRI Result Scan (06/30/2018) Historical Provider IMG SCAN REPORTS Final Resul t * MRI Result Scan (06/09/2018) Historical Provider IMG SCAN REPORTS Final Resul t documented in this encounter Visit Diagnoses Not on filedocumented in this encounter
--- OUTSIDE RECORDS SUMMARY | 2024-12-04 07:47 | XMS_ITS | Clinical Summary ---
Author Organization [facility] [employer] [facility] Address [address] [place] [address] Care Team Providers Care Transfer Pumper Name Role Phone Unavailable Primary Care Provider [...] - 1-dose 75+ series) 08/23/2018 Influenza vaccine 10/05/2024 Covid-19 vaccine series ( season) 2024 Breast cancer screening Discontinued Cervical cancer screening Discontinued Colon cancer screening, Colonoscopy Discontinued Meningococcal B Vaccine Aged Out No l onger eligible based on patient's age to complete this topic Meningococcal Vaccine Aged Out No luz maria luis felipe eligible based on patient's age to complete this topic Insurance [employer] Member Subscriber Plan / Payer (Ef fective 2008-Present) Name:Gaviota Roth Relation to Subscriber:Self Name:Gaviota Roth Payer ID:[id number] Group ID:Not on file Type:Not on file Address: [address] [place] [phone] [employer] COMM[employer]CIAL GENERIC on file COMMERCIAL GENERIC on file COMM[employer]CIAL [employer]IC
--- OUTSIDE RECORDS SUMMARY | 2024-12-04 07:48 | XMS_ITS | Patient Health Record ---
Author Organization [facility] Address [address] [place] [id number] Care Team Providers Care Analysis Engineer Name Role Phone Jong Conti Primary Care Provider Tracy Baker Unavailable [phone] Allergies Allergen (clinical drug ingredient) Drug/Non Drug [...] Insured Coverage Start Date Coverage End Date [facility] [address] [place] [id number] Ira Gaviota Self - patient is the insured Medical (General) History Medical History History ICD Code Arthritis Cancer Gall bladder problems High blood pressure Surgical History Surgery Date(Month/Year) cholecystectomy colon cancer ovarian surgery
--- OUTSIDE RECORDS SUMMARY | 2024-12-04 07:48 | XMS_ITS | Patient Health Record ---
Author Organization Wood Conti MD Address [address] [place], [place] [address] Care Team Providers Care Seam Finisher Name Role Phone Wood Conti Primary Care [...] fluconazole Diflucan burning tongue Drug Allergy Active Results Component Value Reference Range Notes Complete Blood Count Auto Di ff Reviewed date:06/28/2024 05:04:02 PM Interpretation: Performing Lab:[facility], [address] [place] [phone] Notes/Report: White Blood Count 7.0 4.8-10.8 X10*3/uL [...] NRBC Abs Auto 0.000 0.0-0.012 X10*3/uL Comprehensive [place]. Panel Fa st Reviewed date:06/28/2024 05:07:44 PM Interpretation: Performing Lab:[facility], [address] [place] [phone] Notes/Report: Sodium 141 135-145 mmol/L Potassium 4.2 [...] PROFILE Reviewed date:06/28/2024 04:54:00 PM Interpretation: Performing Lab:[facility], [address] [place] [phone] Notes/Report: Iron 124 30-160 mcg/dL Total Iron Binding Capacity 283 228-428 mcg/d L Percent Iron Saturation 44 15-50 % Unsaturated Iron Binding 159 Lipid Panel Reviewed date:06/28/2024 04:53:52 PM Interpretation: Performing Lab:[facility], [address] [place] [phone] Notes/Report: Triglycerides 174 <150 mg/dL Desirable Triglyceride: [...] t Reviewed date:06/30/2024 10:00:58 AM Interpretation: Performing Lab:[facility], [address] [place] [phone] Notes/Report: Urine, Clean Catch Color Urine Yellow Appearance Urine Clear PH 7.5 5.0-9.0 Glucose Urine UA Negative Negative mg/dL Urine Blood Negative Negative Specific Bruni - Urine 1.010 1.005-1.025 Urine Protein Negative Neg-Trace mg/dL Urine Ketones Negative Negative mg/dL Nitrite Urine Negative Negative Leukocyte Esterase Urine Trace Negative RBC Urine 0-2 0-2 /HPF WBC Urine 0-5 0-5 /HPF Squamous Epithelial Cell Urine 0-2 0-2 /HPF Bacteria Urine None Seen None Seen Hyaline Casts Urine 0-2 0-2 /LPF Complete Blood Count Auto Di ff Reviewed date:02/14/2024 12:41:07 PM Interpretation: Performing Lab:[facility], [address] [place] [phone] Notes/Report: White Blood Count 8.9 4.8-10.8 X10*3/uL [...] Panel Reviewed date:02/14/2024 12:37:12 PM Interpretation: Performing Lab:[facility], [address] [place] [phone] Notes/Report: Sodium 142 135-145 mmol/L Potassium 4.1 [...] Panel Reviewed date:06/12/2024 12:35:00 PM Interpretation: Performing Lab:[facility], [address] [place] [phone] Notes/Report: Sodium 144 135-145 mmol/L Potassium 4.1 [...] mg/dL Calcium 10.0 8.4-10.2 mg/dL Hold Gold Reviewed date:06/28/2024 04:52:11 PM Interpretation: Performing Lab:[address] [phone] Notes/Report: Hold Gold See Note Specimen held untested for 24 hours; Call to request Chemistry testing. Basic Metabolic Panel Reviewed date:08/17/2024 12:47:09 PM Interpretation: Performing Lab:[facility], [address] [place] [phone] Notes/Report: Sodium 142 135-145 mmol/L Potassium 4.2 3.3-5.1 mmol/L Chloride 106 96-108 mmol/L Carbon Dioxide 27 22-29 mmol/L Anion Gap 13 12-20 Blood Urea Nitrogen 29 9-16 mg/dL Creatinine 1.33 0.5-1.4 mg/dL Estimated Glomerular Filt Rate 38 Chronic Kidney Disease: Estimated GFR < 60 mL/min/1.73m2 Severe Kidney Disease: Estimated GFR < 15 mL/min/1.73m2 Glucose Random 106 60-115 mg/dL Calcium 9.6 8.4-10.2 mg/dL Reason For Referral No Information Medications Medication SIG (Take, Route, Frequency, Duration) Notes Start Date End Date Status hydrALAZINE HCl 50 MG 1 tablet with food Orally Twice a day Active Ventolin HFA * 108 (90 Base) MCG/ACT 2 puffs as needed Inhalation every 4 hrs for 30 day(s) 09/03/2011 Not-Taking Glucosamine Chondr Complex 500-400 MG 1 capsule with a meal Orally Once a day Active hydrALAZINE HCl 25 MG 1 tablet with food Orally Twice a day Active Dilt-XR 240 MG TAKE 1 CAPSULE BY MO UTH EVERY DAY ON EMPTY STOMACH IN THE MORNING 90 for 90 Active Atenolol 25 MG TAKE 1 TABLET BY NEELIMA TH EVERY DAY for 90 Active Tylenol Extra Strength 500 MG 2 tablets as needed Orally every 6 hrs Not-Taking Diflucan 150 MG 1 tablet Orally deysi y for 5 days 09/30/2022 Not-Taking Vitamin C 500 MG 1 tablet Orally ever y other day Active Probiotic 250 MG 1 capsule Orally onc e a day Active Clopidogrel Bisulfate 75 MG TAKE 1 TABLET BY MOUTH 1 TIME EACH DAY 90 for 90 Active Vitamin D3 25 MCG (1000 UT) 1 capsule Orally Once a day for 30 day(s) Active Immunizations Vaccine Route Administration Date Status [...] Problem Status W/U Status Risk Notes Problem 61508883 Hypokalemia (E87.6) Active confirmed Problem 772776934042154 Atherosclerosis of renal artery (I70.1) Active confirmed Problem 29683182432741461 Sciatica, righ t side (M54.31) Active confirmed Problem 25515001 Essential hypertension (I10) Active confirmed Problem Osteoporosis (44898215) Osteoporosis (M81.0) Active confirmed Problem 155135140 Renal artery stenosis (I70.1) Active confirmed Problem 97501343 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 Problem 763897755 History of pulmonary embolus (PE) (Z86.711) Active confirmed Problem 76812928 Dysthymia (F34.1) Active confirmed Problem 89684304 Iron deficiency anemia, unspecified iron deficiency anemia type (D50.9) Active confirmed Problem 44008900 Claudication (I73.9) Active confirmed Problem 636179727 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) Active confirmed Problem 52640315 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) Active confirmed Problem 12640237 Aortic dilatatio n (I77.819) Active confirmed Problem 68952432176937046 Bilateral carp al tunnel syndrome (G56.03) Active confirmed Problem 03174057 Asymptomatic stenosis of right carotid artery (I65.21) Active confirmed Problem 8565777642064 Bilateral tinnitus (H93.13) Active confirmed Problem 110151917 Malignant neoplasm of colon, unspecified part of colon (C18.9) Active confirmed Problem 63858845 Uterine prolapse (N81.4) Active confirmed Problem 527973328 Osteopenia determined by x-ray (M85.80) Active confirmed Problem Intermittent spinal claudication (658527000) Intermittent spinal claudication (G95.19) Active confirmed Problem 1092444052593 Left-sided tinnitus (H93.12) Active confirmed Problem 347139856 Intracranial aneurysm (I67.1) Active confirmed Problem Stricture of artery (55557300) 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 Problem 713401255 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) Active confirmed Problem 839609061 Carotid artery tenderness (G90.01) Active confirmed Vital Signs Blood pressure diastolic 56 mm Hg 10/05/2024 Height 60 in 10/05/2024 Blood pressure systolic 138 mm Hg 10/05/2024 Weight 105 lbs 10/05/2024 BMI 20.5 kg/m2 10/05/2024 Encounters Encounter Location Date Provider Diagnosis Wood Conti MD [address] [place], [place] [id number] 06/28/2024 Wood Conti Blood tests for routine general physical examination Z00.00 ; Essential hypertension I10 ; Iron deficiency anemia, unspecified iron deficiency anemia type D50.9 and Hypokalemia E87.6 Wood Conti MD [address] [place] [id number] 01/02/2024 Wood Conti Encounter for immunization Z23 and Essential hypertension I10 Wood Conti MD [address] [place] [id number] 07/05/2024 Wood Conti Annual physical exam Z00.00 ; Essential hypertension I10 ; Spinal stenosis M48.00 and Bilateral carotid artery stenosis I65.23 Wood Conti MD [address] [place] [id number] 10/05/2024 Wood Conti Encounter for genera l adult medical examination with abnormal findings Z00.01 and Renal artery stenosis I70.1 Wood Conti MD [address] [place] [address] [address] [place] [id number] 05/21/2024 Wood Conti Assessments Encounter Date Diagnosis (ICD Code) Assessment Notes Treatment Notes Treatment Clinical Notes Section Notes 06/28/2024 Blood tests for routine general physical examination (ICD-10 - Z00.00) 01/02/2024 Encounter for immunization (ICD-10 - Z23) administered flu vaccine today have discussed the covid shot with her. 01/02/2024 Essential hypertension (ICD-10 - I10) running on the low side. she is making adjustments on her meds to keep bp controlled. is going to see egg candler next month 07/05/2024 Annual physical exam (ICD-10 - Z00.00) labs reviewed and discussed with patient 07/05/2024 Essential hypertension (ICD-10 - I10) doing well, will continue current regiment 10/05/2024 Encounter for general adult medical examination with abnormal findings (ICD-10 - Z00.01) 10/05/2024 Renal artery stenosis (ICD-10 - I70.1) followed by vascular surgery/ pat'tient intolerant of all statins. dr ge recommended injectable. have explined that she needs them but she says if her copay is too high she won't take them 06/28/2024 Essential hypertension (ICD-10 - I10) 07/05/2024 Spinal stenosis (ICD-10 - M48.00) need mri spine from dr cartagena in february/ has a positve grocery cart sign report scanned in chart 06/28/2024 Iron deficiency anemia, unspecified iron deficiency anemia type (ICD-10 - D50.9) 07/05/2024 Bilateral carotid artery stenosis (ICD-10 - I65.23) have dr valentin do carotid study, pending diagnostic testing/ Spoke with Dr. Valentin office they will be booking her for a Carotid US in September. 06/28/2024 Hypokalemia (ICD-10 - E87.6) Plan Of [...] skeleton 06/10/2020 Next Appt Details Provider Name:Wood solis, 01/07/2025 10:00:00 AM, [address] [place] [address], [address], [phone], Provider Name:Wood hidalgor, 07/01/2025 07:45:00 AM, [address] [place] [address], [address], [phone], Provider Name:Wood Nash ier, 07/08/2025 10:30:00 AM, [address] [place] [address], [address], [phone], Provider Name:Wood Nash ier, 10/10/2025 09:30:00 AM, [address] [place] [address], [address], [phone], Insurance Providers Payer Name Payer Address Payer Phone Subscriber Number Group Number Insured Name Patient Relationship to Insured Coverage Start Date Coverage End Date [facility] MEDICARE ADVANTAGE PLAN ONE [facility] [address] [place] [phone] [id number] Gaviota Roth Self - patient is the insured [employer] [address] [place] [address] [phone] [id number] IraGaviota garvey Self - patient is the insured Medical [...] flu vac 12/18 carotid ultrasound yearly at vascular [facility] - next is due Dec 2014 Abscess of anal and rectal regions RADHA-inhibitor cough Surgical History Surgery Date(Month/Year) Gallbladder removed 12/28/2011 colon resection (hemicolectomy) 11/23/19 13 Excision Ganglion Cyst, Rt Foot 04/27/19 18
--- OUTSIDE RECORDS SUMMARY | 2024-12-04 07:49 | XMS_ITS | Patient Health Record ---
Author Organization [facility] Address [address] [place] [address] Care Team Providers Care Sheet Pile Driver Operator Name Role Phone Gallito SHINE, Wood Primary Care Provider Saul Templeton [phone] Allergies Allergen (clinical drug ingredient) Drug/Non Drug Allergy documented on EMR Reaction Allergy Type Onset Date Status atorvastatin Atorvastatin Calcium Unknown Drug Allergy Active [...] Allergy Active MiraLax Unknown Drug Allergy Active lisinopril Lisinopril Unknown Drug Allergy Activ e irbesartan Irbesartan Unknown Drug Allergy Activ e Hydralazine-HCTZ Unknown Drug Allergy Active fluconazole Fluconazole Unknown Drug Allergy Act ning metronidazole Flagyl Unknown Drug Allergy Act ning calcium carbonate Calcium Unknown Drug Allergy Active Reason For Referral [...] capsule Orally Once a day Active Vitamin G86-Dvnmp Acid 500-400 MCG 1 Orally QOD Active [...] Problem Status W/U Status Risk Notes Problem 001213459 Encounter for screening for malignant neoplasm of colon (Z12.11) Active confirmed Problem 995520152 History of adenomatous polyp of colon (Z86.010) Active confirmed Problem Screening for malignant neoplasm of rectum (265552996) Encounter for screening for malignant neoplasm of rectum (Z12.12) Active confirmed Problem 59980070 Preprocedural examination (Z01.818) Active confirmed Problem History of polyp of colon (situation) (418400622) History of colon polyps (Z86.010) Active confirmed Problem 301891152 History of colon cancer (Z85.038) Active confirmed Problem 53587134 Constipation, unspecified constipation type (K59.00) Active confirmed Problem 26429390 Hypertension, unspecified type (I10) Active confirmed Problem 831292577 Abdominal pain, diffuse (R10.84) Active confirmed Problem History of gastrointestinal tract bypass (584862187) Hx of Billroth II operation (Z98.0) Active confirmed Plan Of Treatment Pending Test Test Name Order Date BUN 10/02/2013 CREATININE 10/02/2013 Future Test Test Name Order Date COLONOSCOPY 09/16/2015 COLONOSCOPY 11/21/2018 COLONOSCOPY 04/10/2021 Insurance Providers Payer Name Payer Address Payer Phone Subscriber Number Group Number Insured Name Patient Relationship to Insured Coverage Start Date Coverage End Date [facility] [address] [facility] [phone] [id number] MORAIMA MACIAS Self - patient is the insured Medical (General) History Medical History History ICD Code EGD 09-21-2005-duodenitis History of tubular adenomas removed from the [...] History Surgery Date(Month/Year) Rectocele repair-Dr. Daniel- -2010--at [facility]--had complications of Afib and Blood clots Cholecystectomy-2011 Right colectomy for colon cancer-11/2012- Dr. Kiera White-as above Cataract-lens implants 03/2018 Cyst removal on right foot 04/27/2017 Cerebral aneurysm repair with coil [address] Beltre 01/31/20 Bilateral oopherectomy
[2024-12-04 08:42] LABS: Anion Gap 14 (12-20); Blood Urea Nitrogen 29 mg/dL (9-16); Calcium 10.0 mg/dL (8.4-10.2); Carbon Dioxide 28 mmol/L (22-29); Chloride 106 mmol/L (96-108); Estimated Glomerular Filt Rate 35; Potassium 3.8 mmol/L (3.3-5.1); Sodium 144 mmol/L (135-145)
== END 2024-12-04 07:41 | disposition home or self-care (01) ==
LOC: HO.LAB 07:40
PROVIDERS: PCP Internal Medicine; Visit Provider Internal Medicine Hypertension Specialist
DX: N18.30 Chronic kidney disease, stage 3 unspecified (principal)
CPT/HCPCS: 36415; 80048

== ENCOUNTER 2024-12-11 11:28 | Outpatient (AMB) | payer MEDICARE, SELFPAY ==
--- OUTSIDE RECORDS SUMMARY | 2024-01-02 06:15 | XMS_ITS ---
Author Organization Wood Conti MD Address [address] [place], [place] [id number] Care Team Providers Care Curator Zoological Museum Name Role Phone Wood Conti Primary Care Provider Allergies Allergen (clinical drug ingredient) Drug/Non Drug [...] 240 MG TAKE 1 CAPSULE BY MO [facility] EVERY DAY ON EMPTY STOMACH IN THE [...] Location Date Provider Diagnosis Wood Conti MD [address] [place] [address] [place] [phone] 01/02/2024 Wood Conti Encounter for immunization Z23 [...] keep bp controlled. is going to see movie extra next month Plan Of Treatment Treatment Notes Assessment Notes Encounter for immunization administered flu vaccine today Essential hypertension running on the lo w side. she is making adjustments on her meds to keep bp controlled. is going to see movie extra next month Next Appt Details Provider Name:Wood solis, 01/07/2025 10:00:00 AM, [address] [place] [address], Suite [facility], [place], [place], [phone], Provider Name:Wood solis, 07/01/2025 07:45:00 AM, [address] [place] [address], Suite [facility], [place], [place], [phone], Provider Name:Wood solis, 07/08/2025 10:30:00 AM, [address] [place] [address], [facility] [address], [place], [place], [phone], Provider Name:Wood Nash ier, 10/10/2025 09:30:00 AM, [address] [facility], [address], [place], [place], [phone], Progress Notes * Gaviota MACIASDOB:1945 (6 0 yo F)Acc No.[id number]:01/02/2024 Progress Notes Patient: Gaviota Brice Provider: Tang Conti MD :1945 A ge:78 Y S ex:Female Date:01/02/2024 Address: [facility] Subjective: * Chief Complaints: * 6 mo [...] 9 0662 FLU VACC PRSV FREE INC [id number] ADMN FLU VAC NO FEE SCHED SAME DAY * Preventive Medicine: Immunizations: I nfluenza H ave you had a flu shot since the most recent November 05? Y es. * * Sign off status: Completed true * Provider: Tang Conti MD Date: Generated for Albert whitley/Dina/eTwilmersmitting on: 02:30 PM EDT History and Physical Notes * HPI [...]
--- OUTSIDE RECORDS SUMMARY | 2024-05-21 05:25 | XMS_ITS ---
Author Organization Wood Conti MD Address [address] [place] [phone] Care Team Providers Care Sprayer Machine Name Role Phone Wood Conti Primary Care Provider REASON FOR VISIT HCC Risk Codes 10/05 Encounters Encounter Location Date Provider Diagnosis Wood Conti MD [address] [place] [address] [place] [phone] 05/21/2024 Wood Conti Plan Of Treatment Next Appt Details Provider Name:Wood Nash ier, 01/07/2025 10:00:00 AM, [address] [place] [address], [phone], Provider Name:Wood Nash ier, 07/01/2025 07:45:00 AM, [address] [place] [address], [phone], Provider Name:Wood Nash ier, 07/08/2025 10:30:00 AM, [address] [place] [address], [phone], Provider Name:Wood Nash ier, 10/10/2025 09:30:00 AM, [address] [place] [address], [phone], Progress Notes * Gaviota MACIASDOB:1945 ([age] yo F)Acc No.[id number]:05/21/2024 Patient: Gaviota PUENTE :1945 A ge:78 Y S ex:Female Address:[address] [place] [address] * true * Date: Generated for Albert whitley/Dina/Raul on: 02:30 PM EDT
--- OUTSIDE RECORDS SUMMARY | 2024-06-28 03:30 | XMS_ITS ---
Author Organization Wood Conti MD Address [address] [place], [place] [phone] Care Team Providers Care Treating Engineer Helper Name Role Phone Wood Conti Primary Care Provider Results Component Value Reference Range Notes Complete Blood Count Auto Di ff Reviewed date:06/28/2024 05:04:02 PM Interpretation: Performing Lab:[facility], [address] [place] [phone] Notes/Report: White Blood Count 7.0 4.8-10.8 X10*3/uL Red Blood Count 4.18 4.20-5.50 X10*6/uL Hemoglobin 13.0 12.0-16.0 g/dl Hematocrit 38.9 37.0-47.0 % Mean Corpuscular Volume 93.1 80.0-98.0 fL Mean Corpuscular Hemoglobin 31.1 27.0-33.0 pg Mean Corpuscular HGB Conc 33.4 31.0-35.0 g/dl Red Cell Distribution Width 12.4 11.0-16.0 % Platelet Count 179 160-400 X10*3/uL Mean Platelet Volume 10.3 9.4-12.3 fL Neutrophils Percent Auto 54.3 45-73 % Imm Gran Pct Auto 0.4 0.0-0.4 % Lymphocytes Percent Auto 28.8 20-40 % Monocytes Percent Auto 9.5 2-11 % Eosinophils Percent Auto 6.1 0-4 % Basophils Percent Auto 0.9 0-2 % NRBC Pct Auto 0.0 0.0-0.2 /100WBC Neutrophils Absolute Auto 3.8 2.0-8.3 x10*3/u L Imm Gran Abs Auto 0.03 0.00-0.03 X10*3/uL Lymphocytes Absolute Auto 2.0 1.2-4.9 X10*3/u L Monocytes Absolute Auto 0.7 0.1-1.2 X10*3/uL Eosinophils Absolute Auto 0.4 0.0-0.4 X10*3/u L Basophils Absolute Auto 0.1 0.0-0.2 X10*3/uL NRBC Abs Auto 0.000 0.0-0.012 X10*3/uL Comprehensive [place]. Panel Fa st Reviewed date:06/28/2024 05:07:44 PM Interpretation: Performing Lab:[facility], [address] [place] [phone] Notes/Report: Sodium 141 135-145 mmol/L Potassium 4.2 3.3-5.1 mmol/L Chloride 104 96-108 mmol/L Carbon Dioxide 29 22-29 mmol/L Anion Gap 12 12-20 Blood Urea Nitrogen 28 9-16 mg/dL Creatinine 1.34 0.5-1.4 mg/dL Estimated Glomerular Filt Rate 38 Chronic Kidney Disease: Estimated GFR < 60 mL/min/1.73m2 Severe Kidney Disease: Estimated GFR < 15 mL/min/1.73m2 Glucose Fasting 89 60-99 mg/dL Calcium 9.9 8.4-10.2 mg/dL Bilirubin Total 0.7 0.0-1.0 mg/dL Aspartate Amino Transferase 33 5-31 U/L Alanine Aminotransferase 19 0-31 U/L Total Protein 7.3 6.5-8.0 g/dL Albumin Level 4.5 3.5-5.0 g/dL Alkaline Phosphatase 53 39-117 U/L IRON PROFILE Reviewed date:06/28/2024 04:54:00 PM Interpretation: Performing Lab:[facility], [address] [place] [phone] Notes/Report: Iron 124 30-160 mcg/dL Total Iron Binding Capacity 283 228-428 mcg/d L Percent Iron Saturation 44 15-50 % Unsaturated Iron Binding 159 Lipid Panel Reviewed date:06/28/2024 04:53:52 PM Interpretation: Performing Lab:[facility], [address] [place] [phone] Notes/Report: Triglycerides 174 <150 mg/dL Desirable Triglyceride: less than 150 mg/dL Borderline High Triglyceride 150-199 mg/dL High Triglyceride: 200-499 mg/dL Very High Triglyceride: greater than or equal to 5OO mg/dL Cholesterol 180 <200 mg/dL Desirable Cholesterol: less than 200 mg/dL Borderline High Cholesterol: 200-239 mg/dL High Cholesterol: greater than 239 mg/dL LDL Cholesterol Calculated 101 <100 mg/dL Desirable LDL: less than 100 mg/dL Near Optimal/Above Optimal LDL: 110-129 mg/dL Borderline High LDL: 130-159 mg/dL High LDL: 160-189 mg/dL Very High LDL: greater than or equal to 190 mg/dL HDL Cholesterol 45 >40 mg/dL Desirable HDL: greater than 40 mg/dL Note: This HDL assay may give artificially low results in patients with liver disease. UA ClnCatch+Micro w/rflx Cul t Reviewed date:06/30/2024 10:00:58 AM Interpretation: Performing Lab:[facility], [address] [place] [phone] Notes/Report: Urine, Clean Catch Color Urine Yellow Appearance Urine Clear PH 7.5 5.0-9.0 Glucose Urine UA Negative Negative mg/dL Urine Blood Negative Negative Specific [place] - Urine 1.010 1.005-1.025 Urine Protein Negative Neg-Trace mg/dL Urine Ketones Negative Negative mg/dL Nitrite Urine Negative Negative Leukocyte Esterase Urine Trace Negative RBC Urine 0-2 0-2 /HPF WBC Urine 0-5 0-5 /HPF Squamous Epithelial Cell Urine 0-2 0-2 /HPF Bacteria Urine None Seen None Seen Hyaline Casts Urine 0-2 0-2 /LPF REASON FOR VISIT fastng labs Encounters Encounter Location Date Provider Diagnosis Wood Conti MD [address] [place], [place] [phone] 06/28/2024 Wood Conti Blood tests for routine general physical examination Z00.00 ; Essential hypertension I10 ; Iron deficiency anemia, unspecified iron deficiency anemia type D50.9 and Hypokalemia E87.6 Assessments Encounter Date Diagnosis (ICD Code) Assessment Notes Treatment Notes Treatment Clinical Notes Section Notes 06/28/2024 Blood tests for routine general physical examination (ICD-10 - Z00.00) 06/28/2024 Essential hypertension (ICD-10 - I10) 06/28/2024 Iron deficiency anemia, unspecified iron deficiency anemia type (ICD-10 - D50.9) 06/28/2024 Hypokalemia (ICD-10 - E87.6) Plan Of Treatment Next Appt Details Provider Name:Wood Nash ier, 01/07/2025 10:00:00 AM, [address] [place] [address], [address] [place] [address], [phone], Provider Name:Wood Nam Saad ier, 07/01/2025 07:45:00 AM, [address] [place] [address], [address] [facility], [place], [place], [phone], Provider Name:Wood Nash ier, 07/08/2025 10:30:00 AM, [address] [place] [address], [address] [place] [address], [phone], Provider Name:Wood Nash ier, 10/10/2025 09:30:00 AM, [address] [place] [address], [address] [place] [address], [phone], Progress Notes * Gaviota MACIASDOB:1945 ([age] yo F)Acc No.[id number]:06/28/2024 Progress Note Patient: Gaviota PUENTE Provider: Tang Conti MD :1945 A ge:78 Y S ex:Female Date:06/28/2024 Address:[address] [place], [place] [phone] Subjective: * Chief Complaints: * 1 . Fastng labs. * Medical History: Objective: * Vitals: Assessment: * Assessment: 1. B lood tests for routine general physical examination - Z00.00 (Primary) 2 .?Essential hypertension - I10 3 . I inder deficiency anemia, unspecified iron deficiency anemia type - D50.9 4 . H ypokalemia - E87.6 Plan: * Treatment: 2. E ssential hypertension L AB: Complete Blood Count Auto Diff (Collection Date & Time - 06/28/2024 07:30 AM) L AB: Comprehensive [place]. Panel Fast (Collection Date & Time - 06/28/2024 07:30 AM) L AB: IRON PROFILE (Collection Date & Time - 06/28/2024 07:30 AM) L AB: Lipid Panel (Collection Date & Time - 06/28/2024 07:30 AM) L AB: UA ClnCatch+Micro w/rflx Cult (Collection Date & Time - 06/28/2024 07:30 AM) 3. I inder deficiency anemia, unspecified iron deficiency anemia type L AB: Complete Blood Count Auto Diff (Collection Date & Time - 06/28/2024 07:30 AM) L AB: Comprehensive [place]. Panel Fast (Collection Date & Time - 06/28/2024 07:30 AM) L AB: IRON PROFILE (Collection Date & Time - 06/28/2024 07:30 AM) L AB: Lipid Panel (Collection Date & Time - 06/28/2024 07:30 AM) L AB: UA ClnCatch+Micro w/rflx Cult (Collection Date & Time - 06/28/2024 07:30 AM) 4. H ypokalemia L AB: Complete Blood Count Auto Diff (Collection Date & Time - 06/28/2024 07:30 AM) L AB: Comprehensive [place]. Panel Fast (Collection Date & Time - 06/28/2024 07:30 AM) L AB: IRON PROFILE (Collection Date & Time - 06/28/2024 07:30 AM) L AB: Lipid Panel (Collection Date & Time - 06/28/2024 07:30 AM) L AB: UA ClnCatch+Micro w/rflx Cult (Collection Date & Time - 06/28/2024 07:30 AM) * Procedure Codes: 3 6415 VENIPUNCT, ROUTINE* * * The named appointment provid er may or may not be the originator of this progress note, and it is not deemed complete until electronically signed by the appointment provider. Sign off status: Pending * Provider: Tang Conti MD Date: 0 06/28/2024 Generated for Avei ng/Prettyg/eTransmitting on: 1 02:29 PM EDT
--- OUTSIDE RECORDS SUMMARY | 2024-07-05 07:00 | XMS_ITS ---
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 Name Role Phone Wood Conti Primary Care Provider [phone] Allergies Allergen (clinical drug ingredient) Drug/Non Drug [...] tongue Drug Allergy Active REASON FOR VISIT annual exam Medications Medication SIG (Take, Route, Frequency, Duration) Notes Start Date End Date Status Glucosamine Chondr Complex 500-400 MG 1 capsule with a meal Orally Once a day Active Vitamin C 500 MG 1 tablet Orally ever y other day Active Probiotic 250 MG 1 capsule Orally onc e a day Active Vitamin D3 25 MCG (1000 UT) 1 capsule Orally Once a day for 30 day(s) Active Ventolin HFA * 108 (90 Base) MCG/ACT 2 puffs as needed Inhalation every 4 hrs for 30 day(s) 09/03/2011 Not-Taking Folic Acid 400 MCG 1 tablet Orally Once a day for 30 day(s) Active Tylenol Extra Strength 500 MG 2 tablets as needed Orally every 6 hrs Not-Taking Dilt-XR 240 MG TAKE 1 CAPSULE BY [facility] EVERY DAY ON EMPTY STOMACH IN THE MORNING Active Atenolol 25 MG TAKE 1 TABLET BY [facility] EVERY DAY Active Diflucan 150 MG 1 tablet Orally deysi y for 5 days 09/30/2022 Not-Taking Clopidogrel Bisulfate 75 MG TAKE 1 TABLET BY MOUTH 1 TIME EACH DAY 90 for 90 Active Social History Tobacco Use: Social History Observation [...] ast year? No Points 0 Interpretation Negative Vital Signs Blood pressure systolic 112 mm Hg 07/06/19 25 Blood pressure diastolic 60 mm Hg 025 Height 60 in 07/05/2024 Weight 107 lbs 07/05/2024 BMI 20.89 kg/m2 07/05/2024 Encounters Encounter Location Date Provider Diagnosis Wood Conti MD [address] [place] [address] [place] [phone] 07/05/2024 Wood Conti Annual physical exam Z00.00 ; Essential hypertension I10 ; Spinal stenosis M48.00 and Bilateral carotid artery stenosis I65.23 Assessments Encounter Date Diagnosis (ICD Code) Assessment Notes Treatment Notes Treatment Clinical Notes Section Notes 07/05/2024 Annual physical exam (ICD-10 - Z00.00) labs reviewed and discussed with patient 07/05/2024 Essential hypertension (ICD-10 - I10) doing well, will continue current regiment 07/05/2024 Spinal stenosis (ICD-10 - M48.00) need mri spine from dr cartagena in february/ has a positve grocery cart sign report scanned in chart 07/05/2024 Bilateral carotid artery stenosis (ICD-10 - I65.23) have dr valentin do carotid study, pending diagnostic testing/ Spoke with Dr. Valentin office they will be booking her for a Carotid US in September. Plan Of Treatment Medication Medication Name Sig Start Date Stop Date Notes Dilt-XR 240 MG TAKE 1 CAPSULE BY [facility] EVERY DAY ON EMPTY STOMACH IN THE MORNING Atenolol 25 MG TAKE 1 TABLET BY MOUTH EVERY DAY Treatment Notes Assessment Notes Annual physical exam labs reviewed and d iscussed with patient Essential hypertension doing well, will continue current regiment Spinal stenosis need mri spine from dr cartagena in february/ has a positve grocery cart sign report scanned in chart Bilateral carotid artery stenosis have arnaldo valentin do carotid study, pending diagnostic testing/ Spoke with Dr. Valentin office they will be booking her for a Carotid US in September. Next Appt Details Follow Up: october, Reason: Provider Name:Wood hidalgor, 01/07/2025 10:00:00 AM, [address] [place] [address], [address] [place] [address], [phone], Provider Name:Wood Nash ier, 07/01/2025 07:45:00 AM, [address] [place] [address], Suite [facility], [place], [place], [phone], Provider Name:Wood hidalgor, 07/08/2025 10:30:00 AM, [address] [place] [address], [address], [phone], Provider Name:Wood hidalgor, 10/10/2025 09:30:00 AM, [address] [place] [address], [address] [place] [address], [phone], Progress Notes * GILBERTO, SakinavernaDOB:1945 ([age] yo F)Acc No.[id number]:07/05/2024 Progress Notes Patient: Gaviota PUENTE Provider: Tang Conti MD :1945 A ge:78 Y S ex:Female Date:07/05/2024 Address: [facility] Subjective: * Chief Complaints: * A nnual exam * HPI: D epression Screening: PHQ-9 L ittle interest or pleasure in doing things N ot at all, F eeling down, depressed, or hopeless N ot at all, T rouble falling or staying asleep, or sleeping too much N ot at all, F eeling tired or having little energy N ot at all, P oor appetite or overeating N ot at all, F eeling bad about yourself or that you are a failure, or have let yourself or your family down N ot at all, T rouble concentrating on things, such as reading the newspaper or watching television N ot at all, M oving or speaking so slowly that other people could have noticed; or the opposite, being so fidgety or restless that you have been moving around a lot more than usual N ot at all, T houghts that you would be better off or of hurting yourself in some way N ot at all, T otal Score 0 . I nterpretation and Intervention D epression Screening Findings N egative, F ollow-Up for Depression : review of PHQ-9 found negative result, no follow-up needed. C ommunication Needs: Communication Needs D oes the patient have a hearing impairment N o, D oes the patient have a vision impairment? Y es, I f yes, what is the vision impairment? G lasses, D oes the patient have a cognition impairment? N o. F all Risk: History H ave you had any falls with injury in the past year? N o, H ave you had two or more falls in the past year? N o. S XAVIER Questions: SDOH Questions I n the past year have you been worried about losing housing? N o, I n the past year have you or any family members you live with been unable to get any of the following when it was really needed? Check all that apply: N one. S ymptom(s): patient is a 78 yo female here for annual visit with review of recent labs and follow up of chronic issues.slowly getting worse. stopped her hydralzine 8 months ago./ can't walk in the house due to tired legs. talked to dr tran and he said to see dr valentin. last mri had spinal stenosis/ in had an episode where she was unable to speak and words were jumbled. lasted 1.5 hours. * ROS: G eneral/Constitutional: Change in appetite d enies. C hills d enies. F ever d enies. O phthalmologic: Blurred vision d enies. D ischarge d enies. P ain d enies. E NT: Decreased hearing d enies. S ore throat d enies.?Swollen glands d enies. E ndocrine: Cold intolerance d enies. E xcessive thirst d enies. H eat intolerance d enies. W eight loss d enies. R espiratory: Cough d enies. S hortness of breath at rest d enies. S hortness of breath with exertion d enies. W heezing d enies. C ardiovascular: Chest pain at rest d enies. C hest pain with exertion?denies. I rregular heartbeat d enies. S hortness of breath d enies. ? G astrointestinal: Abdominal pain d enies. C hange in bowel habits d enies. D iarrhea d enies. N ausea d enies. R ectal bleeding d enies. V omiting d enies . G enitourinary: Blood in urine d enies. D ifficulty urinating d enies. F requent urination d enies. U rinary incontinence D enies. M usculoskeletal: Painful joints d enies. W eakness d enies. ? S kin: Dry skin d enies. I tching d enies. D enies?Mole(s), changes in moles, new moles or any lesions of concern. D enies P hotosensitivity. R brandon d enies. N eurologic: Dizziness d enies. F ainting d enies. H eadache?denies. * Medical History: * Surgical History: * Hospitalization/Major Diagno stic Procedure: * Family History: F ather: 89 yrs, diagnosed with CHF. M other: 58 yrs, diagnosed with Diabetes. 2 son(s) , 2 daughter(s) . . brother - weight problems; one son with crohn\'s disease 1 brother 67, No pertinent family medical history, No pertinent family medical history, Denies mental health/substance abuse family history. * Social History: T obacco Use: T obacco Use/Smoking P atient is a f ormer smoker, H ow long has it been since you last smoked? > 10 years, A dditional Findings: Tobacco Non-User F ormer smoker, currently using no form of tobacco. D rugs/Alcohol: A lcohol Screen D id you have a drink containing alcohol in the past year? N o, P oints 0 , I nterpretation N egative. M iscellaneous: C affeine: yes, frequency: 1 cup coffee and 1 tea at lunch and a can of soda every other day. Children: yes, 4 adult children. Community involvements: no. Exercise: yes, daily stretches weights and walks half hour 3 times a week. Home smoke detector use: yes. Housing: owning. Living with: spouse. Marital status: . Occupation: retired. Pets: cat x1. Travel outside of the [place]: yes. * Medications: T akingFolic Acid 400 MCG Tablet 1 tablet Orally Once a day Glucosamine Chondr Complex 500-400 MG Capsule 1 capsule with a meal Orally Once a day Probiotic 250 MG Capsule 1 capsule Orally once a day Vitamin C 500 MG Tablet 1 tablet Orally every other day Vitamin D3 25 MCG (1000 UT) Capsule 1 capsule Orally Once a day Dilt-XR 240 MG Capsule Extended Release 24 Hour TAKE 1 CAPSULE BY MOUTH EVERY DAY ON EMPTY STOMACH IN THE MORNING Atenolol 25 MG Tablet TAKE 1 TABLET BY MOUTH EVERY DAY Clopidogrel Bisulfate 75 MG Tablet TAKE 1 TABLET BY MOUTH 1 TIME EACH DAY 90 Taking Folic Acid 400 MCG Tablet 1 tablet Orally Once a day Taking Glucosamine Chondr Complex 500- 400 MG Capsule 1 capsule with a meal Orally Once a day Taking Probiotic 250 MG Capsule 1 capsule Orally once a day Taking Vitamin C 500 MG Tablet 1 tablet Orally every other day Taking Vitamin D3 25 MCG (1000 UT) Capsule 1 capsule Orally Once a day Taking Dilt-XR 240 MG Capsule Extended Release 24 Hour TAKE 1 CAPSULE BY MOUTH EVERY DAY ON EMPTY STOMACH IN THE MORNING Taking Atenolol 25 MG Tablet TAKE 1 TABLET BY MOUTH EVERY DAY Taking Clopidogrel Bisulfate 75 MG Tablet TAKE 1 TABLET BY MOUTH 1 TIME EACH DAY 90 Not-Taking/PRNDiflucan 150 MG Tablet 1 tablet Orally daily Tylenol Extra Strength 500 MG Tablet 2 tablets as needed Orally every 6 hrs Ventolin HFA * 108 (90 Base) MCG/ACT Aerosol Solution 2 puffs as needed Inhalation every 4 hrs Not-Taking/PRN Diflucan 150 MG Tablet 1 tablet Orally daily Not-Taking/PRN Tylenol Extra Strength 500 MG Tablet 2 tablets as needed Orally every 6 hrs Not- Taking/PRN Ventolin HFA * 108 (90 Base) MCG/ACT Aerosol Solution 2 puffs as needed Inhalation every 4 hrs DiscontinuedhydrALAZINE HCl 25 MG Tablet 1 tablet with food Orally Three times a day hydrALAZINE HCl 50 MG Tablet 1 tablet with food Orally Three times a day Medication List reviewed and reconciled with the patientDiscontinued hydrALAZINE HCl 25 MG Tablet 1 tablet with food Orally Three times a day Discontinued hydrALAZINE HCl 50 MG Tablet 1 tablet with food Orally Three times a day Medication List reviewed and reconciled with the patient * Allergies: T etracycline HClOxycodone HClFlagyl: rashLisinopril: coughAtivan: hallucinationsAspirin: tongue swellingAtorvastatin Calcium: tongue swellingDiflucan: burning tongueNystatin: burning tongueIrbesartan: burning tonguecontrast dye: kidney damageyes[Allergies Verified] Objective: * Vitals: H t: 60, Wt: 107, BMI:20.89, BP:112/60, Wt-k.53. * P ast Orders: L ab:UA ClnCatch+Micro w/rflx Cult (Order Date - 06/28/2024) (Collection Date & Time - 06/28/2024 07:30 AM) Value Reference Range Color Urine Yellow - Appearance Urine Clear - PH 7.5 5.0-9.0 - Glucose Urine UA Negative Negative - mg/dL Urine Blood Negative Negative - Specific [place] - Urine 1.010 1.005-1.025 - Urine Protein Negative Neg-Trace - mg/dL Urine Ketones Negative Negative - mg/dL Nitrite Urine Negative Negative - Leukocyte Esterase Urine Trace A Negative - RBC Urine 0-2 0-2 - /HPF WBC Urine 0-5 0-5 - /HPF Squamous Epithelial Cell Urine 0-2 0-2 - /HP F Bacteria Urine None Seen None Seen - Hyaline Casts Urine 0-2 0-2 - /LPF L ab:Complete Blood Count Auto Diff (Order Date - 06/28/2024) (Collection Date & Time - 06/28/2024 07:30 AM) Value Reference Range White Blood Count 7.0 4.8-10.8 - X10*3/uL Red Blood Count 4.18 L 4.20-5.50 - X10*6/uL Hemoglobin 13.0 12.0-16.0 - g/dl Hematocrit 38.9 37.0-47.0 - % Mean Corpuscular Volume 93.1 80.0-98.0 - fL Mean Corpuscular Hemoglobin 31.1 27.0-33.0 - pg Mean Corpuscular HGB Conc 33.4 31.0-35.0 - g/ dl Red Cell Distribution Width 12.4 11.0-16.0 - % Platelet Count 179 160-400 - X10*3/uL Mean Platelet Volume 10.3 9.4-12.3 - fL Neutrophils Percent Auto 54.3 45-73 - % Imm Gran Pct Auto 0.4 0.0-0.4 - % Lymphocytes Percent Auto 28.8 20-40 - % Monocytes Percent Auto 9.5 2-11 - % Eosinophils Percent Auto 6.1 H 0-4 - % Basophils Percent Auto 0.9 0-2 - % NRBC Pct Auto 0.0 0.0-0.2 - /100WBC Neutrophils Absolute Auto 3.8 2.0-8.3 - x10* 3/uL Imm Gran Abs Auto 0.03 0.00-0.03 - X10*3/uL Lymphocytes Absolute Auto 2.0 1.2-4.9 - X10* 3/uL Monocytes Absolute Auto 0.7 0.1-1.2 - X10*3/ uL Eosinophils Absolute Auto 0.4 0.0-0.4 - X10* 3/uL Basophils Absolute Auto 0.1 0.0-0.2 - X10*3/ uL NRBC Abs Auto 0.000 0.0-0.012 - X10*3/uL L ab:Comprehensive [place]. Panel Fast (Order Date - 06/28/2024) (Collection Date & Time - 06/28/2024 07:30 AM) Value Reference Range Sodium 141 135-145 - mmol/L Bilirubin Total 0.7 0.0-1.0 - mg/dL Aspartate Amino Transferase 33 H 5-31 - U/L Alanine Aminotransferase 19 0-31 - U/L Total Protein 7.3 6.5-8.0 - g/dL Albumin Level 4.5 3.5-5.0 - g/dL Alkaline Phosphatase 53 39-117 - U/L Potassium 4.2 3.3-5.1 - mmol/L Chloride 104 96-108 - mmol/L Carbon Dioxide 29 22-29 - mmol/L Anion Gap 12 12-20 - Blood Urea Nitrogen 28 H 9-16 - mg/dL Creatinine 1.34 0.5-1.4 - mg/dL Estimated Glomerular Filt Rate 38 - Glucose Fasting 89 60-99 - mg/dL Calcium 9.9 8.4-10.2 - mg/dL L ab:IRON PROFILE (Order Date - 06/28/2024) (Collection Date & Time - 06/28/2024 07:30 AM) Value Reference Range Iron 124 30-160 - mcg/dL Total Iron Binding Capacity 283 228-428 - mc g/dL Percent Iron Saturation 44 15-50 - % Unsaturated Iron Binding 159 - ug/dL L ab:Lipid Panel (Order Date - 06/28/2024) (Collection Date & Time - 06/28/2024 07:30 AM) Value Reference Range Triglycerides 174 H <150 - mg/dL Cholesterol 180 <200 - mg/dL LDL Cholesterol Calculated 101 H <100 - mg/dL HDL Cholesterol 45 >40 - mg/dL L ab:Basic Metabolic Panel (Order Date - 06/12/2024) (Collection Date & Time - 06/12/2024 07:16 AM) Value Reference Range Sodium 144 135-145 - mmol/L Blood Urea Nitrogen 29 H 9-16 - mg/dL Creatinine 1.44 H 0.5-1.4 - mg/dL Glucose Random 106 60-115 - mg/dL Calcium 10.0 8.4-10.2 - mg/dL Potassium 4.1 3.3-5.1 - mmol/L Chloride 106 96-108 - mmol/L Carbon Dioxide 29 22-29 - mmol/L Anion Gap 13 12-20 - Estimated Glomerular Filt Rate 35 - * Examination: G eneral Examination: GENERAL APPEARANCE: w ell developed, well nourished, in no acute distress. HEAD: n ormocephalic, atraumatic. EYES: p upils equal, round, reactive to light and accommodation, sclera non-icteric. EARS: n ormal. ORAL CAVITY: m ucosa moist. THROAT: c lear. NECK/THYROID: n charlee supple, full range of motion, no cervical lymphadenopathy, no bruits. SKIN: w arm and dry, no suspicious lesions. HEART: r egular rate and rhythm, S1, S2 normal, no murmurs.? LUNGS: c lear to auscultation bilaterally. BREASTS: N o mass, no lump. ABDOMEN: s oft, nontender, nondistended, bowel sounds present, normal, no organomegaly , no masses palpable. RECTAL EXAM: g uaiac negative. has stricture so is not able to have full rectal. FEMALE GENITOURINARY: n ot done. EXTREMITIES: n o clubbing, cyanosis, or edema. NEUROLOGIC: n onfocal, motor strength normal upper and lower extremities, sensory exam intact. Assessment: * Assessment: 1. A nnual physical exam - Z00.00 (Primary) 2 . E ssential hypertension - I10 3 . S [place] stenosis - M48.00 4 . B ilateral carotid artery stenosis - I65.23 Plan: * Treatment: 2. E ssential hypertension Continue Dilt-XR Capsule Extended Release 24 Hour, 240 MG, TAKE 1 CAPSULE BY MOUTH EVERY DAY ON EMPTY STOMACH IN THE MORNING; C ontinue Atenolol Tablet, 25 MG, TAKE 1 TABLET BY MOUTH EVERY DAY.? Notes: doing well, will continue current regiment 3. S [place] stenosis Notes: need mri spine from dr cartagena in february/ has a positve grocery cart sign report scanned in chart 4. B ilateral carotid artery stenosis Notes: have dr valentin do carotid study, pending diagnostic testing/ Spoke with Dr. Valentin office they will be booking her for a Carotid US in September. * Procedure Codes: * Follow Up: a ugust * * Sign off status: Completed true * Provider: Tang Conti MD Date: 0 07/05/2024 Generated for Albert whitley/Dina/eTwilmersmitting on: 1 02:29 PM EDT History and Physical Notes * HPI (History of Present Illness) Category Sub-Category Detail Notes Category Not es Symptom(s) patient is a 78 yo female here for annual visit with review of recent labs and follow up of chronic issues.slowly getting worse. stopped her hydralzine 8 months ago./ can't walk in the house due to tired legs. talked to dr tran and he said to see dr valentin. last mri had spinal stenosis/ in had an episode where she was unable to speak and words were jumbled. lasted 1.5 hours Depression Screening PHQ-9 Little inte rest or pleasure in doing things: Not at all Feeling down, depressed, or hopeless: No t at all Trouble falling or staying asleep, or sl eeping too much: Not at all Feeling tired or having little energy: N ot at all Poor appetite or overeating: Not at all Feeling bad about yourself o r that you are a failure, or have let yourself or your family down: Not at all Trouble concentrating on thi ngs, such as reading the newspaper or watching television: Not at all Moving or speaking so slowly that other people could have noticed; or the opposite, being so fidgety or restless that you have been moving around a lot more than usual: Not at all Thoughts that you would be b cornelio off or of hurting yourself in some way: Not at all Total Score: 0 Interpretation and Intervention Depression Theresa valderrama Findings: Negative Follow-Up for Depression: : review of PH Q-9 found negative result, no follow-up needed SDOH Questions SDOH Questions In the past year have you been worried about losing housing?: No In the past year have you or any family members you live with been unable to get any of the following when it was really needed? Check all that apply:: None Fall Risk History Have you had any falls with injury i n the past year?: No Have you had two or more falls in the st year?: No Communication Needs Communication Needs Does the patient have a hearing impairment: No Does the patient have a vision impairmen t?: Yes If yes, what is the vision impairment?: Glasses Does the patient have a cognition impair ment?: No Examination Category Sub-Category Detail Notes Category Not es General Examination GENERAL APPEARANCE: well dev eloped, well nourished, in no acute distress HEAD: normocephalic, atrau matic EYES: pupils equal, round, reactive to light and accommodation, sclera non-icteric EARS: normal THROAT: clear NECK/THYROID: neck supple, full ra nge of motion, no cervical lymphadenopathy, no bruits HEART: regular rate and rhy thm, S1, S2 normal, no murmurs LUNGS: clear to auscultatio n bilaterally ABDOMEN: soft, nontender, non distended, bowel sounds present, normal, no organomegaly , no masses palpable NEUROLOGIC: nonfocal, motor stre ngth normal upper and lower extremities, sensory exam intact SKIN: warm and dry, no alphonso picious lesions EXTREMITIES: no clubbing, cyanosi s, or edema BREASTS: No mass, no lump RECTAL EXAM: guaiac negative. has stricture so is not able to have full rectal FEMALE GENITOURINARY: not done ORAL CAVITY: mucosa moist
--- OUTSIDE RECORDS SUMMARY | 2024-10-05 06:00 | XMS_ITS ---
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 Name Role Phone Wood Conti [...] Allergy Active REASON FOR VISIT follow up appt, [facility] risk code: I48.91 Afib, N18.30 CKD Medications Medication SIG (Take, Route, Frequency, Duration) Notes Start Date End Date Status Dilt-XR 240 MG TAKE 1 CAPSULE BY MO UTH EVERY DAY ON EMPTY STOMACH IN THE MORNING 90 for 90 Active Atenolol 25 MG TAKE 1 TABLET BY NEELIMA TH EVERY DAY Active Tylenol Extra Strength 500 MG 2 tablets as needed Orally every 6 hrs Not-Taking Diflucan 150 MG 1 tablet Orally deysi y for 5 days 09/30/2022 Not-Taking Clopidogrel Bisulfate 75 MG TAKE 1 TABLET BY MOUTH 1 TIME EACH DAY 90 for 90 Active Glucosamine Chondr Complex 500-400 MG 1 capsule with a meal Orally Once a day Active hydrALAZINE HCl 25 MG 1 tablet with food Orally Twice a day Active Vitamin C 500 MG 1 tablet Orally ever y other day Active Probiotic 250 MG 1 capsule Orally onc e a day Active Vitamin D3 25 MCG (1000 UT) 1 capsule Orally Once a day for 30 day(s) Active hydrALAZINE HCl 50 MG 1 tablet with food Orally Twice a day Active Ventolin HFA * 108 (90 Base) MCG/ACT 2 puffs as needed Inhalation every 4 hrs for 30 day(s) 09/03/2011 Not-Taking Social History Tobacco Use: Social History Observation [...] Interpretation Negative Vital Signs Blood pressure systolic 138 mm Hg 10/06/19 25 Blood pressure diastolic 56 mm Hg 025 Height 60 in 10/05/2024 Weight 105 lbs 10/05/2024 BMI 20.5 kg/m2 10/05/2024 Encounters Encounter Location Date Provider Diagnosis Wood Conti MD [address] [place] [address] [address] [place], [place] [phone] 10/05/2024 Wood Conti Encounter for general adult medical examination with abnormal findings Z00.01 and Renal artery stenosis I70.1 Assessments Encounter Date Diagnosis (ICD Code) Assessment Notes Treatment Notes Treatment Clinical Notes Section Notes 10/05/2024 Encounter for general adult medical examination with abnormal findings (ICD-10 - Z00.01) 10/05/2024 Renal artery stenosis (ICD-10 - I70.1) followed by vascular surgery/ pat'tient intolerant of all statins. dr ge recommended injectable. have explined that she needs them but she says if her copay is too high she won't take them Plan Of Treatment Treatment Notes Assessment Notes Renal artery stenosis followed by vascul ar surgery/ pat'tient intolerant of all statins. dr ge recommended injectable. have explined that she needs them but she says if her copay is too high she won't take them Next Appt Details Follow Up: 3 Months, Reason: Provider Name:Wood solis, 01/07/2025 10:00:00 AM, [address] [facility], [address], [place], [place], [phone], Provider Name:Wood Nash ier, 07/01/2025 07:45:00 AM, [address] [facility], Suite [facility], [place], [phone], Provider Name:Wood Nash ier, 07/08/2025 10:30:00 AM, [address] [facility], Suite [facility], [place], [phone], Provider Name:Wood Nash ier, 10/10/2025 09:30:00 AM, [address] [place] [address], Suite [facility], [place], [phone], Progress Notes * GILBERTOGaviota RichardsonDOB:1945 ([age] yo F)Acc No.[id number]:10/05/2024 Progress Note Patient: Gaviota PUENTE Provider: Tang Conti MD :1945 A ge:79 Y S ex:Female Date:10/05/2024 Address:[address] [facility] Karen [id number] Subjective: * Chief Complaints: * F ollow up [facility] risk code: I48.91 Afib, N18.30 CKD * HPI: D epression Screening: PHQ-9 L [...] with injury in the past year? N o. S XAVIER Questions: SDOH Questions I n the past year have you been worried about losing housing? N o, I n the past year have you or any family members you live with been unable to get any of the following when it was really needed? Check all that apply: N one. A nnual Wellness Visit: c/o of A nnual Wellness Visit , Annual Wellness Visit. Medical / Social History Reviewed T he following items were reviewed and updated during today's visit P ast Medical History, [place] [facility], Surgical/Hospitalization History, Current medications including OTC and supplements, Family History, Tobacco use, Alcohol use, Illicit drug use. H ome Safety T hrow rugs? N o, G rab bars? Y es, R aised toilet seats? N o, W orking smoke detectors? Y es, W orking carbon monoxide detectors? Y es. A ctivities of Daily Living (ADLs) D ifficulty bathing or showering? N o, D ifficulty dressing? N o, D ifficulty using the toilet? N o, D ifficulty getting in and out of bed? N o, D ifficulty walking? N o, R eceives help from another person with any of the above N o. E nd-of-Life Planning E nd of Life Planning N ot needed. A nswers for HPI/ROS submitted by the patient C hange in Weight N o, C hange in hearing N o. HRA filled out by the patient, reviewed by Provider and scanned. HRA filled out by the patient, reviewed by Provider and scanned. S ymptom(s): patient is a 79 yo female here for follow up visit h ere for discussion of cholesterol drugs. told her she needs them. AWV completed. * ROS: G eneral/Constitutional: Denies C hills. D enies F atigue. D enies F ever. D enies H eadache. E NT: Denies S ore throat. R espiratory: Denies C ough. D enies S hortness of breath at rest. D enies S hortness of breath with exertion. G astrointestinal: Denies D iarrhea. D enies N ausea. * Medical History: * Surgical History: * [...] the [place]: yes. * Medications: T akinghydrALAZINE HCl 50 MG Tablet 1 tablet with food Orally Twice a day hydrALAZINE HCl 25 MG Tablet 1 tablet with food Orally Twice a day Glucosamine Chondr Complex 500-400 MG Capsule 1 capsule with a meal Orally Once a day Probiotic 250 MG Capsule 1 capsule Orally once a day Vitamin C 500 MG Tablet 1 tablet Orally every other day Vitamin D3 25 MCG (1000 UT) Capsule 1 capsule Orally Once a day Clopidogrel Bisulfate 75 MG Tablet TAKE 1 TABLET BY MOUTH 1 TIME EACH DAY 90 Atenolol 25 MG Tablet TAKE 1 TABLET BY MOUTH EVERY DAY Dilt-XR 240 MG Capsule Extended Release 24 Hour TAKE 1 CAPSULE BY MOUTH EVERY DAY ON EMPTY STOMACH IN THE MORNING 90 Taking hydrALAZINE HCl 50 MG Tablet 1 tablet with food Orally Twice a day Taking hydrALAZINE HCl 25 MG Tablet 1 tablet with food Orally Twice a day Taking Glucosamine Chondr Complex 500-400 MG Capsule 1 capsule with a meal Orally Once a day Taking Probiotic 250 MG Capsule 1 capsule Orally once a day Taking Vitamin C 500 MG Tablet 1 tablet Orally every other day Taking Vitamin D3 25 MCG (1000 UT) Capsule 1 capsule Orally Once a day Taking Clopidogrel Bisulfate 75 MG Tablet TAKE 1 TABLET BY MOUTH 1 TIME EACH DAY 90 Taking Atenolol 25 MG Tablet TAKE 1 TABLET BY MOUTH EVERY DAY Taking Dilt-XR 240 MG Capsule Extended Release 24 Hour TAKE 1 CAPSULE BY MOUTH EVERY DAY ON EMPTY STOMACH IN THE MORNING 90 Not-Taking/PRNDiflucan 150 MG Tablet 1 tablet [...] puffs as needed Inhalation every 4 hrs DiscontinuedFolic Acid 400 MCG Tablet 1 tablet Orally Once a day Medication List reviewed and reconciled with the patientDiscontinued Folic Acid 400 MCG Tablet 1 tablet Orally Once a day Medication List reviewed and reconciled with the patient * Allergies: T etracycline HClOxycodone HClFlagyl: rashLisinopril: coughAtivan: hallucinationsAspirin: tongue swellingAtorvastatin Calcium: tongue swellingDiflucan: burning tongueNystatin: burning tongueIrbesartan: burning tonguecontrast dye: kidney damageyes[Allergies Verified] Objective: * Vitals: H t: 60, Wt: 105, BMI:20.5, BP:138/56, Wt-k.63. * Examination: A WV: Balance . Hearing . EKG Not clinically necessary , Not clinically necessary.? Written plan C ompleted , Completed. Assessment: * Assessment: 1. E ncounter for general adult medical examination with abnormal findings - Z00.01 (Primary)? 2. R enal artery stenosis - I70.1 Plan: * Treatment: * Procedure Codes: G 0439 ANNUAL WELLNESS VST; PPS SUBSQT VST * Preventive Medicine: Counseling: C are goal follow-up plan: C ounseling for abnormal BMI provided?Yes, A chelita Normal BMI Follow-up D ietary management education, guidance, and counseling, Dietary needs education, Giving encouragement to exercise. E xercise . C ommunication to patient: Rosanna prietoeling for nutrition provided Y es, Rosanna ounseling for physical activity provided Y es. S ocial: d iet: D iscussed the importance of eating a nutritious healthy food on a regular basis, e xercise: D iscussed the benefits of any exercise for overall health and well-being, a lcohol and drugs: D iscussed the dangers of excessive alcohol intake. SCREENING: C olonoscopy N ext screening is scheduled, Next screening is scheduled. M ammogram A nnual Mammogram recommended pt will self schedule, Annual Mammogram recommended pt will self schedule. Immunizations: I nfluenza H ave you had a flu shot since the most recent November 05? Y es. C ovid p atient vaccincated, patient vaccincated. Screening/Special Tests: C olonoscopy . M ammogram . * Follow Up: 3 Months * * Sign off status: Completed true * Provider: Tang Conti MD Date: 0 10/05/2024 Generated for Albert whitley/Dina/Raul on: 02:29 PM EDT History and Physical Notes * HPI (History of Present Illness) Category Sub-Category Detail Notes Category Not es Symptom(s) patient is a 79 yo female here for follow up visit here for discussion of cholesterol drugs. told her she needs them. AWV completed. Depression Screening PHQ-9 Little inte rest or [...] Have you had any falls with injury in the past year?: No Communication Needs Communication Needs Does the patient have a hearing impairment: No Does the patient have a vision impairmen t?: Yes If yes, what is the vision impairment?: Glasses Does the patient have a cognition impair ment?: No Annual Wellness Visit of Annual Wellness Vis it , Annual Wellness Visit HRA filled out by the patient, reviewed by Provider and scanned. HRA filled out by the patient, reviewed by Provider and scanned. Medical / Social History Reviewed The fo llowing items were reviewed and updated during today's visit: Past Medical History, [place] [facility], Surgical/Hospitalization History, Current medications including OTC and supplements, Family History, Tobacco use, Alcohol use, Illicit drug use Home Safety Throw rugs?: No Grab bars?: Yes Raised toilet seats?: No Working smoke detectors?: Yes Working carbon monoxide detectors?: Yes Activities of Daily Living (ADLs) Difficulty bat debra or showering?: No Difficulty dressing?: No Difficulty using the toilet?: No Difficulty getting in and out of bed?: N o Difficulty walking?: No Receives help from another person with a ny of the above: No End-of-Life Planning End of Life Planning: Not n eeded Answers for HPI/ROS submitted by the patient Elena cifuentes in Weight: No Change in hearing: No Examination Category Sub-Category Detail Notes Category Not es AWV Balance Romberg: Yes Tandem walk: Yes Walk and Turn: Yes Rise from sit to stand: Yes Hearing Whisper test: Pass . EKG Not clinically christopher beasley , Not clinically necessary Written plan Completed , Complete d
[2024-12-11 11:29] VITALS: BP 142/44; PULSE 61; O2SAT 97; BMI 21.2
--- NOTE | 2024-12-11 11:29 | HO.NEPHOV_ITS ---
Vital Signs 12/11/24 11:29 Height 4 ft 11 in Weight 105 lb BMI 21.2 BP 142/44 H Blood Pressure Location Rt brachial Position Sitting Pulse 61 Pulse Source Pulse Oximeter Pulse Oximetry (%) 97 Oxygen Delivery Method Room Air Intake Visit Reasons: 4 month F/U Senior Technical Trainer Required: No Accompanied by: Self / Same As Patient Allergies Hcoozhn-OSI-RkP Reductase Inhibitor (VRIEIVW-BSV-ZWY REDUCTASE INHIBITOR) Allergy (Severe, Verified 12/11/24 11:31) TONGUE SWELLING vancomycin Allergy (Severe, Verified 12/11/24 11:31) Rash amoxicillin (AMOXICILLIN) Allergy (Intermediate, Verified 12/11/24 11:31) NAUSEA aspirin (ASA) Allergy (Intermediate, Verified 12/11/24 11:31) FEELING OF PEPPER ON TONGUE atorvastatin (ATORVASTATIN) Allergy (Intermediate, Verified 12/11/24 11:31) FEELING OF PEPPER ON TONGUE fluconazole (FLUCONAZOLE) Allergy (Intermediate, Verified 12/11/24 11:31) FEELING OF PEPPER ON TONGUE irbesartan (IRBESARTAN) Allergy (Intermediate, Verified 12/11/24 11:31) SORE TONGUE,GERD metronidazole (Flagyl) Allergy (Intermediate, Verified 12/11/24 11:31) Rash morphine (MORPHINE) Allergy (Intermediate, Verified 12/11/24 11:31) HIVES oxycodone (OXYCODONE) Allergy (Intermediate, Verified 12/11/24 11:31) RASH pepper (genus Capsicum) (PEPPER) Allergy (Intermediate, Verified 12/11/24 11:31) SENSITIVE TO lisinopril (LISINOPRIL) Allergy (Mild, Verified 12/11/24 11:31) COUGH Iodinated Contrast Media (Contrast Dye) Allergy (Unknown, Verified 12/11/24 11:31) Unknown Tetracyclines (TETRACYCLINES) Adverse Reaction (Intermediate, Verified 12/11/24 11:31) SHAKES lorazepam (From ATIVAN) Adverse Reaction (Mild, Verified 12/11/24 11:31) HALLUCINATIONS Medication List - Last Reconciled 12/11/24 by Luis Conley MD [acetaminophen 1,000 mg PO DAILY PRN] ascorbic acid (vitamin C) 500 mg PO DAILY atenolol 25 mg PO DAILY cholecalciferol (vitamin D3) 25 mcg PO DAILY clopidogrel 75 mg PO DAILY Held on 11/17/23. Instructions: Resume on 11/24/23. You may resume Plavix 1 week after surgery diltiazem HCl CD (Cardizem CD) 240 mg PO DAILY PRN garlic 300 mg PO DAILY glucosamine sulfate (Glucosamine) 500 mg PO BID hydralazine 50 mg PO TID hydralazine 25 mg PO TID HPI Comments Details: Gaviota is a elderly woman with a history of for chronic kidney disease in the setting of renal artery stenosis and severe hypertension. She has undergone renal angiogram with angioplasty and stent placement by Dr. Steele. Currently she is on Plavix. She has a history of back pain and lower leg pains. MRI reveals significant disc disease and arthritis. She is being followed by [facility] automotive product specialist From a renal standpoint she is doing very well. No new complaints today. Blood pressure has been well controlled 10/25/23;Underwent carpel tunnel surgery. Doing OK 02/21/24;Doing well; OFF ALL anti hypertensives since November 2023 06/21/24: c/o Fatigue in legs.Has an appointment with in September 2024; Home BP looks good. 08/16/24 78-year-old female presenting with fluctuating blood pressure readings. In the past, her blood pressure was consistently low, allowing her to reduce her medication intake. However, recently there has been an increase in blood pressure levels, occasionally reaching as high as 189/79 mmHg. She reports that her current medication regimen includes Hydralazine, which she prefers over Diltiazem due to better personal control. She regulates her dosage based on current blood pressure readings, taking between 50 mg and 75 mg, noting an improvement in blood pressure control thereafter. 12/11/24 - The patient is an 79-year-old female presenting with hypertension and chest pain. - Hypertension: Blood pressure readings range from 120s to 140s, managed with hydralazine and diltiazem. - Chest pain: Occurs after taking hydralazine 75 mg, leading to rest and cessation of this dose when BP is in the 120s. - Kidney function: Stable with no regimen changes required. [facility] Medical History CKD (chronic kidney disease) Renal artery stenosis Hx of colon cancer, stage III History of colon cancer Joint pain Afib HTN (hypertension) Surgical History History of carpal tunnel surgery of left wrist (~08/2023) Hx of removal of cyst History of colonoscopy History of surgery History of surgery Hx of cerebral aneurysm repair History of renal angiogram Hx of cataract Family History Father No problems noted. Mother No problems noted. Brother CAD (coronary artery disease) Social History Are you a primary out of school hours care worker to a significant other at home: No Do you presently have visiting nurse or other home services: No Patient Tobacco Use Status: Former Tobacco user Tobacco use type: Cigarette Physical Exam Vital Signs: Last Vital Signs Pulse 61 12/11/24 11:29 BP 142/44 H 12/11/24 11:29 Pulse Ox 97 12/11/24 11:29 Oxygen Delivery Method Room Air 12/11/24 11:29 BMI result Body Mass Index 21.2 Comfortable Neck supple no JVD. Lungs entry equal no rales. Heart S1-S2 heard no gallop or rub. Abdomen soft nontender. Neuro alert awake oriented. No asterixis. Extremities no edema. Results Reviewed Nephrology Results: Hgb, (12.0-16.0) 13.0 g/dl 06/28/24 WBC, (4.8-10.8) 7.0 X10*3/uL 06/28/24 Plt Count, (160-400) 179 X10*3/uL 06/28/24 Sodium, (135-145) 144 mmol/L 12/04/24 Potassium, (3.3-5.1) 3.8 mmol/L 12/04/24 Chloride, (96-108) 106 mmol/L 12/04/24 Carbon Dioxide, (22-29) 28 mmol/L 12/04/24 BUN, (9-16) 29 mg/dL H 12/04/24 Creatinine, (0.5-1.4) 1.44 mg/dL H 12/04/24 Calcium, (8.4-10.2) 10.0 mg/dL 12/04/24 Urine Protein, (Neg-Trace) Negative mg/dL 06/28/24 Assessment & Plan Assessment & Plan (1) Renal artery stenosis: Code(s): I70.1 - Atherosclerosis of renal artery Category: Medical (2) CKD (chronic kidney disease) stage 3, GFR 30-59 ml/min: Code(s): N18.30 - Chronic kidney disease, stage 3 unspecified Category: Medical (3) HTN (hypertension): Code(s): I10 - Essential (primary) hypertension Category: Medical Plan Elderly woman with hypertension history of Renal artery stenosis with CKD. Renal function stable with creatinine 1.4 to 1.6. Goal is to slow the progression of disease. Continue to avoid nephrotoxic agents. Hypertension Due to underlying renal artery stenosis. Status post stent placement. Blood pressure is well controlled based on home readings with just on ATENOLOL 25 mg QD Office reading elevated today due to ? white coat effect She should continue low-sodium diet. No changes made to the antihypertensive regimen. History of renal artery stenosis. Status post stent placement. She is being followed by Dr. Steele. Spinal stenosis s/p Carpel tunnel syndrome -defer management to [facility] automotive product specialist Would avoid NSAIDS Renal function is stable Decrease Hydralazine 50 mg TID Orders: Orders Basic Metabolic Panel 6 Months I10 - Essential (primary) hypertension, I70.1 - Atherosclerosis of renal artery, N18.30 - Chronic kidney disease, stage 3 unspecified Medications: Discontinued hydralazine Discontinued Reason: Doctor's Order 25 mg PO TID 90 tabs 0RF Coding Level of Care Code Est Pt Level 4 (43910) Diagnoses Renal artery stenosis I70.1 CKD (chronic kidney disease) stage 3, GFR 30-59 ml/min N18.30 HTN (hypertension) I10
--- OUTSIDE RECORDS SUMMARY | 2024-12-11 14:29 | XMS_ITS | Clinical Summary ---
Author Organization [facility] Address [address] [place] [phone] Phone Care Team Providers Care Lithographic Press Feeder Name Role Phone Wood Conti MD Primary [...] patient's age to complete this topic Insurance [facility] [place], [place] [facility] Care Teams Lithographic Press Feeder Relationship Specialty Start Date End Date Wood Conti MD [address] [place] [address] [address] [place] [address] PCP - General 03/17/20
--- OUTSIDE RECORDS SUMMARY | 2024-12-11 14:30 | XMS_ITS | Encounter Summary ---
Author Organization [facility] Address [address] [place] [address] Care Team Providers Care Florist Supplies Salesperson Name Role Phone Unavailable Primary Care Provider Unavailabl e Encounter Details Date Type Department Care Team (Late st Contact Info) Description 07/25/2018 Scanned Document [facility] [address] [facility] [address] [place], [place] [id number] Provider, Historical . Social History Tobacco Use [...]
--- OUTSIDE RECORDS SUMMARY | 2024-12-11 14:30 | XMS_ITS | Clinical Summary ---
Author Organization [facility] [employer] [facility] Address [address] [place] [address] Care Team Providers Care Image Processing Engineer Name Role Phone Unavailable Primary Care Provider [...] Roth Relation to Subscriber:Self Name:Gaviota Roth Payer ID:[id number] Group ID:Not on file Type:Not on file Address: [address] [phone] COMMERCIAL GENERIC COMMERCIAL GENERIC on file COMMERCIAL GENERIC on file COMMERCIAL GENERIC
--- OUTSIDE RECORDS SUMMARY | 2024-12-11 14:30 | XMS_ITS | Patient Health Record ---
Author Organization [facility] Address [address] [facility] [place] [place] [address] Care Team Providers Care Help Desk Supervisor Name Role Phone Jong Conti Primary Care Provider Tracy Baker Unavailable [phone] Allergies Allergen (clinical drug ingredient) Drug/Non Drug [...] Insured Coverage Start Date Coverage End Date [facility] [address] [place] [address] [phone] [id number] Ira Gaviota Self - patient is the insured Medical (General) History Medical History History ICD Code Arthritis Cancer Gall bladder problems High blood pressure Surgical History Surgery Date(Month/Year) cholecystectomy colon cancer ovarian surgery
--- OUTSIDE RECORDS SUMMARY | 2024-12-11 14:30 | XMS_ITS | Patient Health Record ---
Author Organization Wood Conti MD Address [address] [place], [place] [id number] Care Team Providers Care Loan Counselor Name Role Phone Wood Conti Primary Care Provider [phone] Allergies Allergen (clinical drug ingredient) Drug/Non Drug [...] ff Reviewed date:06/28/2024 05:04:02 PM Interpretation: Performing Lab:[facility], [address] [place] [phone] Notes/Report: White Blood Count 7.0 4.8-10.8 X10*3/uL [...] NRBC Abs Auto 0.000 0.0-0.012 X10*3/uL Comprehensive Patterson. Panel Fa st Reviewed date:06/28/2024 05:07:44 PM Interpretation: Performing Lab:[facility], [address] [place] [phone] Notes/Report: Sodium 141 135-145 mmol/L Potassium 4.2 [...] PROFILE Reviewed date:06/28/2024 04:54:00 PM Interpretation: Performing Lab:[facility], [address] [place] [phone] Notes/Report: Iron 124 30-160 mcg/dL Total Iron Binding Capacity 283 228-428 mcg/d L Percent Iron Saturation 44 15-50 % Unsaturated Iron Binding 159 Lipid Panel Reviewed date:06/28/2024 04:53:52 PM Interpretation: Performing Lab:[facility], [address] [place] [phone] Notes/Report: Triglycerides 174 <150 mg/dL Desirable Triglyceride: [...] t Reviewed date:06/30/2024 10:00:58 AM Interpretation: Performing Lab:[facility], [address] [place] [phone] Notes/Report: Urine, Clean Catch Color Urine Yellow Appearance Urine Clear PH 7.5 5.0-9.0 Glucose Urine UA Negative Negative mg/dL Urine Blood Negative Negative Specific [place] - Urine 1.010 1.005-1.025 Urine Protein Negative [...] ff Reviewed date:02/14/2024 12:41:07 PM Interpretation: Performing Lab:[facility], [address] [place] [phone] Notes/Report: White Blood Count 8.9 4.8-10.8 X10*3/uL [...] Panel Reviewed date:02/14/2024 12:37:12 PM Interpretation: Performing Lab:[facility], [address] [place] [phone] Notes/Report: Sodium 142 135-145 mmol/L Potassium 4.1 [...] Panel Reviewed date:06/12/2024 12:35:00 PM Interpretation: Performing Lab:[facility], [address] [place] [phone] Notes/Report: Sodium 144 135-145 mmol/L Potassium 4.1 [...] Gold Reviewed date:06/28/2024 04:52:11 PM Interpretation: Performing Lab:[address] [phone] Notes/Report: Hold Gold See Note Specimen held untested for 24 hours; Call to request Chemistry testing. Basic Metabolic Panel Reviewed date:08/17/2024 12:47:09 PM Interpretation: Performing Lab:[facility], [address] [place] [phone] Notes/Report: Sodium 142 135-145 mmol/L Potassium 4.2 3.3-5.1 mmol/L Chloride 106 96-108 mmol/L Carbon Dioxide 27 22-29 mmol/L Anion Gap 13 12-20 Blood Urea Nitrogen 29 9-16 mg/dL Creatinine 1.33 0.5-1.4 mg/dL Estimated Glomerular Filt Rate 38 Chronic Kidney Disease: Estimated GFR < 60 mL/min/1.73m2 Severe Kidney Disease: Estimated GFR < 15 mL/min/1.73m2 Glucose Random 106 60-115 mg/dL Calcium 9.6 8.4-10.2 mg/dL Basic Metabolic Panel Reviewed date:12/04/2024 11:52:55 AM Interpretation: Performing Lab:[facility], [address] [place] [phone] Notes/Report: Sodium 144 135-145 mmol/L Potassium 3.8 3.3-5.1 mmol/L Chloride 106 96-108 mmol/L Carbon Dioxide 28 22-29 mmol/L Anion Gap 14 12-20 Blood Urea Nitrogen 29 9-16 mg/dL Creatinine 1.44 0.5-1.4 mg/dL Estimated Glomerular Filt Rate 35 Chronic Kidney Disease: Estimated GFR < 60 mL/min/1.73m2 Severe Kidney Disease: Estimated GFR < 15 mL/min/1.73m2 Glucose Random 98 60-115 mg/dL Calcium 10.0 8.4-10.2 mg/dL Reason [...] 240 MG TAKE 1 CAPSULE BY MO H EVERY DAY ON EMPTY STOMACH IN THE MORNING 90 for 90 Active Atenolol 25 MG TAKE 1 TABLET BY NEELIMA EVERY DAY for 90 Active Tylenol Extra [...] Problem Status W/U Status Risk Notes Problem 98900750 Hypokalemia (E87.6) Active confirmed Problem [id number] Atherosclerosis of renal artery (I70.1) Active confirmed Problem 95786604683827890 Sciatica, righ t side (M54.31) Active confirmed Problem 61501260 Essential hypertension (I10) Active confirmed Problem Osteoporosis (03504155) Osteoporosis (M81.0) Active confirmed Problem 612441077 Renal artery stenosis (I70.1) Active confirmed Problem 70907533 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 Problem 777862922 History of pulmonary embolus (PE) (Z86.711) Active confirmed Problem 93142096 Dysthymia (F34.1) Active confirmed Problem 62323585 Iron deficiency anemia, unspecified iron deficiency anemia type (D50.9) Active confirmed Problem 61667659 Claudication (I73.9) Active confirmed Problem 543735292 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) Active confirmed Problem 18768662 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) Active confirmed Problem 66417913 Aortic dilatatio n (I77.819) Active confirmed Problem 17957245029577890 Bilateral carp al tunnel syndrome (G56.03) Active confirmed Problem 04097730 Asymptomatic stenosis of right carotid artery (I65.21) Active confirmed Problem 1975066462568 Bilateral tinnitus (H93.13) Active confirmed Problem 637277352 Malignant neoplasm of colon, unspecified part of colon (C18.9) Active confirmed Problem 90523170 Uterine prolapse (N81.4) Active confirmed Problem 077333808 Osteopenia determined by x-ray (M85.80) Active confirmed Problem Intermittent spinal claudication (159267923) Intermittent spinal claudication (G95.19) Active confirmed Problem 0871309382324 Left-sided tinnitus (H93.12) Active confirmed Problem 538173374 Intracranial aneurysm (I67.1) Active confirmed Problem Stricture of artery (82981946) 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 Problem 664199099 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) Active confirmed Problem 251191014 Carotid artery tenderness (G90.01) Active confirmed Vital Signs Blood pressure diastolic 56 mm Hg 10/05/2024 Height 60 in 10/05/2024 Blood pressure systolic 138 mm Hg 10/05/2024 Weight 105 lbs 10/05/2024 BMI 20.5 kg/m2 10/05/2024 Encounters Encounter Location Date Provider Diagnosis Wood Conti MD [address] [place] [id number] 06/28/2024 Wood Conti Blood tests for routine general physical examination Z00.00 ; Essential hypertension I10 ; Iron deficiency anemia, unspecified iron deficiency anemia type D50.9 and Hypokalemia E87.6 Wood Conti MD [address] [place] [address] [id number] 01/02/2024 Wood Conti Encounter for immunization Z23 and Essential hypertension I10 Wood Conti MD [address] [place] [address] [address] [place] [id number] 07/05/2024 Wood Conti Annual physical exam Z00.00 ; Essential hypertension I10 ; Spinal stenosis M48.00 and Bilateral carotid artery stenosis I65.23 Wood Conti MD [address] [place] [address] [id number] 10/05/2024 Wood Conti Encounter for genera l adult medical examination with abnormal findings Z00.01 and Renal artery stenosis I70.1 Wood Conti MD [address] [place] [address] [id number] 05/21/2024 Wood Conti Assessments Encounter Date Diagnosis [...] keep bp controlled. is going to see cofounder next month 07/05/2024 Annual physical exam (ICD-10 [...] Provider Name:Wood solis, 01/07/2025 10:00:00 AM, [address] [place] [address], [address], [place], [place], [id number], Provider Name:Wood solis, 07/01/2025 07:45:00 AM, [address] [facility], [address], [place], [place], [phone], Provider Name:Wood hidalgor, 07/08/2025 10:30:00 AM, [address], [address], [place], [place], [phone], Provider Name:Wood Nash ier, 10/10/2025 09:30:00 AM, [address], [address], [place], [id number], Insurance Providers Payer Name Payer Address Payer Phone Subscriber Number Group Number Insured Name Patient Relationship to Insured Coverage Start Date Coverage End Date [employer] [address] [facility] [address] [address] [place] [phone] [id number] IraGaviota garvey Self - patient is the insured [employer] [address] [place] [id number] Gaviota Roth Self - patient is the [...] flu vac 12/18 carotid ultrasound yearly at [facility] - next is due Dec 2014 Abscess of anal and rectal regions RADHA-inhibitor cough Surgical History Surgery Date(Month/Year) Gallbladder removed 12/28/2011 colon resection (hemicolectomy) 11/23/19 13 Excision Ganglion Cyst, Rt Foot 04/27/19 18
--- OUTSIDE RECORDS SUMMARY | 2024-12-11 14:31 | XMS_ITS | Patient Health Record ---
Author Organization [facility] Address [address] [place] [address] Care Team Providers Care Party Plan Sales Unit Sales Leader Name Role Phone Gallito SHINE, Wood Primary Care Provider Saul Templeton [phone] Allergies Allergen (clinical drug ingredient) Drug/Non Drug [...] capsule Orally Once a day Active Vitamin X52-Hwayx Acid 500-400 MCG 1 Orally QOD Active [...] Problem Status W/U Status Risk Notes Problem 782681155 Encounter for screening for malignant neoplasm of colon (Z12.11) Active confirmed Problem 815489042 History of adenomatous polyp of colon (Z86.010) Active confirmed Problem Screening for malignant neoplasm of rectum (814977367) Encounter for screening for malignant neoplasm of rectum (Z12.12) Active confirmed Problem 00306994 Preprocedural examination (Z01.818) Active confirmed Problem History of polyp of colon (situation) (78[address]10084) History of colon polyps (Z86.010) Active confirmed Problem 435764848 History of colon cancer (Z85.038) Active confirmed Problem 32889340 Constipation, unspecified constipation type (K59.00) Active confirmed Problem 11385486 Hypertension, unspecified type (I10) Active confirmed Problem 917461821 Abdominal pain, diffuse (R10.84) Active confirmed Problem History of gastrointestinal tract bypass (026497014) Hx of Billroth II operation (Z98.0) Active confirmed Plan Of Treatment Pending Test Test Name Order Date BUN 10/02/2013 CREATININE 10/02/2013 Future Test Test Name Order Date COLONOSCOPY 09/16/2015 COLONOSCOPY 11/21/2018 COLONOSCOPY 04/10/2021 Insurance Providers Payer Name Payer Address Payer Phone Subscriber Number Group Number Insured Name Patient Relationship to Insured Coverage Start Date Coverage End Date [facility] [address] [facility] [place] [phone] [id number] MORAIMA MACIAS Self - patient is the [...] negative fo r any significant findings Denies PR,DM,CVA,Lung disease,renal dise ase Negative colonoscopy in 12/2013 and 12/06 016 Chronic constipation--she ochoa d some type of surgery with Dr. Daniel in 2010, including a rectocele repair Cerebral aneurysm as below Renal artery stenosis--s/p stent placeme nt Colonoscopy 01/2019 with a hyperplastic polyp removed Surgical History Surgery Date(Month/Year) Rectocele repair-Dr. Daniel- -2010--at [facility]--had complications of Afib and Blood clots Cholecystectomy-2011 Right colectomy for colon cancer-11/2012- Dr. Kiera White-as above Cataract-lens implants 03/2018 Cyst removal on right foot 04/27/2017 Cerebral aneurysm repair with coil [address] Beltre 01/31/20 Bilateral oopherectomy
== END 2024-12-11 11:47 | disposition home or self-care (01) ==
PROVIDERS: PCP Internal Medicine; Visit Provider Internal Medicine Hypertension Specialist
DX: I70.1 Atherosclerosis of renal artery (principal); N18.30 Chronic kidney disease, stage 3 unspecified; I10 Essential (primary) hypertension
CPT/HCPCS: 99214

== ENCOUNTER → 2024-12-11 11:28 | Outpatient (BNVA) | payer MEDICARE, SELFPAY | PROVIDERS: PCP Internal Medicine; Visit Provider Internal Medicine Hypertension Specialist | DX: I70.1 Atherosclerosis of renal artery (principal); N18.30 Chronic kidney disease, stage 3 unspecified; I10 Essential (primary) hypertension; Z96.89 Presence of other specified functional implants | CPT/HCPCS: 99212 ==

== ENCOUNTER 2025-02-14 13:16 | Outpatient (AMB) | payer MEDICARE, SELFPAY ==
--- NOTE | 2025-02-14 13:17 | A.OFFVIS_ITS ---
Vital Signs 02/14/25 13:18 Height 4 ft 11 in Weight 106 lb 4.205 oz BMI 21.5 BP 126/74 Blood Pressure Location Lt brachial Position Sitting Pulse 54 Pulse Source Monitor Intake Visit Reasons: Chest pain per PCP (NS) [employer] Required: No Accompanied by: Self / Same As Patient Allergies Ylugjtd-MFB-GoE Reductase Inhibitor (BWJEDMQ-HMN-BCM REDUCTASE INHIBITOR) Allergy (Severe, Verified 02/14/25 13:22) TONGUE SWELLING vancomycin Allergy (Severe, Verified 02/14/25 13:22) Rash amoxicillin (AMOXICILLIN) Allergy (Intermediate, Verified 02/14/25 13:22) NAUSEA aspirin (ASA) Allergy (Intermediate, Verified 02/14/25 13:22) FEELING OF PEPPER ON TONGUE atorvastatin (ATORVASTATIN) Allergy (Intermediate, Verified 02/14/25 13:22) FEELING OF PEPPER ON TONGUE fluconazole (FLUCONAZOLE) Allergy (Intermediate, Verified 02/14/25 13:22) FEELING OF PEPPER ON TONGUE irbesartan (IRBESARTAN) Allergy (Intermediate, Verified 02/14/25 13:22) SORE TONGUE,GERD metronidazole (Flagyl) Allergy (Intermediate, Verified 02/14/25 13:22) Rash morphine (MORPHINE) Allergy (Intermediate, Verified 02/14/25 13:22) HIVES oxycodone (OXYCODONE) Allergy (Intermediate, Verified 02/14/25 13:22) RASH pepper (genus Capsicum) (PEPPER) Allergy (Intermediate, Verified 02/14/25 13:22) SENSITIVE TO lisinopril (LISINOPRIL) Allergy (Mild, Verified 02/14/25 13:22) COUGH Iodinated Contrast Media (Contrast Dye) Allergy (Unknown, Verified 02/14/25 13:22) Unknown Tetracyclines (TETRACYCLINES) Adverse Reaction (Intermediate, Verified 02/14/25 13:22) SHAKES lorazepam (From ATIVAN) Adverse Reaction (Mild, Verified 02/14/25 13:22) HALLUCINATIONS Medication List - Last Reconciled 02/14/25 by Shaan Nolasco NP [acetaminophen 1,000 mg PO DAILY PRN] ascorbic acid (vitamin C) 500 mg PO DAILY atenolol 25 mg PO DAILY cetirizine 10 mg PO DAILY cholecalciferol (vitamin D3) 25 mcg PO DAILY clopidogrel 75 mg PO DAILY Held on 11/17/23. Instructions: Resume on 11/24/23. You may resume Plavix 1 week after surgery diltiazem HCl CD (Cardizem CD) 240 mg PO DAILY PRN garlic 2,000 mg PO DAILY glucosamine sulfate (Glucosamine) 500 mg PO BID hydralazine 50 mg PO TID PRN methylprednisolone (Medrol) 32 mg PO BID HPI Comments Details: This is an 79-year-old female patient coming in for complaints of chest discomfort. Patient with a history of diffuse vascular disease- real artery stenosis status post stent, mesenteric stenosis status post stent followed by Nephrology, bilateral carotid stenosis, and peripheral vascular disease following with endovascular Dr. Fish. Patient today is reporting intermittent mid chest discomfort that could occur with rest as well as with exertion. Patient is denying any associated symptoms of shortness of breath, palpitations, dizziness, orthopnea, PND, leg edema, presyncope or syncope. However patient also continues to report of bilateral leg weakness and tiredness with any exertion. Patient is reporting compliance with all her medications except patient is taking hydralazine once daily and as needed for blood pressure as she thinks that her chest pain is from taking the hydralazine 3 times a day. Patient however states that her blood pressures has been in the 120s to 130s. [facility] Medical History Atypical angina CKD (chronic kidney disease) Renal artery stenosis Hx of colon cancer, stage III History of colon cancer Joint pain Afib HTN (hypertension) Surgical History History of carpal tunnel surgery of left wrist (~08/2023) Hx of removal of cyst History of colonoscopy History of surgery History of surgery Hx of cerebral aneurysm repair History of renal angiogram Hx of cataract Family History Father No problems noted. Mother No problems noted. Brother CAD (coronary artery disease) Social History Are you a primary caretaker grounds to a significant other at home: No Do you presently have visiting nurse or other home services: No Patient Tobacco Use Status: Former Tobacco user Tobacco use type: Cigarette Review of Systems Const Denies daytime sleepiness, Denies difficulty sleeping, Denies snoring, Denies stops breathing during sleep and Denies weakness Card Reports chest pain, Denies rapid heart rate, Denies irregular heart rhythm, Denies claudication, Denies leg edema, Denies lightheadedness, Denies palpitations, Denies dyspnea, Denies dyspnea on exertion, Denies orthopnea, Denies paroxysmal nocturnal dyspnea and Denies slow heart rate Resp Denies cough, Denies dyspnea, Denies dyspnea on exertion and Denies snoring GI Reports no additional complaints, Denies hematochezia, Denies change in stool character and Denies dyspepsia Musc Denies abnormal gait, Denies muscle weakness and Denies numbness Neuro Denies abnormal gait, Denies numbness and Denies weakness Endo Denies palpitations Physical Exam Vital Signs: Last Vital Signs Pulse 54 02/14/25 13:18 BP 126/74 02/14/25 13:18 BMI result Body Mass Index 21.5 Const General: cooperative, healthy appearing, comfortable and no acute distress Orientation/consciousness: patient oriented x3 HEENT Head: Yes normal to inspection Neck Neck: Yes normal visual inspection Chest Chest palpation & inspection: normal inspection of the chest Resp Effort & Inspection: normal respiratory effort Auscultation: clear to auscultation bilaterally, no crackles, no rales, no rhonchi and no wheezes Cardio Palpation: normal PMI Rate: bradycardic Rhythm: regular rhythm Heart sounds: S1 normal heart sound present, S2 normal heart sound present, no click, no gallops, no murmurs and no rubs Peripheral pulses: Peripheral pulses 2+ throughout GI Inspection: Yes normal to inspection Palpation (GI): Soft to palpation Auscultation: normal bowel sounds Skin General skin exam: no rashes or lesions noted Neuro General: patient oriented x3 Extrem General: Yes normal to inspection, No no pedal edema and No calf tenderness Psych Appearance: grossly normal Mental Status: mental status grossly normal Speech and movement: Normal speech and movement present Office Procedures EKG Details: EKG today showed sinus bradycardia with PAC, rate 54 beats per minute, nonspecific ST wave, [place], [place]. [id number], Complete Assessment & Plan Assessment & Plan (1) Chest pain: Code(s): R07.9 - Chest pain, unspecified Category: Medical Plan: History of diffuse atherosclerotic vascular disease. Given her reports of chest discomfort even though atypical, is concerning for coronary artery disease and therefore we will get a coronary CTA for further evaluation. Patient had a stress test back in 2021 that was normal. We will also get an echo cardiogram to look for LV systolic and diastolic dysfunction as well as wall motion abnormalities. Continue Plavix for full anticoagulation. No reported signs of bleeding. Continue with the atenolol, diltiazem, and hydralazine. Most recent LDL at 101, has intolerance to statins. We discussed about need for PCSK9 inhibitor in case of elevated LDL. Ideally LDL goal less than 70. We will update this. Further treatment plans based on findings. (2) Atherosclerotic cardiovascular disease: Code(s): I25.10 - Atherosclerotic heart disease of ruby coronary artery without angina pectoris Category: Medical Plan: Recently underwent ultrasound of kidneys and mesenteric artery showing patent stents. Bilateral carotids showing moderate disease. Follows with Dr. Fish for peripheral vascular disease. Given her reports of ongoing bilateral leg weakness and tiredness, I have reached out to Dr. Fish via tiger text for concerns of claudication. (3) HTN (hypertension): Code(s): I10 - Essential (primary) hypertension Category: Medical Plan: Blood pressure today is well-controlled. Continue current regimen. Ideally, blood pressure goal less than 130/80. Advised on low-salt diet. Advised on heart healthy diet, med compliance, and management of vascular risk factors. Follow up of the testings. In the interim, patient will call the office with any concerns or change in symptoms. Advised to seek ER care in case of exertional chest pain not resolved with rest. This note was generated using voice recognition software. While every effort has been made to ensure accuracy and proper service cleaner, there may be occasional errors that could affect the content or meaning of the described symptoms. Orders: Orders AMB EKG-In Office Today Shaan Nolasco NP R07.9 - Chest pain, unspecified Lipid Panel Today Shaan Nolasco NP I25.10 - Atherosclerotic heart disease of ruby coronary artery without angina pectoris Medications: Changed From hydralazine 50 mg PO TID 270 tabs 3RF To hydralazine 50 mg PO TID PRN Lusi Conley MD Coding Level of Care Code Est Pt Level 4 (75261) Add On Problem Visit Only Diagnoses Chest pain R07.9 Atherosclerotic cardiovascular disease I25.10 HTN (hypertension) I10 CPT Codes EKG - CPT: 03671-Clyqehntnhsemflqy, Complete ([id number]) Time Spent (min) 35 Comment Time spent in reviewing the chart, test results, assessment, counseling and documentation.
[2025-02-14 13:18] VITALS: BP 126/74; PULSE 54; BMI 21.5
== END 2025-02-14 13:58 | disposition home or self-care (01) ==
LOC: HO.HCS 13:16
PROVIDERS: PCP Internal Medicine
DX: R07.9 Chest pain, unspecified (principal); I25.10 Atherosclerotic heart disease of native coronary artery without angina pectoris; I10 Essential (primary) hypertension
CPT/HCPCS: 93010; 99214; G2211

== ENCOUNTER → 2025-02-14 13:16 | Outpatient (BNVA) | payer MEDICARE, SELFPAY | PROVIDERS: PCP Internal Medicine | DX: I25.10 Atherosclerotic heart disease of native coronary artery without angina pectoris (principal); R07.89 Other chest pain; I10 Essential (primary) hypertension; Z79.01 Long term (current) use of anticoagulants; Z79.899 Other long term (current) drug therapy; Z87.891 Personal history of nicotine dependence | CPT/HCPCS: 93005; 99212 ==